=== PATIENT | female | born 1960 | race Caucasian/White ===

== ENCOUNTER 2023-08-12 15:59 | Emergency (ER) | payer BC, OTHER, SELFPAY ==
[2023-08-12 16:06] VITALS: BP 128/74
--- NOTE | 2023-08-12 18:36 | ED.GENMED ---
History of Present Illness
General
Chief Complaint: Musculo-Skeletal Complaint
Source: patient
Exam Limitations: none
Time Seen by Provider: 08/12/23 18:05
Nursing documentation reviewed up to this point in time: agreed with
Travel History
Have you had any contact with someone who has COVID-19?: No
Do you have any symptoms of coronavirus? Fever > 100 degrees, chills, cough, shortness of breath, sore throat, loss of taste or smell, muscle aches, or headache?: No
History of Present Illness
History of Present Illness:
62-year-old female brought to the ER by . reports patient went to sit on the toilet and felt a pop in her right knee unable to bear full weight. Patient is disabled legally blind. Patient does walk around on her own and holds the
cardozo to maneuver in her house. reports he also noticed that her right lower leg is red for the past week. She has not had any fevers.
Past History
Past History
ED Past Medical History: Asthma, CHF (Mild to moderate aortic stenosis, preserved EF.), COPD, GERD, HTN, Hypercholesterolemia, IDDM, Renal failure (Chronic kidney disease stage III), Psychiatric (depression) and Other (PNA, Diverticulitis, Renal
calculus, glaucoma, blind, morbid obesity)
ED Past Surgical History: Orthopedic (Knee surgery, ) and Other (Sinus surgery, left eye surgery)
Social History
Tobacco: Former smoker (30 yrs ago)
Alcohol: None
Drug: None
Personal:
Living: with family
Employment: Employed
Family History
Family History: Hypertension
Review of Systems
Review of Systems
Allergies reviewed?: Yes
All Other Systems: ROS reviewed and negative except as documented in HPI and ROS
Constitutional: Reports no symptoms; Denies fever, fatigue or chills
Musculoskeletal: Reports other (right knee pain/injury /redness to right lower leg x 1 week)
Skin: Reports other (redness to right knee )
Neurological: Reports no symptoms
Hematologic/Lymphatic: Reports no symptoms
Psychiatric: Reports no symptoms
Phy Exam
General Physical Exam
General Presentation: no apparent distress
General age: appears stated age
General Skin: warm and dry
General Habitus: elderly
General Mental: alert
General Hydration: appears well hydrated
Neurological Exam
Neurological Exam: alert and oriented x3
Musculoskeletal Exam
Musculoskeletal Exam: other (Right lower extremity strong pulses patient has minimal swelling to right knee able to flex and extend good range of motion mildly tender to anterior aspect. Patient's right lower leg with minimal swelling which has not
reports has been there for the past week along with redness.)
Skin Exam
Skin Exam: normal color and warm/dry
Psychiatric Exam
Psychiatric Exam: normal mood/affect
Course
Orders/Labs/Results
Orders:
Orders
08/12/23 16:11
Knee, Right 4 or More Views [CR Knee- Right 4 Or More View*] Urgent
Comment: c/o increase pain to right knee
Reason For Exam: heard pop in knee when sitting down on saturday
08/12/23 18:35
Acetaminophen [Tylenol] 650 mg PO NOW STA
Venous Doppler Lwr Ext Rt [US Periph Venous LOWER Ext RT] Urgent
Comment:
Reason For Exam: swelling
08/12/23 18:36
Tramadol HCl [Ultram] 50 mg PO NOW STA
08/12/23 20:17
Doxycycline [Vibramycin] 100 mg PO NOW STA
Vital Signs
Initial and Last Documented VS:
Initial Vital Signs
Temp Pulse Resp BP Pulse Ox
98.2 F 86 16 128/74 98
08/12/23 16:06 08/12/23 16:06 08/12/23 16:06 08/12/23 16:06 08/12/23 16:06
Last Documented Vital Signs
Temp Pulse Resp BP Pulse Ox
98.2 F 86 16 128/74 98
08/12/23 16:06 08/12/23 16:06 08/12/23 16:06 08/12/23 16:06 08/12/23 16:06
Die Cast Patternmaker consulted with Physician
Die Cast Patternmaker consulted with physician?: Yes
Name of Physician Consulted: DR hawkins
MDM/Problems Addressed
MDM/Problems Addressed:
Patient injured her knee while sitting down felt a pop and heard a pop in her right knee. She in addition has right lower extremity redness that has been solved. Patient is legally blind and was not aware. Redness has been there for 1 week.
Patient denies any fever or chills. He reports she is at baseline. Regarding redness and mild swelling to right lower leg will check ultrasound if ultrasound negative will start on antibiotics for mild cellulitis. Patient is afebrile no reports
of fevers at home. Patient is nontoxic. Regarding knee injury there is a small right knee joint effusion on x-ray minimal osteoarthritis. Will place in an immobilizer and DC with Ortho follow-up.
2022: Ultrasound negative for DVT ultrasound report also reads 1.6 fluid collection soft tissue of the right lower leg. Pt nontoxic no fevers afebrile will DC with doxycycline for likely cellulitis however I discussed with patient and that
she will need close outpatient follow-up with ortho and with pcp for re-eval of rle cellulitis. Discussed to return any worsening symptoms
*Radiology
Radiology exam reviewed: radiology read reviewed
*Pulse Oximetry
Patient hypoxic: no
*Critical Care Note
Total Time (30-74mins, 75-104mins- exclusive of procedures): Not Applicable
ED Attending Note
-
Portions of this chart may have been created with voice recognition software.� Occasional wrong word or��sound alike� substitutions may have occurred due to the inherent limitations of voice recognition software.
Discharge Plan
Departure
Patient Disposition: Home (Routine Discharge)
Date of Disposition: 08/12/23
Time of Disposition: 20:28
Patient with high blood pressure during this ER visit?: No
Condition: Fair
Covid-19: Not Applicable
Discharge Problem:
Knee sprain, Cellulitis
Instructions: Knee Immobilizer (DC), Cellulitis (Skin Infection), Adult (DC), Knee Pain (DC)
Prescriptions:
New
doxycycline hyclate 100 mg capsule
100 mg PO BID Qty: 20 0RF
No Action
cetirizine-pseudoephedrine [Zyrtec-D] 5-120 mg Tablet Extended Release 12 Hr
1 tab PO BID
tramadol 50 mg Tablet
50 mg PO HSPRN PRN (Reason: neuropathy)
Patient Comments:
06/10/23 filled on 03/07/23 #15
lorazepam 0.5 mg Tablet
0.5 mg PO BIDPRN PRN (Reason: Anxiety)
Patient Comments:
06/10/23 filled on 05/01/23 #38
divalproex [Depakote] 125 mg Tablet,Delayed Release (Dr/Ec)
125 mg PO BID
omeprazole 20 mg Capsule,Delayed Release(Dr/Ec)
20 mg PO BID
escitalopram oxalate 10 mg Tablet
15 mg PO DAILY
aripiprazole [Abilify] 5 mg Tablet
5 mg PO DAILY
pregabalin [Lyrica] 150 mg Capsule
150 mg PO TID
Patient Comments:
06/10/23 filled on 04/24/23 #60
prescription is written bid but patient takes it tid.
insulin aspart U-100 [Novolog FlexPen U-100 Insulin] 100 unit/mL (3 mL) insulin pen
0 sliding scale dose SC AC
miconazole nitrate [Miconazorb AF] 2 % Powder
1 applic topical BID Qty: 85 0RF
Patient Comments:
06/10/23 patient applies powder to folds and under breasts
atorvastatin 40 mg Tablet
40 mg PO DAILY
furosemide 20 mg Tablet
60 mg PO BID AT 0800,1600 30 Days Qty: 180 0RF
albuterol sulfate 2.5 mg /3 mL (0.083 %) Solution For Nebulization
2.5 mg INHALATION R Q6HPRN PRN (Reason: SOB) 30 Days Qty: 180 0RF
acetaminophen [Tylenol] 325 mg Tablet
650 mg PO TID
ipratropium-albuterol 0.5 mg-3 mg(2.5 mg base)/3 mL Solution For Nebulization
3 ml INHALATION R Q6HPRN PRN (Reason: sob)
candesartan 4 mg Tablet
4 mg PO DAILY
benzonatate 100 mg Capsule
100 mg PO TIDPRN PRN (Reason: cough)
Patient Comments:
06/10/23 there are no pharmacy records or ecw to confirm this medication.
bisacodyl [Dulcolax (bisacodyl)] 5 mg Tablet,Delayed Release (Dr/Ec)
5 mg PO DAILYPRN PRN (Reason: constipation)
ergocalciferol (vitamin D2) [Vitamin D2] 1,250 mcg (50,000 unit) Capsule
1,250 mcg PO MO
Vicks DayQuil Cough 5 mg/5 mL Syrup
10 mg PO BID
Levemir U-100 Insulin 100 unit/mL Solution
45 unit SC BID
melatonin 10 mg Tablet
10 mg PO HS
fluticasone furoate-vilanterol [Breo Ellipta] 200-25 mcg/dose Blister With Device
1 inh INHALATION R BID
albuterol sulfate 90 mcg/actuation Aerosol Powdr Breath Activated
2 inh INHALATION R Q6HPRN PRN (Reason: sob)
amlodipine 10 mg tablet
5 mg PO DAILY
fluticasone propionate [Flonase Allergy Relief] 50 mcg/actuation spray,suspension
1 spray intranasal QPM
guaifenesin 600 mg tablet extended release 12hr
600 mg PO BID
Referrals:
Pako,Perry Matthew, MD [Family Provider] -
Alonso Chamberlain MD [Active] -
Activity Restrictions/Additional Instructions:
As discussed for knee sprain strain injury. You may ice affected area for the first 24 hours 20 minutes at a time several times a day. Keep elevated as much as possible. You may take Tylenol as needed along with your tramadol. Wear immobilizer
for support but remove at night while sleeping. Follow-up with orthopedics in the next several days. call tomorrow to make an appointment.
For cellulitis(skin infection of lower leg): Antibiotic twice a day for the next 10 days. This medication, doxycycline was sent to your pharmacy. Take as directed. You must however follow-up with your family doctor in the next 2 days for
reevaluation of this area. Return if any worsening of symptoms including increasing redness swelling pain red streaking fever chills or any further concerns.
Interventions
Interventions:
*Risk Screen - Suicide Last Done: 08/12/23 17:25
*General Assessment Last Done: 08/12/23 17:25
*Neglect/Abuse Screening Last Done: 08/12/23 18:51
*ED COVID-19 Vaccine History Last Done: 08/12/23 16:06
ED-Musculoskeletal Assessment Last Done: 08/12/23 17:25
[2023-08-12] MEDS: TYLENOL 650 MG PO (18:44)
[2023-08-12] MEDS: ULTRAM 50 MG PO (18:45)
[2023-08-12] MEDS: VIBRAMYCIN 100 MG PO (20:42)
[2023-08-12 20:50] VITALS: BP 140/63
== END 2023-08-12 20:50 | disposition home or self-care (01) ==
LOC: EMR 15:59
PROVIDERS: EMERGENCY PHYSICIAN Student in an Organized Health Care Education/Training Program; FAMILY PHYSICIAN Internal Medicine
DX: S83.91XA Sprain of unspecified site of right knee, initial encounter (principal); X58.XXXA Exposure to other specified factors, initial encounter; Y93.89 Activity, other specified; L03.115 Cellulitis of right lower limb; M17.11 Unilateral primary osteoarthritis, right knee; H54.8 Legal blindness, as defined in USA; I13.0 Hypertensive heart and chronic kidney disease with heart failure and stage 1 through stage 4 chronic kidney disease, or unspecified chronic kidney disease; I50.9 Heart failure, unspecified; E11.22 Type 2 diabetes mellitus with diabetic chronic kidney disease; N18.30 Chronic kidney disease, stage 3 unspecified; E11.40 Type 2 diabetes mellitus with diabetic neuropathy, unspecified; I35.0 Nonrheumatic aortic (valve) stenosis; K21.9 Gastro-esophageal reflux disease without esophagitis; E78.00 Pure hypercholesterolemia, unspecified; F32.A Depression, unspecified; J44.9 Chronic obstructive pulmonary disease, unspecified; E66.01 Morbid (severe) obesity due to excess calories; K57.92 Diverticulitis of intestine, part unspecified, without perforation or abscess without bleeding; M79.7 Fibromyalgia; Z79.4 Long term (current) use of insulin; Z87.891 Personal history of nicotine dependence; Z87.442 Personal history of urinary calculi; Z88.0 Allergy status to penicillin; Z88.8 Allergy status to other drugs, medicaments and biological substances; Z88.1 Allergy status to other antibiotic agents; Z88.3 Allergy status to other anti-infective agents; Z91.040 Latex allergy status
CPT/HCPCS: 99284; 73564; 93971

== ENCOUNTER → 2023-09-21 07:11 | Outpatient (REF) | payer BC, OTHER, SELFPAY | LOC: MRI 07:11 | PROVIDERS: ATTENDING PHYSICIAN Physician Assistant; FAMILY PHYSICIAN Internal Medicine | DX: M23.91 Unspecified internal derangement of right knee (principal) | CPT/HCPCS: 73721 ==

== ENCOUNTER 2023-10-14 19:07 | Inpatient (IN) | payer BC, OTHER, SELFPAY ==
[2023-10-14] VITALS (9 sets, daily range): BP systolic 84–156; BP diastolic 44–90; PULSE 2–89; BMI 44.0
[2023-10-14 16:13] LABS: Glucose - Point of Care 87 mg/dl (70-99)
[2023-10-14 16:13] LABS: % Basophils 0.6 % (0-2); % Eosinophils 2.7 % (0-6); % Immature Granulocytes 0.5 % (0-0.5); % Lymphocytes 10.6 % (20.5-51.1); % Monocytes 8.9 % (1.7-9.3); % Neutrophils 76.7 % (42.2-75.2); Absolute Basophils 0.1 10^3/uL (0-0.2); Absolute Eosinophils 0.4 10^3/uL (0-0.7); Absolute Immature Granulocytes 0.1 10^3/uL (0-0.05); Absolute Lymphocytes 1.6 10^3/uL (1.2-3.4); Absolute Monocytes 1.4 10^3/uL (0.1-0.6); Absolute Neutrophils 11.7 10^3/uL (1.4-6.5); Hematocrit 36.8 % (37.0-47.0); Hemoglobin 11.1 g/dL (12.0-16.0); Mean Corp Hgb Conc. 30.2 g/dL (33.0-37.0); Mean Corpuscular Hgb 24.4 pg (27.0-31.0); Mean Corpuscular Volume 81.1 fL (81.0-99.0); Nucleated Red Blood Cells % 0.2 %; Platelet Count 450 10^3/uL (130-400); Red Blood Cell Count 4.54 10^6/uL (4.20-5.40); White Blood Cell Count 15.2 10^3/uL (4.8-10.8)
[2023-10-14 16:25] LABS: Venous Blood Gas B.E. 3.5 mmol/L (-4 to +4); Venous Blood Gas HCO3 29.5 mmol/L (22-27); Venous Blood Gas O2 Sat % 79.8 %; Venous Blood Gas pCO2 51 mmHg (35-48); Venous Blood Gas pH 7.37 (7.32-7.43); Venous Blood Gas pO2 49 mmHg (30-50)
--- NOTE | 2023-10-14 16:25 | EDRN ---
this RN notified the provider Aman MCNEIL that the pt is currently on 6L NC and the pts Sp02 is 88-90%, this RN will continue to monitor the pt closely
--- NOTE | 2023-10-14 16:34 | EDRN ---
Aman MCNEIL currently at the pts bedside, per provider respiratory is to be notified and provider wants the pt on Bipap, this RN will notify respiratory, the pt is currently still on 6L NC Sp02 88%
--- NOTE | 2023-10-14 16:36 | ED.GENMED ---
History of Present Illness
<Aman Daly PA-C - Last Filed: 10/14/23 17:55>
General
Chief Complaint: Breathing Problem
Source: patient and spouse
Time Seen by Provider: 10/14/23 16:18
Travel History
Have you had any contact with someone who has COVID-19?: No
Do you have any symptoms of coronavirus? Fever > 100 degrees, chills, cough, shortness of breath, sore throat, loss of taste or smell, muscle aches, or headache?: No
History of Present Illness
History of Present Illness:
62-year-old female with past medical history of COPD, hypertension, hyperlipidemia, CAD, diabetes presenting to the emergency department via EMS from home after her had contacted EMS due to progressively worsening shortness of breath over
the last week or so, today significantly worse and unable to improve with inhalers at home accompanied with persisting cough, chills and scant sputum production. patient increased her Lasix from 60 mg twice daily to 80 mg twice daily over the last
week and a half without much relief. She notes previous admissions for COPD exacerbations in the past but has never been on BiPAP nor intubated. EMS reports that on their arrival to patient's house they found her to have a pulse ox of 76% on room
air and was treated with 125 mg of Solu-Medrol. While on the way to the emergency department patient did note some chest discomfort and was treated with an additional 324 mg of aspirin. She is currently denying chest pain presently.
Past History
<Aman Daly PA-C - Last Filed: 10/14/23 17:55>
Past History
ED Past Medical History: Asthma, CHF (Mild to moderate aortic stenosis, preserved EF.), COPD, GERD, HTN, Hypercholesterolemia, IDDM, Renal failure (Chronic kidney disease stage III), Psychiatric (depression) and Other (PNA, Diverticulitis, Renal
calculus, glaucoma, blind, morbid obesity)
ED Past Surgical History: , Orthopedic (Knee surgery, ) and Other (Sinus surgery, left eye surgery)
Social History
Tobacco: Former smoker (30 yrs ago)
Alcohol: None
Drug: None
Personal:
Living: with family
Employment: Employed
Family History
Family History: Hypertension
Review of Systems
<Aman Daly PA-C - Last Filed: 10/14/23 17:55>
Review of Systems
All Other Systems: ROS reviewed and negative except as documented in HPI and ROS
Phy Exam
<Aman Daly PA-C - Last Filed: 10/14/23 17:55>
Physical Exam
Physical Exam:
GENERAL: Alert , Appears very uncomfortable and having a difficult time speaking so patient's was giving most of the history, appeared dyspneic following 1 sentence
EYE: clear conjunctiva b/l
HEAD: NCAT
ENT: o/p clr, mmm.
CARDIAC: Borderline tachycardic rate and rhythm, no murmur
LUNGS: Diffuse wheezing with rhonchorous lung sounds throughout patient, tachypneic, accessory muscle use, difficult time speaking in full sentences short
ABDOMEN: Soft, distended, no r/g, no cvat
NEUROLOGICAL: Alert and oriented
SKIN: Warm and dry, skin intact.
MUSCULOSKELETAL: Trace ankle edema, well perfused.
PSYCH: Normal and appropriate interaction.
Scores
<Aman Daly PA-C - Last Filed: 10/14/23 17:55>
Heart Failure Risk
Heart Failure Risk Score: Yes
History of Stroke or TIA: No
History of intubation for respiratory distress: No
Heart rate on ED arrival >/= 110: No
SaO2 <90% on arrival on room air: Yes
HR >/=110 during 3min walk test (or too ill to perform test): Yes
ECG has acute ischemic changes: No
Urea >/=12mmol/L (BUN 33.6mg/dL): No
Serum CO2>/=35mmol/L: No
Troponin I or T elevated to [place] Level (0.4mg/dL): No
NT-proBNP >/=5,000ng/L (5,000pg/ml): No
HF Risk Score: 3
Admission Status: HIGH RISK 15.9% Consider SNF treatment or admission to hospital
Heart Score for Chest Pain Patients
STEMI patient?: Not applicable
Withdrawal Assessment of Alcohol
Withdrawal Assessment Completed?: Not applicable
<Jameson Ramirez MD - Last Filed: 10/14/23 21:33>
Heart Failure Risk
HF Risk Score: 3
Admission Status: HIGH RISK 15.9% Consider SNF treatment or admission to hospital
Course
<Aman Daly PA-C - Last Filed: 10/14/23 17:55>
Orders/Labs/Results
Orders:
Orders
10/14/23 15:59
Electrocardiogram (*1) Urgent
Reason for Study: Shortness of Breath
EKG- Treatment ONCE
10/14/23 16:01
Complete Blood Count/With Diff Urgent
10/14/23 16:16
Venous Blood Gas Urgent
%Oxygen/Room Air: 88
Comment: on 6L
10/14/23 16:33
Bipap [RESP] Urgent
Patient to use own unit?: No
Inspiratory Pressure (cm H2O): 14
Expiratory Pressure (cm H2O): 6
10/14/23 16:34
Furosemide [Lasix] 40 mg IV NOW STA
Ipratropium/Albuterol Sulfate [Duoneb] 3 ml INH R NOW STA
CR Chest Portable - 1 View Urgent
Comment:
Reason For Exam: SOB, hypoxia
Reason Study Needs to be Portable: Patient Unstable
10/14/23 17:01
Comprehensive Metabolic Panel Urgent
Lactic Acid Q4H
Comment: CANCEL 2nd LACTIC ACID IF 1st LACTIC ACID IS LESS THAN 2
NT-proBNP Urgent
Troponin I Urgent
Blood Culture Q30M
HASEEB Source: Blood/Venous
Specimen Description:
Blood Culture Q30M
HASEEB Source: Blood/Venous
Specimen Description:
10/14/23 17:28
Aztreonam [Azactam] 2,000 mg IV NOW STA
10/14/23 17:43
COVID-19 Antigen Urgent
Source: Nasal Swab
Influenza A+B Rapid Molecular Urgent
HASEEB Source: Nasal Swab
Specimen Description:
10/14/23 17:45
Sterile Water [Sterile Water For Injection] 10 ml .ROUTE .[facility]
10/14/23 17:51
Vancomycin [Vancocin] 2,000 mg 0.9% Sodium Chloride 500 ml [Nss] 500 ml IV NOW
10/14/23 18:15
PULMONARY CONSULT Routine
Consulting Provider: Ned Soria
Was physician already notified: Yes
10/14/23 18:17
Admit/Transfer Patient As Directed
Co-Sign Provider:
Level of Care: Inpatient admission
Assign to:: IMU- Intermediate Care
Physician / Group: laura will
Diagnosis: acute hypoxic respiratory failure
Reason for Hospitalization: accute respiratory failure
Expected length of stay greater than two midnights?: Yes
ELOS- Estimated Length of Stay in days: 3
I certify the patient meets the requirements for IP care: Yes
10/14/23 18:19
Add On- LAB Urgent
Tests Added?: procalcitonin
Code Status As Directed
Resuscitation Status: Full Code
10/14/23 18:[address] [CT Chest With Iv Contrast] Routine
Comment:
Reason For Exam: sob
10/14/23 18:38
UA Reflex to Culture [Urinalysis Reflex To Culture] Urgent
Bladder Scan As Directed
Follow Bladder Retention/Intermittent Cath Algorithm?: Yes
PRN if no void in __ hours: 6
Frequency: Per Retention Algorithm
If Bladder Scan Result >: 400
then:: Straight cath
Straight Cath As Directed
Frequency: Per Retention Algorithm
Additional Instructions: straight cath as needed per acute urinary retention algorithm for 24 hrs
Additional Instructions: for bladder scan greater than 400 mL
10/14/23 21:09
Procalcitonin Urgent
Comment: MUST BE COLLECT - CAN NOT ADD ON
Abnormal Lab Results
10/14/23 10/14/23 10/14/23
16:01 16:16 17:01
WBC 15.2 H 10^3/uL
(4.8-10.8)
Hgb 11.1 L g/dL
(12.0-16.0)
Hct 36.8 L %
(37.0-47.0)
MCH 24.4 L pg
(27.0-31.0)
MCHC 30.2 L g/dL
(33.0-37.0)
RDW 19.0 H %
(11.5-14.5)
Plt Count 450 H 10^3/uL
(130-400)
MPV 11.0 H fL
(7.4-10.4)
Abs Immat Gran (auto) 0.1 H 10^3/uL
(0-0.05)
Absolute Neuts (auto) 11.7 H 10^3/uL
(1.4-6.5)
Absolute Monos (auto) 1.4 H 10^3/uL
(0.1-0.6)
Neutrophils % 76.7 H %
(42.2-75.2)
Lymphocytes % 10.6 L %
(20.5-51.1)
VBG pCO2 51 H mmHg
(35-48)
VBG HCO3 29.5 H mmol/L
(22-27)
BUN 31 H mg/dl
(7-17)
Creatinine 1.6 H mg/dL
(0.6-1.0)
Glucose 125 H mg/dl
(70-99)
10/14/23 16:01
10/14/23 17:01
Vital Signs
Initial and Last Documented VS:
Initial Vital Signs
Temp Pulse Resp BP Pulse Ox
37.0 C 98 22 139/44 91
10/14/23 16:02 10/14/23 16:02 10/14/23 16:02 10/14/23 16:02 10/14/23 16:02
Last Documented Vital Signs
Temp Pulse Resp BP Pulse Ox
36.9 C 77 16 156/66 97
10/14/23 18:37 10/14/23 21:00 10/14/23 21:00 10/14/23 21:00 10/14/23 20:45
Full Stack Php Developer consulted with Physician
Full Stack Php Developer consulted with physician?: Yes
Name of Physician Consulted: Ashley
<Jameson Ramirez MD - Last Filed: 10/14/23 21:33>
Orders/Labs/Results
Orders:
Orders
10/14/23 15:59
Electrocardiogram (*1) Urgent
Reason for Study: Shortness of Breath
EKG- Treatment ONCE
10/14/23 16:01
Complete Blood Count/With Diff Urgent
10/14/23 16:16
Venous Blood Gas Urgent
%Oxygen/Room Air: 88
Comment: on 6L
10/14/23 16:33
Bipap [RESP] Urgent
Patient to use own unit?: No
Inspiratory Pressure (cm H2O): 14
Expiratory Pressure (cm H2O): 6
10/14/23 16:34
Furosemide [Lasix] 40 mg IV NOW STA
Ipratropium/Albuterol Sulfate [Duoneb] 3 ml INH R NOW STA
CR Chest Portable - 1 View Urgent
Comment:
Reason For Exam: SOB, hypoxia
Reason Study Needs to be Portable: Patient Unstable
10/14/23 17:01
Comprehensive Metabolic Panel Urgent
Lactic Acid Q4H
Comment: CANCEL 2nd LACTIC ACID IF 1st LACTIC ACID IS LESS THAN 2
NT-proBNP Urgent
Troponin I Urgent
Blood Culture Q30M
HASEEB Source: Blood/Venous
Specimen Description:
Blood Culture Q30M
HASEEB Source: Blood/Venous
Specimen Description:
10/14/23 17:28
Aztreonam [Azactam] 2,000 mg IV NOW STA
10/14/23 17:43
COVID-19 Antigen Urgent
Source: Nasal Swab
Influenza A+B Rapid Molecular Urgent
HASEEB Source: Nasal Swab
Specimen Description:
10/14/23 17:45
Sterile Water [Sterile Water For Injection] 10 ml .ROUTE .[facility]
10/14/23 17:51
Vancomycin [Vancocin] 2,000 mg 0.9% Sodium Chloride 500 ml [Nss] 500 ml IV NOW
10/14/23 18:15
PULMONARY CONSULT Routine
Consulting Provider: Ned Soria
Was physician already notified: Yes
10/14/23 18:17
Admit/Transfer Patient As Directed
Co-Sign Provider:
Level of Care: Inpatient admission
Assign to:: IMU- Intermediate Care
Physician / Group: laura will
Diagnosis: acute hypoxic respiratory failure
Reason for Hospitalization: accute respiratory failure
Expected length of stay greater than two midnights?: Yes
ELOS- Estimated Length of Stay in days: 3
I certify the patient meets the requirements for IP care: Yes
10/14/23 18:19
Add On- LAB Urgent
Tests Added?: procalcitonin
Code Status As Directed
Resuscitation Status: Full Code
10/14/23 18:[address] [CT Chest With Iv Contrast] Routine
Comment:
Reason For Exam: sob
10/14/23 18:38
UA Reflex to Culture [Urinalysis Reflex To Culture] Urgent
Bladder Scan As Directed
Follow Bladder Retention/Intermittent Cath Algorithm?: Yes
PRN if no void in __ hours: 6
Frequency: Per Retention Algorithm
If Bladder Scan Result >: 400
then:: Straight cath
Straight Cath As Directed
Frequency: Per Retention Algorithm
Additional Instructions: straight cath as needed per acute urinary retention algorithm for 24 hrs
Additional Instructions: for bladder scan greater than 400 mL
10/14/23 21:09
Procalcitonin Urgent
Comment: MUST BE COLLECT - CAN NOT ADD ON
Abnormal Lab Results
10/14/23 10/14/23 10/14/23
16:01 16:16 17:01
WBC 15.2 H 10^3/uL
(4.8-10.8)
Hgb 11.1 L g/dL
(12.0-16.0)
Hct 36.8 L %
(37.0-47.0)
MCH 24.4 L pg
(27.0-31.0)
MCHC 30.2 L g/dL
(33.0-37.0)
RDW 19.0 H %
(11.5-14.5)
Plt Count 450 H 10^3/uL
(130-400)
MPV 11.0 H fL
(7.4-10.4)
Abs Immat Gran (auto) 0.1 H 10^3/uL
(0-0.05)
Absolute Neuts (auto) 11.7 H 10^3/uL
(1.4-6.5)
Absolute Monos (auto) 1.4 H 10^3/uL
(0.1-0.6)
Neutrophils % 76.7 H %
(42.2-75.2)
Lymphocytes % 10.6 L %
(20.5-51.1)
VBG pCO2 51 H mmHg
(35-48)
VBG HCO3 29.5 H mmol/L
(22-27)
BUN 31 H mg/dl
(7-17)
Creatinine 1.6 H mg/dL
(0.6-1.0)
Glucose 125 H mg/dl
(70-99)
10/14/23 16:01
10/14/23 17:01
Vital Signs
Initial and Last Documented VS:
Initial Vital Signs
Temp Pulse Resp BP Pulse Ox
37.0 C 98 22 139/44 91
10/14/23 16:02 10/14/23 16:02 10/14/23 16:02 10/14/23 16:02 10/14/23 16:02
Last Documented Vital Signs
Temp Pulse Resp BP Pulse Ox
36.9 C 77 16 156/66 97
10/14/23 18:37 10/14/23 21:00 10/14/23 21:00 10/14/23 21:00 10/14/23 20:45
<Aman Daly PA-C - Last Filed: 10/14/23 17:55>
MDM/Problems Addressed
Differential Diagnosis Includes:
COPD, CHF, pneumonia, viral syndrome
MDM/Problems Addressed:
62-year-old female presenting emergency department for evaluation of acute shortness of breath that has been gradually worsening over the last couple of days, normally does not require any oxygen but was found to be 76% on room air. Patient maxed
out on nasal cannula here with oxygen saturation still in the mid 80s. Having a difficult time speaking full sentences, tachypneic with significant rhonchorous lung sounds with wheezing. Will place on BiPAP for comfort. Lab work had been
initiated in triage which shows a leukocytosis and leftward shift. Lactic acid and blood cultures were added on. Anticipate admission for respiratory failure.
Chronic conditions affecting care: COPD
Acute Exacerbation and/or Progression of Chronic Illness: COPD
<Aman Daly PA-C - Last Filed: 10/14/23 17:55>
*Radiology
Radiology exam reviewed: preliminary read by ED provider (Patchy pneumonia)
*Pulse Oximetry
Patient hypoxic: yes
*EKG
Interpreted by ED Provider?: Yes
Comparison EKG: changes noted
Heart Rate: 91
Rate: normal
Rhythm: sinus
Ischemia: T-wave inversion (V5-V6)
*Brick Setter Interpretation
Rate: tachycardiac
Rhythm: sinus
*Critical Care Note
Total Time (30-74mins, 75-104mins- exclusive of procedures): 35
comment:
Critical care statement: A total of 35 minutes of critical care time was provided for this patient. This includes management of unstable vital signs, evaluation of the patient at bedside, reviewing the patient's pertinent medical records, discussion
with consultants, review of old EKGs and review of pertinent medical records. This time with separate from time utilized to perform the aforementioned documented procedures
Data Reviewed
Review of Other/Old Records Reveals: Labs and Records
Source: patient, records and spouse
<Aman Daly PA-C - Last Filed: 10/14/23 17:55>
Patient Management
Discussion with other providers: Hospitalist
Escalation/DeEscalation of care consider admission/obs:
Patient's x-ray is consistent with pneumonia. Antibiotics ordered. Patient states she feels much better on BiPAP presently. Her respiratory rate has significantly improved and she is able to speak in full sentences without being extremely just.
Hospitalist team to admit for continued evaluation and treatment of pneumonia, COPD exacerbation and respiratory failure
ED Attending Note
<Aman Daly PA-C - Last Filed: 10/14/23 17:55>
-
Portions of this chart may have been created with voice recognition software.� Occasional wrong word or��sound alike� substitutions may have occurred due to the inherent limitations of voice recognition software.
<Jameson Ramirez MD - Last Filed: 10/14/23 21:33>
ED Attending Note
Patient seen and examined by attending physician: Yes
ED Attending Note:
I have seen and evaluated the patient with a [id number] encounter. I have spoken to the advance practicer provider and involved in the medical history, the physical exam, medical decision making.
Evaluation and management service: agree unless noted differently below.
Results interpretation: agree unless noted differently below.
Focused HPI: 62-year-old female with extensive medical history including COPD, CHF, CAD, obesity, diabetes who presents to the emergency room via EMS in mild respiratory distress. She says she has had increasing shortness of breath over the past
week. Today symptoms much worse. EMS called to bring to the hospital. Apparently was hypoxic for EMS. She did have wheezing was given a DuoNeb and was given IV Solu-Medrol from EMS. He on arrival she continues to pain or shortness of breath.
She says she has had a hacking cough. Subjective chills. She has no increased edema in her legs but feels that she has some abdominal wall edema.
Physical exam: Awake and alert. Tachypneic, hypoxic currently on 6 L nasal cannula at 89%; she is tachycardic; normotensive; afebrile; she has diffuse Rales bilaterally on lung auscultation. No cardiac rubs gallops or murmurs. No notable edema in
the lower extremities questionable trace edema in the abdominal wall.
Medical Decision Makin-year-old female presents in respiratory distress worsening dyspnea over the past week associated with cough. She received DuoNeb and steroid prehospital. Arrives with parents as above. Placed on BiPAP with improvement
in respiratory status. IV placed and labs sent off for CBC shows a leukocytosis to 15.2. CMP shows creatinine of 1.6. Troponin and BNP noted. Viral labs negative. Chest x-ray concerning for significant pneumonia. She was given some Lasix with
concern for potential element of CHF. Covered with antibiotics. Admitted to the hospitalist.
Discharge Plan
Departure
Patient Disposition: Admit
Date of Disposition: 10/14/23
Time of Disposition: 17:32
Presentation/result/management discussed w/ accepting MD/DO: Hospitalist
Discharge Problem:
Pneumonia, Acute exacerbation of chronic obstructive pulmonary disease, Acute exacerbation of CHF (congestive heart failure), Respiratory failure
Interventions
Interventions:
*Risk Screen - Suicide Last Done: 10/14/23 16:02
*General Assessment Last Done: 10/14/23 16:02
*Neglect/Abuse Screening Last Done: 10/14/23 16:02
ED- Fall Risk Assessment Last Done: 10/14/23 16:02
*ED COVID-19 Vaccine History Last Done: 10/14/23 16:02
ED- Cardiac Assessment Last Done: 10/14/23 19:35
ED- Pulmonary Assessment Last Done: 10/14/23 19:35
[2023-10-14] MEDS: LASIX 40 MG IV (17:04)
[2023-10-14] MEDS: DUONEB 3 ML INH (17:04)
--- NOTE | 2023-10-14 17:09 | EDRN ---
labs redrawn from the pt due to lab notifying this RN that the labs were hemolyzed, respiratory currently at the pts bedside and is placing the pt on Bipap
[2023-10-14 17:37] LABS: Lactic Acid 1.4 mmol/L (0.7-2.0)
[2023-10-14 17:40] LABS: ALT (SGPT) 19 U/L (0-35); AST (SGOT) 29 U/L (14-36); Alkaline Phosphatase 123 U/L (38-126); Blood Urea Nitrogen 31 mg/dl (7-17); Calcium 8.6 mg/dl (8.4-10.2); Carbon Dioxide 28 mmol/L (22-30); Chloride 100 mmol/L (98-107); Estimated Creatinine Clearance 45 ml/min; Glucose 125 mg/dl (70-99); Potassium 3.6 mmol/L (3.5-5.1); Sodium 137 mmol/L (135-145); Total Bilirubin 0.7 mg/dl (0.2-1.3); eGFR 36.47
[2023-10-14] MEDS: AZACTAM 2000 MG IV (17:45)
--- NOTE | 2023-10-14 17:48 | HPS.HSE ---
Addendum entered and electronically signed by Danie Townsend MD 10/14/23 18:39:
I saw and examined the patient.
The [employer] OPERATOR or PA's note was reviewed and I agree with the note.
Comment: 62-year female with history of COPD, CAD, hypertension, hyperlipidemia came to the hospital with worsening shortness of breath for about 1 week. Per at bedside patient also has been gaining some weight. Does had chills along with
cough. Denies any fever. Patient also had a fall about a month ago and had sustained a nondisplaced fracture of the fibular head, meniscus tear and rupture of the ACL. Patient was seen by [facility] Dr. Leach and was recommended to
follow-up with them in 1 month. Patient was hypoxic and was given IV steroids. Patient was also placed on BiPAP and also had nebulizer treatment. When I evaluate the patient she was feeling better. Patient also required IV Lasix in the ED.
Consult pulmonary, cardiology. Check CT chest. Check procalcitonin. Start antibiotics. Blood culture. COVID, flu negative. Check urine Legionella, strep. Admit to IMU. Monitor renal function
General:�Well Developed, Well Nourished and No Apparent Distress
HEENT:�NormoCephalic, Moist mucous membranes and Atraumatic
Respiratory:�Rhonchi
Cardiac:�S1/S2 and Regular Rhythm; No Murmur or Rub
GI:�Soft, Non Tender, Non Distended and Normal Bowel Sounds; No Organomegaly
Rectal:�Deferred by Provider
Musculoskeletal:�No Clubbing, No Cyanosis and Other (Bilateral lower extremities edema)
Skin:�No Rash
Neuro:�AO x 3 and Nonfocal/grossly intact
Psych:�Calm
I spent a total of 78 minutes with the patient or on the floor. More than 50% of this time involved counseling and coordination of care.
Original Note:
Family Physician
-
Family Physician: Perry Min
Chief Complaint
-
sob
cough
History of Present Illness
62-year-old female with past medical history of COPD, hypertension, hyperlipidemia, CAD, diabetes presented to us with worsening sob for more than a week. stated cough with green sputum. sob worse with activity. stated orthopnea. not sure
about the weight gain. as per , no swelling in B/L LE but noticed abdominal swelling. denied STEEN, dizzy or syncopal episode. stated chest pain with cough. denied abdominal pain, n, v, d. denied dysuria or hematuria. patient increased her Lasix
from 60 mg twice daily to 80 mg twice daily over the last week and a half without much relief.�
a month ago she had a fall and sustained nondisplaced fracture of the fibular head, meniscus tear, rupture of the ACL. Patient is following up with [facility] orthopedics
On arrival patient was hypoxic 75 on room air. Patient placed on BiPAP. Received nebulizer treatment and steroids in ER. Admitting for further management
Medical History
Past Medical History
Past Medical History: Reports Other
Additional Past Medical History:
Lung nodule
Chronic tachycardia
Essential hypertension
COPD
Type 2 diabetes
Chronic bronchitis
Hyperlipidemia
Congestive heart failure
Anxiety
Bipolar
Neuropathy
Depression
Bilateral blindness
Past Surgical History: Reports Other
Additional Past Surgical History:
Sinus surgery
Bleeding left flank
To
Social History
Tobacco: Former Smoker
Alcohol: None
Drug: None
Personal:
Living: With Family
Family History
Family History: Not pertinent
Allergies / Home Medications
Allergies reflects when Allergies were last updated in [facility].
Home Medications with original date entered in [facility]
Allergy/Medication List:
Allergies
Allergy/AdvReac Type Severity Reaction Status Date / Time
cefaclor Allergy Unknown Verified 08/12/23 16:08
Cephalosporins Allergy Unknown Verified 08/12/23 16:08
ipecac Allergy Unknown Verified 08/12/23 16:08
latex Allergy Rash Verified 08/12/23 16:08
Penicillins Allergy Unknown Verified 08/12/23 16:08
prochlorperazine Allergy Tongue Verified 08/12/23 16:08
Swelling
Home Medications
cetirizine 5 mg-pseudoephedrine ER 120 mg tablet,extended release,12hr (Zyrtec-D) 1 tab PO BID Allergies 10/30/22
escitalopram oxalate 10 mg tablet 15 mg PO DAILY Depression 10/30/22
insulin aspart U-100 100 unit/mL (3 mL) subcutaneous pen (Novolog FlexPen U-100 Insulin aspart) 0 sliding scale dose SC AC Diabetes 10/30/22
lorazepam 0.5 mg tablet 0.5 mg PO BIDPRN PRN Anxiety 10/30/22
omeprazole 20 mg capsule,delayed release 20 mg PO BID Gastrointestinal issue 10/30/22
pregabalin 150 mg capsule (Lyrica) 150 mg PO TID Neurological Condition 10/30/22
tramadol 50 mg tablet 50 mg PO Q4H PRN moderate pain 10/30/22
atorvastatin 40 mg tablet 40 mg PO DAILY High Cholesterol 02/18/23
furosemide 20 mg tablet 60 mg PO BID AT 0800,1600 30 days #180 tabs 02/27/23
albuterol sulfate 90 mcg/actuation breath activated powder inhaler 2 inh inhalation R Q6HPRN PRN sob 06/10/23
amlodipine 10 mg tablet 10 mg PO DAILY 06/10/23
fluticasone furoate 200 mcg-vilanterol 25 mcg/dose inhalation powder (Breo Ellipta) 1 inh inhalation R BID 06/10/23
ipratropium 0.5 mg-albuterol 3 mg (2.5 mg base)/3 mL nebulization soln 3 ml inhalation R Q6HPRN PRN sob 06/10/23
aspirin 81 mg tablet,delayed release 81 mg PO DAILY 10/14/23
diclofenac sodium 75 mg tablet,delayed release 75 mg PO BID PRN moderate pain 10/14/23
insulin glargine 100 unit/mL subcutaneous solution (Lantus U-100 Insulin) 45 unit SC BID 10/14/23
Review of Systems
-
Constitutional: Reports No Symptoms
Respiratory: Reports Cough and Trouble Breathing
Cardiac: Reports No Symptoms
Abdomen/GI: Reports No Symptoms
: Reports No Symptoms
Musculoskeletal: Reports No Symptoms
Skin: Reports No Symptoms
Neurological: Reports No Symptoms
Endocrine: Reports No Symptoms
Hematologic/Lymphatic: Reports No Symptoms
Psych: Reports No Symptoms
Physical Exam
Vital Signs
Vital Signs
Temp Pulse Resp BP Pulse Ox
98.6 F 90 31 139/44 94
10/14/23 16:02 10/14/23 17:15 10/14/23 17:15 10/14/23 17:04 10/14/23 17:15
Physical Exam
General: Well Developed, Well Nourished and No Apparent Distress
HEENT: NormoCephalic, Moist mucous membranes and Atraumatic
Respiratory: Rhonchi
Cardiac: S1/S2 and Regular Rhythm; No Murmur or Rub
GI: Soft, Non Tender, Non Distended and Normal Bowel Sounds; No Organomegaly
Rectal: Deferred by Provider
Musculoskeletal: No Clubbing, No Cyanosis and Other (Bilateral lower extremities edema)
Skin: No Rash
Neuro: AO x 3 and Nonfocal/grossly intact
Psych: Calm
Laboratory Results
-
10/14/23 16:01
10/14/23 17:01
Laboratory Results
Lactic Acid Cancelled 10/14/23 20:45
Total Bilirubin 0.7 mg/dl (0.2-1.3) 10/14/23 17:01
AST 29 U/L (14-36) 10/14/23 17:01
ALT 19 U/L (0-35) 10/14/23 17:01
Alkaline Phosphatase 123 U/L (38-126) 10/14/23 17:01
Troponin I Cancelled 10/14/23 16:01
Data Reviewed
-
Diagnostic Radiology: Report Reviewed by me
Lab Data: Labs Reviewed by me
Impression/Plan
-
# Acute hypoxic respiratory failure multifactorial
-On arrival patient was 75 percentage on room air
-At present patient requiring BiPAP
-Nebs as needed for short of breath and wheezing
-Continue supplemental oxygen to keep sat greater than 92
-Wean as tolerated
-COVID and flu negative
-Will obtain CT of chest
-Obtain strep pneumonia sputum culture urine Legionella
# COPD exacerbation
-Decadron 4 Mg IV every 6 hours
-Nebs
-Continue to monitor
-Breo continued
# Pneumonia
-WBC 15.2
-Chest x-ray with impression of There is new moderately extensive patchy nodular alveolar airspace disease throughout both lungs most consistent with pneumonia. Neoplasm/metastasis is less likely given the interval development of these findings
since the 06/10/2023 examination.
-Tylenol as needed for fever
-IV IV Vanco and aztreonam continued
-Monitor WBCs
-Blood culture sent from ER
# Acute on chronic CHF exacerbation
-IV Lasix 40 twice a day
-Strict CONCEPCION
-Daily weight
-Cardiology consulted
# Anemia of chronic disease
-Hemoglobin 11.1
-No active bleeding
-Continue to trend
# Chronic kidney disease stage IIIa
-Creatinine 1.6
-Trend creatinine
#Essential tremors
#Benign Hypertension
�- Stable
-Norvasc continued
#Diabetes Mellitus, Type II
�-Sliding scale
�- Continue Lantus 45 twice a day
�- Monitor sugars and continue coverage insulin
#Bipolar/Anxiety/Depression
�-Celexa, lorazepam continued
#Morbid Obesity due to excess calories
�- Affects all aspects of care
# Hyperlipidemia
-Statin continued
# Chronic neuropathy pain/fibromyalgia
-Diclofenac, tramadol, Lyrica continued
# Acute/subacute nondisplaced fracture of fibular head/complete tear of medial meniscus/rupture of ACL
-Lower extremity MRI with the impression of Acute or subacute nondisplaced fracture of the fibular head.
2. Small osseous contusions at the posterior aspects of the medial tibial plateau and lateral tibial plateau.
3. Complex tear of the posterior horn of the medial meniscus.
4. Rupture of the ACL.
5. Large knee joint effusion.
6. Small Patton's cyst.
-Partial weightbearing to right lower extremities
-Patient to follow-up with orthopedics patient
# Legally blindness
DVT Prophylaxis: Heparin subcu
Code Status: Full Code
[2023-10-14 17:49] LABS: NT-proBNP 622 pg/ml; Troponin I < 0.012 ng/ml
[2023-10-14 18:02] LABS: COVID-19 Antigen Negative (Negative)
[2023-10-14] MEDS: VANCOCIN 540 MG IV (18:02)
--- NOTE | 2023-10-14 18:21 | EDRN ---
the pt is resting in stretcher in the lowest position, side rails up x2, call estrada within reach, HOB elevated, the pt is currently NSR in the 90's, last BP 130/70 (86), the pt is tolerating Bipap with Sp02 at 97%, RR 16, no c/o chest pain, no c/o
SOB currently, awaiting admission orders, will continue to monitor the pt closely
[2023-10-14 21:53] LABS: Procalcitonin 0.06 ng/ml (0.0-0.25)
[2023-10-15] VITALS (17 sets, daily range): BP systolic 128–162; BP diastolic 42–77; PULSE 2–101; O2SAT 88; BMI 44.6
--- NOTE | 2023-10-15 00:43 | PTCARENOTE ---
Pt arrived to floor via stretcher from the ED. Pt legally blind. Pt AAOx3. HR in the 80's in NSR on the monitor. POX 92% on Bipap 15/6 with 10 LO2. Lung course t/o dec @ bases. + bowel, round obese abd. Pt verbalized having to use bathroom, pt
assisted to BSCx1. Pt able to feel around and stable on feet. Pt unable to void at this time. Pt assisted back to bed. Palpable peripheral pulses present. +1 B/L LE edema noted. Right knee immobizer in place. Pt reports RLE pain 8/10 at this time.
Pale skin. Pt positioned per comfort. Will monitor.
--- NOTE | 2023-10-15 01:12 | W.PN.UPDATE ---
Update Note
Progress Note Update
lyrica dosing 150mg tid changed to 150mg bid based on crcl 45 (max 300mg per day per pharmacy)
[2023-10-15] MEDS: ULTRAM 50 MG PO ×3 (01:29→20:09)
[2023-10-15] MEDS: LYRICA 150 MG PO ×4 (01:29→21:52)
[2023-10-15] MEDS: MUCINEX 600 MG PO ×3 (01:29→20:08)
[2023-10-15] MEDS: AZACTAM 1000 MG IV ×3 (01:40→17:15)
[2023-10-15] MEDS: HEPARIN 5000 UNITS SC ×3 (01:40→20:08)
[2023-10-15] MEDS: STERILE WATER FOR INJECTION 10 ML IV ×3 (01:40→17:15)
[2023-10-15] MEDS: DUONEB INH (02:00)
--- NOTE | 2023-10-15 02:30 | PTCARENOTE ---
Pt bladder scanned for 725ml. Pt assisted to BSC. Pt able to void 500ml yellow urine. pt assisted back to bed. POX 87-88% with activity. POX 96% once settled at rest. No other changes in assessment noted at this time. Will continue to monitor.
[2023-10-15 04:59] LABS: Hemoglobin 8.2 g/dL (12.0-16.0); Mean Corp Hgb Conc. 31.5 g/dL (33.0-37.0); Mean Corpuscular Hgb 24.2 pg (27.0-31.0); Mean Corpuscular Volume 76.7 fL (81.0-99.0); Mean Platelet Volume 10.9 fL (7.4-10.4); Platelet Count 360 10^3/uL (130-400); Red Blood Cell Count 3.39 10^6/uL (4.20-5.40); Red Cell Dist. Width 18.4 % (11.5-14.5); White Blood Cell Count 12.3 10^3/uL (4.8-10.8)
[2023-10-15 05:20] LABS: Troponin I < 0.012 ng/ml
[2023-10-15 06:35] LABS: Blood Urea Nitrogen 33 mg/dl (7-17); Calcium 8.6 mg/dl (8.4-10.2); Carbon Dioxide 26 mmol/L (22-30); Chloride 103 mmol/L (98-107); Estimated Creatinine Clearance 49 ml/min; Glucose 205 mg/dl (70-99); Potassium 3.8 mmol/L (3.5-5.1); Sodium 137 mmol/L (135-145)
[2023-10-15] MEDS: SYMBICORT 160/4.5 MCG INHALER 2 PUFF INH (07:43)
[2023-10-15] MEDS: DUONEB 3 ML INH ×4 (07:44→19:33)
--- NOTE | 2023-10-15 07:58 | CON.CAR ---
Consultation
Consultation Request
Date/Time Consultation Requested: October 15 2023
Date/Time Consultation Performed: October 15 2023
Requesting Provider: Dr Townsend
Performing Provider: Dr Angel
Reason for Consultation: HF
Medical History
-
Chief Complaint: shortness of breath.
History of Present Illness:
.
Heather is a 62-year-old female with past medical history of acute on chronic heart failure, mild to moderate aortic stenosis, COPD, hypertension, hyperlipidemia, diabetes with diabetic retinopathy and blindness, morbid obesity, bipolar anxiety
depression who presented with progressive shortness of breath. She did note some weight gain and abdominal fullness. Chest pain with coughing. Her Lasix was increased over the last week without much improvement. She also recently had a fall a
month ago and sustained a nondisplaced fracture of the fibular head, meniscus tear and rupture of ACL and is being followed by [facility] orthopedics.
In the emergency room she was found to be hypoxic on room air placed on BiPAP received IV Lasix, nebulizer and steroids. She was flu and COVID-negative. She was admitted to IMU. Cardiology was consulted for further evaluation and treatment.
She was last seen in the hospital in February 2023 with multifactorial dyspnea. She last saw Dr. Frias April 2023 in the office and appeared euvolemic at that time.
Past Medical History:
Chronic HFpEF
Chronic tachycardia
Aortic stenosis
COPD/asthmatic bronchitis
Hyponatremia/hyperkalemia
Type 2 diabetes
Hypertension
CKD
Hypercholesterolemia
Diabetic retinopathy with bilateral blindness.
GERD
Morbid obesity
Bipolar/anxiety depression
Fibromyalgia
Tonsillectomy
Social History
Tobacco: Former Smoker
Alcohol: Occasional
Drug: None
Personal:
Living: With Family
Employment: Disabled
Family History
Family History: Diabetes
Allergies / Home Medications
Allergy/AdvReac Type Severity Reaction Status Date / Time
cefaclor Allergy Unknown Verified 10/14/23 20:52
Cephalosporins Allergy Unknown Verified 10/14/23 20:52
ipecac Allergy Unknown Verified 10/14/23 20:52
latex Allergy Rash Verified 10/14/23 20:52
Penicillins Allergy Unknown Verified 10/14/23 20:52
prochlorperazine Allergy Tongue Verified 10/14/23 20:52
Swelling
Medication Instructions Recorded Confirmed Type
cetirizine 5 mg-pseudoephedrine ER 1 tab PO BID Allergies 10/30/22 10/14/23 History
120 mg tablet,extended
release,12hr (Zyrtec-D)
escitalopram oxalate 10 mg tablet 15 mg PO DAILY Depression 10/30/22 10/14/23 History
insulin aspart U-100 100 unit/mL 0 sliding scale dose SC AC Diabetes 10/30/22 10/14/23 History
(3 mL) subcutaneous pen (Novolog
FlexPen U-100 Insulin aspart)
lorazepam 0.5 mg tablet 0.5 mg PO BIDPRN PRN Anxiety 10/30/22 10/14/23 History
omeprazole 20 mg capsule,delayed 20 mg PO BID Gastrointestinal issue 10/30/22 10/14/23 History
release
pregabalin 150 mg capsule (Lyrica) 150 mg PO TID Neurological 10/30/22 10/14/23 History
Condition
tramadol 50 mg tablet 50 mg PO Q4H PRN moderate pain 10/30/22 10/14/23 History
atorvastatin 40 mg tablet 40 mg PO DAILY High Cholesterol 02/18/23 10/14/23 History
furosemide 20 mg tablet 60 mg PO BID AT 0800,1600 30 days 02/27/23 10/14/23 Rx
#180 tabs
albuterol sulfate 90 mcg/actuation 2 inh inhalation R Q6HPRN PRN sob 06/10/23 10/14/23 History
breath activated powder inhaler
amlodipine 10 mg tablet 10 mg PO DAILY 06/10/23 10/14/23 History
fluticasone furoate 200 1 inh inhalation R BID 06/10/23 10/14/23 History
mcg-vilanterol 25 mcg/dose
inhalation powder (Breo Ellipta)
ipratropium 0.5 mg-albuterol 3 mg 3 ml inhalation R Q6HPRN PRN sob 06/10/23 10/14/23 History
(2.5 mg base)/3 mL nebulization
soln
aspirin 81 mg tablet,delayed 81 mg PO DAILY 10/14/23 10/14/23 History
release
diclofenac sodium 75 mg 75 mg PO BID PRN moderate pain 10/14/23 10/14/23 History
tablet,delayed release
insulin glargine 100 unit/mL 45 unit SC BID 10/14/23 10/14/23 History
subcutaneous solution (Lantus
U-100 Insulin)
Review of Systems
-
History Source: Patient
All other systems: Negative unless noted
Respiratory: Trouble Breathing
Musculoskeletal: Other (Chest pain with coughing)
Physical Exam
Vital Signs
Temp Pulse Resp BP Pulse Ox
97.7 F 89 17 135/52 92
10/14/23 23:55 10/15/23 07:54 10/15/23 07:54 10/15/23 06:00 10/15/23 07:54
General: No acute distress, AAOX3
Neck: Negative JVD
Heart: Regular, Negative S3 positive S1/S2, Negative S4, No murmur
Lungs: Rhonchi throughout. No wheezing/rales
Abd: Morbid obesity. Positive BS, NT/ND, neg rebound/rigidity/guarding
Ext: Negative cyanosis/clubbing/edema
Neuro: nonfocal
Lab Results
10/15/23 04:04
10/15/23 04:04
Troponin I < 0.012 ng/ml 10/15/23 04:04
Xfi-W-Ivkeevprfws Pept 622 pg/ml 10/14/23 17:01
Impression / Plan
-
.
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 Frias
Impression:
Multifactorial dyspnea
Acute on chronic HFpEF
COPD/asthmatic bronchitis
Mild to moderate aortic stenosis
Recent nondisplaced fracture fibular head, complete tear medial meniscus/rupture ACL
Type 2 diabetes
Hypertension
CKD
Anemia of chronic disease
Hypercholesterolemia
Diabetic retinopathy with bilateral blindness.
GERD
Morbid obesity
Bipolar/anxiety depression
Fibromyalgia
Plan:
Multifactorial dyspnea. Agree with pulmonary toilet and broad-spectrum antibiotics.
Her O2 requirements are increased. Wean as able.
IV steroids as per primary service
Continue IV diuresis with Lasix 40 mg IV twice daily
Check echocardiogram to reevaluate left ventricular systolic function in the setting of multifactorial dyspnea. She has a history of mild to moderate aortic stenosis
Troponin has been negative. EKG is without acute changes
She is 10 pounds up from her last hospitalization.
Her creatinine has improved with diuresis and her weight is down over the last 24 hours.
Continue to monitor I's and O's and daily weights.
Cont tx of hyperlipidemia with Lipitor.
Discussed with nursing.
Data Reviewed
-
EKG: Tracing Personally Visualized and interpreted
Radiology: Image Personally Visualized and interpreted and Report Reviewed by me
CT Scan: Report Reviewed by me
Labs: Labs Reviewed by me
Old Records: Reviewed
[2023-10-15 08:09] LABS: Glucose - Point of Care 211 mg/dl (70-99)
[2023-10-15 08:43] LABS: Glycohemoglobin (HgbA1c) 6.5 % (4.0-5.6)
[2023-10-15] MEDS: LANTUS 0.450000000000000011 UNITS SC ×2 (08:54→21:53)
[2023-10-15] MEDS: DECADRON 4 MG IV ×3 (08:55→20:09)
[2023-10-15] MEDS: LASIX 40 MG IV ×2 (08:56→17:15)
[2023-10-15] MEDS: PROTONIX 40 MG PO ×2 (08:58→20:08)
[2023-10-15] MEDS: NORVASC 10 MG PO (08:58)
[2023-10-15] MEDS: LIPITOR 40 MG PO (08:58)
[2023-10-15] MEDS: ASPIR LOW (ENTERIC COATED) 81 MG PO (09:00)
[2023-10-15] MEDS: LEXAPRO 15 MG PO (09:00)
--- NOTE | 2023-10-15 09:09 | CON.PUL ---
Consultation
Consultation Request
Date/Time Consultation Requested: 10/14/23
Date/Time Consultation Performed: 10/15/23
Performing Provider: Moshe
Reason for Consultation: SOB, PNA
Medical History
-
History of Present Illness:
Patient is a 62-year-old female with past medical history of COPD, hypertension, hyperlipidemia, CAD, diabetes presented to ER with worsening SOB x 1 week associated with cough with green sputum. She does have history of COPD in past, former
smoker 2 PPD for 20 years, quit in her 30s. No prior PFTs for review.
On arrival patient was hypoxic 75 on room air.� Patient placed on BiPAP.� Received nebulizer treatment and steroids in ER. CXR and CT showing multifocal PNA, she is started on IV abx.� Admitting for further management.
Past Medical History
Past Medical History: Other (see list below)
Social History
Tobacco: Former Smoker
Alcohol: None
Drug: None
Family History
Family History: Reviewed & Not Pertinent
Allergies / Home Medications
Allergies
Allergy/AdvReac Type Severity Reaction Status Date / Time
cefaclor Allergy Unknown Verified 10/14/23 20:52
Cephalosporins Allergy Unknown Verified 10/14/23 20:52
ipecac Allergy Unknown Verified 10/14/23 20:52
latex Allergy Rash Verified 10/14/23 20:52
Penicillins Allergy Unknown Verified 10/14/23 20:52
prochlorperazine Allergy Tongue Verified 10/14/23 20:52
Swelling
Home Medications
Medication Instructions Recorded Confirmed Last Taken Type
cetirizine 5 mg-pseudoephedrine ER 1 tab PO BID Allergies 10/30/22 10/14/23 10/14/23 History
120 mg tablet,extended
release,12hr (Zyrtec-D)
escitalopram oxalate 10 mg tablet 15 mg PO DAILY Depression 10/30/22 10/14/23 10/14/23 History
insulin aspart U-100 100 unit/mL 0 sliding scale dose SC AC Diabetes 10/30/22 10/14/23 Unknown History
(3 mL) subcutaneous pen (Novolog
FlexPen U-100 Insulin aspart)
lorazepam 0.5 mg tablet 0.5 mg PO BIDPRN PRN Anxiety 10/30/22 10/14/23 Unknown History
omeprazole 20 mg capsule,delayed 20 mg PO BID Gastrointestinal issue 10/30/22 10/14/23 10/14/23 History
release
pregabalin 150 mg capsule (Lyrica) 150 mg PO TID Neurological 10/30/22 10/14/23 10/14/23 History
Condition
tramadol 50 mg tablet 50 mg PO Q4H PRN moderate pain 10/30/22 10/14/23 Unknown History
atorvastatin 40 mg tablet 40 mg PO DAILY High Cholesterol 02/18/23 10/14/23 10/14/23 History
furosemide 20 mg tablet 60 mg PO BID AT 0800,1600 30 days 02/27/23 10/14/23 10/14/23 Rx
#180 tabs
albuterol sulfate 90 mcg/actuation 2 inh inhalation R Q6HPRN PRN sob 06/10/23 10/14/23 Unknown History
breath activated powder inhaler
amlodipine 10 mg tablet 10 mg PO DAILY Blood Pressure 06/10/23 10/14/23 10/14/23 History
fluticasone furoate 200 1 inh inhalation R BID 06/10/23 10/14/23 10/14/23 History
mcg-vilanterol 25 mcg/dose Lung/Breathing Issues
inhalation powder (Breo Ellipta)
ipratropium 0.5 mg-albuterol 3 mg 3 ml inhalation R Q6HPRN PRN sob 06/10/23 10/14/23 Unknown History
(2.5 mg base)/3 mL nebulization
soln
aspirin 81 mg tablet,delayed 81 mg PO DAILY Blood Clot 10/14/23 10/14/23 Unknown History
release Prevention/Tx
diclofenac sodium 75 mg 75 mg PO BID PRN moderate pain 10/14/23 10/14/23 Unknown History
tablet,delayed release
insulin glargine 100 unit/mL 45 unit SC BID Diabetes 10/14/23 10/14/23 Unknown History
subcutaneous solution (Lantus
U-100 Insulin)
Review of Systems
-
History Source: Patient
All other systems: Negative unless noted
Vitals / Labs / Diagnostic Testing
Vital Signs
Temp Pulse Resp BP Pulse Ox
98.9 F 89 17 153/70 92
10/15/23 07:55 10/15/23 08:58 10/15/23 07:54 10/15/23 08:58 10/15/23 07:54
Lab Data
10/15/23 04:04
10/15/23 04:04
Microbiology
10/15/23 04:00 Urine Legionella Urinary Antigen - Final
Negative for Legionella pneumophila Serogroup 1 antigen.
A negative result does not rule out the possiblity of
Legionella infection due to other serogroups or species of
Legionella. Clinical correlation is recommended.
10/15/23 04:00 Urine Streptococcus pneumoniae Antigen (M - Final
Negative for Streptococcus pneumoniae antigen.
A negative result does not exclude infection with
Streptococcus pneumoniae. Clinical correlation is
recommended.
10/14/23 17:43 Nasal Swab Influenza Types A & B (LISA) - Final
Negative for Influenza A & B, NAAT
Negative results must be combined with clinical observations
and patient history.
Nucleic Acid Amplification test (NAAT)performed on the
[employer] platform.
Diagnostic Testing:
Physical Exam
-
HEENT: Normocephalic, Anicteric and Moist Mucous Membranes
Cardiovascular: S1/S2 and Regular Rhythm
Respiratory: Rales and Non-Labored Respirations
GI: Soft, Non Distended and Non Tender
Neurology: Awake, Alert, Oriented, AO x 3 and No Motor Deficits
Skin: Warm, Dry and Good Color
General: Comfortable and Other (NAD)
Assessment
-
Patient is a 62-year-old female with past medical history of COPD, hypertension, hyperlipidemia, CAD, diabetes presented to ER with worsening SOB x 1 week associated with cough with green sputum. On arrival patient was hypoxic 75% on room air.�
CXR and CT showing multifocal PNA, she is started on IV abx.� We are consulted for eval.
Acute hypoxic respiratory failure, 75% on RA
Multifocal PNA
AECOPD
Mild leukocytosis
Chronic hypercarbia noted, ABG 7.37/51 (compensated)
Suspect JEEVAN/OHS
CKD
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
Chronic HFpEF
Diabetes type 2 with neuropathy� �
HTN
HLD
Asthma/COPD �
Former smoker
Chronic bronchitis�
Chronic sinusitis-sinus surgery� �
Diverticulosis with hemorrhage-Hospitalization� �
Headache, migraine� �
History of fractured fibula-plate and screws� �
Seasonal allergies� �
Legally blind in both eye� �
Arthroscopy knee(2006)� �
Bilateral carpel Tunnel(1979)� �
Caesarean Section x2 �
Tonsillectomy(1978)� �
Left eye drain- placed 2021� �
Depression/Bipolar affective disorder
Morbid Obesity BMI 44.6
Lung nodule
Plan
Hypoxemia noted on arrival, O2 uday 75%
She is placed on supplemental o2, BIPAP PRN
Prior history of lung disease is noted including COPD
She does have history of COPD in past, former smoker 2 PPD for 20 years, quit in her 30s.
No prior PFTs for review, on Breo at home.
CXR obtained indicating multifocal PNA, CT confirmed
Other imaging reviewed--mild cardiomegaly but normal lung berry
Started on IV abx
Obtain sputum culture if possible
Airway clearance, patient has request chest PT
ECHO results pending, repeat testing
Prior study reviewed--normal function
Lasix as OP for chronic HFpEF
Follow daily weights/proBNP not significantly elevated
Will need outpatient pulmonary evaluation in our office for PFTs and 6MWT
Reviewed with patient
Risk factors assessed for underlying sleep disordered breathing also noted, recommend outpatient PSG/sleep evaluation
Suspect JEEVAN/OHS
Compensated hypercarbia noted
Smoking history noted--20 pack year use, quit >20 years ago
There was history of lung nodule in past, she would not qualify for yearly screening
Would need FU CT as OP
Weight loss measures recommended
Obesity contributing to respiratory symptoms
We will follow
Diagnostic Data
Chest X-Ray: 10/14/23- There is new moderately extensive patchy nodular alveolar airspace disease throughout both lungs most consistent with pneumonia. Neoplasm/metastasis is less likely given the interval development of these findings since the
06/10/2023 examination.
06/10/23- 1. Clear lungs.
2. Mild cardiomegaly, unchanged. No evidence of decompensated congestive heart failure.
CT Scan: CHEST 10/15/23- Marked widespread bilateral interstitial and groundglass opacities, numerous scattered prominent mediastinal lymph nodes and tiny bilateral pleural effusions.
Echo: 02/06/23- Normal left ventricular size, wall thickness and systolic function. No regional�wall motion abnormalities are seen. LV ejection fraction is 65% by Howell's�method of discs. Normal diastolic function.�Normal right ventricular size and
function.�Mild mitral stenosis. Mitral annular calcification. Mild mitral regurgitation.�Thickened, trileaflet aortic valve with mildly restricted leaflet motion. Mild-�moderate aortic stenosis. Peak/mean gradients across the aortic valve are
23/14�mmHg. Using an LVOT diameter of 1.8 cm the aortic valve by the Continuity�equation is calculated at 1.3 cm2.�No prior study available for comparison.
�
PFT's:
Reports and relevant images were personally reviewed.
[2023-10-15] MEDS: NOVOLOG FLEXPEN-LOW RESISTANCE 2 UNITS SC (09:23)
--- NOTE | 2023-10-15 10:17 | PHA.VAN.IN ---
Assessment
- Assessment
Renal Function: Appears similar to baseline
Concomitant Antimicrobials: aztreonam
Plan
- Plan
Initial / Loading Dose: 2000mg - 10/13 18:02
Maintenance Regimen: dosing by level - give 1000mg and follow trend
Monitoring: random 10/15 0600
Will follow level trend and consider scheduling dosing in next few days
Pharmacokinetics Vancomycin I
- -
Patient Age: 62
Patient Sex: Female
Vancomycin Day #: 1
Indication: Pulmonary/Respiratory
Requesting Provider: Virgen Mercado
Pertinent Antimicrobial Allergies:
cefaclor - rash
penicillins - rash
Height / Weight:
Height 5 ft 2 in
Actual Weight 110.5 kg
Pertinent Past Medical History: BMI ~45, DM2, CKD (SCR 1.6)
- Vital Signs / Lab Results
Temp Pulse Resp BP Pulse Ox
98.9 F 89 17 153/70 91
10/15/23 07:55 10/15/23 08:58 10/15/23 07:54 10/15/23 08:58 10/15/23 09:13
Lab Results - Hematology
10/14/23 10/15/23
16:01 04:04
WBC 15.2 H 12.3 H
Lab Results - Chemistry
10/14/23 10/14/23 10/15/23
16:01 17:01 04:04
BUN Cancelled 31 H 33 H
Creatinine Cancelled 1.6 H 1.4 H
Estimated Creat Clear Cancelled 45 49
Albumin Cancelled 4.0
10/14/23 10/14/23
17:01 20:45
Lactic Acid 1.4 Cancelled
Microbiology Results
10/15/23 04:00 Legionella Urinary Antigen - Final
Urine Negative for Legionella pneumophila Serogroup 1 antigen.
A negative result does not rule out the possiblity of
Legionella infection due to other serogroups or species of
Legionella. Clinical correlation is recommended.
10/15/23 04:00 Streptococcus pneumoniae Antigen (M - Final
Urine Negative for Streptococcus pneumoniae antigen.
A negative result does not exclude infection with
Streptococcus pneumoniae. Clinical correlation is
recommended.
10/14/23 17:43 Influenza Types A & B (LISA) - Final
Nasal Swab Negative for Influenza A & B, NAAT
Negative results must be combined with clinical observations
and patient history.
Nucleic Acid Amplification test (NAAT)performed on the
[employer] platform.
--- NOTE | 2023-10-15 12:34 | W.PN.HOSP.TC ---
Today's Communication/Plan
-
Monitor vital signs and see plan
Wean oxygen as tolerated
BiPAP as needed
Continue with antibiotics for now
Continue steroids
Continue with IV Lasix
Echo
PT/OT
Assessment / Plan
Assessment / Plan
General:�Well Developed, Well Nourished and No Apparent Distress
HEENT:�NormoCephalic, Moist mucous membranes and Atraumatic
Respiratory:�Rhonchi
Cardiac:�S1/S2 and Regular Rhythm; No Murmur or Rub
GI:�Soft, Non Tender, Non Distended and Normal Bowel Sounds; No Organomegaly
Rectal:�Deferred by Provider
Musculoskeletal:�No Clubbing, No Cyanosis and Other (Bilateral lower extremities edema)
Skin:�No Rash
Neuro:�AO x 3 and Nonfocal/grossly intact
Psych:�Calm
Acute hypoxic hypercarbic respiratory failure multifactorial suspect multifactorial from pneumonia and possible CHF exacerbation
- currently on 4 L, wean oxygen as tolerated
Required BiPAP overnight
Now on BiPAP as needed
-Nebs as needed for short of breath and wheezing
-Continue supplemental oxygen to keep sat greater than 92
-COVID and flu negative
-Will obtain CT of chest without PE, shows marked widespread bilateral interstitial and groundglass opacities
-Strep and Legionella negative
cw abx
# COPD exacerbation
-cw decadron
-Nebs
-Continue to monitor
-Breo continued
Pulmonary following
# Acute on chronic CHF exacerbation
-IV Lasix 40 twice a day
-Strict CONCEPCION
-Daily weight
-Cardiology following
Echo
Does have history of aortic stenosis
# Anemia of chronic disease
-Hemoglobin 11.1
-No active bleeding
-Continue to trend
# Chronic kidney disease stage IIIa
-Monitor creatinine
#Essential tremors
#Benign Hypertension
�- Stable
-Norvasc continued
#Diabetes Mellitus, Type II
�-Sliding scale
�- Continue Lantus 45 twice a day
�- Monitor sugars and continue coverage insulin
A1c 6.5
#Bipolar/Anxiety/Depression
�-Celexa, lorazepam continued
#Morbid Obesity due to excess calories
�- Affects all aspects of care
# Hyperlipidemia
-Statin continued
# Chronic neuropathy pain/fibromyalgia
-Diclofenac, tramadol, Lyrica continued
# Acute/subacute nondisplaced fracture of fibular head/complete tear of medial meniscus/rupture of ACL
-Lower extremity MRI with the impression of Acute or subacute nondisplaced fracture of the fibular head.
2. Small osseous contusions at the posterior aspects of the medial tibial plateau and lateral tibial plateau.
3. Complex tear of the posterior horn of the medial meniscus.
4. Rupture of the ACL.
5. Large knee joint effusion.
6. Small Patton's cyst.
-Partial weightbearing to right lower extremities per patient and family
Instructed to follow-up with [facility] orthopedics outpatient.
# Legally blindness
DVT Prophylaxis: Heparin subcu
Code Status: Full Code
I spent a total of 54 minutes with the patient or on the floor. More than 50% of this time involved counseling and coordination of care.
Anticipated Discharge: > 48 hours
Subjective/Interval History
-
Date of Service: October 15, 2023
denies chest pain
Objective Data
-
Labs:
Laboratory Results
10/15/23
04:04
WBC 12.3 H
Hgb 8.2 L D
Hct 26.0 L
Plt Count 360
Sodium 137
Potassium 3.8
Chloride 103
Carbon Dioxide 26
BUN 33 H
Creatinine 1.4 H
Glucose 205 H
Calcium 8.6
Vital Signs:
Vital Signs
Temp Pulse Resp BP Pulse Ox
98.9 F 89 20 153/70 90
10/15/23 07:55 10/15/23 11:45 10/15/23 11:45 10/15/23 08:58 10/15/23 11:45
I&O
10/14/23 10/15/23 10/16/23
06:59 06:59 06:59
Intake Total 480 / 480
Output Total 500 / 500
Balance -500 / -500 480 / 480
[2023-10-15] MEDS: TYLENOL 650 MG PO (13:00)
[2023-10-15] MEDS: VANCOCIN 200 IV (13:03)
[2023-10-15] MEDS: IMITREX 50 MG PO (13:03)
[2023-10-15 13:30] LABS: Glucose - Point of Care 259 mg/dl (70-99)
[2023-10-15] MEDS: NOVOLOG FLEXPEN-LOW RESISTANCE 3 UNITS SC (14:02)
--- NOTE | 2023-10-15 15:21 | CM ---
Patient who is legally blind with Dx Acute hypoxic hypercarbic respiratory failure, suspect pneumonia, CHF, COPD exacerbation, Acute/subacute nondisplaced fracture of fibular head/complete tear of medial meniscus/rupture of ACL. O2 12 L midflow,
BiPAP HS.
Met with patient who resides with her carlton in a one story mobile home with no CHELSIE.
The patient is assisted with ADLs such as showering by her , and lawn chair is used as a shower chair.
The patient is ambulatory using her RW.
DME - RW, SPC, old nebulizer which is broken
VN - prior [facility]
No prior SNF.
PCP - Perry Min
Pharmacy - [facility] Shane Agarwal, Javier
Patient would like to go home with VN and chooses [facility] - referral to [facility] Lia[facility].
Patient is requesting a new nebulizer- message to Dr Townsend who agrees.
Spoke with Urvashi Mejía; she can order the nebulizer for the patient.
Patient is requesting a raised toilet seat.
Spoke with patient's Samm; he agrees to purchase the raised toilet seat from a local store, and understands that this is not covered under insurance.
Plan watch for home O2 and BiPAP need.
Plan home with [facility], with nebulizer.
--- NOTE | 2023-10-15 16:11 | PTCARENOTE ---
Pt presents as assessed. Aox3, legally blind. NSR on tele monitor. Sating 90-91 on 12L MFNC. OOB to chair with PT. Desatting to low to mid 80's on exertion, O2 increased to 15L and sats recovered to low 90s. Voiding on BSC. Able to make needs
known, call estrada within reach.
[2023-10-15 16:45] LABS: Glucose - Point of Care 324 mg/dl (70-99)
[2023-10-15] MEDS: NOVOLOG FLEXPEN 5 UNITS SC (17:18)
[2023-10-15] MEDS: NOVOLOG FLEXPEN-LOW RESISTANCE 4 UNITS SC (17:18)
--- NOTE | 2023-10-15 20:00 | PTCARENOTE ---
Resumed care of pt sitting in chair AAOx3. Pt legally blind. HR in the 90's in NSR on the monitor. POX 92-95% on 15LO2 Mid Flow NC. Bipap HS. Lungs course with scattered rhonchi. Desaturates to mid 80's with activity. SINGLETON, tachypneic. Occ moist
cough. + bowel, round obese abd, no BM today, denies constipation. Pt urinating in BSC when needed. Right knee immobilzer in place. Palpable peripheral pulses present. +1 B/L LE edema noted. Pt reports right knee/leg pain 02/28 see SEP. Right AC int
capped. Left hand int capped. Pt remains sitting in chair. Will continue to monitor.
[2023-10-15 21:16] LABS: Glucose - Point of Care 413 mg/dl (70-99)
[2023-10-15 21:34] LABS: Glucose 374 mg/dl (70-99)
[2023-10-15] MEDS: NOVOLOG FLEXPEN 6 UNITS SC (21:53)
[2023-10-16] VITALS (30 sets, daily range): BP systolic 111–151; BP diastolic 45–105; PULSE 2–98; BMI 44.8
[2023-10-16 00:17] LABS: Glucose - Point of Care 583 mg/dl (70-99)
[2023-10-16 00:34] LABS: Glucose 360 mg/dl (70-99)
[2023-10-16] MEDS: STERILE WATER FOR INJECTION 10 ML IV ×3 (00:45→21:30)
[2023-10-16] MEDS: AZACTAM 1000 MG IV ×2 (00:45→09:31)
[2023-10-16] MEDS: NOVOLOG FLEXPEN 10 UNITS SC (00:45)
[2023-10-16] MEDS: DECADRON 4 MG IV ×4 (00:45→19:24)
--- NOTE | 2023-10-16 03:39 | DOWNTIME ---
There was a [employer] Engine Technician Downtime on 10/16/2023 from 0100 to 10/16/2023 at 0322. Downtime documentation of patient's care, including medication administrations, has been reconciled in the electronic record per guidelines. Refer to the
patient's paper chart under the miscellaneous tab to see printed paper medication records and downtime forms.
[2023-10-16 03:46] LABS: Glucose - Point of Care 292 mg/dl (70-99)
[2023-10-16] MEDS: ULTRAM 50 MG PO (05:00)
[2023-10-16 05:01] LABS: O2 Saturation % 88.8 % (94-98); PCO2 38 mmHg (32-35); pH 7.46 (7.35-7.45)
[2023-10-16 05:01] LABS: Hematocrit 25.1 % (37.0-47.0); Mean Corp Hgb Conc. 31.9 g/dL (33.0-37.0); Mean Corpuscular Hgb 24.2 pg (27.0-31.0); Mean Corpuscular Volume 75.8 fL (81.0-99.0); Mean Platelet Volume 9.7 fL (7.4-10.4); Platelet Count 433 10^3/uL (130-400); Red Blood Cell Count 3.31 10^6/uL (4.20-5.40); Red Cell Dist. Width 18.3 % (11.5-14.5); White Blood Cell Count 17.1 10^3/uL (4.8-10.8)
[2023-10-16 05:02] LABS: O2 Therapy bipap; PO2 54 mmHg (83-108)
[2023-10-16 05:19] LABS: Blood Urea Nitrogen 60 mg/dl (7-17); Calcium 8.8 mg/dl (8.4-10.2); Carbon Dioxide 26 mmol/L (22-30); Chloride 99 mmol/L (98-107); Estimated Creatinine Clearance 29 ml/min; Glucose 235 mg/dl (70-99); Potassium 4.1 mmol/L (3.5-5.1); Sodium 135 mmol/L (135-145); eGFR 22.42
--- NOTE | 2023-10-16 05:20 | W.PN.UPDATE ---
Update Note
Progress Note Update
notified by RN that pt o2 sats dropping overnight and taking longer to recover. currently 85% on bipap14/6 w/ 15 L
abg checked 7.48/38/ po2 54
Resp therapy changed bipap 16/10 pulse ox now 92-94%
pt still mentating well
[2023-10-16 05:29] LABS: Vancomycin Random 23.7 ug/ml
--- NOTE | 2023-10-16 05:36 | PTCARENOTE ---
Pt with elevated blood sugars overnight, See MAR. Sugars improved this am. Pt with worsening oxygenation overnight, POX dropping to 78% while getting to BSC, POX low 80's when BIPAP removed for brief sip of water. Bipap overnight was at 14/6 with 15
LO2. POX sustaining 85% this am at rest on Bipap. ABG obtained this am, BIPAP settings adjusted to 16/10 with 15 LO2. POX now improved and sustaining 92%. Pt onlly voided 200ml urine overnight. Bladder scanned this am for only 37ml. AM labs
reviewed with Isa JENNINGS. Will repeat ABG. Will continue to monitor.
[2023-10-16 07:20] LABS: B.E. 3.3 mmol/L; HCO3 27.8 mmol/L (21-28); O2 Saturation % 93.3 % (94-98); PCO2 41 mmHg (32-35); pH 7.44 (7.35-7.45)
[2023-10-16 07:27] LABS: PO2 59 mmHg (83-108)
[2023-10-16] MEDS: DUONEB 3 ML INH ×4 (07:37→20:07)
--- NOTE | 2023-10-16 08:03 | PTCARENOTE ---
RT at bedside with pt. Unable to tolerate coming off bipap to HFNC with sats in the 60's; bipap placed back on pt and sats maintaining at only 85%. RR in the upper 20's. Critical ABG result received, Dr. Townsend notified TT. Awaiting further orders.
[2023-10-16 08:23] LABS: Glucose - Point of Care 226 mg/dl (70-99)
--- NOTE | 2023-10-16 08:32 | W.PN.UPDATE ---
Update Note
Progress Note Update
Patient is currently hypoxic and is currently on bipap. High flow was tried however she didnt tolerate. I discussed code status with patient and currently she is mentating well and wants intubation if required. Spoke with pulmonary and would
transfer patient to icu. Tried contacting spouse (Cant leave voicemail since its full). Called both daughters and left voicemail.
--- NOTE | 2023-10-16 08:49 | PTCARENOTE ---
Pt for transfer to ICU. Transferred via bed on bipap with RT. Bedside report given to NURSING HOME ADMISSIONS DIRECTOR. Belongings transferred to room.
[2023-10-16] MEDS: ZITHROMAX INFUSION 250 IV (08:53)
--- NOTE | 2023-10-16 08:57 | CON.INTV ---
Consultation
Consultation Request
Date/Time Consultation Requested: 10/16/2023842
Date/Time Consultation Performed: 10/16/2023854
Requesting Provider: Dr. Townsend
Performing Provider: Dr. Soria
Reason for Consultation: Worsening Hypoxia
Medical History
-
Chief Complaint: Shortness of breath
History of Present Illness:
62-year female former tobacco smoker with a past medical history of COPD, hypertension and chronic HFpEF who initially presented with shortness of breath on 10/14/2023. SOB occurred over 1 week with cough and green phlegm. She was admitted to the
hospitalist service and was being treated with antibiotics for multifocal pneumonia and pulmonary was following. She was also being diuresed with Lasix 40 mg BID on 10/15/2023. Due to history of COPD she was started on Decadron and DuoNebs QID.
When she initially was hospitalized she required BiPAP but this was weaned down to mid flow at 12 L/min. Her requirements increased to 15 L/min on the evening of 10/14, and on the morning of 10/15 she required continuous BiPAP and had worsening
hypoxia with saturations in the mid 80s. She is now being transferred to the ICU for further care and nutritional health coach services consulted for further management/recommendations.
When I saw the patient she was in the ICU on BiPAP on 20 over 8 cm of water. Her eyes were closed but she was awake, answering questions appropriately and following commands. SpO2 currently 91% on BiPAP at 15L/min. She is in no acute distress
although she does have mild accessory muscle use. CXR confirms presence of worsening bilateral airspace opacities.
PMHx: Hypertension, morbid obesity, history of COPD, DM type II, chronic bronchitis, HFpEF, anxiety, bipolar disorder, depression, bilateral blindness, history of lung nodule, former tobacco use disorder
PSHx: History of sinus surgery, section
Past Medical History
Past Medical History: Other (Above as per HPI)
Past Surgical History: Other (Above as per HPI)
Social History
Tobacco: Former Smoker
Alcohol: None
Drug: None
Family History
Family History: Reviewed & Not Pertinent
Allergies / Home Medications
Allergies
Allergy/AdvReac Type Severity Reaction Status Date / Time
cefaclor Allergy rash prior Verified 10/15/23 10:27
to 2007
ipecac Allergy Unknown Verified 10/14/23 20:52
latex Allergy Rash Verified 10/14/23 20:52
Penicillins Allergy rash prior Verified 10/15/23 10:27
to 2007
prochlorperazine Allergy Tongue Verified 10/14/23 20:52
Swelling
Home Medications
�Medication �Instructions �Recorded �Confirmed �Last Taken �Type
cetirizine 5 mg-pseudoephedrine ER 1 tab PO BID Allergies 10/30/22 10/14/23 10/14/23 History
120 mg tablet,extended
release,12hr (Zyrtec-D)
escitalopram oxalate 10 mg tablet 15 mg PO DAILY Depression 10/30/22 10/14/23 10/14/23 History
insulin aspart U-100 100 unit/mL 0 sliding scale dose SC AC Diabetes 10/30/22 10/14/23 Unknown History
(3 mL) subcutaneous pen (Novolog
FlexPen U-100 Insulin aspart)
lorazepam 0.5 mg tablet 0.5 mg PO BIDPRN PRN Anxiety 10/30/22 10/14/23 Unknown History
omeprazole 20 mg capsule,delayed 20 mg PO BID Gastrointestinal issue 10/30/22 10/14/23 10/14/23 History
release
pregabalin 150 mg capsule (Lyrica) 150 mg PO TID Neurological 10/30/22 10/14/23 10/14/23 History
Condition
tramadol 50 mg tablet 50 mg PO Q4H PRN moderate pain 10/30/22 10/14/23 Unknown History
atorvastatin 40 mg tablet 40 mg PO DAILY High Cholesterol 02/18/23 10/14/23 10/14/23 History
furosemide 20 mg tablet 60 mg (3 x 20 mg) PO BID AT 0810/14/23 10/14/23 Rx
0800,1600 30 days #180 tabs
albuterol sulfate 90 mcg/actuation 2 inh inhalation R Q6HPRN PRN sob 06/10/23 10/14/23 Unknown History
breath activated powder inhaler
amlodipine 10 mg tablet 10 mg PO DAILY Blood Pressure 06/10/23 10/14/23 10/14/23 History
fluticasone furoate 200 1 inh inhalation R BID 06/10/23 10/14/23 10/14/23 History
mcg-vilanterol 25 mcg/dose Lung/Breathing Issues
inhalation powder (Breo Ellipta)
ipratropium 0.5 mg-albuterol 3 mg 3 ml inhalation R Q6HPRN PRN sob 06/10/23 10/14/23 Unknown History
(2.5 mg base)/3 mL nebulization
soln
aspirin 81 mg tablet,delayed 81 mg PO DAILY Blood Clot 10/14/23 10/14/23 Unknown History
release Prevention/Tx
diclofenac sodium 75 mg 75 mg PO BID PRN moderate pain 10/14/23 10/14/23 Unknown History
tablet,delayed release
insulin glargine 100 unit/mL 45 unit SC BID Diabetes 10/14/23 10/14/23 Unknown History
subcutaneous solution (Lantus
U-100 Insulin)
Review of Systems
-
Unable to Obtain full review of systems at this time due to: Acuity
Vitals / Labs / Diagnostic Testing
Vital Signs
Temp Pulse Resp BP Pulse Ox
100.2 F 98 23 140/51 89
10/16/23 08:50 10/16/23 08:45 10/16/23 08:45 10/16/23 08:45 10/16/23 08:45
Lab Data
10/16/23 09:11
Laboratory Results
10/16/23 10/16/23
04:42 07:08
pH 7.46 H 7.44
pCO2 38 H 41 H
pO2 54 L* 59 L*
HCO3 27.0 27.8
O2 Delivery Level bipap Unknown
Microbiology
10/15/23 04:04 Nose MRSA Screen - Final
No Methicillin Resistant Staphylococcus aureus isolated.
10/15/23 17:13 Sputum Gram Stain - Preliminary
10/14/23 17:01 Blood/Venous Blood Culture - Preliminary
No Growth in 24 hours- Final report to follow
10/14/23 17:01 Blood/Venous Blood Culture - Preliminary
No Growth in 24 hours- Final report to follow
10/15/23 04:00 Urine Legionella Urinary Antigen - Final
Negative for Legionella pneumophila Serogroup 1 antigen.
A negative result does not rule out the possiblity of
Legionella infection due to other serogroups or species of
Legionella. Clinical correlation is recommended.
10/15/23 04:00 Urine Streptococcus pneumoniae Antigen (M - Final
Negative for Streptococcus pneumoniae antigen.
A negative result does not exclude infection with
Streptococcus pneumoniae. Clinical correlation is
recommended.
10/14/23 17:43 Nasal Swab Influenza Types A & B (LISA) - Final
Negative for Influenza A & B, NAAT
Negative results must be combined with clinical observations
and patient history.
Nucleic Acid Amplification test (NAAT)performed on the
[employer] platform.
Diagnostic Testing:
Physical Exam
-
HEENT: Normocephalic and Anicteric
Cardiovascular: S1/S2 and Peripheral Edema (negative)
Respiratory: Wheeze (negative), Rales (bilaterally), Rhonchi (bilaterally) and Accessory Resp Muscle Use (mild while on BiPAP)
GI: Soft, Non Tender, Normal Bowel Sounds and Other (abdominal obesity)
Neurology: Awake and Tremors (negative)
Skin: Warm and Dry
General: Chills (negative) and Sweats (negative)
Assessment
-
Assessment: 62-year female former tobacco smoker with a past medical history of COPD, hypertension and chronic HFpEF who initially presented with shortness of breath on 10/14/2023. SOB occurred over 1 week with cough and green phlegm. She was
admitted to the hospitalist service and was being treated with antibiotics for multifocal pneumonia and pulmonary was following. She was also being diuresed with Lasix 40 mg BID on 10/15/2023. Due to history of COPD she was started on Decadron and
DuoNebs QID. When she initially was hospitalized she required BiPAP but this was weaned down to mid flow at 12 L/min. Her requirements increased to 15 L/min on the evening of 10/14, and on the morning of 10/15 she required continuous BiPAP and had
worsening hypoxia with saturations in the mid 80s. She is now being transferred to the ICU for further care and nutritional health coach services consulted for further management/recommendations.
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
Impression:
#Acute respiratory failure with hypoxemia
#Severe community-acquired pneumonia
#Sepsis without shock due to above
#Acute kidney injury superimosed on CKD (baeline Cr approx 1.3-1.5)
#Hyperglycemia
#Leukocytosis
#Small bilateral pleural effusions (seen on CT chest from 10/14/2023)
#Acute on chronic anemia (baseline Hb approx 11-12.5)
#Mild�moderate aortic stenosis
#Morbid obesity
#Reported Hx of COPD/chronic bronchitis
#Former tobacco use disorder (2PPD x 20 years, quit ~25 years ago)
Plan:
- Continuous BiPAP with low threshold to intubate
- Strict NPO
- Need to attain better access - PICC team consulted for midline and another IV; may need PICC
- Serial blood gases with continuous pulse oximetry
- DuoNebs QID with prn doses in between
- Continue systemic steroids and may need to raise to solumedrol if hypoxia worsens
- Maintain SpO2 >90-94%
- Continue with broad-spectrum antibiotics (currently on Aztreonam and Azithro - aztreonam started 10/13, zithromax started today); she is s/p 2 doses of IV vanco on 10/13 + 10/14 then DC'd due to neg. MRSA swab
- Follow up infectious workup with blood & sputum Cx
- Maintain MAP>65
- Strict I/O and trend UOP
- Goal BG 140-180mg/dL with basal-bolus insulin
- Replete electrolytes with K>4, Mg>2
- Maintain SpO2 >90-94% with supplemental O2 if needed
- stress ulcer ppx: n/a
- DVT ppx: start HSQ
If she improves and is downgraded from ICU and eventually discharged, she will ultimately need follow-up with us in the office. She ultimately will need repeat CT chest in 6-8 weeks, with outpatient PFTs and discussion of the weight loss/workup for
sleep disordered breathing. For now considering she is critically ill, will defer outpatient management/discussion until she improves.
I personally reviewed the patient's vitals, imaging, micro, current/former documentation and took this into account while formulating plan above.
Critical care statement: A total of 40 minutes of critical care time was provided for this patient today. This includes management of unstable vital signs, evaluation of the patient at bedside, reviewing the patient's pertinent medical records
including radiographs, microbiology, laboratory evaluations, and discussion with primary team, consultants, pharmacy, nutrition, physical therapy, case management, charge nurse, critical care nursing, and respiratory therapy.
Data:
CXR 10-16-2023:
Extensive bilateral airspace opacities with air bronchograms, increasing since most recent radiograph of October 14, 2023.
CT Chest with IV contrast 10-14-2023:
Marked widespread bilateral interstitial and groundglass opacities, numerous scattered prominent mediastinal lymph nodes and tiny bilateral pleural effusions. Findings could be on the basis of pneumonia/pneumonitis with viral pneumonitis one of
several differential diagnostic possibilities.
TTE 10-15-2023:
Normal left ventricular size and systolic function.
No regional wall motion abnormalities are seen.
LV ejection fraction is 60-65% by visual assessment.
Mild concentric left ventricular hypertrophy.
Normal right ventricular systolic function.
Trace mitral regurgitation.
Mild to moderate aortic stenosis.
Peak/mean gradients are 33/20mmHg.
The valve area by continuity equation is 1.1cm sq, using a LVOT of 1.8cm.
Trace tricuspid regurgitation.
Estimated pulmonary artery pressure of 40-45 mmHg.
The IVC is of normal size but does not demonstrate normal respiratory
variation.
EF% remains normal compared to 2022 echo and aortic valve gradients remain
relatively stable with mild to moderate .
--- NOTE | 2023-10-16 09:01 | W.PN.CARDCBS ---
Today's Communication / Plan
-
Multifactorial dyspnea. Pt transferred to ICU last 24 hrs with increased O2 requirements and hypoxia.
Currently on BiPAP. O2 management
Cont with pulmonary toilet and broad-spectrum antibiotics.
IV steroids as per primary service
With acute on chronic RF and worsening cr to 2.4 and 2.6 October 15; continue to hold Lasix for now. Continue to monitor daily weights, I's and O's.
Echo reviewed and EF is preserved and valvular heart disease is stable including aortic stenosis, which remains mild to moderate.
Troponins have been negative.
Monitor telemetry and EKG
Impression / Plan
-
.
Primary student teacher Dr. Frias
Impression:
Multifactorial dyspnea, respiratory failure
COPD/asthmatic bronchitis
Acute on chronic HFpEF
Acute on chronic renal failure
Mild to moderate aortic stenosis
Recent nondisplaced fracture fibular head, complete tear medial meniscus/rupture ACL
Type 2 diabetes
Hypertension
Anemia of chronic disease
Hypercholesterolemia
Diabetic retinopathy with bilateral blindness.
GERD
Morbid obesity
Bipolar/anxiety depression
Fibromyalgia
Echo October 15 2023: EF 60 to 65% with mild LVH, mild to moderate , peak/mean gradients 33/20 mmHg, aortic valve area 1.1 cm sq, PASP 40 to 45 mmHg
Plan:
Multifactorial dyspnea. Pt transferred to ICU last 24 hrs with increased O2 requirements and hypoxia.
Currently on BiPAP. O2 management
Cont with pulmonary toilet and broad-spectrum antibiotics.
IV steroids as per primary service
With acute on chronic RF and worsening cr to 2.4 and 2.6 October 15; continue to hold Lasix for now. Continue to monitor daily weights, I's and O's.
Echo reviewed and EF is preserved and valvular heart disease is stable including aortic stenosis, which remains mild to moderate.
Troponins have been negative.
Monitor telemetry and EKG
Cont tx of hyperlipidemia with Lipitor, once taking p.o.
Discussed with nursing.
Progress Note - Retail Representative
Subjective
Date of Service: October 16, 2023
Objective
Labs:
Labs
Hgb 8.0 g/dL (12.0-16.0) L 10/16/23 04:51
Hct 25.1 % (37.0-47.0) L 10/16/23 04:51
Plt Count 433 10^3/uL (130-400) H D 10/16/23 04:51
Sodium 135 mmol/L (135-145) 10/16/23 04:51
Potassium 4.1 mmol/L (3.5-5.1) 10/16/23 04:51
BUN 60 mg/dl (7-17) H 10/16/23 04:51
Creatinine 2.4 mg/dL (0.6-1.0) H 10/16/23 04:51
Glucose 235 mg/dl (70-99) H 10/16/23 04:51
Troponins
10/14/23 10/14/23 10/14/23
16:01 17:01 23:46
Troponin I Cancelled < 0.012 Cancelled
10/15/23
04:04
Troponin I < 0.012
Vital Signs and I&O:
Vital Signs
Temp Pulse Resp BP Pulse Ox
100.2 F 98 23 140/51 89
10/16/23 08:50 10/16/23 08:45 10/16/23 08:45 10/16/23 08:45 10/16/23 08:45
Vital Signs
Temp Pulse Resp BP Pulse Ox
100.2 F 98 23 140/51 89
10/16/23 08:50 10/16/23 08:45 10/16/23 08:45 10/16/23 08:45 10/16/23 08:45
Intake & Output
03/2510/15/23 10/16/23 10/17/23
06:59 06:59 06:59 06:59
Intake Total 980 / 980
Output Total 500 / 500 1100 / 1100
Balance -500 / -500 -120 / -120
Physical Exam
Physical Exam
General: Eyes closed and legally blind
Neck: Negative JVD
Heart: Regular, Negative S3 positive S1/S2, Negative S4, No murmur
Lungs: CTA b/l, negative wheezes/rales/rhonchi
Abd: Morbid obesity. Positive BS, NT/ND, neg rebound/rigidity/guarding
Ext: Negative cyanosis/clubbing/edema
Neuro: nonfocal
--- NOTE | 2023-10-16 09:10 | PTCARENOTE ---
Assumed care of pt at 0840 upon transfer to [id number] from IMU. Pt awake and appropriately responsive at time of arrival. POx 87-90% on BiPap. Resp Therapy present and report Bipap 20/8 w/15L/min O2. Mild dyspnea noted and pt reports 'a little' SOB
when questioned. Dr Townsend in room and orders received for labs and to hold PO meds at this time. Insulin orders adjusted by Dr Townsend as pt NPO at present. Pt oriented to room/surroundings/plan of care. Emotional support provided. Physical assessment
as documented. Pure wick placed at pt request as pt on bedrest at present. Call sean w/in pt reach and safe environment maintained.
[2023-10-16 09:22] LABS: % Basophils 0.1 % (0-2); % Immature Granulocytes 0.9 % (0-0.5); % Lymphocytes 2.8 % (20.5-51.1); % Monocytes 7.9 % (1.7-9.3); % Neutrophils 88.3 % (42.2-75.2); Absolute Immature Granulocytes 0.2 10^3/uL (0-0.05); Absolute Lymphocytes 0.5 10^3/uL (1.2-3.4); Absolute Monocytes 1.4 10^3/uL (0.1-0.6); Absolute Neutrophils 15.6 10^3/uL (1.4-6.5); Hematocrit 25.5 % (37.0-47.0); Hemoglobin 8.1 g/dL (12.0-16.0); Mean Corp Hgb Conc. 31.8 g/dL (33.0-37.0); Mean Corpuscular Hgb 24.5 pg (27.0-31.0); Mean Corpuscular Volume 77.3 fL (81.0-99.0); Mean Platelet Volume 9.8 fL (7.4-10.4); Nucleated Red Blood Cells % 0.2 %; Platelet Count 425 10^3/uL (130-400); Red Cell Dist. Width 18.6 % (11.5-14.5); White Blood Cell Count 17.6 10^3/uL (4.8-10.8)
[2023-10-16] MEDS: HEPARIN SC (09:22)
[2023-10-16] MEDS: ASPIR LOW (ENTERIC COATED) PO (09:22)
[2023-10-16] MEDS: LEXAPRO PO (09:23)
[2023-10-16] MEDS: LYRICA PO (09:23)
[2023-10-16] MEDS: NORVASC PO (09:23)
[2023-10-16] MEDS: LIPITOR PO (09:23)
[2023-10-16] MEDS: MUCINEX PO (09:23)
[2023-10-16] MEDS: NSS (PRESERVATIVE FREE) 10 ML IV ×2 (09:31→19:24)
[2023-10-16] MEDS: PROTONIX IV 40 MG IV ×2 (09:31→19:24)
[2023-10-16] MEDS: NOVOLOG FLEXPEN-LOW RESISTANCE 2 UNITS SC (09:32)
[2023-10-16] MEDS: NOVOLOG FLEXPEN SC ×2 (09:32→13:47)
[2023-10-16 09:36] LABS: Blood Urea Nitrogen 60 mg/dl (7-17); Calcium 8.5 mg/dl (8.4-10.2); Carbon Dioxide 27 mmol/L (22-30); Chloride 98 mmol/L (98-107); Estimated Creatinine Clearance 27 ml/min; Glucose 194 mg/dl (70-99); Sodium 135 mmol/L (135-145); eGFR 20.36
[2023-10-16 09:41] LABS: B.E. 2.9 mmol/L; HCO3 27.1 mmol/L (21-28); O2 Saturation % 92.8 % (94-98); PCO2 39 mmHg (32-35); pH 7.45 (7.35-7.45)
[2023-10-16 09:49] LABS: Potassium 3.8 mmol/L (3.5-5.1)
[2023-10-16 09:50] LABS: PO2 59 mmHg (83-108)
--- NOTE | 2023-10-16 09:55 | PTCARENOTE ---
ABG results reported to Dr Taylor- no change in present plan of care. Pt remains on BiPap 20/8, 15L/min O2 w/ POx 91%. Pt remains alert and responsive to all questions. Reports breathing feels 'a little better'. IV team RN notified of need for
Midline IV placement.
--- NOTE | 2023-10-16 10:30 | PHA.VAN.FU ---
Vancomycin Assessment / Plan
- Assessment
Renal Function: SCR Increasing
WBC's are: Stable
In the past 24 hrs, patient has been: Afebrile
Concomitant Antimicrobials: aztreonam, azithromycin
- Assessment - Therapeutic Drug Monitoring
Random Level: 23.7 - drawn ~16H after previous dose of 1000mg
- Dosing Plan
Dosing by Level: Hold off on dosing today
- Monitoring Plan
Random Level: 10/16 06
- Follow Up
Pharmacy will continue to follow.
Vancomycin Follow UP
- -
Patient Age: 62
Patient Sex: Female
Vancomycin Day #: 2
Indication: Pulmonary/Respiratory
Requesting Provider: Virgen Mercado
Pertinent Antimicrobial Allergies:
cefaclor - rash
penicillins - rash
Height / Weight:
Height 5 ft 2 in
Actual Weight 111.1 kg
Pertinent Past Medical History: BMI ~45, DM2, CKD (SCR 1.6)
- Vital Signs / Lab Results
Temp Pulse Resp BP Pulse Ox
100.2 F 98 23 140/51 89
10/16/23 08:50 10/16/23 08:45 10/16/23 08:45 10/16/23 08:45 10/16/23 08:45
Lab Results - Hematology
10/14/23 10/15/23 10/16/23
16:01 04:04 04:51
WBC 15.2 H 12.3 H 17.1 H
10/16/23
09:11
WBC 17.6 H
Lab Results - Chemistry
10/14/23 10/14/23 10/15/23
16:01 17:01 04:04
BUN Cancelled 31 H 33 H
Creatinine Cancelled 1.6 H 1.4 H
Estimated Creat Clear Cancelled 45 49
Albumin Cancelled 4.0
10/16/23 10/16/23
04:51 09:11
BUN 60 H 60 H
Creatinine 2.4 H 2.6 H
Estimated Creat Clear 29 27
Albumin
10/14/23 10/14/23
17:01 20:45
Lactic Acid 1.4 Cancelled
Microbiology Results
10/15/23 04:04 MRSA Screen - Final
Nose No Methicillin Resistant Staphylococcus aureus isolated.
10/15/23 17:13 Gram Stain - Preliminary
Sputum
10/14/23 17:01 Blood Culture - Preliminary
Blood/Venous No Growth in 24 hours- Final report to follow
10/14/23 17:01 Blood Culture - Preliminary
Blood/Venous No Growth in 24 hours- Final report to follow
10/15/23 04:00 Legionella Urinary Antigen - Final
Urine Negative for Legionella pneumophila Serogroup 1 antigen.
A negative result does not rule out the possiblity of
Legionella infection due to other serogroups or species of
Legionella. Clinical correlation is recommended.
10/15/23 04:00 Streptococcus pneumoniae Antigen (M - Final
Urine Negative for Streptococcus pneumoniae antigen.
A negative result does not exclude infection with
Streptococcus pneumoniae. Clinical correlation is
recommended.
10/14/23 17:43 Influenza Types A & B (LISA) - Final
Nasal Swab Negative for Influenza A & B, NAAT
Negative results must be combined with clinical observations
and patient history.
Nucleic Acid Amplification test (NAAT)performed on the
[employer] platform.
Therapeutic Drug Monitoring
Random Vancomycin 23.7 ug/ml 10/16/23 04:51
[2023-10-16] MEDS: PROTONIX PO (10:51)
[2023-10-16] MEDS: LANTUS SC (10:51)
--- NOTE | 2023-10-16 11:25 | PTCARENOTE ---
Pt's Pox 78-79%. Pt reports feels 'a little SOB' although no change in mentation and minimal distress noted. RR upper 20's. Dr Hayward notified and pt placed on NIV by Resp Therapy w/ Pox improved to 90-91%. Phone call from pt's received-
updated on current plan of care and questions answered. reports he will be in to see pt 'early tomorrow' and pt's two daughters to come to see pt this afternoon. When informed that pt has been asking why he isn't here currently,
stated 'it's because of work and money. we are almost broke'. Pt's answer relayed to pt and emotional support provided to pt.
[2023-10-16 11:50] LABS: Glucose - Point of Care 203 mg/dl (70-99)
--- NOTE | 2023-10-16 11:51 | PN.DE.MGMTRT ---
Insulin Management
- -
10/16/2023 Diabetes Management Consult
Patient admitted 10/13 with breathing problem admitting DX acute respiratory failure with hypoxia, severe community acquired pneumonia, septic shock, hyperkalemia, pleural effusions. PMH COPD, HTN, HLD, CAD, type 2 diabetes, asthma, chf, GERD,
depression.
Patient currently resting, not disturbed, she is currently on bipap.
Prior to admission patient was taking lantus 45 units BID with novolog SS. A1C is 6.5%, cr 2.6, eGFR 20.36.
Patient is currently NPO, will change corrective insulin to Q 6 hours, moderate scale. Stop 5 units AC novolog. Give lantus 25 units now then start 35 units BID first dose @ hs. Will follow for further needed adjustments.
Diabetes History
- -
Type of Diabetes: 2 requiring insulin
Pre-Admission Diabetes Regimen
10/16/23 10/16/23
04:51 09:11
Creatinine 2.4 H 2.6 H
Lab Results
Hemoglobin A1c 6.5 % (4.0-5.6) H 10/15/23 04:04
Insulin Pump Settings
IP Diabetes Regimen
10/15/23 10/15/23 10/15/23
13:20 16:33 21:05
Glucose
POC Glucose 259 H 324 H 413 H
10/15/23 10/16/23 10/16/23
21:11 00:06 00:15
Glucose 374 H 360 H
POC Glucose 583 H*
10/16/23 10/16/23 10/16/23
03:33 04:51 08:11
Glucose 235 H
POC Glucose 292 H 226 H
10/16/23 10/16/23
09:11 11:39
Glucose 194 H
POC Glucose 203 H
Meal type: Breakfast
Meal type: Lunch
Meal type: Breakfast
Amount consumed: 50%
Amount consumed: 50%
Patient Education
--- NOTE | 2023-10-16 12:20 | W.PN.HOSP.TC ---
Today's Communication/Plan
-
Monitor vitals
See plan
Maxed on BiPAP, low threshold for intubation
CODE STATUS was discussed by me, patient wants to remain full code. Spouse aware
Continue with Decadron, nebs
Hold Lasix
Monitor urine output
N.p.o.
Monitor hemoglobin
Continue antibiotics, consider ID consult if continues to get worse
Assessment / Plan
Assessment / Plan
General:�Well Developed, Well Nourished and in respiratory distress
HEENT:�NormoCephalic, Moist mucous membranes and Atraumatic
Respiratory:�Rhonchi
Cardiac:�S1/S2 and Regular Rhythm; No Murmur or Rub
GI:�Soft, Non Tender, Non Distended and Normal Bowel Sounds
Rectal:�Deferred by Provider
Musculoskeletal:�No Clubbing, No Cyanosis and Other (Bilateral lower extremities edema)
Skin:�No Rash
Neuro:�AO x 3 and Nonfocal/grossly intact
Psych:�Calm
Acute hypoxic hypercarbic respiratory failure multifactorial suspect multifactorial from pneumonia and possible CHF exacerbation
- 10/15 with worsening hypoxia;currently maxed on BIPAP, wean oxygen as tolerated. High flow was tried however patient did not tolerate. Low threshold for intubation. Surprisingly mental status intact
Discussed with patient regarding code status; wants to remain full code; finally spoke with spouse who agrees
-cw duonebs
-Continue supplemental oxygen to keep sat greater than 92
-COVID and flu negative
- CT of chest without PE, shows marked widespread bilateral interstitial and groundglass opacities
repeat xray 10/15 with extensive bilateral airspace opacity with air bronchograms
-Strep and Legionella negative
cw abx; consider ID eval if dont imporve
NPO
PPI IV
ABG 10/15 with persistent hypoxia
# COPD exacerbation
-cw decadron
-Nebs
-Continue to monitor
-Breo continued
Pulmonary following
# Acute on chronic CHF exacerbation
-lasix now on hold 2/2 JOHN
-Strict CONCEPCION
-Daily weight
-Cardiology following
Echo with mild to mod ; preserved EF
Does have history of aortic stenosis
# Anemia of chronic disease
could be mildly from hemotysis,mild. quantify hemoptysis
monitor hgb
-No active bleeding
-Continue to trend
# JOHN on Chronic kidney disease stage IIIa
-Monitor creatinine
hold lasix
Hold nephrotoxic agents
#Essential tremors
#Benign Hypertension
�- Stable
- on Norvasc
#Diabetes Mellitus, Type II
�-Sliding scale
�- Continue Lantus
�- Monitor sugars and continue coverage insulin
A1c 6.5
#Bipolar/Anxiety/Depression
�-Celexa, lorazepam continued
#Morbid Obesity due to excess calories
�- Affects all aspects of care
# Hyperlipidemia
-Statin continued
# Chronic neuropathy pain/fibromyalgia
- HOLD Diclofenac, tramadol, Lyrica
# Acute/subacute nondisplaced fracture of fibular head/complete tear of medial meniscus/rupture of ACL
-Lower extremity MRI with the impression of Acute or subacute nondisplaced fracture of the fibular head.
2. Small osseous contusions at the posterior aspects of the medial tibial plateau and lateral tibial plateau.
3. Complex tear of the posterior horn of the medial meniscus.
4. Rupture of the ACL.
5. Large knee joint effusion.
6. Small Patton's cyst.
-Partial weightbearing to right lower extremities per patient and family
Instructed to follow-up with [facility] orthopedics outpatient.
# Legally blindness
DVT Prophylaxis: Heparin subcu
Code Status: Full Code
Total Critical Care Time__54___ minutes. I was immediately available to the patient and staff. I personally examined, reviewed labs, diagnostic images/reports, interpretations, treatment plans, discussed patient care with other providers and
family or caregivers (if patient is unable to make decisions), entered orders as appropriate and documented the medical record.
Anticipated Discharge: > 48 hours
Subjective/Interval History
-
Date of Service: October 16, 2023
hypoxic this morning
Objective Data
-
Labs:
Laboratory Results
10/16/23 10/16/23 10/16/23
00:15 04:42 04:51
WBC 17.1 H
Hgb 8.0 L
Hct 25.1 L
Plt Count 433 H D
HCO3 27.0
Sodium 135
Potassium 4.1
Chloride 99
Carbon Dioxide 26
BUN 60 H
Creatinine 2.4 H
Glucose 360 H 235 H
Calcium 8.8
10/16/23 10/16/23 10/16/23
07:08 09:11 09:32
WBC 17.6 H
Hgb 8.1 L
Hct 25.5 L
Plt Count 425 H
HCO3 27.8 27.1
Sodium 135
Potassium 3.8
Chloride 98
Carbon Dioxide 27
BUN 60 H
Creatinine 2.6 H
Glucose 194 H
Calcium 8.5
10/16/23
15:00
WBC
Hgb
Hct
Plt Count
HCO3 Pending
Sodium
Potassium
Chloride
Carbon Dioxide
BUN
Creatinine
Glucose
Calcium
Vital Signs:
Vital Signs
Temp Pulse Resp BP Pulse Ox
99 F 95 23 111/91 91
10/16/23 11:04 10/16/23 11:30 10/16/23 11:30 10/16/23 11:30 10/16/23 11:39
I&O
10/15/23 10/16/23 10/17/23
06:59 06:59 06:59
Intake Total 980 / 980
Output Total 500 / 500 1100 / 1100
Balance -500 / -500 -120 / -120
[2023-10-16] MEDS: LANTUS 0.25 UNITS SC (13:42)
[2023-10-16] MEDS: NOVOLOG FLEXPEN-MODERATE RESISTANCE 3 UNITS SC (13:42)
[2023-10-16] MEDS: NOVOLOG FLEXPEN-LOW RESISTANCE SC (13:47)
--- NOTE | 2023-10-16 15:42 | PTCARENOTE ---
Pt's daughters here to visit. Updated on pt's present condition and plan of care. Questions answered and emotional support provided. Pt continues to rest quietly- Pox down to 70-80's when HOB decreased to straight cath pt for ordered urine tests.
Recovered to 88-89% w/in 5 minutes when returned to [employer] position. Urine strong smelling and soo colored. No additional changes from previous assessment findings.
[2023-10-16 15:53] LABS: Urine Albumin 2+ (Neg - Trace); Urine Bilirubin Negative (Negative); Urine Character Clear (Clear); Urine Color Yellow; Urine Glucose 1+ (Negative); Urine Ketone Negative (Negative); Urine Leukocyte Negative (Negative); Urine Nitrite Negative (Negative); Urine Occult Blood Negative (Negative); Urine Urobilinogen Negative (Neg - 1+)
[2023-10-16 15:54] LABS: B.E. 1.6 mmol/L; HCO3 26.6 mmol/L (21-28); O2 Saturation % 92.9 % (94-98); PCO2 43 mmHg (32-35); PO2 61 mmHg (83-108)
[2023-10-16 16:01] LABS: Osmolality Urine 362 mOsm/kg (300-900)
[2023-10-16 16:07] LABS: Urine Bacteria Many (Negative); Urine Red Blood Cell 0-2 /HPF (0-2); Urine Squamous Cell 0-2 /LPF (Few); Urine White Cell 0-2 /HPF (0-5)
--- NOTE | 2023-10-16 16:19 | VNURNOTE ---
Chart reviewed, [facility] referral in saved mode and will be sent closer to discharge.
[2023-10-16 16:22] LABS: Urine Sodium 5 mmol/L (30-90)
[2023-10-16] MEDS: HEPARIN 5000 UNITS SC (17:01)
--- NOTE | 2023-10-16 17:30 | PTCARENOTE ---
Pt's daughters gone home for evening. Pt resting quietly, no new complaints or changes from previous assessment findings.
[2023-10-16 17:53] LABS: Glucose - Point of Care 187 mg/dl (70-99)
[2023-10-16] MEDS: NOVOLOG FLEXPEN-MODERATE RESISTANCE 1 UNITS SC (17:53)
--- NOTE | 2023-10-16 20:00 | PTCARENOTE ---
rec`d pt at 1900, laying in bed. drowsy but alert to verbal stimuli. Pt is legally blind. afebrile. SR on monitor. HR 80s. bilateral lower leg edema +1. + pulses. left W, Rt upper arm midline and RT AC 20, flushed and patent. PT on NIV. satting
between 89-92%. loud coarse rhonchi throughout. No BM. purwick in place. Rt leg brace in place, present with admission. pillow under rt leg for comfort as requested by the pt. call estrada in reach, safe environment maintained.
[2023-10-16] MEDS: LANTUS 0.349999999999999978 UNITS SC (21:29)
[2023-10-16] MEDS: MAXIPIME 1000 MG IV (21:30)
[2023-10-16 21:34] LABS: Glucose - Point of Care 183 mg/dl (70-99)
[2023-10-16] MEDS: OFIRMEV 100 IV (22:00)
[2023-10-16] MEDS: NOVOLOG FLEXPEN-MODERATE RESISTANCE SC (23:27)
[2023-10-16 23:38] LABS: Glucose - Point of Care 70 mg/dl (70-99)
[2023-10-17] VITALS (23 sets, daily range): BP systolic 99–166; BP diastolic 42–85; BMI 44.8
--- NOTE | 2023-10-17 | PTCARENOTE ---
pt reassessed. no changes in pt assessment. call estrada in reach.
[2023-10-17] MEDS: HEPARIN 5000 UNITS SC ×3 (00:50→15:56)
[2023-10-17] MEDS: DECADRON 4 MG IV ×2 (00:50→08:04)
[2023-10-17 03:40] LABS: Hematocrit 25.3 % (37.0-47.0); Hemoglobin 8.1 g/dL (12.0-16.0); Mean Corpuscular Hgb 24.8 pg (27.0-31.0); Mean Corpuscular Volume 77.4 fL (81.0-99.0); Mean Platelet Volume 10.1 fL (7.4-10.4); Platelet Count 393 10^3/uL (130-400); Red Blood Cell Count 3.27 10^6/uL (4.20-5.40); Red Cell Dist. Width 18.7 % (11.5-14.5); White Blood Cell Count 17.1 10^3/uL (4.8-10.8)
[2023-10-17] MEDS: OFIRMEV 100 IV ×3 (04:00→17:51)
--- NOTE | 2023-10-17 04:00 | PTCARENOTE ---
pt reassessed. no changes in pt assessment. pain in right leg covered with PRN afirmiv. call estrada in reach.
[2023-10-17 04:03] LABS: Blood Urea Nitrogen 74 mg/dl (7-17); Calcium 8.7 mg/dl (8.4-10.2); Carbon Dioxide 23 mmol/L (22-30); Chloride 105 mmol/L (98-107); Estimated Creatinine Clearance 26 ml/min; Glucose 88 mg/dl (70-99); Magnesium 2.9 mg/dl (1.6-2.3); Phosphorus 6.7 mg/dl (2.5-4.5); Potassium 3.8 mmol/L (3.5-5.1); Sodium 138 mmol/L (135-145); eGFR 19.46
[2023-10-17 04:06] LABS: Vancomycin Random 16.8 ug/ml
[2023-10-17 04:11] LABS: NT-proBNP 1950 pg/ml
[2023-10-17 04:13] LABS: Procalcitonin 0.15 ng/ml (0.0-0.25)
[2023-10-17 05:16] LABS: B.E. 0.9 mmol/L; O2 Saturation % 97.3 % (94-98); PCO2 43 mmHg (32-35); PO2 74 mmHg (83-108); pH 7.39 (7.35-7.45)
[2023-10-17] MEDS: NOVOLOG FLEXPEN-MODERATE RESISTANCE SC ×2 (05:56→12:20)
[2023-10-17 06:07] LABS: Glucose - Point of Care 126 mg/dl (70-99)
[2023-10-17] MEDS: DUONEB 3 ML INH ×4 (07:16→20:13)
[2023-10-17] MEDS: PROTONIX IV 40 MG IV ×2 (08:04→20:19)
[2023-10-17] MEDS: NSS (PRESERVATIVE FREE) 10 ML IV ×2 (08:04→20:19)
[2023-10-17] MEDS: FLUSH (NSS) 2 FLUSH IV (08:05)
[2023-10-17] MEDS: ZITHROMAX INFUSION 250 IV (08:05)
--- NOTE | 2023-10-17 08:31 | W.PN.INTV ---
Today's Communication / Plan
Recommendations
Continue NIV
Low threshold to intubate
NPO
MAP >65
If hypoxia fails to improve then we will need to start to diurese - hold off for now given worsening JOHN
Replete K >4, Mg >2
Aspiration precaution
Raise steroids to Solu-Medrol 40 mg IV q6hr
Continue DuoNebs & ABx
Switch to sport bed
If worsening hypoxia then last effort before intubating would be to prone
If not off BiPAP by this weekend then will electively intubate
Assessment
-
Assessment: 62-year female former tobacco smoker with a past medical history of COPD, hypertension and chronic HFpEF who initially presented with shortness of breath on 10/14/2023. SOB occurred over 1 week with cough and green phlegm. She was
admitted to the hospitalist service and was being treated with antibiotics for multifocal pneumonia and pulmonary was following. She was also being diuresed with Lasix 40 mg BID on 10/15/2023. Due to history of COPD she was started on Decadron and
DuoNebs QID. When she initially was hospitalized she required BiPAP but this was weaned down to mid flow at 12 L/min. Her requirements increased to 15 L/min on the evening of 10/14, and on the morning of 10/15 she required continuous BiPAP and had
worsening hypoxia with saturations in the mid 80s. She is now being transferred to the ICU for further care and sanitation lead services consulted for further management/recommendations.
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
Impression:
#Acute respiratory failure with hypoxemia
#Severe community-acquired pneumonia
#Sepsis without shock due to above
#Acute kidney injury superimposed on CKD (baseline Cr approx 1.3-1.5)
#Hyperglycemia - improved
#Leukocytosis
#Small bilateral pleural effusions (seen on CT chest from 10/14/2023)
#Acute on chronic anemia (baseline Hb approx 11-12.5)
#Mild�moderate aortic stenosis
#Morbid obesity
#Reported Hx of COPD/chronic bronchitis
#Former tobacco use disorder (2PPD x 20 years, quit ~25 years ago)
Plan:
- Continuous BiPAP with low threshold to intubate
- Strict NPO
- Serial blood gases with continuous pulse oximetry
- DuoNebs QID with prn doses in between
- Continue systemic steroids --> raise to solumedrol 40mg IV q6hr and I will wean as she clinically improves
- Maintain SpO2 >90-94%
- Continue with broad-spectrum antibiotics (currently on Cefepime and Azithro - cefepime started 10/15 + zithromax started 10/15; she is s/p aztreonam 10/13 - 10/15, and s/p 2 doses of IV vanco on 10/13 + 10/14 (DC'd due to neg. MRSA swab)
- Follow up infectious workup with blood & sputum Cx
- Maintain MAP>65
- Strict I/O and trend UOP
- Goal BG 140-180mg/dL with basal-bolus insulin
- Replete electrolytes with K>4, Mg>2
- Maintain SpO2 >90-94% with supplemental O2 if needed
- stress ulcer ppx: n/a
- DVT ppx: HSQ
Plan above was reviewed in detail in layman's terms with the patient's 2 daughters to their satisfaction. Patient remains full code with full medical treatment.
Continue ICU level care with hourly vital signs & continuous pulse oximetry for this patient with high likelihood for further clinical deterioration and low threshold for intubation.
If the patient improves and is downgraded from ICU and eventually discharged, she will ultimately need follow-up with us in the office. She ultimately will need repeat CT chest in 6-8 weeks, with outpatient PFTs and discussion of the weight
loss/workup for sleep disordered breathing. For now considering she is critically ill, will defer outpatient management/discussion until she improves.
Critical care statement: A total of 44 minutes of critical care time was provided for this patient today. This includes management of unstable vital signs, evaluation of the patient at bedside, reviewing the patient's pertinent medical records
including radiographs, microbiology, laboratory evaluations, and discussion with primary team, consultants, pharmacy, nutrition, physical therapy, case management, charge nurse, critical care nursing, and respiratory therapy.
Data:
CXR 10-16-2023: Extensive bilateral airspace opacities with air bronchograms, increasing since most recent radiograph of October 14, 2023.
CXR 10-17-2023: Extensive bilateral airspace opacities with air bronchograms likely minimally improved.
CT Chest with IV contrast 10-14-2023:
Marked widespread bilateral interstitial and groundglass opacities, numerous scattered prominent mediastinal lymph nodes and tiny bilateral pleural effusions. Findings could be on the basis of pneumonia/pneumonitis with viral pneumonitis one of
several differential diagnostic possibilities.
TTE 10-15-2023:
Normal left ventricular size and systolic function.
No regional wall motion abnormalities are seen.
LV ejection fraction is 60-65% by visual assessment.
Mild concentric left ventricular hypertrophy.
Normal right ventricular systolic function.
Trace mitral regurgitation.
Mild to moderate aortic stenosis.
Peak/mean gradients are 33/20mmHg.
The valve area by continuity equation is 1.1cm sq, using a LVOT of 1.8cm.
Trace tricuspid regurgitation.
Estimated pulmonary artery pressure of 40-45 mmHg.
The IVC is of normal size but does not demonstrate normal respiratory
variation.
EF% remains normal compared to 2022 echo and aortic valve gradients remain
relatively stable with mild to moderate .
Subjective Dataa
Subjective Data
Date of Service:
Date of Service: October 17, 2023
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
Subjective:
Pt seen and evaluated this AM. No acute events reported from overnight. She remains on BiPAP on at 100% FiO2. She is following commands and is awake. She denies chest pain, headache, worsening shortness of breath, abdominal pain, back
pain, nausea, fevers or chills. SpO2 96%. BP 135/51, HR 98. Daughters asked to came to bedside and I discussed the clinical status of their mom with them and answered all the questions.
Review of Systems
General: Other (Negative unless mentioned above)
Objective Data
Data Reviewed
Vital Signs / I&O / Oxygen:
Vital Signs
Temp Pulse Resp BP Pulse Ox
97.6 F 85 24 136/59 95
10/17/23 07:50 10/17/23 07:16 10/17/23 07:16 10/17/23 04:29 10/17/23 07:16
Intake and Output
10/16/23 10/17/23 10/18/23
06:59 06:59 06:59
Intake Total 980 / 980
Output Total 1100 / 1100 400 / 400
Balance -120 / -120 -400 / -400
SaO2 95
Nasal Cannula flow liters per 12
minute
Physical Exam
General: Respiratory Distress (negative) and Comfortable
HEENT: Normocephalic, Anicteric and Other (NIV full facemask applied)
Cardiovascular: S1-S2 and Peripheral Edema (negative)
Respiratory: Wheeze (negative), Crackles (bibasilar), Rhonchi (bilaterally) and Accessory Resp Muscle Use (occassionally)
GI: Soft, Non Tender, Normal Bowel Sounds and Other (abdominal obesity)
Neurology: AO x 3
Skin: Warm and Dry
Labs/Micro/Reports
Lab Data
10/17/23 03:33
10/17/23 03:33
Laboratory Results
10/16/23 10/16/23 10/17/23
09:32 15:44 05:06
pH 7.45 7.40 7.39
pCO2 39 H 43 H 43 H
pO2 59 L* 61 L 74 L
HCO3 27.1 26.6 26.0
O2 Delivery Level
Microbiology
10/14/23 17:01 Blood/Venous Blood Culture - Preliminary
No Growth in 48 hours- Final report to follow
10/14/23 17:01 Blood/Venous Blood Culture - Preliminary
No Growth in 48 hours- Final report to follow
10/15/23 17:13 Sputum Respiratory Culture - Preliminary
Usual Respiratory Aura
10/15/23 17:13 Sputum Gram Stain - Preliminary
10/15/23 04:04 Nose MRSA Screen - Final
No Methicillin Resistant Staphylococcus aureus isolated.
10/15/23 04:00 Urine Legionella Urinary Antigen - Final
Negative for Legionella pneumophila Serogroup 1 antigen.
A negative result does not rule out the possiblity of
Legionella infection due to other serogroups or species of
Legionella. Clinical correlation is recommended.
10/15/23 04:00 Urine Streptococcus pneumoniae Antigen (M - Final
Negative for Streptococcus pneumoniae antigen.
A negative result does not exclude infection with
Streptococcus pneumoniae. Clinical correlation is
recommended.
10/14/23 17:43 Nasal Swab Influenza Types A & B (LISA) - Final
Negative for Influenza A & B, NAAT
Negative results must be combined with clinical observations
and patient history.
Nucleic Acid Amplification test (NAAT)performed on the
Reppler platform.
[2023-10-17 08:34] LABS: Glucose - Point of Care 138 mg/dl (70-99)
[2023-10-17] MEDS: LANTUS SC (09:00)
--- NOTE | 2023-10-17 09:00 | PTCARENOTE ---
Rec'd pt at 0800 awake alert and oriented resting in bed visiting with . Denies pain currently. Speech is clear although difficult to hear under mask. Pt is legally blind - admits she cannot see. Pt does have intermittent tremors of arms and
per pt restless leg. Skin is pale wm and dry. R leg brace is intact-site wnl. Good CMS check to distal extremity. Respirs- Rec'd pt on NIV 100% , Rate 15, 20/15. Pt own RR 24 with TV 820. PP 21. BS are very coarse rhonchi throughout- R > L. Sats are
90-92% at rest but with taking off the mask briefly to do oral care sats dipped to 84%. Does get SINGLETON. Monitor SR with 1st'avb ID .22 VS as documented. + pulses. No edema. Denies chest pain. Abd is round/obese with + BS. NPO currently. Denies need to
void but purwick placed.. Capped midline intact R upper arm, R AC and L wrist. Turned and repositioned. Mouth and Andie care given. Plan of care reviewed with pt. Call estrada in reach.
--- NOTE | 2023-10-17 09:23 | W.PN.CARDCBS ---
Today's Communication / Plan
-
Continue antibiotics.
Remains in sinus rhythm. Would hold Lasix for another 24 hours.
Likely resume Lasix in a.m. as long as creatinine stabilizes. Creatinine at 2.7.
proBNP is rising slightly.
Continue broad-spectrum antibiotics
Impression / Plan
-
.
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
Impression:
Multifactorial dyspnea, respiratory failure
COPD/asthmatic bronchitis
Acute on chronic HFpEF
Acute on chronic renal failure
Mild to moderate aortic stenosis
Recent nondisplaced fracture fibular head, complete tear medial meniscus/rupture ACL
Type 2 diabetes
Hypertension
Anemia of chronic disease
Hypercholesterolemia
Diabetic retinopathy with bilateral blindness.
GERD
Morbid obesity
Bipolar/anxiety depression
Fibromyalgia
Echo October 15 2023: EF 60 to 65% with mild LVH, mild to moderate , peak/mean gradients 33/20 mmHg, aortic valve area 1.1 cm sq, PASP 40 to 45 mmHg
Plan:
Multifactorial dyspnea.
Currently on BiPAP. O2 management
Cont with pulmonary toilet and broad-spectrum antibiotics.
IV steroids as per primary service
Creatinine up to 2.7. Would hold IV Lasix for another 24 hours but likely will need to restart as proBNP is rising. Hopefully over the next 24 hours resume Lasix.
Echo reviewed and EF is preserved and valvular heart disease is stable including aortic stenosis, which remains mild to moderate.
Troponins are negative.
Monitor telemetry and EKG
Cont tx of hyperlipidemia with Lipitor, once taking p.o.
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
Subjective
Date of Service: October 17, 2023
Remains on BiPAP. Breathing is slowly improving.
Objective
Labs:
10/17/23 03:33
10/17/23 03:33
Labs
Hgb 8.1 g/dL (12.0-16.0) L 10/17/23 03:33
Hct 25.3 % (37.0-47.0) L 10/17/23 03:33
Plt Count 393 10^3/uL (130-400) 10/17/23 03:33
Sodium 138 mmol/L (135-145) 10/17/23 03:33
Potassium 3.8 mmol/L (3.5-5.1) 10/17/23 03:33
BUN 74 mg/dl (7-17) H 10/17/23 03:33
Creatinine 2.7 mg/dL (0.6-1.0) H 10/17/23 03:33
Glucose 88 mg/dl (70-99) 10/17/23 03:33
Troponins
10/14/23 10/14/23 10/14/23
16:01 17:01 23:46
Troponin I Cancelled < 0.012 Cancelled
10/15/23
04:04
Troponin I < 0.012
Vital Signs and I&O:
Vital Signs
Temp Pulse Resp BP Pulse Ox
97.6 F 92 20 146/59 91
10/17/23 07:50 10/17/23 08:30 10/17/23 08:30 10/17/23 08:00 10/17/23 08:30
Vital Signs
Temp Pulse Resp BP Pulse Ox
97.6 F 92 20 146/59 91
10/17/23 07:50 10/17/23 08:30 10/17/23 08:30 10/17/23 08:00 10/17/23 08:30
Intake & Output
10/15/23 10/16/23 10/17/23 10/18/23
06:59 06:59 06:59 06:59
Intake Total 980 / 980
Output Total 500 / 500 1100 / 1100 400 / 400
Balance -500 / -500 -120 / -120 -400 / -400
Physical Exam
Physical Exam
GEN: No distress, awake, Ox3
HEENT: supple, anicteric, mmm, bipap
LUNGS: bilat rhonchi
CV: Reg, S1/S2, 1/6 syst LSB, no gallop
ABD: soft, BS+, NT/ND
EXT: No edema
NEURO: Gross non-focal
SKIN: No rash
[2023-10-17] MEDS: LANTUS 0.299999999999999989 UNITS SC ×2 (09:27→20:19)
--- NOTE | 2023-10-17 10:23 | PN.DE.MGMTRT ---
Insulin Management
- -
10/17/2023 Diabetes Management Follow up
Patient admitted 10/13 with breathing problem admitting DX acute respiratory failure with hypoxia, severe community acquired pneumonia, septic shock, hyperkalemia, pleural effusions. PMH COPD, HTN, HLD, CAD, type 2 diabetes, asthma, chf, GERD,
depression.
Patient currently resting, not disturbed, she is currently on bipap.
Prior to admission patient was taking lantus 45 units BID with novolog SS. A1C is 6.5%, cr 2.6, eGFR 20.36.
Patient is currently NPO, will continue corrective insulin Q 6 hours, moderate scale. Patient home dose of lantus 45 BId, reduced dose yesterday to 35 BID. Glucose 23:26 70. Will reduce BID lantus to 30 units. Will follow for further needed
adjustments.
Diabetes History
- -
Type of Diabetes: 2 requiring insulin
Pre-Admission Diabetes Regimen
10/17/23
03:33
Creatinine 2.7 H
Lab Results
Hemoglobin A1c 6.5 % (4.0-5.6) H 10/15/23 04:04
Insulin Pump Settings
IP Diabetes Regimen
10/16/23 10/16/23 10/16/23
11:39 17:42 21:22
Glucose
POC Glucose 203 H 187 H 183 H
10/16/23 10/17/23 10/17/23
23:26 03:33 05:55
Glucose 88
POC Glucose 70 126 H
10/17/23
08:23
Glucose
POC Glucose 138 H
Meal type: Breakfast
Meal type: Dinner
Patient Education
[2023-10-17] MEDS: MAXIPIME 1000 MG IV ×2 (11:07→21:25)
[2023-10-17] MEDS: FLUSH (NSS) 1 FLUSH IV ×4 (11:08→17:52)
[2023-10-17] MEDS: STERILE WATER FOR INJECTION 10 ML IV ×2 (11:08→21:25)
--- NOTE | 2023-10-17 11:20 | PTCARENOTE ---
Pt resting all morning. If left alone sats are 92% but if mask pulled back even just to swab mouth or lie pt with her head down to turn or change linen sats dip 86 then 81%. Back up to 91% when head back up. Pt has not been able to void. Bladder
scanned at 1100 for 663 mls- this is the 2nd time she need straight cath for retention. #16 Thermistor razo placed for return of 660 mls of yellow urine. Repositioned on R side and sats up to 95%. Ofermiv 1000 mg IV given for generalized body
aches. Call estrada in reach- will continue to monitor.
--- NOTE | 2023-10-17 11:55 | W.PN.HOSP.TC ---
Today's Communication/Plan
-
Monitor vital signs and see plan
On noninvasive ventilator
Monitor respiratory status, low threshold for intubation if get worse
Continue with antibiotics
Monitor leukocytosis
Continue with steroids
Monitor hemoglobin
Monitor renal function
Assessment / Plan
Assessment / Plan
General:�Well Developed, Well Nourished and in respiratory distress
HEENT:�NormoCephalic, Moist mucous membranes and Atraumatic
Respiratory:�Rhonchi
Cardiac:�S1/S2 and Regular Rhythm; No Murmur or Rub
GI:�Soft, Non Tender, Non Distended and Normal Bowel Sounds
Rectal:�Deferred by Provider
Musculoskeletal:�No Clubbing, Other (Bilateral lower extremities edema)
Skin:�No Rash
Neuro:�AO x 3 and Nonfocal/grossly intact
Psych:�Calm
Acute hypoxic hypercarbic respiratory failure multifactorial suspect multifactorial from pneumonia and possible CHF exacerbation
- 10/15 with worsening hypoxia;currently maxed on BIPAP, wean oxygen as tolerated. High flow was tried however patient did not tolerate. Low threshold for intubation. Surprisingly mental status intact. now on noninvasive ventilator
Discussed with patient regarding code status; wants to remain full code; finally spoke with spouse who agrees
-cw duonebs
-Continue supplemental oxygen to keep sat greater than 92
-COVID and flu negative
- CT of chest without PE, shows marked widespread bilateral interstitial and groundglass opacities
repeat xray 10/15 with extensive bilateral airspace opacity with air bronchograms
-Strep and Legionella negative
cw abx; consider ID eval if dont imporve
NPO
PPI IV
ABG 10/15 with persistent hypoxia, now slowly improving
# COPD exacerbation
-cw decadron
-Nebs
-Continue to monitor
-Breo continued
Pulmonary following
# Acute on chronic CHF exacerbation
-lasix now on hold 2/ JOHN, hopeful initiation of Lasix soon
-Strict CONCEPCION
-Daily weight
-Cardiology following
Echo with mild to mod ; preserved EF
Does have history of aortic stenosis
# Anemia of chronic disease
could be mildly from hemotysis,mild 10/15. quantify hemoptysis. No more episode
monitor hgb
-No active bleeding
-Continue to trend
# JOHN on Chronic kidney disease stage IIIa
-Monitor creatinine
hold lasix
Hold nephrotoxic agents
#Essential tremors
#Benign Hypertension
�- Stable
- on Norvasc
#Diabetes Mellitus, Type II
�-Sliding scale
�- Continue Lantus
�- Monitor sugars and continue coverage insulin
A1c 6.5
#Bipolar/Anxiety/Depression
�-Celexa, lorazepam continued
#Morbid Obesity due to excess calories
�- Affects all aspects of care
# Hyperlipidemia
-Statin continued
# Chronic neuropathy pain/fibromyalgia
- HOLD Diclofenac, tramadol, Lyrica
# Acute/subacute nondisplaced fracture of fibular head/complete tear of medial meniscus/rupture of ACL
-Lower extremity MRI with the impression of Acute or subacute nondisplaced fracture of the fibular head.
2. Small osseous contusions at the posterior aspects of the medial tibial plateau and lateral tibial plateau.
3. Complex tear of the posterior horn of the medial meniscus.
4. Rupture of the ACL.
5. Large knee joint effusion.
6. Small Patton's cyst.
-Partial weightbearing to right lower extremities per patient and family
Instructed to follow-up with [facility] orthopedics outpatient.
# Legally blindness
DVT Prophylaxis: Heparin subcu
Code Status: Full Code
I spent a total of 52 minutes with the patient or on the floor. More than 50% of this time involved counseling and coordination of care.
Anticipated Discharge: > 48 hours
Subjective/Interval History
-
Date of Service: October 17, 2023
on noninvasive vent; denies chest pain
Objective Data
-
Labs:
Laboratory Results
10/17/23 10/17/23
03:33 05:06
WBC 17.1 H
Hgb 8.1 L
Hct 25.3 L
Plt Count 393
HCO3 26.0
Sodium 138
Potassium 3.8
Chloride 105
Carbon Dioxide 23
BUN 74 H
Creatinine 2.7 H
Glucose 88
Calcium 8.7
Vital Signs:
Vital Signs
Temp Pulse Resp BP Pulse Ox
97.6 F 92 30 155/63 91
10/17/23 07:50 10/17/23 10:30 10/17/23 10:30 10/17/23 10:00 10/17/23 10:30
I&O
10/16/23 10/17/23 10/18/23
06:59 06:59 06:59
Intake Total 980 / 980 250 / 250
Output Total 1100 / 1100 400 / 400
Balance -120 / -120 -400 / -400 250 / 250
[2023-10-17 12:09] LABS: Glucose - Point of Care 140 mg/dl (70-99)
[2023-10-17] MEDS: SOLU-MEDROL PF 40 MG IV ×2 (12:49→17:52)
--- NOTE | 2023-10-17 13:00 | PTCARENOTE ---
Pt placed on Lateral rotation mattress. Percussion done through bed. Will start rotation as documented. Remains resting otherwise. No changes
--- NOTE | 2023-10-17 15:30 | CM ---
CM following re: discharge planning.
Discussed in rounds, reviewed pt's chart,. per Rounds meeting, pt is AAOx3, remains NPO, on noninvasive ventilator, does not tolerate HFNC, continue supportive care.
Pt lives with in a one story mobile home with no CHELSIE. Pt ambulates with a walker and assisted with ADLs such as showering by her .
Per CM note, nebulizer machine has been ordered with [facility].
PT and OT will re-evaluate the pt when clinically appropriate to determine a level of care at discharge.
D/C plan: original plan was home with [facility] and family support. Pt might need Bi-pap and home oxygen.
CM will follow with discharge plan updates as hospitalization progresses.
[2023-10-17] MEDS: NSS (PRESERVATIVE FREE) 0.125 ML IV (15:58)
[2023-10-17] MEDS: ATIVAN 0.25 MG IV (15:58)
--- NOTE | 2023-10-17 16:15 | PTCARENOTE ---
Assessment overall is unchanged. Pts daughters in to visit and updated by Dr. Soria. Remains on NIV with the same settings. Still 100% Fio2. Sats at complete rest are 90-93% but again will desat to 81% with minimal activity on the mask off
momentarily to do oral care. Pt did admit to feeling achy all over and anxious. Will give Ofermiv when able but medicated at 1600 with Ativan 0.25 mg IV. VS as documented. Huizar draining yellow urine.Turned and repositioned. Call estrada in reach.
[2023-10-17 17:41] LABS: Glucose - Point of Care 162 mg/dl (70-99)
[2023-10-17] MEDS: NOVOLOG FLEXPEN-MODERATE RESISTANCE 1 UNITS SC (18:05)
--- NOTE | 2023-10-17 18:12 | PTCARENOTE ---
Repositioned. Medicated with Ofermiv 1000 mg IV for c/o whole bodyaches. Sats 87-90%.
--- NOTE | 2023-10-17 20:00 | PTCARENOTE ---
rec`d pt at 1900, laying in bed, very pleasant. Pt is legally blind. afebrile. SR to ST on monitor. HR 80 to 100s. bilateral lower leg edema +1. + pulses. left W, Rt upper arm midline and RT AC 20, flushed, patent and capped. PT on NIV. settings:
15/ IPAP 20/ 100%/ 15 EXPAP/ PEEP. satting at 95%. loud coarse rhonchi throughout. No BM. therm razo draining yellow urine. Rt leg brace in place, present with admission. pillow under rt leg for comfort as requested by the pt. call estrada in reach,
safe environment maintained.
[2023-10-17 20:17] LABS: Glucose - Point of Care 150 mg/dl (70-99)
[2023-10-17] MEDS: DILAUDID 0.25 MG IV (21:25)
[2023-10-17 23:35] LABS: Glucose - Point of Care 167 mg/dl (70-99)
[2023-10-18] VITALS (42 sets, daily range): BP systolic 63–159; BP diastolic 33–80; BMI 44.7
--- NOTE | 2023-10-18 | PTCARENOTE ---
pt reassessed, no changes in pt assessment. pt continuously turned for better oxygenation. call estrada in reach.
[2023-10-18] MEDS: NOVOLOG FLEXPEN-MODERATE RESISTANCE 1 UNITS SC ×2 (01:00→12:24)
[2023-10-18] MEDS: SOLU-MEDROL PF 40 MG IV ×5 (01:08→23:27)
[2023-10-18] MEDS: HEPARIN 5000 UNITS SC ×4 (01:09→23:27)
[2023-10-18 04:54] LABS: B.E. 0.9 mmol/L; HCO3 26.6 mmol/L (21-28); O2 Saturation % 85.4 % (94-98); PCO2 47 mmHg (32-35); pH 7.36 (7.35-7.45)
[2023-10-18 04:56] LABS: O2 Therapy 100%; PO2 54 mmHg (83-108)
[2023-10-18 05:17] LABS: Hematocrit 25.7 % (37.0-47.0); Hemoglobin 8.2 g/dL (12.0-16.0); Mean Corp Hgb Conc. 31.9 g/dL (33.0-37.0); Mean Corpuscular Volume 75.4 fL (81.0-99.0); Mean Platelet Volume 9.7 fL (7.4-10.4); Platelet Count 472 10^3/uL (130-400); Red Blood Cell Count 3.41 10^6/uL (4.20-5.40); Red Cell Dist. Width 18.8 % (11.5-14.5); White Blood Cell Count 19.5 10^3/uL (4.8-10.8)
[2023-10-18] MEDS: NOVOLOG FLEXPEN-MODERATE RESISTANCE SC (05:24)
[2023-10-18 05:34] LABS: Glucose - Point of Care 145 mg/dl (70-99)
[2023-10-18 05:39] LABS: ALT (SGPT) 18 U/L (0-35); AST (SGOT) 48 U/L (14-36); Albumin 3.9 g/dl (3.5-5.0); Alkaline Phosphatase 142 U/L (38-126); Blood Urea Nitrogen 87 mg/dl (7-17); Calcium 8.8 mg/dl (8.4-10.2); Carbon Dioxide 26 mmol/L (22-30); Chloride 105 mmol/L (98-107); Direct Bilirubin 0.2 mg/dl (0.0-0.4); Estimated Creatinine Clearance 29 ml/min; Glucose 139 mg/dl (70-99); Magnesium 3.3 mg/dl (1.6-2.3); Potassium 3.8 mmol/L (3.5-5.1); Sodium 144 mmol/L (135-145); Total Bilirubin 0.7 mg/dl (0.2-1.3); eGFR 22.42
[2023-10-18 05:42] LABS: NT-proBNP 3020 pg/ml
[2023-10-18] MEDS: ATIVAN 0.25 MG IV (05:48)
[2023-10-18] MEDS: NSS (PRESERVATIVE FREE) 0.125 ML IV (05:50)
--- NOTE | 2023-10-18 06:05 | PTCARENOTE ---
pt repeatedly desats anywhere in the 80s. RT and RESOLUTION ANALYST aware. Ativan given for anxiety.
--- NOTE | 2023-10-18 07:08 | W.PN.UPDATE ---
Update Note
Progress Note Update
Patient maintaining O2 sat in the mid the 80s and breathing 20 to 30 RR/min on NIV. Discussed with patient and her the need to intubate with her low oxygen state. Both were agreeable to intubation. Case discussed with DR. Soria and
agreed with decision.
[2023-10-18] MEDS: DUONEB 3 ML INH ×4 (07:37→19:25)
[2023-10-18] MEDS: SUBLIMAZE 50 MCG IV ×5 (07:38→22:49)
[2023-10-18] MEDS: DIPRIVAN 100 IV ×4 (07:39→22:05)
--- NOTE | 2023-10-18 07:45 | W.PN.ANESINT ---
Anesthesia Intubation Note
- Intubation Note
Intubation Note:
Diagnosis: Respiratory Distress
Blade: Glidescope
Tube Size: 8.0ETT
Depth: 23 @ lip
Side Taped: Right
Drugs Used: Propofol 180mg, Succs 100mg
Grade View: I
EtCO2 Present: +
Atraumatic: yes
Attempts: 2
Insertion Start and Stop Time:
SaO2 Pre: 78%
SaO2 Post: 70%
Glidescope Used: +
Other Airway Adjustments:
Pre-Oxygenated: +
Portable Chest X-Ray: +
RSI: -
Suctioned: +
Bilateral Breath Sounds Confirmed: +
Vent Settings: Per RT
Settings per ___Attending Physician
SpO2 slowly improving, BP 119/79, HR 90s, care resumed by ICU RNs and RT.
[2023-10-18] MEDS: SUBLIMAZE 100 IV ×2 (07:51→17:47)
--- NOTE | 2023-10-18 07:53 | PN.DE.MGMTRT ---
Insulin Management
- -
10/18/2023 Diabetes Management Follow up
Patient admitted 10/13 with breathing problem admitting DX acute respiratory failure with hypoxia, severe community acquired pneumonia, septic shock, hyperkalemia, pleural effusions. PMH COPD, HTN, HLD, CAD, type 2 diabetes, asthma, chf, GERD,
depression.
Patient was on Bipap but continued to have O1 sats in 80's. Patient required intubation, O2 sats are improved. She does awaken but due to ET tube unable to communicate.
Prior to admission patient was taking lantus 45 units BID with novolog SS. A1C is 6.5%, cr 2.6, eGFR 20.36.
Patient is currently NPO, will continue corrective insulin Q 6 hours, moderate scale. Patient home dose of lantus 45 BId, reduced dose yesterday to 30 BID. Glucose range yesterday 126 to 162, fasting this AM 139. Will make no change to current
regimen.
Diabetes History
- -
Type of Diabetes: 2 requiring insulin
Pre-Admission Diabetes Regimen
10/18/23
05:05
Creatinine 2.4 H
Lab Results
Hemoglobin A1c 6.5 % (4.0-5.6) H 10/15/23 04:04
Insulin Pump Settings
IP Diabetes Regimen
10/17/23 10/17/23 10/17/23
08:23 11:54 17:29
Glucose
POC Glucose 138 H 140 H 162 H
10/17/23 10/17/23 10/18/23
20:05 23:24 05:05
Glucose 139 H
POC Glucose 150 H 167 H
10/18/23
05:22
Glucose
POC Glucose 145 H
Meal type: Dinner
Meal type: Lunch
Meal type: Breakfast
Patient Education
[2023-10-18] MEDS: NIMBEX 15 MG IV ×3 (07:59→19:21)
[2023-10-18] MEDS: ZITHROMAX INFUSION 250 IV (08:21)
[2023-10-18] MEDS: PROTONIX IV 40 MG IV ×2 (08:24→20:24)
[2023-10-18] MEDS: NSS (PRESERVATIVE FREE) 10 ML IV ×2 (08:24→20:24)
[2023-10-18] MEDS: FLUSH (NSS) 2 FLUSH IV (08:28)
--- NOTE | 2023-10-18 08:30 | PTCARENOTE ---
Additional assessment- of note pts pupils R pupil is about 4 mm , non reactive and looks as if it has surgical intervention. L pupil is also non-reactive and irregualr in shape. Pt is legally blind by history.
--- NOTE | 2023-10-18 08:30 | PTCARENOTE ---
Rec'd pt at 0700 along with shift mgr RN resting in but very dyspnic. Sats 78-80% on the NIV ventilation on 100%. Pt is awake and alert- admitting she cannot breath and stating 'can I have something to drink' and ' just put the breathing tube in'.
Asking for her and even stated 'tell my daughters I said I was sorry'. Support given. Repositioned pt to try to help sats but just increased the hypoxia. Edmund CORNEJONP here and spoke with . Decision made to intubate pt.
Anesthesia here at 0720 and pt intubated with #8 Ett at the 23 cm reed on the R. BS are decreased and coarse. Sats down in the 40-50's with intubation and currently coming back up into the 84% range on 100% FIo2, AC 24, tv 500 , peep 8. PP 41.
Propophol started at 20 mcg at 0730 and increased to 30 mcg at 0740 for coughing and vent dyschrony. Fentanyl gtt also started at 50 mcg at 0750 for comfort and vent synchrony. Prior to intubation pt did admit to whole body aching. Along with Prop
and Fentanyl pt also medicated with Nimbex 15 mg to help with vent synchrony and desatturation. TOF done prior and pt with 4/4 twitches on Level 4 on L facial nerve. Post 0/4 twitches. Chest and abd xray done post intubation. Monitor SR with 1st'avb
AK. 22-.23. VS as documented. + pulses. PT and DP pulses very weakly palp but easily audible with the doppler. No edema. Abd is obese with hypoactive BS. Small bore feeding tube placed via R nare at the 65 cm reed. Placement auscultated and xray
taken. Thermistor razo in place for yellow urine. Fent and Propophol infusing via R arm Midline. IV team to frame changer to a PICC. Capped ints intact RAC and L wrist. Pts skin is pale wm and dry. Foam dressing intact on sacrum. Brace intact on R
lower leg. Good CMS checks. Skin under brace wnl. Bilat soft wrist restraints placed on pt as she did try to reach up at ETT post intubation. Will monitor closely.
[2023-10-18] MEDS: LANTUS 0.299999999999999989 UNITS SC ×2 (08:31→20:24)
--- NOTE | 2023-10-18 08:37 | W.PN.INTV ---
Today's Communication / Plan
Recommendations
Continue mechanical ventilation and optimize driving pressure and keep plataeu pressure <30 with permissive hypercapnea/hypoxemia
Insert small bore tube for TF
Insert A line
MAP >65
Diurese - 80mg IV x1 given this AM
Replete K >4, Mg >2
Aspiration precaution
Solu-Medrol 40 mg IV q6hr
Continue DuoNebs & ABx
Sport bed
Flolan --> if no improvement of P/F by 15-20% then stop
If hypoxia worsens despite vent optimization, then will need to paralyze with nimbex gtt and prone
Guarded prognosis
Assessment
-
Assessment: 62-year female former tobacco smoker with a past medical history of COPD, hypertension and chronic HFpEF who initially presented with shortness of breath on 10/14/2023. SOB occurred over 1 week with cough and green phlegm. She was
admitted to the hospitalist service and was being treated with antibiotics for multifocal pneumonia and pulmonary was following. She was also being diuresed with Lasix 40 mg BID on 10/15/2023. Due to history of COPD she was started on Decadron and
DuoNebs QID. When she initially was hospitalized she required BiPAP but this was weaned down to mid flow at 12 L/min. Her requirements increased to 15 L/min on the evening of 10/14, and on the morning of 10/15 she required continuous BiPAP and had
worsening hypoxia with saturations in the mid 80s. She is now being transferred to the ICU for further care and education specialist services consulted for further management/recommendations.
Chronic medical conditions DIRECTOR LEARNING: Hypertension, morbid obesity, history of COPD, DM type II, chronic bronchitis, HFpEF, anxiety, bipolar disorder, depression, bilateral blindness, history of lung nodule, former tobacco use disorder
Impression:
#Acute respiratory failure with hypoxemia and hypercapnia now on mechanical ventilation
#ARDS due to severe CAP
#Severe community-acquired pneumonia - suspect viral etiology given negative procal x2
#Sepsis without shock due to above
#Acute kidney injury superimposed on CKD (baseline Cr approx 1.3-1.5)
#Hyperglycemia - improved
#Leukocytosis
#Small bilateral pleural effusions (seen on CT chest from 10/14/2023)
#Acute on chronic anemia (baseline Hb approx 11-12.5)
#Mild�moderate aortic stenosis
#Morbid obesity
#Reported Hx of COPD/chronic bronchitis
#Former tobacco use disorder (2PPD x 20 years, quit ~25 years ago)
Plan:
- Patient is critically ill with severe hypoxemia with ARDS
- Optimize oxygenation via ARDSnet protocol and start Flolan and paralyzed with goal [id number] of 2 out of 4
- Permissive hypercapnea and permissive hypoxemia; goal pH 7.3 - 7.45, goal PaO2: 55-80
- Once SpO2 persistently >88% then we can paralyze prn with nimbex given she has an JOHN
- A line to be inserted
- Strict NPO; insert small bore NGT for PO access and start tube feeds
- Serial blood gases with continuous pulse oximetry
- DuoNebs QID with prn doses in between
- Continue systemic steroids --> raised to solumedrol 40mg IV q6hr on 10/16 and I will wean as she clinically improves
- Maintain SpO2 >90-94%
- Continue with broad-spectrum antibiotics (currently on Cefepime and Azithro - cefepime started 10/15 + zithromax started 10/15; she is s/p aztreonam 10/13 - 10/15, and s/p 2 doses of IV vanco on 10/13 + 10/14 (DC'd due to neg. MRSA swab)
- Follow up infectious workup with blood & sputum Cx
- Maintain MAP>65
- Strict I/O and trend UOP
- Goal BG 140-180mg/dL with basal-bolus insulin
- Replete electrolytes with K>4, Mg>2
- Maintain SpO2 >88% with supplemental O2 if needed
- stress ulcer ppx: PPI
- DVT ppx: HSQ
Plan above was reviewed in detail in layman's terms with the patient's and daughter to their satisfaction. Patient remains full code with full medical treatment.
If the patient improves and is downgraded from ICU and eventually discharged, she will ultimately need follow-up with us in the office. She ultimately will need repeat CT chest in 6-8 weeks, with outpatient PFTs and discussion of the weight
loss/workup for sleep disordered breathing. For now considering she is critically ill, will defer outpatient management/discussion until she improves.
Critical care statement: A total of 41 minutes of critical care time was provided for this patient today. This includes management of unstable vital signs, evaluation of the patient at bedside, reviewing the patient's pertinent medical records
including radiographs, microbiology, laboratory evaluations, and discussion with primary team, consultants, pharmacy, nutrition, physical therapy, case management, charge nurse, critical care nursing, and respiratory therapy.
Data:
CXR 10-16-2023: Extensive bilateral airspace opacities with air bronchograms, increasing since most recent radiograph of October 14, 2023.
CXR 10-17-2023: Extensive bilateral airspace opacities with air bronchograms likely minimally improved.
CXR 10-18-2023:
1. Endotracheal and endogastric tubes are in satisfactory position, as detailed above.
2. Severe confluent interstitial and alveolar opacities bilaterally, significantly worse compared to prior chest x-ray. Findings are likely related to severe interstitial and alveolar pulmonary edema, differential diagnosis includes ARDS and severe
bilateral pneumonia.
CT Chest with IV contrast 10-14-2023:
Marked widespread bilateral interstitial and groundglass opacities, numerous scattered prominent mediastinal lymph nodes and tiny bilateral pleural effusions. Findings could be on the basis of pneumonia/pneumonitis with viral pneumonitis one of
several differential diagnostic possibilities.
TTE 10-15-2023:
Normal left ventricular size and systolic function.
No regional wall motion abnormalities are seen.
LV ejection fraction is 60-65% by visual assessment.
Mild concentric left ventricular hypertrophy.
Normal right ventricular systolic function.
Trace mitral regurgitation.
Mild to moderate aortic stenosis.
Peak/mean gradients are 33/20mmHg.
The valve area by continuity equation is 1.1cm sq, using a LVOT of 1.8cm.
Trace tricuspid regurgitation.
Estimated pulmonary artery pressure of 40-45 mmHg.
The IVC is of normal size but does not demonstrate normal respiratory
variation.
EF% remains normal compared to 2022 echo and aortic valve gradients remain
relatively stable with mild to moderate .
Subjective Dataa
Subjective Data
Date of Service:
Date of Service: October 18, 2023
Chief Complaint: Wax Specialist Follow Up
Subjective:
Patient had worsening hypoxia overnight, also more symptomatic and was intubated by anesthesia. This morning she was remaining hypoxic on 100% FiO2, PEEP of 8 and decision made to paralyze and start Flolan. Family numbers at bedside including
daughter and � all questions were answered and emotional support was provided.
Review of Systems
General: Unobtainable - Sedation
Objective Data
Data Reviewed
Vital Signs / I&O / Oxygen:
Vital Signs
Temp Pulse Resp BP Pulse Ox
98.1 F 83 23 113/46 95
10/18/23 15:32 10/18/23 14:56 10/18/23 14:56 10/18/23 13:00 10/18/23 15:08
Intake and Output
10/17/23 10/18/23 10/19/23
06:59 06:59 06:59
Intake Total 350 / 350 441.4 / 441.4
Output Total 400 / 400 960 / 960 675 / 675
Balance -400 / -400 -610 / -610 -233.6 / -233.6
SaO2 [A/C] 90
SaO2 [NIV (Non Invasive 85
Ventilation)]
SaO2 95
Nasal Cannula flow liters per 12
minute
Physical Exam
General: Respiratory Distress (positive)
HEENT: Normocephalic, Anicteric, Other (ETT in place) and Other (thick neck)
Cardiovascular: S1-S2 and Peripheral Edema (negative)
Respiratory: Wheeze (negative), Crackles (bibasilar), Rhonchi (bilaterally) and Accessory Resp Muscle Use (positive)
GI: Soft, Non Distended, Non Tender, Normal Bowel Sounds and Other (abdominal obesity)
Neurology: Other (Sedated)
Skin: Warm and Dry
Labs/Micro/Reports
Lab Data
10/18/23 05:05
10/18/23 05:05
Laboratory Results
10/18/23 10/18/23 10/18/23
04:45 09:03 11:47
PT
INR
APTT
pH 7.36 7.31 L 7.34 L
pCO2 47 H 52 H 48 H
pO2 54 L* 60 L 61 L
HCO3 26.6 26.2 25.9
O2 Delivery Level 100%
10/18/23
15:59
PT Cancelled
INR Cancelled
APTT Cancelled
pH
pCO2
pO2
HCO3
O2 Delivery Level
Microbiology
10/14/23 17:01 Blood/Venous Blood Culture - Preliminary
No Growth in 72 hours- Final report to follow
10/14/23 17:01 Blood/Venous Blood Culture - Preliminary
No Growth in 72 hours- Final report to follow
10/16/23 15:23 Urine Urine Culture - Final
NO GROWTH
10/15/23 17:13 Sputum Respiratory Culture - Final
Usual Respiratory Aura
10/15/23 17:13 Sputum Gram Stain - Final
10/15/23 04:04 Nose MRSA Screen - Final
No Methicillin Resistant Staphylococcus aureus isolated.
--- NOTE | 2023-10-18 08:40 | W.SUR.POST ---
Surgical Immediate Post Op
Note
Bedside Arterial Catheter Insertion Procedure
Pre Op Diagnosis: On mechanical ventilation; Acute hypoxic respiratory failure
Post Op Diagnosis: Same as above
Indication: Need for frequent blood gases; On mechanical ventilation
Procedure Performed: Arterial catheterization insertion
Primary Surgeon/Proceduralist: Dr. Soria
Secondary Surgeons: N/A
Anesthesia: N/A
Estimated Blood Loss: <5cc
Fluids: N/A
Drains/Shunts: N/A
Specimens/Cultures: N/A
Doppler/Duplex/Angio (Y/N): n/a
Complications: No immediate complications.
Operative Findings: Verbal consent was obtained from the patient's due to the emergent nature of this procedure. After patient's right arm was positioned appropriately, radial artery was identified using ultrasound. Of note, patient has a
positive Wes test. Arrow integrated arterial catheter was used. Radial artery site was cleaned with ChloraPrep and sterile gloves, gown, and handwashing were used. Needle was inserted into radial artery and flow was seen coming into catheter.
Spring wire was advanced to the hub and the arterial catheter was advanced over the wire. The remainder of the spring wire and its container was removed. Pulsatile blow flow was seen from catheter, and it was attached to arterial catheter
equipment via a Leur lock. Appropriate waveform was seen. Arterial catheter was anchored into place using tape and sutures. Arterial catheter was covered with Biopatch and then that was covered with Tegaderm. There were no immediate
complications.
[2023-10-18 08:42] LABS: Glucose - Point of Care 169 mg/dl (70-99)
--- NOTE | 2023-10-18 09:00 | PTCARENOTE ---
Sats still 84-85%- Dr. Soria at bedside and PEEP increased to 10. Family at the bedside and updated. Plan of care reviewed and support given.
[2023-10-18 09:12] LABS: B.E. -0.3 mmol/L; HCO3 26.2 mmol/L (21-28); O2 Saturation % 90.1 % (94-98); PCO2 52 mmHg (32-35); PO2 60 mmHg (83-108); pH 7.31 (7.35-7.45)
[2023-10-18] MEDS: STERILE WATER FOR INJECTION 10 ML IV ×3 (09:15→21:36)
[2023-10-18] MEDS: NORCURON 10 MG IV (09:16)
[2023-10-18] MEDS: LASIX 80 MG IV (09:20)
[2023-10-18] MEDS: FLUSH (NSS) 1 FLUSH IV ×4 (09:21→17:25)
--- NOTE | 2023-10-18 09:30 | PTCARENOTE ---
Pt has started to cough again and gag on ETT and with any activity such as coughing will desat down to 70%. Per MD order Norcuron 10 mg IV given at 0915. TOF checked prior 4/4 twitches. Lasix 20 mg IV given at 0920 per md order. IV team at the
bedside replacing R midline for a PICC. Pt sedate and not coughing post Norcuron- currently 0/4 twitches
[2023-10-18] MEDS: VELETRI 50 ML INH (10:10)
[2023-10-18] MEDS: VELETRI 50 MCG INH (10:10)
--- NOTE | 2023-10-18 10:10 | PTCARENOTE ---
R radial A line placed by Dr. Soria-ezra as documented. A line about 30 mm/hg higher than cuff BP. Good CMS checks to distal extrem. L radial site with small hematoma from prior a line attempt. Pressure dressing over site. Resp therapy in
and per MD order Veletri (Epoprostenol) inhalation started via vent. Sats currently 92%.
--- NOTE | 2023-10-18 10:30 | PTCARENOTE ---
CXRAY taken for PICC placement
[2023-10-18] MEDS: REFRESH CELLUVISC GEL 1 DROPS OPHTH ×2 (10:33→20:24)
[2023-10-18] MEDS: MAXIPIME 1000 MG IV ×2 (10:34→21:35)
--- NOTE | 2023-10-18 10:59 | W.PN.CARDCBS ---
Today's Communication / Plan
-
Now intubated. Agree with diuresis.
Creatinine down to 2.4. Will resume Lasix 40 mg IV twice daily starting 10/09/2023, she received 80 mg IV today
Remains in sinus
cont vent care
Impression / Plan
-
.
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 Frias
Impression:
Multifactorial dyspnea, vent dependent respiratory failure
COPD/asthmatic bronchitis
Acute on chronic HFpEF
Acute on chronic renal failure
Mild to moderate aortic stenosis
Recent nondisplaced fracture fibular head, complete tear medial meniscus/rupture ACL
Type 2 diabetes
Hypertension
Anemia of chronic disease
Hypercholesterolemia
Diabetic retinopathy with bilateral blindness.
GERD
Morbid obesity
Bipolar/anxiety depression
Fibromyalgia
Echo October 15 2023: EF 60 to 65% with mild LVH, mild to moderate , peak/mean gradients 33/20 mmHg, aortic valve area 1.1 cm sq, PASP 40 to 45 mmHg
Plan:
Multifactorial dyspnea.
Now intubated and sedated
Cont with pulmonary toilet and broad-spectrum antibiotics.
IV steroids as per primary service
Creatinine is improved to 2.4. Agree with Lasix 80 mg IV now. Will restart Lasix 40 mg IV twice daily in AM. Continue to follow kidney function. proBNP was elevated at 3000.
Echo reviewed and EF is preserved and valvular heart disease is stable including aortic stenosis, which remains mild to moderate.
Troponins are negative.
Monitor telemetry and EKG
Cont tx of hyperlipidemia with Lipitor, transaminases were mildly elevated
Progress Note - Recordings Librarian
Subjective
Date of Service: October 18, 2023
Respiratory status declined this morning and ultimately she was intubated. Now sedated
Objective
Labs:
10/18/23 05:05
10/18/23 05:05
Labs
Hgb 8.2 g/dL (12.0-16.0) L 10/18/23 05:05
Hct 25.7 % (37.0-47.0) L 10/18/23 05:05
Plt Count 472 10^3/uL (130-400) H D 10/18/23 05:05
Sodium 144 mmol/L (135-145) 10/18/23 05:05
Potassium 3.8 mmol/L (3.5-5.1) 10/18/23 05:05
BUN 87 mg/dl (7-17) H 10/18/23 05:05
Creatinine 2.4 mg/dL (0.6-1.0) H 10/18/23 05:05
Glucose 139 mg/dl (70-99) H 10/18/23 05:05
Vital Signs and I&O:
Vital Signs
Temp Pulse Resp BP Pulse Ox
98.2 F 84 24 144/58 93
10/18/23 07:59 10/18/23 09:40 10/18/23 09:40 10/18/23 09:30 10/18/23 10:21
Vital Signs
Temp Pulse Resp BP Pulse Ox
98.2 F 84 24 144/58 93
10/18/23 07:59 10/18/23 09:40 10/18/23 09:40 10/18/23 09:30 10/18/23 10:21
Intake & Output
10/16/23 10/17/23 10/18/23 10/19/23
06:59 06:59 06:59 06:59
Intake Total 980 / 980 350 / 350
Output Total 1100 / 1100 400 / 400 960 / 960
Balance -120 / -120 -400 / -400 -610 / -610
Physical Exam
Physical Exam
GEN: No distress, intubated
HEENT: supple, anicteric, mmm,ET tube
LUNGS: scatt rhonchi
CV: Reg, S1/S2, 1/6 syst LSB, no murmur
ABD: soft, BS+, NT/ND
EXT: +1 edema
NEURO: Gross non-focal
SKIN: No rash
[2023-10-18 11:43] LABS: Glucose - Point of Care 161 mg/dl (70-99)
--- NOTE | 2023-10-18 11:50 | PTCARENOTE ---
Repeat chest XRAY taken to assess PICC placement around 1100. Veletri (Epoprostenol) continues to infuse. Currently ABG sent. Remains sedate. RASS -5. Sats 92%.
[2023-10-18 12:01] LABS: B.E. 0 mmol/L; HCO3 25.9 mmol/L (21-28); O2 Saturation % 91.7 % (94-98); PCO2 48 mmHg (32-35); PO2 61 mmHg (83-108); pH 7.34 (7.35-7.45)
--- NOTE | 2023-10-18 12:10 | PTCARENOTE ---
Dr. Soria updated on ABG results and currently Epoprostenol stopped via vent. Sats 90-91%. Pt currently with 4/4 twitches via TOF.
--- NOTE | 2023-10-18 12:30 | PTCARENOTE ---
RASS is a -5 -Propophol decreased to 20 mcg. VS as documented.
--- NOTE | 2023-10-18 12:42 | W.PN.HOSP.TC ---
Today's Communication/Plan
-
Monitor vital signs and see plan
Now intubated, paralyzed
IV Lasix
Monitor urine output
Continue with steroids
Prognosis appears guarded
on abx
Assessment / Plan
Assessment / Plan
General:�Well Developed, Well Nourished
HEENT:�NormoCephalic, Moist mucous membranes and Atraumatic
Respiratory:�Ventilated breath sounds
Cardiac:�S1/S2 and Regular Rhythm
GI:�Soft, Non Tender, Non Distended
Musculoskeletal:� Other (Bilateral lower extremities edema)
Neuro:�Sedated
Psych:�Calm
Acute hypoxic hypercarbic respiratory failure multifactorial suspect multifactorial from pneumonia and possible CHF exacerbation
Suspect ARDS likely secondary to viral etiology
- 10/15 with worsening hypoxia;currently maxed on BIPAP, wean oxygen as tolerated. High flow was tried however patient did not tolerate. Low threshold for intubation. Surprisingly mental status intact. now on noninvasive ventilator
Discussed with patient regarding code status; wants to remain full code; finally spoke with spouse who agrees
10/17 patient continues to be hypoxic, decision made to intubate. Intubated 10/17
Now paralyzed, might need to prone
-cw duonebs
-COVID and flu negative
- CT of chest without PE, shows marked widespread bilateral interstitial and groundglass opacities
repeat xray 10/15 with extensive bilateral airspace opacity with air bronchograms
-Strep and Legionella negative
cw abx; consider ID eval if dont imporve
NPO
PPI IV
# COPD exacerbation
-cw IV steroids
-Nebs
-Continue to monitor
-Breo continued
Pulmonary following
# Acute on chronic CHF exacerbation
-IV lasix today
-Cardiology following
Echo with mild to mod ; preserved EF
Does have history of aortic stenosis
# Anemia of chronic disease
could be mildly from hemotysis,mild 10/15. quantify hemoptysis. No more episode
monitor hgb
-No active bleeding
-Continue to trend
# JOHN on Chronic kidney disease stage IIIa
-Monitor creatinine
Hold nephrotoxic agents
#Essential tremors
#Benign Hypertension
�- Stable
- on Norvasc
#Diabetes Mellitus, Type II
�-Sliding scale
�- Continue Lantus
�- Monitor sugars and continue coverage insulin
A1c 6.5
#Bipolar/Anxiety/Depression
�-Celexa, lorazepam continued
#Morbid Obesity due to excess calories
�- Affects all aspects of care
# Hyperlipidemia
-Statin continued
# Chronic neuropathy pain/fibromyalgia
- HOLD Diclofenac, tramadol, Lyrica
# Acute/subacute nondisplaced fracture of fibular head/complete tear of medial meniscus/rupture of ACL
-Lower extremity MRI with the impression of Acute or subacute nondisplaced fracture of the fibular head.
2. Small osseous contusions at the posterior aspects of the medial tibial plateau and lateral tibial plateau.
3. Complex tear of the posterior horn of the medial meniscus.
4. Rupture of the ACL.
5. Large knee joint effusion.
6. Small Patton's cyst.
-Partial weightbearing to right lower extremities per patient and family
Instructed to follow-up with [facility] orthopedics outpatient.
# Legally blindness
DVT Prophylaxis: Heparin subcu
Code Status: Full Code
I spent a total of 53 minutes with the patient or on the floor. More than 50% of this time involved counseling and coordination of care.
Anticipated Discharge: > 48 hours
Subjective/Interval History
-
Date of Service: October 18, 2023
Now intubated
Objective Data
-
Labs:
Laboratory Results
10/18/23 10/18/23 10/18/23
04:45 05:05 09:03
WBC 19.5 H
Hgb 8.2 L
Hct 25.7 L
Plt Count 472 H D
HCO3 26.6 26.2
Sodium 144
Potassium 3.8
Chloride 105
Carbon Dioxide 26
BUN 87 H
Creatinine 2.4 H
Glucose 139 H
Calcium 8.8
Total Bilirubin 0.7
AST 48 H
ALT 18
Alkaline Phosphatase 142 H
10/18/23
11:47
WBC
Hgb
Hct
Plt Count
HCO3 25.9
Sodium
Potassium
Chloride
Carbon Dioxide
BUN
Creatinine
Glucose
Calcium
Total Bilirubin
AST
ALT
Alkaline Phosphatase
Vital Signs:
Vital Signs
Temp Pulse Resp BP Pulse Ox
97.6 F 77 33 124/51 92
10/18/23 11:17 10/18/23 11:07 10/18/23 11:07 10/18/23 11:00 10/18/23 11:23
I&O
10/17/23 10/18/23 10/19/23
06:59 06:59 06:59
Intake Total 350 / 350 325 / 325
Output Total 400 / 400 960 / 960 325 / 325
Balance -400 / -400 -610 / -610 0 / 0
--- NOTE | 2023-10-18 12:50 | PTCARENOTE ---
Turned and repositioned. Sats with turning down to 68% currently recovering back to 90%. Medicated prior to turning with Fentany 50 mcg and gtt increased to 75 mcg. Sl opened eyes then closed them again. Currently syncronous with the vent. Scant
bloody secretions from ETT. Pt does not tolerate any activity without desatturating. Lateral rotation currently rotating at 40' if tolerates will increase. Tolerated percussion
--- NOTE | 2023-10-18 13:27 | CM ---
CM following re: discharge planning.
Discussed in rounds, reviewed pt's chart. Per Rounds meeting, pt intubated this morning, paralyzed, continue with steroids and antibiotics, Prognosis appears guarded
Pt lives with in a one story mobile home with no CHELSIE. Pt ambulates with a walker and assisted with ADLs such as showering by her .
D/C plan: uncertain at this time and will depend on pt's progress
CM will follow with discharge plan updates as hospitalization progresses.
--- NOTE | 2023-10-18 14:22 | PTCARENOTE ---
Tube feeds started via R nare feeding tube. Jevity 1.5 at 10 ml/hr with 25 ml/hr flush. Placement ausculated. Sats currently 95%
--- NOTE | 2023-10-18 14:24 | PN.CDI ---
CDI
- -
CDI:
Physician Documentation Request
Admit Date: 10/14/23 19:07
Dear Doctor Kristian,
Patient admitted with pneumonia, COPD exacerbation and possibly acute heart failure.
10/16 Hospitalist PN: 'Acute hypoxic hypercarbic respiratory failure multifactorial...Monitor respiratory status, low threshold for intubation if get worse, Continue with antibiotics, Monitor leukocytosis...JOHN on Chronic kidney disease stage IIIa'
Laboratory Tests
10/17/23
03:33
WBC 17.1 H
10/17/23
15:45 10/17/23
16:15 10/17/23
21:00
Pulse 101 99 106
10/17/23
11:30 10/17/23
15:15 10/17/23
16:15
Resp Rate 35 32 36
Please clarify which of the following most accurately describes the status of the patient's infection:
Sepsis
- Systemic manifestations of infection, with 2 or more SIRS criteria which include:
- Fever >100.4 degrees F or hypothermia < 96.8 degrees F
- Leukocytosis - WBC > 12,000 or leukopenia - WBC < 4,000 or > 10% bands
- Tachycardia > 90 beats per minute
- Tachypnea - RR > 20 breaths per minute or PaCO2 , 32mmHg
Source: Merck Manual 2013
Severe Sepsis
- Sepsis with associated acute organ dysfunction, such as renal or respiratory failure
- Documentation should indicate the association between the sepsis and the organ dysfunction
Localized Infection Only, Without Systemic Illness
- indicate the site/source, such as pneumonia etc.
Other
Use of terms such as suspected, likely, concern for, or probable (associated with a specific diagnosis that is being evaluated, monitored, or treated as if it exists) are acceptable and can be coded in the inpatient setting, when documented at the
time of discharge.
Thank you,
Urszula Mcintosh RN, BSN
CDI Specialist
Available via [place] text
Please use your independent medical judgment in providing your response.
--- NOTE | 2023-10-18 16:30 | PTCARENOTE ---
Overall assessment is unchanged. RASS is about a -3. Pt sl lifted her eyebrow when her name was called and if she is stimulated too much with tremor for about a minute then stop. VS as documented. Overall sats have been in the mid 90's and pt has
been syncronous with the vent. Tolerating tube feeds. Diuresed earlier from Tamie this am. ETT repositioned toward the L side. Will continue to monitor
[2023-10-18 17:02] LABS: INR 1.49; PT 17.8 Sec (11.4-14.6)
[2023-10-18 17:03] LABS: APTT 30.8 Sec (23.4-35.0)
[2023-10-18] MEDS: NOVOLOG FLEXPEN-MODERATE RESISTANCE 3 UNITS SC (17:27)
[2023-10-18 17:32] LABS: Glucose - Point of Care 201 mg/dl (70-99)
--- NOTE | 2023-10-18 17:45 | PTCARENOTE ---
Dr. Soria in ventilator changes made around 1720 Fio2 to 80% as sats have been 95-97%. and TV decreased to 350 and Peep increased to 14. Post changes however pt started to overbreathe the vent with RR 26-30. Fentanyl 50 mcg given and pt also
given Nimbex 15mg IV at 1740 to help prevent pt from overbreathing the vent. TOF 4/4 twitches on Level 4 prior and 0/4 post paralytic. Will continue to monitor. Pt has been on lateral rotation most of the afternoon and has tolerated it with turning
up to 50%. With manual turning pt readily desats. No other changes
[2023-10-18 17:51] LABS: 24 Hour Urine Total Volume Random mL; Chloride, Urine <20 mmol/L; Creatinine, Urine per Volume 103 mg/dL; Urine Collection Length Random hr
--- NOTE | 2023-10-18 18:15 | PTCARENOTE ---
Pt more relaxed since earlier Nimbex- currently on 80% Fio2 with sats of 96% and RR of 24. ABG's sent per MD order. No other changes
[2023-10-18 18:26] LABS: B.E. 0 mmol/L; HCO3 27.1 mmol/L (21-28); O2 Saturation % 98.4 % (94-98); PCO2 59 mmHg (32-35); PO2 100 mmHg (83-108); pH 7.27 (7.35-7.45)
--- NOTE | 2023-10-18 19:30 | PTCARENOTE ---
Pt had been tolerating the vent settings since Nimbex given at 1740 however over past 10-15 minutes sats have gone from 95% to 87%. Pt currently overbreathing the vent with agonal 'guppy' type breaths under the ventilator breaths. BS are coarse.
Currently on 80% Fio2. Tried to percuss pt with bed as it had helped sats earlier which brought sats up to about 89%.. Fentanyl 50 mcg bolus given at 191 and Gtt increased to 125 mcg. Propophol increased to 30 mcg and because of overbreathing the
vent Nimbex 15 mg IV given at 1920. Pt with 4/4 twitches prior and 0/4 post paralytic. Pt also placed briefly up to 100% fio2. Currently back to 80%. Currently sats improved to 93%. Dr. Soria in and updated on ABGS - AC rate on vent increased to
26. Resp therapy in with pt.
--- NOTE | 2023-10-18 20:00 | PTCARENOTE ---
Received pt. at 1900. Pt. intubated and sedated on ventilator. Pt. desatting into mid 80s, overbreathing ventilator. PRN dose of nimbex given, fentanyl bolus given, e learning designer and respiratory therapist called to bedside. After meds given, pt. 02
saturation and respiratory rate improved. Pt. not showing any signs of pain or discomfort. Afebrile. Heart rhythm sinus. BP normotensive. Ventilator settings verified. Lungs sound coarse and diminished. Scant secretions. Tube feeds running via
dobhoff. Huizar catheter in place, draining without issue. Skin as documented. Vital signs stable at this time.
[2023-10-18 20:33] LABS: Glucose - Point of Care 223 mg/dl (70-99)
[2023-10-18] MEDS: COLACE LIQUID 100 MG TUBE (21:35)
[2023-10-18] MEDS: LANTUS 0.100000000000000006 UNITS SC (21:35)
[2023-10-18] MEDS: NOVOLOG FLEXPEN-HIGH RESISTANCE 4 UNITS SC (23:27)
[2023-10-18 23:30] LABS: Glucose - Point of Care 238 mg/dl (70-99)
[2023-10-19] VITALS (27 sets, daily range): BP systolic 103–146; BP diastolic 45–58; BMI 44.2
--- NOTE | 2023-10-19 00:05 | PTCARENOTE ---
Pt. assessment unchanged. No issues with respiratory rate or 02 saturation since beginning of shift. IV Fentanyl boluses given as needed, see MAR. Vital signs stable at this time.
[2023-10-19] MEDS: SUBLIMAZE 100 IV ×4 (00:57→20:52)
[2023-10-19] MEDS: SUBLIMAZE 50 MCG IV ×2 (01:52→03:46)
[2023-10-19] MEDS: DIPRIVAN 100 IV ×7 (01:57→22:40)
[2023-10-19 03:24] LABS: HCO3 27.9 mmol/L (21-28); O2 Saturation % 99.3 % (94-98); PCO2 58 mmHg (32-35); PO2 145 mmHg (83-108); pH 7.29 (7.35-7.45)
[2023-10-19 03:25] LABS: O2 Therapy 80%
[2023-10-19 03:29] LABS: Hematocrit 22.1 % (37.0-47.0); Mean Corp Hgb Conc. 30.8 g/dL (33.0-37.0); Mean Corpuscular Hgb 23.9 pg (27.0-31.0); Mean Corpuscular Volume 77.5 fL (81.0-99.0); Mean Platelet Volume 10.2 fL (7.4-10.4); Platelet Count 368 10^3/uL (130-400); Red Blood Cell Count 2.85 10^6/uL (4.20-5.40); Red Cell Dist. Width 19.1 % (11.5-14.5); White Blood Cell Count 10.6 10^3/uL (4.8-10.8)
[2023-10-19 03:52] LABS: ALT (SGPT) 16 U/L (0-35); AST (SGOT) 28 U/L (14-36); Albumin 3.2 g/dl (3.5-5.0); Alkaline Phosphatase 123 U/L (38-126); Blood Urea Nitrogen 93 mg/dl (7-17); Calcium 8.2 mg/dl (8.4-10.2); Carbon Dioxide 29 mmol/L (22-30); Chloride 107 mmol/L (98-107); Estimated Creatinine Clearance 28 ml/min; Glucose 201 mg/dl (70-99); Magnesium 3.7 mg/dl (1.6-2.3); Phosphorus 7.6 mg/dl (2.5-4.5); Sodium 144 mmol/L (135-145); Total Bilirubin 0.3 mg/dl (0.2-1.3); Total Protein 6.1 g/dl (6.3-8.2); eGFR 21.34
[2023-10-19 03:59] LABS: NT-proBNP 3150 pg/ml
--- NOTE | 2023-10-19 04:00 | PTCARENOTE ---
Pt. assessment unchanged. AM labs drawn. Vital signs stable at this time.
[2023-10-19 04:04] LABS: Direct Bilirubin 0.4 mg/dl (0.0-0.4)
[2023-10-19 04:05] LABS: Hemoglobin 6.8 g/dL (12.0-16.0)
[2023-10-19 04:59] LABS: Hematocrit 23.1 % (37.0-47.0)
[2023-10-19] MEDS: NOVOLOG FLEXPEN-HIGH RESISTANCE 4 UNITS SC (05:08)
[2023-10-19] MEDS: SOLU-MEDROL PF 40 MG IV ×3 (05:08→17:15)
[2023-10-19] MEDS: DUONEB 3 ML INH ×4 (07:16→20:01)
--- NOTE | 2023-10-19 08:00 | PTCARENOTE ---
PT received intubated and sedated, RASS -3, PT becomes restless with care, NSR, pulses +Doppler, trace edema, #8 ETT @ 23 center, oral care provided, excessive oral secretions, B/L BS diminished T/O, 24///14, Right Naris Dobbhoff, Jevity 1.5 @
30 ml/hr, 25 ml H20, placement verified, no residual noted, +BS, Indwelling Huizar, Pericare preformed as per protocol, right leg brace in place, Right Dual PICC, both ports patent, +blood return, right radial Beckie zeroed and flushed, left FA #20
INT, B/L restraints, see documentation
[2023-10-19] MEDS: LEXAPRO 15 MG PO (08:04)
[2023-10-19] MEDS: LOW STRENGTH ASPIRIN 81 MG TUBE (08:04)
[2023-10-19] MEDS: HEPARIN 5000 UNITS SC ×2 (08:04→17:14)
[2023-10-19] MEDS: COLACE LIQUID 100 MG TUBE (08:05)
[2023-10-19] MEDS: REFRESH CELLUVISC GEL 1 DROPS OPHTH ×2 (08:05→19:49)
[2023-10-19] MEDS: NSS (PRESERVATIVE FREE) 10 ML IV ×2 (08:06→19:48)
[2023-10-19] MEDS: PROTONIX IV 40 MG IV ×2 (08:06→19:48)
[2023-10-19] MEDS: MIRALAX 17 GRAMS TUBE (08:06)
[2023-10-19] MEDS: LANTUS 0.400000000000000022 UNITS SC (08:12)
[2023-10-19] MEDS: ZITHROMAX INFUSION 250 IV (08:14)
[2023-10-19 08:24] LABS: Glucose - Point of Care 287 mg/dl (70-99)
--- NOTE | 2023-10-19 08:49 | W.PN.CARDCBS ---
Today's Communication / Plan
-
Lasix 60 mg IV now.
Likely needs packed red blood cells and would give another 40 mg of Lasix if transfused.
No clear evidence of bleeding
Continue ventilatory support care
Continue steroids and antibiotics
Impression / Plan
-
.
Primary rn document improvement specialist Dr. Frias
Impression:
Multifactorial dyspnea, vent dependent respiratory failure
COPD/asthmatic bronchitis
Acute on chronic HFpEF
Acute on chronic renal failure
Mild to moderate aortic stenosis
Recent nondisplaced fracture fibular head, complete tear medial meniscus/rupture ACL
Type 2 diabetes
Hypertension
Anemia of chronic disease
Hypercholesterolemia
Diabetic retinopathy with bilateral blindness.
GERD
Morbid obesity
Bipolar/anxiety depression
Fibromyalgia
Echo October 15 2023: EF 60 to 65% with mild LVH, mild to moderate , peak/mean gradients 33/20 mmHg, aortic valve area 1.1 cm sq, PASP 40 to 45 mmHg
Plan:
Remains intubated and sedated on a 90% oxygen on the ventilator
Cont with pulmonary toilet and broad-spectrum antibiotics.
IV steroids as per primary service
Will give Lasix 60 mg IV now again to try to diurese as much as possible. Creatinine at 2.5. Will need to follow.
Hemoglobin has dropped to 6.8-7.0. Will likely need a transfusion. If he sees packed blood cells would give an extra 40 mg of IV Lasix.
Echo reviewed and EF is preserved and valvular heart disease is stable including aortic stenosis, which remains mild to moderate.
Troponins are negative.
Remains in sinus rhythm.
Cont tx of hyperlipidemia with Lipitor, transaminases were mildly elevated, but have now resolved
Progress Note - Machine Steak Tenderizer
Subjective
Date of Service: October 19, 2023
Remains intubated and sedated. No clear evidence of bleeding although hemoglobin down to 7.0
Objective
Labs:
10/19/23 04:49
10/19/23 03:01
Labs
Hgb 7.0 g/dL (12.0-16.0) L 10/19/23 04:49
Hct 23.1 % (37.0-47.0) L 10/19/23 04:49
Plt Count 368 10^3/uL (130-400) D 10/19/23 03:01
PT 17.8 Sec (11.4-14.6) H 10/18/23 16:42
INR 1.49 10/18/23 16:42
APTT 30.8 Sec (23.4-35.0) 10/18/23 16:42
Sodium 144 mmol/L (135-145) 10/19/23 03:01
Potassium 4.0 mmol/L (3.5-5.1) 10/19/23 03:01
BUN 93 mg/dl (7-17) H 10/19/23 03:01
Creatinine 2.5 mg/dL (0.6-1.0) H 10/19/23 03:01
Glucose 201 mg/dl (70-99) H 10/19/23 03:01
Vital Signs and I&O:
Vital Signs
Temp Pulse Resp BP Pulse Ox
98.3 F 79 26 118/53 98
10/19/23 04:00 10/19/23 06:30 10/19/23 06:30 10/19/23 06:00 10/19/23 06:30
Vital Signs
Temp Pulse Resp BP Pulse Ox
98.3 F 79 26 118/53 98
10/19/23 04:00 10/19/23 06:30 10/19/23 06:30 10/19/23 06:00 10/19/23 06:30
Intake & Output
10/17/23 10/18/23 10/19/23 10/20/23
06:59 06:59 06:59 06:59
Intake Total 350 / 350 1587.6 / 1587.6
Output Total 400 / 400 960 / 960 1515 / 1515
Balance -400 / -400 -610 / -610 72.6 / 72.6
Physical Exam
Physical Exam
GEN: No distress, intubated, sedated
HEENT: supple, anicteric, mmm, ET tube
LUNGS: CTA, no wheezes/rales
CV: Reg, S1/S2, 1/6 syst LSB, no gallop
ABD: soft, BS+, NT/ND
EXT: No edema
NEURO: Gross non-focal
SKIN: No rash
--- NOTE | 2023-10-19 08:56 | W.PN.INTV ---
Today's Communication / Plan
Recommendations
Continue mechanical ventilation and optimize driving pressure and keep plataeu pressure <30 with permissive hypercapnea/hypoxemia
Tube feeds
Insert A line
MAP >65
Diurese prn
Replete K >4, Mg >2
Aspiration precaution
Solu-Medrol 40 mg IV q6hr
Continue DuoNebs & ABx
Sport bed
Raise lantus and raise ISS to high dose
If hypoxia worsens despite vent optimization, then will need to paralyze with nimbex gtt and prone
Guarded prognosis
Assessment
-
Assessment: 62-year female former tobacco smoker with a past medical history of COPD, hypertension and chronic HFpEF who initially presented with shortness of breath on 10/14/2023. SOB occurred over 1 week with cough and green phlegm. She was
admitted to the hospitalist service and was being treated with antibiotics for multifocal pneumonia and pulmonary was following. She was also being diuresed with Lasix 40 mg BID on 10/15/2023. Due to history of COPD she was started on Decadron and
DuoNebs QID. When she initially was hospitalized she required BiPAP but this was weaned down to mid flow at 12 L/min. Her requirements increased to 15 L/min on the evening of 10/14, and on the morning of 10/15 she required continuous BiPAP and had
worsening hypoxia with saturations in the mid 80s. She is now being transferred to the ICU for further care and green chain marker services consulted for further management/recommendations.
Chronic medical conditions PATIENT CARE ASSOCIATE: Hypertension, morbid obesity, history of COPD, DM type II, chronic bronchitis, HFpEF, anxiety, bipolar disorder, depression, bilateral blindness, history of lung nodule, former tobacco use disorder
Impression:
#Acute respiratory failure with hypoxemia and hypercapnia now on mechanical ventilation
#ARDS due to severe CAP
#Severe community-acquired pneumonia - suspect viral etiology given negative procal x2
#Sepsis without shock due to above
#Acute kidney injury superimposed on CKD (baseline Cr approx 1.3-1.5)
#Hyperglycemia - worsening
#Leukocytosis - improved
#Small bilateral pleural effusions (seen on CT chest from 10/14/2023)
#Acute on chronic anemia (baseline Hb approx 11-12.5) - likely due to bone marrow suppression in setting of critical illness
#Mild�moderate aortic stenosis
#Morbid obesity
#Reported Hx of COPD/chronic bronchitis
#Former tobacco use disorder (2PPD x 20 years, quit ~25 years ago)
Plan:
- Patient is critically ill with severe hypoxemia with ARDS now on mechanical ventilation and requiring intermittent paralysis
- Optimize oxygenation via ARDSnet protocol --> flolan trialed on 10/17 but with no improvement in P/F, hence it was stopped
- Permissive hypercapnea and permissive hypoxemia; goal pH 7.3 - 7.45, goal PaO2: 55-80
- Paralyze prn with nimbex for vent asynchrony or hypoxia
- Strict NPO; use small bore NGT for PO access and continue tube feeds
- Serial blood gases with continuous pulse oximetry
- DuoNebs QID with prn doses in between
- Continue systemic steroids --> raised to solumedrol 40mg IV q6hr on 10/16 and I will wean as she clinically improves
- Maintain SpO2 >90-94%
- Continue with broad-spectrum antibiotics (currently on Cefepime and Azithro - cefepime started 10/15 + zithromax started 10/15; she is s/p aztreonam 10/13 - 10/15, and s/p 2 doses of IV vanco on 10/13 + 10/14 (DC'd due to neg. MRSA swab)
- Follow up infectious workup with blood & sputum Cx; urine antigens for Legionella and streptococcal pneumonia are negative
- Maintain MAP>65
- Strict I/O and trend UOP
- Goal BG 140-180mg/dL with basal-bolus insulin --> was on 25 --> 30 --> 35 units BID but now raised to 40 units BID due to hyperglycemia; ISS high scale q6hr
- Replete electrolytes with K>4, Mg>2
- Maintain SpO2 >88% with supplemental O2 if needed
- stress ulcer ppx: PPI
- DVT ppx: HSQ
Plan above was reviewed in detail in layman's terms with the patient's daughters X2 to their satisfaction. Patient remains full code with full medical treatment.
If the patient improves and is downgraded from ICU and eventually discharged, she will ultimately need follow-up with us in the office. She ultimately will need repeat CT chest in 6-8 weeks, with outpatient PFTs and discussion of the weight
loss/workup for sleep disordered breathing. For now considering she is critically ill, will defer outpatient management/discussion until she improves.
Critical care statement: A total of 44 minutes of critical care time was provided for this patient today. This includes management of unstable vital signs, evaluation of the patient at bedside, reviewing the patient's pertinent medical records
including radiographs, microbiology, laboratory evaluations, and discussion with primary team, consultants, pharmacy, nutrition, physical therapy, case management, charge nurse, critical care nursing, and respiratory therapy.
Data:
CXR 10-16-2023: Extensive bilateral airspace opacities with air bronchograms, increasing since most recent radiograph of October 14, 2023.
CXR 10-17-2023: Extensive bilateral airspace opacities with air bronchograms likely minimally improved.
CXR 10-18-2023:
1. Endotracheal and endogastric tubes are in satisfactory position, as detailed above.
2. Severe confluent interstitial and alveolar opacities bilaterally, significantly worse compared to prior chest x-ray. Findings are likely related to severe interstitial and alveolar pulmonary edema, differential diagnosis includes ARDS and severe
bilateral pneumonia.
CT Chest with IV contrast 10-14-2023:
Marked widespread bilateral interstitial and groundglass opacities, numerous scattered prominent mediastinal lymph nodes and tiny bilateral pleural effusions. Findings could be on the basis of pneumonia/pneumonitis with viral pneumonitis one of
several differential diagnostic possibilities.
TTE 3-26-2024:
Normal left ventricular size and systolic function.
No regional wall motion abnormalities are seen.
LV ejection fraction is 60-65% by visual assessment.
Mild concentric left ventricular hypertrophy.
Normal right ventricular systolic function.
Trace mitral regurgitation.
Mild to moderate aortic stenosis.
Peak/mean gradients are 33/20mmHg.
The valve area by continuity equation is 1.1cm sq, using a LVOT of 1.8cm.
Trace tricuspid regurgitation.
Estimated pulmonary artery pressure of 40-45 mmHg.
The IVC is of normal size but does not demonstrate normal respiratory
variation.
EF% remains normal compared to 2022 echo and aortic valve gradients remain
relatively stable with mild to moderate .
Subjective Dataa
Subjective Data
Date of Service:
Date of Service: October 19, 2023
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
Subjective:
Patient was seen and evaluated today. PF ratio today is improved and is now 181 (from 54 yesterday) on PEEP of 14 and FiO2 80%. Daughters x 2 at bedside and I answered all her questions. Current BP 133/55, heart rate 73. Patient sedated on
propofol at 40mcg/kg/min and fentanyl at 150mcg/hr. right radial A-line in place with good waveform. She is intubated on 26/350/70%/PEEP 14. PIP 36 with plateau pressure 31. Driving pressure 16�17. End-tidal CO2 42. SpO2 90% and respiratory
rate 26.
Review of Systems
General: Unobtainable - Pat Unresp
Objective Data
Data Reviewed
Vital Signs / I&O / Oxygen:
Vital Signs
Temp Pulse Resp BP Pulse Ox
98.3 F 74 26 127/51 99
10/19/23 11:00 10/19/23 11:17 10/19/23 11:17 10/19/23 10:33 10/19/23 12:00
Intake and Output
03/29/24 03/30/24 03/31/24
06:59 06:59 06:59
Intake Total 350 / 350 1587.6 / 1629.2 249.6 / 249.6
Output Total 960 / 960 1515 / 1555 155 / 155
Balance -610 / -610 72.6 / 74.2 94.6 / 94.6
SaO2 [A/C] 99
SaO2 [NIV (Non Invasive 85
Ventilation)]
SaO2 97
Nasal Cannula flow liters per 12
minute
Physical Exam
General: Respiratory Distress (negative) and Other (Intubated/Sedated)
HEENT: Normocephalic, Anicteric, Other (ETT in place) and Other (thick neck)
Cardiovascular: S1-S2 and Peripheral Edema (negative)
Respiratory: Wheeze (negative), Crackles (bibasilar), Rhonchi (bilaterally) and Accessory Resp Muscle Use (negative)
GI: Soft, Non Distended, Non Tender, Normal Bowel Sounds and Other (abdominal obesity)
Neurology: Other (Sedated)
Skin: Warm and Dry
Labs/Micro/Reports
Lab Data
10/19/23 15:00
10/19/23 03:01
Laboratory Results
10/18/23 10/18/23 10/18/23
15:59 16:42 18:17
PT Cancelled 17.8 H
INR Cancelled 1.49
APTT Cancelled 30.8
pH 7.27 L
pCO2 59 H
pO2 100
HCO3 27.1
O2 Delivery Level
10/19/23
03:01
PT
INR
APTT
pH 7.29 L
pCO2 58 H
pO2 145 H
HCO3 27.9
O2 Delivery Level 80%
Microbiology
10/14/23 17:01 Blood/Venous Blood Culture - Preliminary
No Growth in 4 days- Final report to follow
10/14/23 17:01 Blood/Venous Blood Culture - Preliminary
No Growth in 4 days- Final report to follow
10/16/23 15:23 Urine Urine Culture - Final
NO GROWTH
10/15/23 17:13 Sputum Respiratory Culture - Final
Usual Respiratory Aura
10/15/23 17:13 Sputum Gram Stain - Final
[2023-10-19] MEDS: LASIX 60 MG IV (10:33)
[2023-10-19] MEDS: MAXIPIME 1000 MG IV ×2 (10:33→21:10)
[2023-10-19] MEDS: STERILE WATER FOR INJECTION 10 ML IV ×2 (10:34→21:10)
[2023-10-19] MEDS: NOVOLOG FLEXPEN-HIGH RESISTANCE 12 UNITS SC ×2 (11:27→17:35)
[2023-10-19 11:38] LABS: Glucose - Point of Care 368 mg/dl (70-99)
--- NOTE | 2023-10-19 12:51 | W.PN.HOSP.TC ---
Today's Communication/Plan
-
Monitor vital signs see plan
Repeat H&H
Continue with antibiotics
Wean vent as tolerated
Continue with steroids
Increase insulin
called ;left voicemail
Assessment / Plan
Assessment / Plan
General:�Well Developed, Well Nourished
HEENT:�NormoCephalic, Moist mucous membranes and Atraumatic
Respiratory:�Ventilated breath sounds
Cardiac:�S1/S2 and Regular Rhythm
GI:�Soft, Non Tender, Non Distended
Musculoskeletal:� Other (Bilateral lower extremities edema)
Neuro:�Sedated
Psych:�Calm
Acute hypoxic hypercarbic respiratory failure multifactorial suspect multifactorial from pneumonia and possible CHF exacerbation
Sepsis likely 2/2 pneumonia
Suspect ARDS likely secondary to viral etiology
- 10/15 with worsening hypoxia;currently maxed on BIPAP, wean oxygen as tolerated. High flow was tried however patient did not tolerate. Low threshold for intubation. Surprisingly mental status intact. now on noninvasive ventilator
Discussed with patient regarding code status; wants to remain full code; finally spoke with spouse who agrees
10/17 patient continues to be hypoxic, decision made to intubate. Intubated 10/17
Now paralyzed, might need to prone if continues to get worse
received flolan
-cw duonebs
-COVID and flu negative
- CT of chest without PE, shows marked widespread bilateral interstitial and groundglass opacities
repeat xray 10/15 with extensive bilateral airspace opacity with air bronchograms
-Strep and Legionella negative
cw abx; consider ID eval if dont imporve
NPO, on tube feeds
PPI IV
# COPD exacerbation
-cw IV steroids
-Nebs
-Continue to monitor
-on breo at home
Pulmonary following
# Acute on chronic CHF exacerbation
-IV lasix today
-Cardiology following
Echo with mild to mod ; preserved EF
Does have history of aortic stenosis
# Anemia of chronic disease
could be mildly from hemotysis,mild 10/15. quantify hemoptysis. No more episode
monitor hgb
hgb 7; check repeat; called spouse for consent,left voicemail.horticultural nursery assistant and floor manager believe also tried
-Continue to trend
# JOHN on Chronic kidney disease stage IIIa
-Monitor creatinine
Hold nephrotoxic agents
#Essential tremors
#Benign Hypertension
�- Stable
- on Norvasc
#Diabetes Mellitus, Type II
�-Sliding scale
�- Continue Lantus
�- Monitor sugars and continue coverage insulin
A1c 6.5
#Bipolar/Anxiety/Depression
�-Celexa, lorazepam continued
#Morbid Obesity due to excess calories
�- Affects all aspects of care
# Hyperlipidemia
-Statin continued
# Chronic neuropathy pain/fibromyalgia
- HOLD Diclofenac, tramadol, Lyrica
# Acute/subacute nondisplaced fracture of fibular head/complete tear of medial meniscus/rupture of ACL
-Lower extremity MRI with the impression of Acute or subacute nondisplaced fracture of the fibular head.
2. Small osseous contusions at the posterior aspects of the medial tibial plateau and lateral tibial plateau.
3. Complex tear of the posterior horn of the medial meniscus.
4. Rupture of the ACL.
5. Large knee joint effusion.
6. Small Patton's cyst.
-Partial weightbearing to right lower extremities per patient and family
Instructed to follow-up with [facility] orthopedics outpatient.
# Legally blindness
DVT Prophylaxis: Heparin subcu
Code Status: Full Code
I spent a total of 53 minutes with the patient or on the floor. More than 50% of this time involved counseling and coordination of care.
Anticipated Discharge: > 48 hours
Subjective/Interval History
-
Date of Service: October 19, 2023
Continues to be intubated
Objective Data
-
Labs:
Laboratory Results
10/19/23 10/19/23
03:01 04:49
WBC 10.6
Hgb 6.8 L* 7.0 L
Hct 22.1 L 23.1 L
Plt Count 368 D
HCO3 27.9
Sodium 144
Potassium 4.0
Chloride 107
Carbon Dioxide 29
BUN 93 H
Creatinine 2.5 H
Glucose 201 H
Calcium 8.2 L
Total Bilirubin 0.3
AST 28
ALT 16
Alkaline Phosphatase 123
Vital Signs:
Vital Signs
Temp Pulse Resp BP Pulse Ox
98.3 F 74 26 127/51 99
10/19/23 11:00 10/19/23 11:17 10/19/23 11:17 10/19/23 10:33 10/19/23 12:00
I&O
10/18/23 10/19/23 10/20/23
06:59 06:59 06:59
Intake Total 350 / 350 1587.6 / 1629.2 249.6 / 249.6
Output Total 960 / 960 1515 / 1555 155 / 155
Balance -610 / -610 72.6 / 74.2 94.6 / 94.6
--- NOTE | 2023-10-19 13:55 | PTCARENOTE ---
Assessment remains unchanged, FiO2 dropped to 70%, PT tolerating, updated
[2023-10-19 15:53] LABS: Reticulocyte Count 1.9 % (0.4-2.8)
[2023-10-19 17:18] LABS: Glucose - Point of Care 417 mg/dl (70-99)
[2023-10-19 17:34] LABS: Glucose 356 mg/dl (70-99)
--- NOTE | 2023-10-19 18:47 | PTCARENOTE ---
Assessment remains unchanged, TF remain at 40 ml/hr, H2O flush 25 ml/hr, Prop @ 40 mcg/hr, Fentanyl @ 150 mcg/hr no new orders
[2023-10-19] MEDS: SENNA SYRUP 8.80000000000000071 MG PO (19:48)
[2023-10-19 19:54] LABS: Glucose - Point of Care 448 mg/dl (70-99)
[2023-10-19 20:10] LABS: Hematocrit 22.6 % (37.0-47.0)
[2023-10-19 20:13] LABS: Hemoglobin 6.7 g/dL (12.0-16.0)
[2023-10-19 20:24] LABS: Glucose 395 mg/dl (70-99)
[2023-10-19] MEDS: NOVOLIN R INSULIN INFUSION 100 IV (21:05)
[2023-10-19] MEDS: NOVOLIN R 8 UNITS IV (21:08)
--- NOTE | 2023-10-19 21:30 | PTCARENOTE ---
Received pt. at 1900. Pt. intubated and sedated on ventilator. No signs of pain or discomfort. Afebrile. Heart rhythm sinus. Blood pressure normotensive. Ventilator settings verified. Lungs sound coarse. Tube feeds running via dobhoff tube. No
residuals. Huizar catheter in place, draining without issue. Skin as documented. Pt. blood glucose checked before 8pm meds. Glucose too high for glucometer to read. STAT glucose sent. Pt. glucose 395. Glycemic protocol ordered, insulin gtt started.
Pt. repeat H+H shows hemoglobin of 6.7. 1u PRBC ordered. Currently transfusing. Vital signs stable at this time.
[2023-10-19] MEDS: LANTUS SC (21:38)
[2023-10-19 22:08] LABS: Glucose - Point of Care 425 mg/dl (70-99)
[2023-10-19 23:12] LABS: Glucose - Point of Care 400 mg/dl (70-99)
[2023-10-20] VITALS (24 sets, daily range): BP systolic 111–128; BP diastolic 43–56; BMI 44.1
[2023-10-20 00:12] LABS: Glucose - Point of Care 385 mg/dl (70-99)
--- NOTE | 2023-10-20 00:13 | PTCARENOTE ---
Pt. assessment unchanged. 1u PRBC transfused without issue. Will recheck hemoglobin with AM labs. Insulin gtt infusing per glycemic protocol. Vital signs stable at this time.
[2023-10-20] MEDS: HEPARIN 5000 UNITS SC ×3 (00:30→16:51)
[2023-10-20] MEDS: SOLU-MEDROL PF 40 MG IV ×4 (00:30→16:51)
[2023-10-20 01:13] LABS: Glucose - Point of Care 344 mg/dl (70-99)
[2023-10-20] MEDS: DIPRIVAN 100 IV ×6 (01:57→22:14)
[2023-10-20 02:11] LABS: Glucose - Point of Care 319 mg/dl (70-99)
[2023-10-20] MEDS: NOVOLIN R INSULIN INFUSION 100 IV ×3 (02:55→21:41)
[2023-10-20 03:10] LABS: Glucose - Point of Care 257 mg/dl (70-99)
[2023-10-20 03:11] LABS: B.E. 1.8 mmol/L; HCO3 28.3 mmol/L (21-28); O2 Saturation % 97.3 % (94-98); PCO2 55 mmHg (32-35); PO2 165 mmHg (83-108); pH 7.32 (7.35-7.45)
[2023-10-20] MEDS: SUBLIMAZE 100 IV ×4 (03:16→23:46)
[2023-10-20 03:27] LABS: Hematocrit 24.8 % (37.0-47.0); Mean Corp Hgb Conc. 31.9 g/dL (33.0-37.0); Mean Corpuscular Hgb 24.8 pg (27.0-31.0); Mean Platelet Volume 10.5 fL (7.4-10.4); Nucleated Red Blood Cells % 1.4 %; Platelet Count 384 10^3/uL (130-400); Red Blood Cell Count 3.18 10^6/uL (4.20-5.40); Red Cell Dist. Width 18.6 % (11.5-14.5); White Blood Cell Count 11.1 10^3/uL (4.8-10.8)
[2023-10-20 03:32] LABS: Hemoglobin 7.9 g/dL (12.0-16.0)
[2023-10-20 03:48] LABS: ALT (SGPT) 17 U/L (0-35); AST (SGOT) 25 U/L (14-36); Albumin 3.3 g/dl (3.5-5.0); Alkaline Phosphatase 139 U/L (38-126); Blood Urea Nitrogen 110 mg/dl (7-17); Calcium 7.9 mg/dl (8.4-10.2); Carbon Dioxide 24 mmol/L (22-30); Chloride 111 mmol/L (98-107); Estimated Creatinine Clearance 27 ml/min; Glucose 231 mg/dl (70-99); Magnesium 3.7 mg/dl (1.6-2.3); Phosphorus 6.5 mg/dl (2.5-4.5); Potassium 3.8 mmol/L (3.5-5.1); Sodium 143 mmol/L (135-145); Total Bilirubin 0.5 mg/dl (0.2-1.3); Total Protein 6.2 g/dl (6.3-8.2); eGFR 20.36
[2023-10-20 03:50] LABS: NT-proBNP 3050 pg/ml
--- NOTE | 2023-10-20 04:00 | PTCARENOTE ---
Pt. assessment remains unchanged. AM labs drawn. Vital signs stable at this time.
[2023-10-20 04:08] LABS: Glucose - Point of Care 184 mg/dl (70-99)
[2023-10-20 04:17] LABS: Absolute Neutrophils -Man Diff 9.7 10^3/uL (1.4-6.5); Anisocytosis 1+; Band Neutrophils 9 % (0-3); Hypochromasia 1+; Lymphocytes 4 % (20-51); Macrocytosis 1+; Metamyelocytes 1 % (-); Monocytes 6 % (2-9); Myelocytes 1 % (-); Normal RBC Morphology No; Platelets Checked Yes; Segmented Neutrophils 79 % (42-75); Total Cells Counted 100
[2023-10-20 05:07] LABS: Glucose - Point of Care 131 mg/dl (70-99)
[2023-10-20 06:11] LABS: Glucose - Point of Care 111 mg/dl (70-99)
[2023-10-20 07:12] LABS: Glucose - Point of Care 110 mg/dl (70-99)
[2023-10-20] MEDS: DUONEB 3 ML INH ×4 (07:16→19:39)
--- NOTE | 2023-10-20 08:00 | PTCARENOTE ---
PT received intubated and sedated, RASS -3, PT becomes restless with care, NSR, pulses +Doppler, trace edema, #8 ETT @ 23 left, oral care provided, excessive oral secretions, B/L BS diminished T/O, 26/350/90/14, Right Naris Dobbhoff, Jevity 1.5 @50
ml/hr, 25 ml H20, placement verified, residual 150 ml's noted,and replaced +BS, Indwelling Huizar, Pericare preformed as per protocol, right leg brace in place, Right Dual PICC, both ports patent, +blood return, right radial Beckie zeroed and
flushed, left FA #20 INT, B/L restraints, see documentation family updated at bedside, questions answered and emotional support given, see work list for Fentanyl, Propofol and Insulin titrations
[2023-10-20 08:13] LABS: Glucose - Point of Care 121 mg/dl (70-99)
[2023-10-20] MEDS: ZITHROMAX INFUSION 250 IV (08:37)
[2023-10-20] MEDS: REFRESH CELLUVISC GEL 1 DROPS OPHTH ×2 (08:42→20:04)
[2023-10-20] MEDS: LOW STRENGTH ASPIRIN 81 MG TUBE (08:42)
[2023-10-20] MEDS: SENNA SYRUP 8.80000000000000071 MG PO ×2 (08:42→20:04)
[2023-10-20] MEDS: LEXAPRO 15 MG PO (08:42)
[2023-10-20] MEDS: PROTONIX IV 40 MG IV ×2 (08:43→20:04)
[2023-10-20] MEDS: NSS (PRESERVATIVE FREE) 10 ML IV ×2 (08:43→20:04)
[2023-10-20] MEDS: MIRALAX 17 GRAMS TUBE (08:44)
[2023-10-20] MEDS: LIPITOR 40 MG PO (08:45)
[2023-10-20] MEDS: MUCINEX PO (08:46)
--- NOTE | 2023-10-20 09:02 | W.PN.INTV ---
Today's Communication / Plan
Recommendations
Continue mechanical ventilation and optimize driving pressure and keep plataeu pressure <30 with permissive hypercapnea/hypoxemia as per ARDSnet protocol
Goal will be to drop FiO2 to 0.5 today, and PEEP to 10
Tube feeds
MAP >65
Diurese prn
Replete K >4, Mg >2
Aspiration precautions
Solu-Medrol 40 mg IV q6hr --> would try to wean this tomorrow (10/20)
Continue DuoNebs & ABx
Sport bed
Continue insulin gtt
If hypoxia worsens despite vent optimization, then will need to paralyze with nimbex gtt and prone
Guarded prognosis
Assessment
-
Assessment: 62-year female former tobacco smoker with a past medical history of COPD, hypertension and chronic HFpEF who initially presented with shortness of breath on 10/14/2023. SOB occurred over 1 week with cough and green phlegm. She was
admitted to the hospitalist service and was being treated with antibiotics for multifocal pneumonia and pulmonary was following. She was also being diuresed with Lasix 40 mg BID on 10/15/2023. Due to history of COPD she was started on Decadron and
DuoNebs QID. When she initially was hospitalized she required BiPAP but this was weaned down to mid flow at 12 L/min. Her requirements increased to 15 L/min on the evening of 10/14, and on the morning of 10/15 she required continuous BiPAP and had
worsening hypoxia with saturations in the mid 80s. She is now being transferred to the ICU for further care and vice president risk management services consulted for further management/recommendations.
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
Impression:
#Acute respiratory failure with hypoxemia and hypercapnia now on mechanical ventilation
#ARDS due to severe CAP
#Severe community-acquired pneumonia - suspect viral etiology given negative procal x2
#Sepsis without shock due to above
#Acute kidney injury superimposed on CKD (baseline Cr approx 1.3-1.5)
#Hyperglycemia - worsening, now on insulin gtt
#Leukocytosis
#Small bilateral pleural effusions (seen on CT chest from 10/14/2023)
#Acute on chronic anemia (baseline Hb approx 11-12.5) - due to bone marrow suppression in setting of critical illness (retic index: 0.55 on 10/19/2023)
#Mild�moderate aortic stenosis
#Morbid obesity
#Reported Hx of COPD/chronic bronchitis
#Former tobacco use disorder (2PPD x 20 years, quit ~25 years ago)
Plan:
- Patient is critically ill with severe hypoxemia with ARDS now on mechanical ventilation and requiring intermittent paralysis, albeit her P/F ratio is now >150 hence she is in moderate ARDS and no longer severe
- Optimize oxygenation via ARDSnet protocol --> flolan trialed on 10/17 but with no improvement in P/F, hence it was stopped
- Permissive hypercapnea and permissive hypoxemia; goal pH 7.3 - 7.45, goal PaO2: 55-80
- Paralyze prn with nimbex for vent asynchrony or hypoxia
- Strict NPO; use small bore NGT for PO access and continue tube feeds
- Serial blood gases with continuous pulse oximetry
- Vent adjusted today based on blood gas, and goal today will be to wean down PEEP to 10 and wean down FiO2 to 50%
- DuoNebs QID with prn doses in between
- Continue systemic steroids --> raised to solumedrol 40mg IV q6hr on 10/16 and I will wean as she clinically improves
- Maintain SpO2 >90-94%
- Continue with broad-spectrum antibiotics (currently on Cefepime and Azithro - cefepime started 10/15 + zithromax started 10/15; she is s/p aztreonam 10/13 - 10/15, and s/p 2 doses of IV vanco on 10/13 + 10/14 (DC'd due to neg. MRSA swab)
- Follow up infectious workup with blood & sputum Cx; urine antigens for Legionella and streptococcal pneumonia are negative
- Maintain MAP>65
- Strict I/O and trend UOP
- Goal BG 140-180mg/dL now on insulin gtt after failing to be controlled with basal-bolus insulin; I will DC ISS while pt is on insulin gtt
- Replete electrolytes with K>4, Mg>2
- Maintain SpO2 >88% with supplemental O2 if needed
- stress ulcer ppx: PPI
- DVT ppx: HSQ
Plan above was reviewed in detail in layman's terms with the patient's to his satisfaction. Patient remains full code with full medical treatment.
If the patient improves and is downgraded from ICU and eventually discharged, she will ultimately need follow-up with us in the office. She ultimately will need repeat CT chest in 6-8 weeks, with outpatient PFTs and discussion of the weight
loss/workup for sleep disordered breathing. For now considering she is critically ill, will defer outpatient management/discussion until she improves.
Critical care statement: A total of 42 minutes of critical care time was provided for this patient today. This includes management of unstable vital signs, evaluation of the patient at bedside, reviewing the patient's pertinent medical records
including radiographs, microbiology, laboratory evaluations, and discussion with primary team, consultants, pharmacy, nutrition, physical therapy, case management, charge nurse, critical care nursing, and respiratory therapy.
Data:
CXR 10-16-2023: Extensive bilateral airspace opacities with air bronchograms, increasing since most recent radiograph of October 14, 2023.
CXR 10-17-2023: Extensive bilateral airspace opacities with air bronchograms likely minimally improved.
CXR 10-18-2023:
1. Endotracheal and endogastric tubes are in satisfactory position, as detailed above.
2. Severe confluent interstitial and alveolar opacities bilaterally, significantly worse compared to prior chest x-ray. Findings are likely related to severe interstitial and alveolar pulmonary edema, differential diagnosis includes ARDS and severe
bilateral pneumonia.
CXR 10-20-2023: Lines and tubes remain in place. Parenchymal disease process, as described, though appearing slightly improved.
CT Chest with IV contrast 10-14-2023:
Marked widespread bilateral interstitial and groundglass opacities, numerous scattered prominent mediastinal lymph nodes and tiny bilateral pleural effusions. Findings could be on the basis of pneumonia/pneumonitis with viral pneumonitis one of
several differential diagnostic possibilities.
TTE 10-15-2023:
Normal left ventricular size and systolic function.
No regional wall motion abnormalities are seen.
LV ejection fraction is 60-65% by visual assessment.
Mild concentric left ventricular hypertrophy.
Normal right ventricular systolic function.
Trace mitral regurgitation.
Mild to moderate aortic stenosis.
Peak/mean gradients are 33/20mmHg.
The valve area by continuity equation is 1.1cm sq, using a LVOT of 1.8cm.
Trace tricuspid regurgitation.
Estimated pulmonary artery pressure of 40-45 mmHg.
The IVC is of normal size but does not demonstrate normal respiratory
variation.
EF% remains normal compared to 2022 echo and aortic valve gradients remain
relatively stable with mild to moderate .
Subjective Dataa
Subjective Data
Date of Service:
Date of Service: October 20, 2023
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
Subjective:
Patient seen this morning and she was intubated by control at 26/350/60%/14. PIP 34 and plateau pressure 30. Driving pressure 16. Saturating 96% with BP via right radial A-line 132/85. Blood sugars increased to the 340s overnight and insulin
drip was started. She is sedated on fentanyl at 150mcg/hr + propofol at 40mcg/kg/min. She was transfused 1 unit PRBC last night with hemoglobin rising from 6.7 to 7.9 this morning. No active bleeding is seen and no bruising seen on her abdomen or
her left or right flanks. Insulin currently infusing at 10 units/h. P/F ratio 183 this morning. at bedside and I answered all of his questions.
Review of Systems
General: Unobtainable - Pat Unresp
Objective Data
Data Reviewed
Vital Signs / I&O / Oxygen:
Vital Signs
Temp Pulse Resp BP Pulse Ox
98.9 F 71 26 119/49 98
10/20/23 07:44 10/20/23 07:28 10/20/23 07:28 10/20/23 06:00 10/20/23 07:28
Intake and Output
10/19/23 10/20/23 10/21/23
06:59 06:59 06:59
Intake Total 1587.6 / 1684.2 2977.4 / 2977.4
Output Total 1515 / 1555 675 / 675
Balance 72.6 / 129.2 2302.4 / 2302.4
SaO2 [A/C] 97
SaO2 [NIV (Non Invasive 85
Ventilation)]
SaO2 98
Nasal Cannula flow liters per 12
minute
Physical Exam
General: Respiratory Distress (negative) and Other (Intubated/Sedated)
HEENT: Normocephalic, Anicteric, Other (ETT in place) and Other (thick neck)
Cardiovascular: S1-S2 and Peripheral Edema (negative)
Respiratory: Wheeze (negative), Crackles (bibasilar), Rhonchi (bilaterally) and Accessory Resp Muscle Use (negative)
GI: Soft, Non Distended, Non Tender, Normal Bowel Sounds and Other (abdominal obesity)
Neurology: Other (Sedated; positive corneal reflex bilaterally, positive gag/cough; sluggish pupillary reflexes bilaterally (R >L))
Skin: Warm and Dry
Labs/Micro/Reports
Lab Data
10/20/23 03:04
10/20/23 03:05
Laboratory Results
10/20/23
03:04
pH 7.32 L
pCO2 55 H
pO2 165 H
HCO3 28.3 H
O2 Delivery Level
Microbiology
10/14/23 17:01 Blood/Venous Blood Culture - Final
No Growth - Final Report
10/14/23 17:01 Blood/Venous Blood Culture - Final
No Growth - Final Report
10/16/23 15:23 Urine Urine Culture - Final
NO GROWTH
10/15/23 17:13 Sputum Respiratory Culture - Final
Usual Respiratory Aura
10/15/23 17:13 Sputum Gram Stain - Final
--- NOTE | 2023-10-20 09:18 | W.PN.CARDCBS ---
Today's Communication / Plan
-
Continue antibiotics and ventilatory care. FiO2 requirement down to 60%
Creatinine up to 2.6 and BUN over 100. Would hold diuresis for today
Follow Creat
Hemoglobin improved to 7.9. With elevated BUN, is she bleeding?
If requires packed red blood cells would give Lasix
Remains in sinus rhythm
Impression / Plan
-
.
Primary physician assistant Dr. Frias
Impression:
Multifactorial dyspnea, vent dependent respiratory failure
COPD/asthmatic bronchitis
Acute on chronic HFpEF
Acute on chronic renal failure
Mild to moderate aortic stenosis
Recent nondisplaced fracture fibular head, complete tear medial meniscus/rupture ACL
Type 2 diabetes
Hypertension
Anemia of chronic disease
Hypercholesterolemia
Diabetic retinopathy with bilateral blindness.
GERD
Morbid obesity
Bipolar/anxiety depression
Fibromyalgia
Echo October 15 2023: EF 60 to 65% with mild LVH, mild to moderate , peak/mean gradients 33/20 mmHg, aortic valve area 1.1 cm sq, PASP 40 to 45 mmHg
Plan:
Remains intubated and sedated on 60% oxygen on the ventilator
Cont with pulmonary toilet and broad-spectrum antibiotics.
IV steroids as per primary service
Her weight is overall down some with diuresis from yesterday. However her BUN is over 100 and creatinine up to 2.6. Will hold Lasix today and reassess in AM. If she gets more packed red blood cells would give a dose of Lasix. Unclear why she is
anemic.
Chest x-ray with possible vascular congestion versus ARDS?
Hemoglobin improved to 7.9 s/p PRBCs
Echo reviewed and EF is preserved and valvular heart disease is stable including aortic stenosis, which remains mild to moderate.
Troponins are negative.
Remains in sinus rhythm.
Discussed with family
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
Subjective
Date of Service: October 20, 2023
Remains intubated and sedated. She is on 50% FiO2. No clear bleeding.
Objective
Labs:
10/20/23 03:04
10/20/23 03:05
Labs
Hgb 7.9 g/dL (12.0-16.0) L 10/20/23 03:04
Hct 24.8 % (37.0-47.0) L 10/20/23 03:04
Plt Count 384 10^3/uL (130-400) 10/20/23 03:04
PT 17.8 Sec (11.4-14.6) H 10/18/23 16:42
INR 1.49 10/18/23 16:42
APTT 30.8 Sec (23.4-35.0) 10/18/23 16:42
Sodium 143 mmol/L (135-145) 10/20/23 03:05
Potassium 3.8 mmol/L (3.5-5.1) 10/20/23 03:05
BUN 110 mg/dl (7-17) H* 10/20/23 03:05
Creatinine 2.6 mg/dL (0.6-1.0) H 10/20/23 03:05
Glucose 231 mg/dl (70-99) H 10/20/23 03:05
Vital Signs and I&O:
Vital Signs
Temp Pulse Resp BP Pulse Ox
98.9 F 71 26 119/49 98
10/20/23 07:44 10/20/23 07:28 10/20/23 07:28 10/20/23 06:00 10/20/23 07:28
Vital Signs
Temp Pulse Resp BP Pulse Ox
98.9 F 71 26 119/49 98
10/20/23 07:44 10/20/23 07:28 10/20/23 07:28 10/20/23 06:00 10/20/23 07:28
Intake & Output
10/18/23 10/19/23 10/20/2324
06:59 06:59 06:59 06:59
Intake Total 350 / 350 1587.6 / 1684.2 2977.4 / 2977.4
Output Total 960 / 960 1515 / 1555 675 / 675
Balance -610 / -610 72.6 / 129.2 2302.4 / 2302.4
Physical Exam
Physical Exam
GEN: No distress, intubated/sedated
HEENT: supple, anicteric, mmm
LUNGS: bilat rhonchi
CV: Reg, S1/S2, 1/6 syst LSB, no gallop
ABD: soft, BS+, NT/ND
EXT: No edema
NEURO: Gross non-focal
SKIN: No rash
[2023-10-20 10:09] LABS: Glucose - Point of Care 124 mg/dl (70-99)
[2023-10-20] MEDS: MAXIPIME 1000 MG IV ×2 (10:48→21:41)
[2023-10-20] MEDS: STERILE WATER FOR INJECTION 10 ML IV ×2 (10:48→21:41)
--- NOTE | 2023-10-20 12:00 | PTCARENOTE ---
Assessment remains unchanged, and daughter at bedside updates given, PT continues on glycemic protocol, see work list, Peep dropped to 12, PT tolerating, no issues noted at this time
--- NOTE | 2023-10-20 12:00 | CHAP ---
Ms. Spencer was sleeping deeply, with her of 42 years at her side. Emotional and spiritual support provided.
[2023-10-20 12:07] LABS: Glucose - Point of Care 79 mg/dl (70-99)
--- NOTE | 2023-10-20 12:49 | W.PN.HOSP.TC ---
Today's Communication/Plan
-
Monitor vital signs
see plan
Wean vent as tolerated
Monitor hemoglobin
insulin gtt
Monitor renal function, does not improve then will get nephrology evaluation
Discussed with at bedside
Assessment / Plan
Assessment / Plan
General:�Well Developed, Well Nourished
HEENT:�NormoCephalic, Moist mucous membranes and Atraumatic
Respiratory:�Ventilated breath sounds
Cardiac:�S1/S2 and Regular Rhythm
GI:�Soft, Non Tender, Non Distended
Musculoskeletal:� Other (Bilateral lower extremities edema)
: + razo
Neuro:�Sedated
Psych:�Calm
Acute hypoxic hypercarbic respiratory failure multifactorial suspect multifactorial from pneumonia and possible CHF exacerbation
Sepsis likely 2/2 pneumonia
Suspect ARDS likely secondary to viral etiology
- 10/15 with worsening hypoxia;currently maxed on BIPAP, wean oxygen as tolerated. High flow was tried however patient did not tolerate. Low threshold for intubation. Surprisingly mental status intact. now on noninvasive ventilator
Discussed with patient regarding code status; wants to remain full code; finally spoke with spouse who agrees
10/17 patient continues to be hypoxic, decision made to intubate. Intubated 10/17
Now paralyzed, might need to prone if continues to get worse
received flolan however not much improvement so was DC
-cw duonebs
-COVID and flu negative
- CT of chest without PE, shows marked widespread bilateral interstitial and groundglass opacities
repeat xray 10/15 with extensive bilateral airspace opacity with air bronchograms
-Strep and Legionella negative
cw abx; consider ID eval if dont imporve
NPO, on tube feeds
PPI IV
Currently on propofol, fentanyl
# COPD exacerbation
-cw IV steroids
-Nebs
-Continue to monitor
-on breo at home
Pulmonary following
# Acute on chronic CHF exacerbation
holding lasix today
-Cardiology following
Echo with mild to mod ; preserved EF
Does have history of aortic stenosis
#Diabetes Mellitus, Type II
�-Sliding scale
Sugars uncontrolled so started on insulin drip
�- Monitor sugars and continue coverage insulin
A1c 6.5
diabetes STEEL GRINDER following
# Anemia of chronic disease
could be mildly from hemoptysis,mild 10/15. quantify hemoptysis. No more episode
monitor hgb, 6.7 overnight. Received 1 unit PRBC. Hemoglobin now 7.9
-Continue to trend
per RN no bleeding noted
# JOHN on Chronic kidney disease stage IIIa
-Monitor creatinine
Hold nephrotoxic agents
If BUN/creatinine continue to get worse then nephrology valuation
razo with good urine output
#Essential tremors
#Benign Hypertension
�- Stable
- on Norvasc
#Bipolar/Anxiety/Depression
�-Celexa, lorazepam continued
#Morbid Obesity due to excess calories
�- Affects all aspects of care
# Hyperlipidemia
-Statin continued
# Chronic neuropathy pain/fibromyalgia
- HOLD Diclofenac, tramadol, Lyrica
# Acute/subacute nondisplaced fracture of fibular head/complete tear of medial meniscus/rupture of ACL
-Lower extremity MRI with the impression of Acute or subacute nondisplaced fracture of the fibular head.
2. Small osseous contusions at the posterior aspects of the medial tibial plateau and lateral tibial plateau.
3. Complex tear of the posterior horn of the medial meniscus.
4. Rupture of the ACL.
5. Large knee joint effusion.
6. Small Patton's cyst.
-Partial weightbearing to right lower extremities per patient and family
Instructed to follow-up with Psychiatric orthopedics outpatient.
# Legally blindness
DVT Prophylaxis: Heparin subcu
Code Status: Full Code
I spent a total of 52 minutes with the patient or on the floor. More than 50% of this time involved counseling and coordination of care.
Anticipated Discharge: > 48 hours
Subjective/Interval History
-
Date of Service: October 20, 2023
Continues to be intubated
Objective Data
-
Labs:
Laboratory Results
10/20/23 10/20/23 10/20/23
03:04 03:05 12:00
WBC 11.1 H
Hgb 7.9 L
Hct 24.8 L
Plt Count 384
HCO3 28.3 H Pending
Sodium 143
Potassium 3.8
Chloride 111 H
Carbon Dioxide 24
BUN 110 H*
Creatinine 2.6 H
Glucose 231 H
Calcium 7.9 L
Total Bilirubin 0.5
AST 25
ALT 17
Alkaline Phosphatase 139 H
Vital Signs:
Vital Signs
Temp Pulse Resp BP Pulse Ox
98.9 F 75 26 115/45 99
10/20/23 11:26 10/20/23 12:15 10/20/23 12:15 10/20/23 12:00 10/20/23 12:15
I&O
10/19/23 10/20/23 10/21/23
06:59 06:59 06:59
Intake Total 1587.6 / 1684.2 2977.4 / 3104.0 674.8 / 674.8
Output Total 1515 / 1555 675 / 775 500 / 500
Balance 72.6 / 129.2 2302.4 / 2329.0 174.8 / 174.8
[2023-10-20 13:07] LABS: Glucose - Point of Care 104 mg/dl (70-99)
[2023-10-20 13:44] LABS: B.E. 2.8 mmol/L; HCO3 29.1 mmol/L (21-28); O2 Saturation % 98.7 % (94-98); PCO2 54 mmHg (32-35); PO2 169 mmHg (83-108); pH 7.34 (7.35-7.45)
[2023-10-20 14:16] LABS: Glucose - Point of Care 134 mg/dl (70-99)
[2023-10-20 15:13] LABS: Glucose - Point of Care 95 mg/dl (70-99)
--- NOTE | 2023-10-20 15:28 | PTCARENOTE ---
PT repositioned for skin protection, no changes to assessment , see work list for insulin titrations, Peep decreased to 10
[2023-10-20 16:10] LABS: Glucose - Point of Care 124 mg/dl (70-99)
[2023-10-20 18:12] LABS: Glucose - Point of Care 170 mg/dl (70-99)
--- NOTE | 2023-10-20 20:00 | PTCARENOTE ---
Patient received in bed intubated and sedated on Propofol and Fentanyl gtts. Bilateral wrist restraints maintained. Pupils 2mm and sluggish. NSR on monitor,afebrile, blood pressure as documented. Weak but palpable pulses throughout, +1 edema to
upper extremities noted. #8 ETT at 23 cm at the right lip, tolerating A/C 26 TV 350 FIO2 60% Peep 10, lungs diminished and coarse bilaterally, pulse ox 97%. DHT in rght nare with Jevity 1.5 infusing at 60ml/hr with 25 ml/hr water flush. Abdomen
obese with hypoactive bowel sounds. Temp sensing razo draining yellow urine. RDL PICC with Propofol, fentanyl and insulin gtts infusing as documented. Right radial Upson transduced and zeroed. Turned and repositioned
[2023-10-20] MEDS: MUCINEX 600 MG PO (20:03)
[2023-10-20 20:34] LABS: Glucose - Point of Care 185 mg/dl (70-99)
--- NOTE | 2023-10-20 21:00 | PTCARENOTE ---
Propofol increased for RASS
[2023-10-20 21:38] LABS: Glucose - Point of Care 202 mg/dl (70-99)
[2023-10-20 22:41] LABS: Glucose - Point of Care 155 mg/dl (70-99)
[2023-10-21] VITALS (22 sets, daily range): BP systolic 114–131; BP diastolic 45–53; BMI 44.6
--- NOTE | 2023-10-21 | PTCARENOTE ---
Patient reassessed, no changes in assessment.
[2023-10-21] MEDS: SUBLIMAZE 50 MCG IV ×2 (00:23→11:08)
[2023-10-21] MEDS: SOLU-MEDROL PF 40 MG IV ×3 (00:23→19:31)
[2023-10-21] MEDS: HEPARIN 5000 UNITS SC ×3 (00:24→17:36)
[2023-10-21 00:45] LABS: Glucose - Point of Care 110 mg/dl (70-99)
[2023-10-21] MEDS: DIPRIVAN 100 IV ×6 (01:05→19:51)
[2023-10-21 02:19] LABS: Glucose - Point of Care 99 mg/dl (70-99)
[2023-10-21 03:12] LABS: Glucose - Point of Care 106 mg/dl (70-99)
[2023-10-21 04:14] LABS: Glucose - Point of Care 115 mg/dl (70-99)
[2023-10-21 05:11] LABS: % Basophils 0.1 % (0-2); % Eosinophils 0.1 % (0-6); % Immature Granulocytes 5.3 % (0-0.5); % Lymphocytes 3.2 % (20.5-51.1); % Monocytes 6.9 % (1.7-9.3); % Neutrophils 84.4 % (42.2-75.2); Absolute Immature Granulocytes 0.8 10^3/uL (0-0.05); Absolute Lymphocytes 0.5 10^3/uL (1.2-3.4); Absolute Neutrophils 12.4 10^3/uL (1.4-6.5); Hematocrit 25.3 % (37.0-47.0); Hemoglobin 7.7 g/dL (12.0-16.0); Mean Corp Hgb Conc. 30.4 g/dL (33.0-37.0); Mean Corpuscular Hgb 24.5 pg (27.0-31.0); Mean Corpuscular Volume 80.6 fL (81.0-99.0); Nucleated Red Blood Cells % 0.7 %; Platelet Count 378 10^3/uL (130-400); Red Blood Cell Count 3.14 10^6/uL (4.20-5.40); Red Cell Dist. Width 19.2 % (11.5-14.5); White Blood Cell Count 14.7 10^3/uL (4.8-10.8)
[2023-10-21 05:13] LABS: B.E. 0.4 mmol/L; HCO3 26.8 mmol/L (21-28); O2 Saturation % 98.6 % (94-98); PCO2 52 mmHg (32-35); PO2 95 mmHg (83-108); pH 7.32 (7.35-7.45)
--- NOTE | 2023-10-21 05:15 | PTCARENOTE ---
CHG bath given, ETT repositioned, labs drawn, mo other changes in assessment
[2023-10-21 05:19] LABS: Glucose - Point of Care 122 mg/dl (70-99)
[2023-10-21 05:41] LABS: ALT (SGPT) 16 U/L (0-35); AST (SGOT) 28 U/L (14-36); Albumin 3.1 g/dl (3.5-5.0); Alkaline Phosphatase 113 U/L (38-126); Blood Urea Nitrogen 117 mg/dl (7-17); Calcium 7.8 mg/dl (8.4-10.2); Carbon Dioxide 27 mmol/L (22-30); Chloride 112 mmol/L (98-107); Estimated Creatinine Clearance 36 ml/min; Glucose 95 mg/dl (70-99); Magnesium 3.9 mg/dl (1.6-2.3); Potassium 4.7 mmol/L (3.5-5.1); Sodium 142 mmol/L (135-145); Total Bilirubin 0.4 mg/dl (0.2-1.3); Total Protein 5.9 g/dl (6.3-8.2); Triglycerides 167 mg/dl (10-149); eGFR 29.67
[2023-10-21 05:48] LABS: NT-proBNP 2430 pg/ml
[2023-10-21] MEDS: SUBLIMAZE 100 IV ×2 (06:14→19:26)
[2023-10-21 07:11] LABS: Glucose - Point of Care 135 mg/dl (70-99)
[2023-10-21] MEDS: DUONEB 3 ML INH ×4 (07:14→19:38)
--- NOTE | 2023-10-21 07:19 | W.PN.INTV ---
Today's Communication / Plan
Recommendations
Trial vent settings back to standard of care/ARDS likely resolved at this point
Repeat ABG
Culture neg, stop abx
Resume diuresis per team, renal consult obtained to assist in setting of JOHN
Wean sedation as tolerated
GOC discussions with family today, see note
Assessment
-
62-year female former tobacco smoker with a past medical history of COPD, hypertension and chronic HFpEF who initially presented with shortness of breath on 10/14/2023. SOB occurred over 1 week with cough and green phlegm. She was admitted to the
hospitalist service and was being treated with antibiotics for multifocal pneumonia and pulmonary was following. She was also being diuresed with Lasix 40 mg BID on 10/15/2023. Due to history of COPD she was started on Decadron and DuoNebs QID.
When she initially was hospitalized she required BiPAP but this was weaned down to mid flow at 12 L/min. Her requirements increased to 15 L/min on the evening of 10/14, and on the morning of 10/15 she required continuous BiPAP and had worsening
hypoxia with saturations in the mid 80s. She is now being transferred to the ICU for further care and operations and maintenance manager services consulted for further management/recommendations.
Impression:
#Acute respiratory failure with hypoxemia and hypercapnia now on mechanical ventilation, intubated 10/18/23
#ARDS due to severe CAP
#Severe community-acquired pneumonia - suspect viral etiology given negative procal x2
#Sepsis without shock due to above
#Acute kidney injury superimposed on CKD (baseline Cr approx 1.3-1.5)
#Hyperglycemia - worsening, now on insulin gtt
#Leukocytosis
#Small bilateral pleural effusions (seen on CT chest from 10/14/2023)
#Acute on chronic anemia (baseline Hb approx 11-12.5) - due to bone marrow suppression in setting of critical illness (retic index: 0.55 on 10/19/2023)
#Mild�moderate aortic stenosis
#Morbid obesity
#Reported Hx of COPD/chronic bronchitis
#Former tobacco use disorder (2PPD x 20 years, quit ~25 years ago)
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
Hypertension
morbid obesity
history of COPD
DM type II
chronic bronchitis
HFpEF
anxiety/depression
bipolar disorder
bilateral blindness
history of lung nodule
former tobacco use disorder
Plan:
Has not been able to wean sedation well, high anxiety per daughter
She is legally blind
Will try to wean sedation as able
Patient is critically ill with severe hypoxemia with ARDS on mechanical ventilation and requiring intermittent paralysis
Her P/F ratio is now >150 hence she is in moderate ARDS and no longer severe
This is improving, vent settings adjusted to liberate her low TVs as she has started breath stacking and autopeeping
Repeat ABG improved on 450/18/50/8, plat pressure 24
Did not tolerate other vent modes: PC/PRVC
Continue systemic steroids --> solumedrol 40mg IV q6hr on 10/16 --wean to q12 today
Strict NPO; use small bore NGT for PO access and continue tube feeds
Aspiration precautions
Still remains significantly volume overloaded in my opinion
Diuresis held due to JOHN
Renal consult obtained
Continue with broad-spectrum antibiotics
Currently on Cefepime and Azithro - cefepime started 10/15 + zithromax started 10/15; she is s/p aztreonam 10/13 - 10/15, and s/p 2 doses of IV vanco on 10/13 + 10/14
Vanc due to neg. MRSA swab
Follow up infectious workup with blood & sputum Cx; urine antigens for Legionella and streptococcal pneumonia are negative
Not on pressors
Maintain MAP>65
Prior ECHO reviewed with adequate EF/normal
Strict I/O and trend UOP
Daily weights
ProBNP 3050 now 2430
Goal BG 140-180mg/dL now on insulin gtt after failing to be controlled with basal-bolus insulin
Transition as tolerated
DM WHITE SIDEWALL TIRE BUFFER following
Replete electrolytes with K>4, Mg>2
Stress ulcer ppx: PPI
DVT ppx: HSQ
Family Discussions
Moshe 10/21/23: Spoke to patient's daughter and updated her on prognosis. I do think if she does not make significant progress weaning off the ventilator, she would need to be evaluated for tracheostomy by the end of the week. She has been intubated
for 3 days and has not made significant progress. I do think she is also volume overloaded. Her daughter feels like she has been suffering for a long time prior to her admission. She feels she is at odds with her father and her sister who do not
see the poor quality of life that she would have if she were to have a tracheostomy completed. Her father believes that the patient can be bedbound for up to 4 weeks intubated. I encouraged them to discuss with each other her ultimate GOC.
Soria - Plan above was reviewed in detail in layman's terms with the patient's to his satisfaction. Patient remains full code with full medical treatment.
Diagnostic Data
CXR 10-16-2023: Extensive bilateral airspace opacities with air bronchograms, increasing since most recent radiograph of October 14, 2023.
CXR 10-17-2023: Extensive bilateral airspace opacities with air bronchograms likely minimally improved.
CXR 10-18-2023:
1. Endotracheal and endogastric tubes are in satisfactory position, as detailed above.
2. Severe confluent interstitial and alveolar opacities bilaterally, significantly worse compared to prior chest x-ray. Findings are likely related to severe interstitial and alveolar pulmonary edema, differential diagnosis includes ARDS and severe
bilateral pneumonia.
CXR 10-20-2023: Lines and tubes remain in place. Parenchymal disease process, as described, though appearing slightly improved.
CT Chest with IV contrast 10-14-2023: Marked widespread bilateral interstitial and groundglass opacities, numerous scattered prominent mediastinal lymph nodes and tiny bilateral pleural effusions. Findings could be on the basis of
pneumonia/pneumonitis with viral pneumonitis one of several differential diagnostic possibilities.
TTE 10-15-2023: Normal left ventricular size and systolic function. No regional wall motion abnormalities are seen. LV ejection fraction is 60-65% by visual assessment. Mild concentric left ventricular hypertrophy. Normal right ventricular systolic
function. Trace mitral regurgitation. Mild to moderate aortic stenosis. Peak/mean gradients are 33/20mmHg. The valve area by continuity equation is 1.1cm sq, using a LVOT of 1.8cm. Trace tricuspid regurgitation. Estimated pulmonary artery pressure
of 40-45 mmHg. The IVC is of normal size but does not demonstrate normal respiratory variation.
EF% remains normal compared to 2022 echo and aortic valve gradients remain relatively stable with mild to moderate .
-----
Critical Care time 50 mins -- The patient is admitted for acute critical illness for the treatment of vital organ failure and/or prevention of further life-threatening conditions. Total care includes time spent in review of history, physical exam,
medications, hemodynamic/ventilator parameters, laboratory data, imaging and discussion with house staff, pharmacy, respiratory therapy, resource development manager, and nursing.
Subjective Dataa
Subjective Data
Date of Service:
Date of Service: October 21, 2023
Chief Complaint: Retail Administrative Assistant Follow Up
Subjective:
patient seen and examined, remains critically ill
intubated, hypoxemia ongoing
not tolerating current vent settings
Objective Data
Data Reviewed
Vital Signs / I&O / Oxygen:
Vital Signs
Temp Pulse Resp BP Pulse Ox
99.6 F 69 26 123/51 91
10/21/23 03:20 10/21/23 07:16 10/21/23 07:16 10/21/23 05:00 10/21/23 07:16
Intake and Output
10/20/23 10/21/23 10/22/23
06:59 06:59 06:59
Intake Total 2977.4 / 3104.0 3002.1 / 3002.1
Output Total 675 / 775 1695 / 1695
Balance 2302.4 / 2329.0 1307.1 / 1307.1
SaO2 [A/C] 94
SaO2 [NIV (Non Invasive 85
Ventilation)]
SaO2 91
Nasal Cannula flow liters per 12
minute
Physical Exam
General: Respiratory Distress (negative) and Other (Intubated/Sedated)
HEENT: Normocephalic, Anicteric, Other (ETT in place) and Other (thick neck, legally blind)
Cardiovascular: S1-S2, Irregular Rhythm and Peripheral Edema (negative)
Respiratory: Wheeze (negative), Crackles (bibasilar), Rhonchi (bilaterally), Accessory Resp Muscle Use (negative) and ET Tube
GI: Soft, Non Distended, Non Tender, Normal Bowel Sounds and Other (abdominal obesity)
Neurology: Other (Sedated; positive corneal reflex bilaterally, positive gag/cough; sluggish pupillary reflexes bilaterally (R >L))
Skin: Warm and Dry
Labs/Micro/Reports
Lab Data
10/21/23 04:42
10/21/23 04:42
Laboratory Results
10/20/23 10/21/23
13:15 05:07
pH 7.34 L 7.32 L
pCO2 54 H 52 H
pO2 169 H 95
HCO3 29.1 H 26.8
O2 Delivery Level
Microbiology
10/14/23 17:01 Blood/Venous Blood Culture - Final
No Growth - Final Report
10/14/23 17:01 Blood/Venous Blood Culture - Final
No Growth - Final Report
--- NOTE | 2023-10-21 07:52 | PTCARENOTE ---
0700 pt in bed , intubated and sedated.
Propofol 50mcg/33.3 ml; Fentanyl 150/5ml via DL RT PICC purple lumen; Insulin 12/hr via White lumen PICC line. Restraints/soft to b/l UE ; SR 73; A/line proper position Zero per protocol; BP via A/line 153/53 MAP 82 Via left upper arm 121/48 MAP 70;
; Vent : ETT #8/23 left lip; AC 26/350/+10/60% Peak 31/VT 333/RR 26; POX 96% . Huizar draining soo light urine. HOB elevated .
[2023-10-21] MEDS: ZITHROMAX INFUSION 250 IV (08:04)
[2023-10-21] MEDS: NSS (PRESERVATIVE FREE) 10 ML IV ×2 (08:15→19:32)
[2023-10-21] MEDS: PROTONIX IV 40 MG IV ×2 (08:16→19:32)
[2023-10-21] MEDS: LIPITOR 40 MG PO (08:16)
[2023-10-21] MEDS: MUCINEX 600 MG PO (08:16)
[2023-10-21] MEDS: LOW STRENGTH ASPIRIN 81 MG TUBE (08:16)
[2023-10-21] MEDS: REFRESH CELLUVISC GEL 1 DROPS OPHTH ×2 (08:16→19:32)
[2023-10-21] MEDS: SENNA SYRUP 8.80000000000000071 MG PO ×2 (08:17→19:31)
[2023-10-21] MEDS: LEXAPRO 15 MG PO (08:17)
[2023-10-21] MEDS: MIRALAX 17 GRAMS TUBE (08:17)
[2023-10-21] MEDS: NOVOLIN R INSULIN INFUSION 100 IV ×2 (08:27→16:48)
[2023-10-21 09:28] LABS: Glucose - Point of Care 191 mg/dl (70-99)
[2023-10-21 10:12] LABS: Glucose - Point of Care 179 mg/dl (70-99)
[2023-10-21] MEDS: MAXIPIME 1000 MG IV (10:27)
[2023-10-21] MEDS: STERILE WATER FOR INJECTION 10 ML IV (10:27)
--- NOTE | 2023-10-21 10:30 | W.PN.CARDCBS ---
Today's Communication / Plan
-
Continue to hold furosemide
Resume diuretics as renal function allows
Multifactorial dyspnea, do not feel that heart failure is the major contributor at this time
Because of infiltrates unclear
Stop aspirin
Impression / Plan
-
.
Primary hot frame tender Dr. Frias
Impression:
Multifactorial dyspnea, vent dependent respiratory failure
COPD/asthmatic bronchitis
Acute on chronic HFpEF
Acute on chronic renal failure
Mild to moderate aortic stenosis
Recent nondisplaced fracture fibular head, complete tear medial meniscus/rupture ACL
Type 2 diabetes
Hypertension
Anemia of chronic disease
Hypercholesterolemia
Diabetic retinopathy with bilateral blindness.
GERD
Morbid obesity
Bipolar/anxiety depression
Fibromyalgia
Echo October 15 2023: EF 60 to 65% with mild LVH, mild to moderate , peak/mean gradients 33/20 mmHg, aortic valve area 1.1 cm sq, PASP 40 to 45 mmHg
Plan:
She remains on the ventilator, is sedated
Multifactorial dyspnea, chest x-ray could be consistent with ARDS, pneumonia, heart failure, given echo, BUN and creatinine do not think that heart failure is the operative issue at this time. Furosemide is on hold with BUN of 119 and creatinine of
1.9
Patient on antibiotics and steroids.
She remains anemic, hemoglobin relatively stable at 7.7. No clear-cut indication for aspirin. Will discontinue.
EF is preserved, aortic stenosis is only mild to moderate, troponin is negative, she is in sinus rhythm without significant ectopy.
Progress Note - Core Analysis Operator
Subjective
Date of Service: October 21, 2023: Allergies: Cefaclor, ipecac, penicillin, Compazine
Outpatient meds: Albuterol, amlodipine, aspirin, atorvastatin, Zyrtec-D, Voltaren, Lexapro, Breo Ellipta, furosemide 60 mg twice daily, insulin, Lantus, Atrovent, lorazepam, Lyrica, omeprazole, Ativan, tramadol
Inpatient medications: Insulin infusion, fentanyl, propofol, atorvastatin, Lexapro, Lyrica on hold, Mucinex, furosemide 40 IV twice daily hold, DuoNebs, Zithromax, Protonix IV, subcu heparin, cefepime, Solu-Medrol 40 every 6, aspirin 81 mg a day,
PMH/PSH/SH/FH: Reviewed
ROS: Not obtainable
White count 14.7, hemoglobin 7.7, was as low as 6.7
7.32, 52, 95, 27
BUN/creatinine 17 and 1.9, potassium 4.7, proBNP 2430, troponin was negative
Chest x-ray diffuse bilateral interstitial changes
ECG sinus rhythm, nonspecific ST and T changes, low volts
Objective
Labs:
10/21/23 04:42
10/21/23 04:42
Labs
Hgb 7.7 g/dL (12.0-16.0) L 10/21/23 04:42
Hct 25.3 % (37.0-47.0) L 10/21/23 04:42
Plt Count 378 10^3/uL (130-400) 10/21/23 04:42
PT 17.8 Sec (11.4-14.6) H 10/18/23 16:42
INR 1.49 10/18/23 16:42
APTT 30.8 Sec (23.4-35.0) 10/18/23 16:42
Sodium 142 mmol/L (135-145) 10/21/23 04:42
Potassium 4.7 mmol/L (3.5-5.1) 10/21/23 04:42
BUN 117 mg/dl (7-17) H* 10/21/23 04:42
Creatinine 1.9 mg/dL (0.6-1.0) H 10/21/23 04:42
Glucose 95 mg/dl (70-99) 10/21/23 04:42
Vital Signs and I&O:
Vital Signs
Temp Pulse Resp BP Pulse Ox
36.9 C 75 26 121/48 95
10/21/23 07:50 10/21/23 07:45 10/21/23 07:45 10/21/23 07:38 10/21/23 07:46
Vital Signs
Temp Pulse Resp BP Pulse Ox
36.9 C 75 26 121/48 95
10/21/23 07:50 10/21/23 07:45 10/21/23 07:45 10/21/23 07:38 10/21/23 07:46
Intake & Output
10/19/23 10/20/23 10/21/23 10/22/23
07:59 07:59 07:59 07:59
Intake Total 1684.2 / 1780.8 3007.4 / 3134.0 3020.8 / 3201.1 333.6 / 333.6
Output Total 1555 / 1590 735 / 835 1745 / 1795 70 / 70
Balance 129.2 / 190.8 2272.4 / 2299.0 1275.8 / 1406.1 263.6 / 263.6
Physical Exam
Physical Exam
121/48, pulse 75, respiratory 26, afebrile, sats 95%, weight 110.5 kg, intake and output +1.4 L
Sedated, intubated, unresponsive, appears much older than stated age
Head neck exam unremarkable
Lungs with wheezes
Cardiac regular rate and rhythm no obvious murmurs
Abdomen obese
Extremities 1+ edema
Neuro could not test related to sedation
--- NOTE | 2023-10-21 11:26 | CM ---
Patient seen at bedside in ICU, patient continues to be intubated at this time. CM will continue to follow for discharge planning needs.
Plan; TBD; pending patient progress.
[2023-10-21 11:33] LABS: Glucose - Point of Care 145 mg/dl (70-99)
--- NOTE | 2023-10-21 11:44 | PN.DE.MGMTRT ---
Insulin Management
- -
10/21/2023 Diabetes Management Follow up
Patient admitted 10/13 with breathing problem admitting DX acute respiratory failure with hypoxia, severe community acquired pneumonia, septic shock, hyperkalemia, pleural effusions. PMH COPD, HTN, HLD, CAD, type 2 diabetes, asthma, chf, GERD,
depression.
Patient was on Bipap but continued to have O1 sats in 's. Patient required intubation, O2 sats are improved but she overbreathing ventilator today. She is sedated.
Prior to admission patient was taking lantus 45 units BID with novolog SS. A1C is 6.5%, cr 2.6, eGFR 20.36.
Patient is remains NPO, glycemic protocol was started 10/18 for glucose > 400. Glucose range yesterday 79 to 202. Patient has required up to 20 units insulin per hour at times. She is currently receiving methylprednisolone 40 Q6 hour. Will
continue glycemic protocol.
I spoke with patients nurse regarding glucose control.
Diabetes History
- -
Type of Diabetes: 2 requiring insulin
Pre-Admission Diabetes Regimen
10/21/23
04:42
Creatinine 1.9 H
Lab Results
Hemoglobin A1c 6.5 % (4.0-5.6) H 10/15/23 04:04
Insulin Pump Settings
IP Diabetes Regimen
10/20/23 10/20/23 10/20/23
11:57 12:56 14:05
Glucose
POC Glucose 79 104 H 134 H
10/20/23 10/20/23 10/20/23
15:02 15:59 18:01
Glucose
POC Glucose 95 124 H 170 H
10/20/23 10/20/23 10/20/23
20:22 21:27 22:29
Glucose
POC Glucose 185 H 202 H 155 H
10/21/23 10/21/23 10/21/23
00:33 02:07 03:01
Glucose
POC Glucose 110 H 99 106 H
10/21/23 10/21/23 10/21/23
04:01 04:42 05:07
Glucose 95
POC Glucose 115 H 122 H
10/21/23 10/21/23 10/21/23
07:00 09:03 09:59
Glucose
POC Glucose 135 H 191 H 179 H
10/21/23
11:12
Glucose
POC Glucose 145 H
Patient Education
--- NOTE | 2023-10-21 11:56 | PTCARENOTE ---
RR 30's Vent settings changed to (S)CMV: 18/500/+8/55% Peack 34 VT 501; RR 19; POX 96% chest precaution in progress. Propofol titrated from 50 to 45 mcg
[2023-10-21 12:11] LABS: Glucose - Point of Care 125 mg/dl (70-99)
--- NOTE | 2023-10-21 12:11 | PTCARENOTE ---
12:00 vent setting changed to APVcmV: 18/500/+8/55% peak 31; VT 471; RR 18; POX 94% ABG will be collected from A/line at 1300
--- NOTE | 2023-10-21 13:40 | W.CON.NEPH ---
Consultation
-
Date/Time Consultation Requested: 10/21/23 1154
Date/Time Consultation Performed: 10/21/23 1400
Requesting Provider: Marivel Steward
Performing Provider: Germania Fish
Reason for Consultation: JOHN, Azotemia
Medical History
-
Chief Complaint: SOB, PNA
History of Present Illness:
62-year-old female with past medical history of COPD on inhalers, IDDM retinopathy, blind, CKD 3a baseline cr 1.2-1.5, hypertension on Amlodipine,hyperlipidemia, CAD, fibromyalgia on lexapro, lyrica, DCHF on lasix, recent h/o left fibular fracture
presented to ER on 10/13 with worsening SOB x 1,On arrival patient was hypoxic 75 on room air failed BiPAP and required to be intubated on 10/17. CT chest showed no PE but multifocal PNA, ARDS, abx initiated. She started on steroids for COPD
exacerbation as well. He cr on admit was at 1.4 and peak at 2.7 now improving to 1.9 however BUN increasing to 117.. Lasix held since 10/18.
Past Medical History
Chronic HFpEF
Chronic tachycardia
Aortic stenosis
COPD/asthmatic bronchitis
Hyponatremia/hyperkalemia
Type 2 diabetes
Hypertension
CKD3a
Hypercholesterolemia
Diabetic retinopathy with bilateral blindness.
GERD
Morbid obesity
Bipolar/anxiety depression
Fibromyalgia
Tonsillectomy
Social History
Tobacco: Former Smoker
Alcohol: Occasional
Drug: None
Personal:
Living: With Family
Employment: Disabled
Family History
unknown, pt sedated and intuabted
Family History: Unable to Obtain
Allergies / Home Medications
Allergy/AdvReac Type Severity Reaction Status Date / Time
cefaclor Allergy rash prior Verified 10/15/23 10:27
to 2007
ipecac Allergy Unknown Verified 10/14/23 20:52
latex Allergy Rash Verified 10/14/23 20:52
Penicillins Allergy rash prior Verified 10/15/23 10:27
to 2007
prochlorperazine Allergy Tongue Verified 10/14/23 20:52
Swelling
�Medication �Instructions �Recorded �Confirmed �Type
cetirizine 5 mg-pseudoephedrine ER 1 tab PO BID Allergies 10/30/22 10/14/23 History
120 mg tablet,extended
release,12hr (Zyrtec-D)
escitalopram oxalate 10 mg tablet 15 mg PO DAILY Depression 10/30/22 10/14/23 History
insulin aspart U-100 100 unit/mL 0 sliding scale dose SC AC Diabetes 10/30/22 10/14/23 History
(3 mL) subcutaneous pen (Novolog
FlexPen U-100 Insulin aspart)
lorazepam 0.5 mg tablet 0.5 mg PO BIDPRN PRN Anxiety 10/30/22 10/14/23 History
omeprazole 20 mg capsule,delayed 20 mg PO BID Gastrointestinal issue 10/30/22 10/14/23 History
release
pregabalin 150 mg capsule (Lyrica) 150 mg PO TID Neurological 10/30/22 10/14/23 History
Condition
tramadol 50 mg tablet 50 mg PO Q4H PRN moderate pain 10/30/22 10/14/23 History
atorvastatin 40 mg tablet 40 mg PO DAILY High Cholesterol 02/18/23 10/14/23 History
furosemide 20 mg tablet 60 mg (3 x 20 mg) PO BID AT 02/27/23 10/14/23 Rx
0800,1600 30 days #180 tabs
albuterol sulfate 90 mcg/actuation 2 inh inhalation R Q6HPRN PRN sob 06/10/23 10/14/23 History
breath activated powder inhaler
amlodipine 10 mg tablet 10 mg PO DAILY Blood Pressure 06/10/23 10/14/23 History
fluticasone furoate 200 1 inh inhalation R BID 06/10/23 10/14/23 History
mcg-vilanterol 25 mcg/dose Lung/Breathing Issues
inhalation powder (Breo Ellipta)
ipratropium 0.5 mg-albuterol 3 mg 3 ml inhalation R Q6HPRN PRN sob 06/10/23 10/14/23 History
(2.5 mg base)/3 mL nebulization
soln
aspirin 81 mg tablet,delayed 81 mg PO DAILY Blood Clot 10/14/23 10/14/23 History
release Prevention/Tx
diclofenac sodium 75 mg 75 mg PO BID PRN moderate pain 10/14/23 10/14/23 History
tablet,delayed release
insulin glargine 100 unit/mL 45 unit SC BID Diabetes 10/14/23 10/14/23 History
subcutaneous solution (Lantus
U-100 Insulin)
Review of Systems
-
unable to obtain
Unable to obtain full review of systems at this time due to: Patient Intubation
Physical Exam
Vital Signs
Vital Signs
Temp Pulse Resp BP Pulse Ox
98.5 F 75 26 121/48 93
10/21/23 07:50 10/21/23 07:45 10/21/23 07:45 10/21/23 07:38 10/21/23 13:40
Lab Results
WBC 14.7 10^3/uL (4.8-10.8) H 10/21/23 04:42
RBC 3.14 10^6/uL (4.20-5.40) L 10/21/23 04:42
Hgb 7.7 g/dL (12.0-16.0) L 10/21/23 04:42
Hct 25.3 % (37.0-47.0) L 10/21/23 04:42
Plt Count 378 10^3/uL (130-400) 10/21/23 04:42
Sodium 142 mmol/L (135-145) 04/01/24 04:42
Potassium 4.7 mmol/L (3.5-5.1) 10/21/23 04:42
Chloride 112 mmol/L (98-107) H 10/21/23 04:42
Carbon Dioxide 27 mmol/L (22-30) 10/21/23 04:42
BUN 117 mg/dl (7-17) H* 10/21/23 04:42
Creatinine 1.9 mg/dL (0.6-1.0) H 10/21/23 04:42
eGFR 29.67 10/21/23 04:42
Glucose 95 mg/dl (70-99) 10/21/23 04:42
Calcium 7.8 mg/dl (8.4-10.2) L 10/21/23 04:42
Phosphorus 6.0 mg/dl (2.5-4.5) H 10/21/23 04:42
Nix-E-Uuombrzmmov Pept 2430 pg/ml 10/21/23 04:42
Albumin 3.1 g/dl (3.5-5.0) L 10/21/23 04:42
10/14
CONCLUSIONS
Normal left ventricular size and systolic function.
No regional wall motion abnormalities are seen.
LV ejection fraction is 60-65% by visual assessment.
Mild concentric left ventricular hypertrophy.
Normal right ventricular systolic function.
Trace mitral regurgitation.
Mild to moderate aortic stenosis.
Peak/mean gradients are 33/20mmHg.
The valve area by continuity equation is 1.1cm sq, using a LVOT of 1.8cm.
Trace tricuspid regurgitation.
Estimated pulmonary artery pressure of 40-45 mmHg.
The IVC is of normal size but does not demonstrate normal respiratory
variation.
EF% remains normal compared to 2022 echo and aortic valve gradients remain
relatively stable with mild to moderate .
PROCEDURE: CR Chest Portable - 1 View
CLINICAL INDICATION: ARDS; Pneumonia; intubated
TECHNIQUE: Portable frontal semi-erect view of the chest.
COMPARISON: October 20, 2023
FINDINGS:
Lines and tubes: Endotracheal tube with tip in the trachea above the orion, nasogastric tube with tip in the stomach and right PICC line with tip in SVC.
Lungs: Widespread bilateral opacification possibly minimally progressed. No pleural effusion or pneumothorax.
Heart: Cardiac and mediastinal contours are significantly obscured by the bilateral parenchymal opacification.
Osseous structures: Visualized osseous structures are within normal limits.
IMPRESSION:
Widespread predominantly interstitial with some additional alveolar opacification, perhaps slightly progressed, differential diagnostic possibilities unchanged
Physical Exam
General: Other (sedated and intuabted)
Respiratory: Crackels
Cardiac: Regular Rate/Rhythm
Abdomen: Soft and Nontender
Musculoskeletal: No Cyanosis and Edema (3+)
Skin: No Rash
Neuro: Other (unable to assess due to sedation )
Hematologic/Lymphatic: Other
Psych: Other (unable to assess due to sedation )
Assessment/Plan
-
IMP:
Acute hypoxic hypercarbic respiratory failure multifactorial suspect multifactorial from pneumonia and possible CHF exacerbation
Sepsis likely 2/2 pneumonia
Suspect ARDS likely secondary to viral etiology-Intubated 10/17
COPD exacerbation
Acute on chronic CHF exacerbation
mild to mod
Diabetes Mellitus, Type II
Acute on chr Anemia of chronic disease
JOHN on Chronic kidney disease stage IIIa-cr baseline 1.2-1.5
Essential tremors
Benign Hypertension
Bipolar/Anxiety/Depression
Morbid Obesity due to excess calories
Hyperlipidemia
Chronic neuropathy pain/fibromyalgia
Acute/subacute nondisplaced fracture of fibular head/complete tear of medial meniscus/rupture of ACL
Diabetic retinopathy with bilateral blindness. Legally blindness
Echo October 15 2023: EF 60 to 65% with mild LVH, mild to moderate , peak/mean gradients 33/20 mmHg, aortic valve area 1.1 cm sq, PASP 40 to 45 mmHg
Plan:
A/w hypoxic resp failure now VDRF-found CHF, COPD -ARDS
JOHN-cr peak at 2.7 post contrast, cr improving to 1.9 and non oliguric
UA is bland and low U na suggest prerenal/cardiorenal
check renal US for baseline, avoid nephrotoxins
last lasix dose on 10/18
Azotemia worsening likely from steroids, also on TF, monitor for GIB with anemia
grossly vol overload but wt seem relatively stable
BNP is decreasing, d/c [facility]
minimize fluids, lasix to be resumed soon
resp acidosis -vent adjustment per pICU
poor prognosis
d/w daughter at bedside
d/w ICU and nursing
CC time spent 35min
--- NOTE | 2023-10-21 13:41 | W.PN.HOSP.TC ---
Today's Communication/Plan
-
Monitor vital signs see plan
Wean vent as tolerated
Currently on propofol, fentanyl
Continue with Solu-Medrol, weaned down to 40 Q12
lasix per cardiology
Monitor hemoglobin
Monitor renal function
Assessment / Plan
Assessment / Plan
General:�Well Developed, Well Nourished
HEENT:�NormoCephalic, Moist mucous membranes and Atraumatic
Respiratory:�Ventilated breath sounds
Cardiac:�S1/S2 and Regular Rhythm
GI:�Soft, Non Tender, Non Distended
Musculoskeletal:� Other (Bilateral lower extremities edema)
: + razo
Neuro:�Sedated
Psych:�Calm
Acute hypoxic hypercarbic respiratory failure multifactorial suspect multifactorial from pneumonia and possible CHF exacerbation
Sepsis likely 2/2 pneumonia
Suspect ARDS likely secondary to viral etiology
- 10/15 with worsening hypoxia;currently maxed on BIPAP, wean oxygen as tolerated. High flow was tried however patient did not tolerate. Low threshold for intubation. Surprisingly mental status intact. now on noninvasive ventilator
Discussed with patient regarding code status; wants to remain full code; finally spoke with spouse who agrees
10/17 patient continues to be hypoxic, decision made to intubate. Intubated 10/17
Now paralyzed, might need to prone if continues to get worse
received flolan however not much improvement so was DC
-cw duonebs
-COVID and flu negative
- CT of chest without PE, shows marked widespread bilateral interstitial and groundglass opacities
repeat xray 10/15 with extensive bilateral airspace opacity with air bronchograms
-Strep and Legionella negative
cw abx; consider ID eval if dont imporve
NPO, on tube feeds
PPI IV
Currently on propofol, fentanyl for sedation
# COPD exacerbation
-cw IV steroids
-Nebs
-Continue to monitor
-on breo at home
Pulmonary following
# Acute on chronic CHF exacerbation
holding lasix per cardiology
-Cardiology following
Echo with mild to mod ; preserved EF
Does have history of aortic stenosis
#Diabetes Mellitus, Type II
�-Sliding scale
Sugars uncontrolled so started on insulin drip
�- Monitor sugars and continue coverage insulin
A1c 6.5
diabetes MOD[employer] LANGUAGES PROFESSOR following
# Anemia of chronic disease
could be mildly from hemoptysis,mild 10/15. quantify hemoptysis. No more episode
monitor hgb, 6.7 10/18. Received 1 unit PRBC 10/19. Hemoglobin now 7.7
-Continue to trend
per RN no bleeding noted
# JOHN on Chronic kidney disease stage IIIa
-Monitor creatinine
Hold nephrotoxic agents
If BUN/creatinine continue to get worse then nephrology valuation
razo with good urine output
#Essential tremors
#Benign Hypertension
�- Stable
- on Norvasc
#Bipolar/Anxiety/Depression
�-Celexa, lorazepam continued
#Morbid Obesity due to excess calories
�- Affects all aspects of care
# Hyperlipidemia
-Statin continued
# Chronic neuropathy pain/fibromyalgia
- HOLD Diclofenac, tramadol, Lyrica
# Acute/subacute nondisplaced fracture of fibular head/complete tear of medial meniscus/rupture of ACL
-Lower extremity MRI with the impression of Acute or subacute nondisplaced fracture of the fibular head.
2. Small osseous contusions at the posterior aspects of the medial tibial plateau and lateral tibial plateau.
3. Complex tear of the posterior horn of the medial meniscus.
4. Rupture of the ACL.
5. Large knee joint effusion.
6. Small Patton's cyst.
-Partial weightbearing to right lower extremities per patient and family
Instructed to follow-up with [facility] orthopedics outpatient.
# Legally blindness
DVT Prophylaxis: Heparin subcu
Code Status: Full Code
I spent a total of 53 minutes with the patient or on the floor. More than 50% of this time involved counseling and coordination of care.
Anticipated Discharge: > 48 hours
Subjective/Interval History
-
Date of Service: October 21, 2023
Continues to be intubated and sedated
Objective Data
-
Labs:
Laboratory Results
10/21/23 10/21/23 10/21/23
04:42 05:07 13:30
WBC 14.7 H
Hgb 7.7 L
Hct 25.3 L
Plt Count 378
HCO3 26.8 Pending
Sodium 142
Potassium 4.7
Chloride 112 H
Carbon Dioxide 27
BUN 117 H*
Creatinine 1.9 H
Glucose 95
Calcium 7.8 L
Total Bilirubin 0.4
AST 28
ALT 16
Alkaline Phosphatase 113
Vital Signs:
Vital Signs
Temp Pulse Resp BP Pulse Ox
98.5 F 75 26 121/48 93
10/21/23 07:50 10/21/23 07:45 10/21/23 07:45 10/21/23 07:38 10/21/23 13:40
I&O
10/20/23 10/21/23 10/22/23
06:59 06:59 06:59
Intake Total 2977.4 / 3104.0 3002.1 / 3147.4 1046.8 / 1046.8
Output Total 675 / 775 1695 / 1845 420 / 420
Balance 2302.4 / 2329.0 1307.1 / 1302.4 626.8 / 626.8
[2023-10-21 14:00] LABS: B.E. 2.9 mmol/L; HCO3 28.8 mmol/L (21-28); O2 Saturation % 98.1 % (94-98); PCO2 51 mmHg (32-35); PO2 83 mmHg (83-108); pH 7.36 (7.35-7.45)
[2023-10-21 14:29] LABS: Glucose - Point of Care 120 mg/dl (70-99)
[2023-10-21 16:12] LABS: Glucose - Point of Care 108 mg/dl (70-99)
--- NOTE | 2023-10-21 18:38 | SUR.OPER ---
intubated and sedated . Vent APV/CMv 18/500/+8/45% Peak 31' VT 517; RR 18 POX 91% . SR 72 RT A/line BP 138/655 MAP 89; CO2 38. RT PICC line: Propofol at 40mcg+Fentanyl at 150/15ml. Blood sugar 76 Insulin adjusted per protocol at 0.2/unit .
Suctioned for oral secretion moderate amount white thin; ETT secretion small bloody . pt open eyes during repositioning. chest pt done. bed on turning mode. HOB elevated . Dop haff TV Javity 1.2 at 30/hr per current order with no water flush
[2023-10-21 18:55] LABS: Glucose - Point of Care 76 mg/dl (70-99)
[2023-10-21 19:41] LABS: Glucose - Point of Care 113 mg/dl (70-99)
[2023-10-21] MEDS: STERILE WATER FOR INJECTION IV (19:41)
[2023-10-21 20:32] LABS: Glucose - Point of Care 137 mg/dl (70-99)
[2023-10-21 21:48] LABS: Glucose - Point of Care 115 mg/dl (70-99)
--- NOTE | 2023-10-21 22:00 | PTCARENOTE ---
Rec'd care of patient at 1900. Patient intubated and sedated on Fentanyl/Propofol gtts. #8 ett @ 22 cm. Repositioned to the right. APV 18/500/8/45%. POX 90-91%. RT notified and FiO2 increased to 55%. Lung sounds coarse with scattered rhonchi. Thick,
phillips secretions suctioned from ett. VSS. NSR on tele monitor. Rate in the 70's. +2 edema in b/l hand and trace in b/l LE. +Doppler dp and pt pulses. +BS. TFs infusing @ 30 cc's an hour through DHT. No flush. No BM. Huizar maintained. Glycemic protocol
maintained. Full assessment and care as charted on worklist.
[2023-10-21 22:41] LABS: Glucose - Point of Care 100 mg/dl (70-99)
[2023-10-21 23:42] LABS: Glucose - Point of Care 127 mg/dl (70-99)
[2023-10-22] VITALS (17 sets, daily range): BP systolic 105–160; BP diastolic 34–63; BMI 43.8
--- NOTE | 2023-10-22 | PTCARENOTE ---
Systems reviewed. No changes. VSS.
[2023-10-22] MEDS: HEPARIN 5000 UNITS SC ×3 (00:19→15:58)
[2023-10-22] MEDS: DIPRIVAN 100 IV ×4 (00:28→16:14)
[2023-10-22 00:42] LABS: Glucose - Point of Care 122 mg/dl (70-99)
[2023-10-22] MEDS: SUBLIMAZE 100 IV ×3 (02:07→20:02)
[2023-10-22 02:44] LABS: Glucose - Point of Care 98 mg/dl (70-99)
[2023-10-22 03:48] LABS: B.E. 5.2 mmol/L; O2 Saturation % 98.5 % (94-98); PCO2 38 mmHg (32-35); PO2 113 mmHg (83-108); pH 7.49 (7.35-7.45)
[2023-10-22 03:50] LABS: % Basophils 0.1 % (0-2); % Eosinophils 0.4 % (0-6); % Immature Granulocytes 6.2 % (0-0.5); % Lymphocytes 4.6 % (20.5-51.1); % Monocytes 7.5 % (1.7-9.3); % Neutrophils 81.2 % (42.2-75.2); Absolute Eosinophils 0.1 10^3/uL (0-0.7); Absolute Immature Granulocytes 0.9 10^3/uL (0-0.05); Absolute Lymphocytes 0.7 10^3/uL (1.2-3.4); Absolute Monocytes 1.1 10^3/uL (0.1-0.6); Absolute Neutrophils 11.6 10^3/uL (1.4-6.5); Hematocrit 23.5 % (37.0-47.0); Hemoglobin 7.6 g/dL (12.0-16.0); Mean Corp Hgb Conc. 32.3 g/dL (33.0-37.0); Mean Corpuscular Hgb 25.1 pg (27.0-31.0); Mean Corpuscular Volume 77.6 fL (81.0-99.0); Nucleated Red Blood Cells % 0.7 %; Platelet Count 340 10^3/uL (130-400); Red Blood Cell Count 3.03 10^6/uL (4.20-5.40); Red Cell Dist. Width 19.5 % (11.5-14.5); White Blood Cell Count 14.2 10^3/uL (4.8-10.8)
[2023-10-22 03:59] LABS: O2 Therapy 60%
[2023-10-22] MEDS: SUBLIMAZE 50 MCG IV ×3 (04:10→12:40)
[2023-10-22 04:35] LABS: ALT (SGPT) 17 U/L (0-35); AST (SGOT) 33 U/L (14-36); Albumin 3.1 g/dl (3.5-5.0); Alkaline Phosphatase 114 U/L (38-126); Blood Urea Nitrogen 103 mg/dl (7-17); Calcium 7.7 mg/dl (8.4-10.2); Carbon Dioxide 29 mmol/L (22-30); Chloride 117 mmol/L (98-107); Estimated Creatinine Clearance 41 ml/min; Glucose 121 mg/dl (70-99); Potassium 4.9 mmol/L (3.5-5.1); Sodium 147 mmol/L (135-145); Total Bilirubin 0.6 mg/dl (0.2-1.3); Total Protein 5.7 g/dl (6.3-8.2); eGFR 33.91
--- NOTE | 2023-10-22 04:43 | PTCARENOTE ---
During bed bath, patient agitated and restless. Fentanyl bolus administered with some improvement. Bite block placed. ETT observed to be at 20 cm (previously 23 cm). RT notified and tube repositioned. PROFESSOR OF PSYCHOLOGY notified. CXR ordered. VSS. POX 98%.
[2023-10-22 04:45] LABS: Glucose - Point of Care 159 mg/dl (70-99)
[2023-10-22 06:38] LABS: Glucose - Point of Care 109 mg/dl (70-99)
[2023-10-22] MEDS: DUONEB 3 ML INH ×4 (07:36→19:35)
[2023-10-22] MEDS: SENNA SYRUP 8.80000000000000071 MG PO (08:26)
[2023-10-22] MEDS: MIRALAX 17 GRAMS TUBE (08:27)
[2023-10-22] MEDS: PROTONIX IV 40 MG IV ×2 (08:27→19:49)
[2023-10-22] MEDS: LEXAPRO 15 MG PO (08:27)
[2023-10-22] MEDS: SOLU-MEDROL PF 40 MG IV ×2 (08:27→19:49)
[2023-10-22] MEDS: LIPITOR 40 MG PO (08:27)
[2023-10-22] MEDS: NSS (PRESERVATIVE FREE) 10 ML IV ×2 (08:27→19:49)
[2023-10-22] MEDS: REFRESH CELLUVISC GEL 1 DROPS OPHTH ×2 (08:28→19:49)
[2023-10-22] MEDS: STERILE WATER FOR INJECTION IV (08:28)
--- NOTE | 2023-10-22 08:34 | W.PN.CARDCBS ---
Today's Communication / Plan
-
Continue supportive care with antibiotics, steroid and vent management
Continue to hold Lasix with BUN over 100. Creatinine stable at 1.7
proBNP slowly improved
Long-term prognosis appears to be poor
Impression / Plan
-
.
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
Impression:
Multifactorial dyspnea, vent dependent respiratory failure
COPD/asthmatic bronchitis
Acute on chronic HFpEF
Acute on chronic renal failure
Mild to moderate aortic stenosis
Recent nondisplaced fracture fibular head, complete tear medial meniscus/rupture ACL
Type 2 diabetes
Hypertension
Anemia of chronic disease
Hypercholesterolemia
Diabetic retinopathy with bilateral blindness.
GERD
Morbid obesity
Bipolar/anxiety depression
Fibromyalgia
Echo October 15 2023: EF 60 to 65% with mild LVH, mild to moderate , peak/mean gradients 33/20 mmHg, aortic valve area 1.1 cm sq, PASP 40 to 45 mmHg
Plan:
She remains on the ventilator, is sedated with respiratory failure. Her respiratory failure is likely multifactorial with pneumonia, ARDS and mild heart failure with preserved ejection fraction. Will continue to hold Lasix for now with BUN over
100. Creatinine is slightly improved down to 1.7. proBNP has been trending down to 2400
Patient on antibiotics and steroids. Continue ventilatory care.
She remains anemic, hemoglobin relatively stable at 7.6. OFF ASA. No clear signs of bleeding.
EF is preserved, aortic stenosis is only mild to moderate, troponin is negative, she is in sinus rhythm without significant ectopy.
Spoke with family. They do not seem interested in tracheostomy, however this is going to be a realistic possibility for her.
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
Subjective
Date of Service: October 22, 2023
Remains intubated on 50% FiO2.
Objective
Labs:
10/22/23 03:35
10/22/23 03:35
Labs
Hgb 7.6 g/dL (12.0-16.0) L 10/22/23 03:35
Hct 23.5 % (37.0-47.0) L 10/22/23 03:35
Plt Count 340 10^3/uL (130-400) 10/22/23 03:35
PT 17.8 Sec (11.4-14.6) H 10/18/23 16:42
INR 1.49 10/18/23 16:42
APTT 30.8 Sec (23.4-35.0) 10/18/23 16:42
Sodium 147 mmol/L (135-145) H 10/22/23 03:35
Potassium 4.9 mmol/L (3.5-5.1) 10/22/23 03:35
BUN 103 mg/dl (7-17) H* 10/22/23 03:35
Creatinine 1.7 mg/dL (0.6-1.0) H 10/22/23 03:35
Glucose 121 mg/dl (70-99) H 10/22/23 03:35
Vital Signs and I&O:
Vital Signs
Temp Pulse Resp BP Pulse Ox
98.8 F 57 19 131/45 98
10/22/23 07:30 10/22/23 07:38 10/22/23 07:38 10/22/23 05:00 10/22/23 07:38
Vital Signs
Temp Pulse Resp BP Pulse Ox
98.8 F 57 19 131/45 98
10/22/23 07:30 10/22/23 07:38 10/22/23 07:38 10/22/23 05:00 10/22/23 07:38
Intake & Output
10/20/23 10/21/23 10/22/23 10/23/23
06:59 06:59 06:59 06:59
Intake Total 2977.4 / 3104.0 3002.1 / 3147.4 2386.4 / 2458.7 114.6 / 114.6
Output Total 675 / 775 1695 / 1845 2275 / 2275 225 / 225
Balance 2302.4 / 2329.0 1307.1 / 1302.4 111.4 / 183.7 -110.4 / -110.4
Physical Exam
Physical Exam
GEN: No distress, opens eyes on ventilator
HEENT: supple, anicteric, mmm, ET tube
LUNGS: scatt rhonchi
CV: Reg, S1/S2, 1/6 syst LSB, no gallop
ABD: soft, BS+, NT/ND
EXT: No edema
NEURO: Gross non-focal
SKIN: No rash
[2023-10-22 08:54] LABS: Glucose - Point of Care 119 mg/dl (70-99)
[2023-10-22] MEDS: ATIVAN 0.25 MG IV (09:11)
[2023-10-22] MEDS: NSS (PRESERVATIVE FREE) 0.125 ML IV (09:12)
[2023-10-22 10:26] LABS: Glucose - Point of Care 80 mg/dl (70-99)
--- NOTE | 2023-10-22 10:32 | PTCARENOTE ---
Propofol gtt turned off and Fentanyl gtt dose cut in half for sedation vacation/vent weaning. Pt became very agitated, restless, and kicking in bed with increased respiratory rate and SpO2 drop to 85%. PRN Ativan given with little effect.
Fentanyl bolus given and drip titrated up. FiO2 titrated up.
--- NOTE | 2023-10-22 11:08 | W.PN.HOSP.TC ---
Today's Communication/Plan
-
monitor vitals
see plan
wean vent as tolerated
wean sedation if able
monitor urine output
Discussed with at bedside
monitor renal function
Assessment / Plan
Assessment / Plan
General:�Well Developed, Well Nourished
HEENT:�NormoCephalic, Moist mucous membranes and Atraumatic
Respiratory:�Ventilated breath sounds
Cardiac:�S1/S2 and Regular Rhythm
GI:�Soft, Non Tender, Non Distended
Musculoskeletal:� Other (Bilateral lower extremities edema)
: + razo
Neuro:�Sedated
Psych:�Calm
Acute hypoxic hypercarbic respiratory failure multifactorial suspect multifactorial from pneumonia and possible CHF exacerbation
Sepsis likely 2/2 pneumonia
Suspect ARDS likely secondary to viral etiology
- 10/15 with worsening hypoxia;currently maxed on BIPAP, wean oxygen as tolerated. High flow was tried however patient did not tolerate. Low threshold for intubation. Surprisingly mental status intact. now on noninvasive ventilator
Family is aware of patient clinical status. If does not significantly improve then will likely need tracheostomy. Per my conversation with today, does not appear that family would not want tracheostomy.
10/17 patient continues to be hypoxic, decision made to intubate. Intubated 10/17
Now paralyzed, might need to prone if continues to get worse
received flolan however not much improvement so was DC
-cw duonebs
-COVID and flu negative
- CT of chest without PE, shows marked widespread bilateral interstitial and groundglass opacities
repeat xray 10/15 with extensive bilateral airspace opacity with air bronchograms
-Strep and Legionella negative
cw abx; consider ID eval if dont imporve
NPO, on tube feeds
PPI IV
Currently on propofol, fentanyl for sedation
# COPD exacerbation
-cw IV steroids
-Nebs
-Continue to monitor
-on breo at home
Pulmonary following
# Acute on chronic CHF exacerbation
holding lasix per cardiology
-Cardiology following
Echo with mild to mod ; preserved EF
Does have history of aortic stenosis
mild hypernatremia
monitor
#Diabetes Mellitus, Type II
�-Sliding scale
Sugars uncontrolled so started on insulin drip
�- Monitor sugars and continue coverage insulin
A1c 6.5
diabetes TUBE ROOM CASHIER following
# Anemia of chronic disease
could be mildly from hemoptysis,mild 10/15. quantify hemoptysis. No more episode
monitor hgb, 6.7 10/18. Received 1 unit PRBC 10/19. Hemoglobin now 7.6
-Continue to trend
per RN no bleeding noted
# JOHN on Chronic kidney disease stage IIIa
-Monitor creatinine
Hold nephrotoxic agents
nephrology following
razo with good urine output
#Essential tremors
#Benign Hypertension
�- Stable
- on Norvasc
#Bipolar/Anxiety/Depression
�-Celexa, lorazepam continued
#Morbid Obesity due to excess calories
�- Affects all aspects of care
# Hyperlipidemia
-Statin continued
# Chronic neuropathy pain/fibromyalgia
- HOLD Diclofenac, tramadol, Lyrica
# Acute/subacute nondisplaced fracture of fibular head/complete tear of medial meniscus/rupture of ACL
-Lower extremity MRI with the impression of Acute or subacute nondisplaced fracture of the fibular head.
2. Small osseous contusions at the posterior aspects of the medial tibial plateau and lateral tibial plateau.
3. Complex tear of the posterior horn of the medial meniscus.
4. Rupture of the ACL.
5. Large knee joint effusion.
6. Small Patton's cyst.
-Partial weightbearing to right lower extremities per patient and family
Instructed to follow-up with [facility] orthopedics outpatient.
# Legally blindness
DVT Prophylaxis: Heparin subcu
Code Status: Full Code
Discussed in great detail with at bedside 10/22/2023. If patient does not improve then likely will need tracheostomy. Per my discussion with spouse, does not appear that family would want tracheostomy.
I spent a total of 53 minutes with the patient or on the floor. More than 50% of this time involved counseling and coordination of care.
Anticipated Discharge: > 48 hours
Subjective/Interval History
-
Date of Service: October 22, 2023
continues to be intubated
Objective Data
-
Labs:
Laboratory Results
10/22/23
03:35
WBC 14.2 H
Hgb 7.6 L
Hct 23.5 L
Plt Count 340
HCO3 29.0 H
Sodium 147 H
Potassium 4.9
Chloride 117 H
Carbon Dioxide 29
BUN 103 H*
Creatinine 1.7 H
Glucose 121 H
Calcium 7.7 L
Total Bilirubin 0.6
AST 33
ALT 17
Alkaline Phosphatase 114
Vital Signs:
Vital Signs
Temp Pulse Resp BP Pulse Ox
98.8 F 100 15 128/43 88
10/22/23 07:30 10/22/23 10:30 10/22/23 10:30 10/22/23 08:00 10/22/23 10:30
I&O
10/21/23 10/22/23 10/23/23
06:59 06:59 06:59
Intake Total 3002.1 / 3147.4 2386.4 / 2458.7 255.1 / 255.1
Output Total 1695 / 1845 2275 / 2275 355 / 355
Balance 1307.1 / 1302.4 111.4 / 183.7 -99.9 / -99.9
--- NOTE | 2023-10-22 11:09 | W.PN.NEPH.PH ---
Today's Communication / Plan
-
prn lasix
add back FWF
Assessment/Plan
-
IMP:
Acute hypoxic hypercarbic respiratory failure multifactorial suspect multifactorial from pneumonia and possible CHF exacerbation
Sepsis likely 2/2 pneumonia
Suspect ARDS likely secondary to viral etiology-Intubated 10/17
COPD exacerbation
Acute on chronic CHF exacerbation
mild to mod
Diabetes Mellitus, Type II
Acute on chr Anemia of chronic disease
JOHN on Chronic kidney disease stage IIIa-cr baseline 1.2-1.5
Essential tremors
Benign Hypertension
Bipolar/Anxiety/Depression
Morbid Obesity due to excess calories
Hyperlipidemia
Chronic neuropathy pain/fibromyalgia
Acute/subacute nondisplaced fracture of fibular head/complete tear of medial meniscus/rupture of ACL
Diabetic retinopathy with bilateral blindness. Legally blindness
Echo October 15 2023: EF 60 to 65% with mild LVH, mild to moderate , peak/mean gradients 33/20 mmHg, aortic valve area 1.1 cm sq, PASP 40 to 45 mmHg
Plan:
A/w hypoxic resp failure now VDRF-found CHF, COPD -ARDS
JOHN-cr peak at 2.7 post contrast, cr improving to 1.7 and non oliguric
UA is bland and low U na suggest prerenal/cardiorenal
no hydro on renal US, avoid nephrotoxins
last lasix dose on 10/18
Azotemia improving- likely from steroids, also on TF, monitor for h/h
grossly vol overload but wt decreasing
evolving hypernatremia-add back FWF
minimize fluids, lasix prn
poor prognosis
d/w daughter, family at bedside
d/w ICU and nursing
CC time spent 31min
-
-
Date of Service: October 22, 2023
CC / HPI / ROS
-
Chief Complaint:
JOHN, azotemia
History of Present Illness:
cr better at 17, non oliguric with foely
wt decreasing, BUN better at 107
hb stable 7.6
remains intubated, agitated with less sedation
BP stable with out pressors
Review of Systems:
agitated on vent, Fio2 605, PEEP 8
sedated, family at bedside
Labs
-
Labs:
WBC 14.2 10^3/uL (4.8-10.8) H 10/22/23 03:35
RBC 3.03 10^6/uL (4.20-5.40) L 10/22/23 03:35
Hgb 7.6 g/dL (12.0-16.0) L 10/22/23 03:35
Hct 23.5 % (37.0-47.0) L 10/22/23 03:35
Plt Count 340 10^3/uL (130-400) 10/22/23 03:35
Sodium 147 mmol/L (135-145) H 10/22/23 03:35
Potassium 4.9 mmol/L (3.5-5.1) 10/22/23 03:35
Chloride 117 mmol/L (98-107) H 10/22/23 03:35
Carbon Dioxide 29 mmol/L (22-30) 10/22/23 03:35
BUN 103 mg/dl (7-17) H* 10/22/23 03:35
Creatinine 1.7 mg/dL (0.6-1.0) H 10/22/23 03:35
eGFR 33.91 10/22/23 03:35
Glucose 121 mg/dl (70-99) H 10/22/23 03:35
Calcium 7.7 mg/dl (8.4-10.2) L 10/22/23 03:35
Phosphorus 6.0 mg/dl (2.5-4.5) H 10/21/23 04:42
Jxv-A-Qxgatyclvyn Pept 2430 pg/ml 10/21/23 04:42
Albumin 3.1 g/dl (3.5-5.0) L 10/22/23 03:35
Physical Exam
-
Vital Signs:
Vital Signs
Temp Pulse Resp BP Pulse Ox
98.8 F 100 15 128/43 88
10/22/23 07:30 10/22/23 10:30 10/22/23 10:30 10/22/23 08:00 10/22/23 10:30
Cardiovascular:: Regular rate and rhythm
Respiratory:: Bilateral: Coarse and Bilateral: Rhonchi
Lung Excursion:: Abnormal
Abdomen:: Nontender and Soft
Huizar Catheter: Yes
Other Findings::
UE 2+, thigh edema -mostly dependant
[2023-10-22] MEDS: PRECEDEX 100 IV ×2 (12:11→17:48)
[2023-10-22] MEDS: DULCOLAX 10 MG RECTAL (12:11)
--- NOTE | 2023-10-22 12:37 | PN.DE.MGMTRT ---
Insulin Management
- -
10/22/2023 Diabetes Management Follow up
Patient admitted 10/13 with breathing problem admitting DX acute respiratory failure with hypoxia, severe community acquired pneumonia, septic shock, hyperkalemia, pleural effusions. PMH COPD, HTN, HLD, CAD, type 2 diabetes, asthma, chf, GERD,
depression.
Patient was on Bipap but continued to have O1 sats in 80's. Patient required intubation, O2 sats are improved. She is sedated. Family at bedside
Prior to admission patient was taking lantus 45 units BID with novolog SS. A1C is 6.5%, cr 2.6, eGFR 20.36.
Patient remains NPO, tube feeds have been started and are at 30 per hour. Glucose range yesterday 79 to 202. Patient has required up to 20 units insulin per hour at times. She is currently receiving methylprednisolone 40 Q6 hour. Will continue
glycemic protocol, glucose this am 76 to 121, insulin drip at .3 to 5 units per hour.
I spoke with patients nurse regarding glucose control.
Diabetes History
- -
Type of Diabetes: 2 requiring insulin
Pre-Admission Diabetes Regimen
10/22/23
03:35
Creatinine 1.7 H
Lab Results
Hemoglobin A1c 6.5 % (4.0-5.6) H 10/15/23 04:04
Insulin Pump Settings
IP Diabetes Regimen
10/21/23 10/21/23 10/21/23
14:07 16:01 18:34
Glucose
POC Glucose 120 H 108 H 76
10/21/23 10/21/23 10/21/23
19:28 20:20 21:35
Glucose
POC Glucose 113 H 137 H 115 H
10/21/23 10/21/23 10/22/23
22:29 23:30 00:30
Glucose
POC Glucose 100 H 127 H 122 H
10/22/23 10/22/23 10/22/23
02:32 03:35 04:32
Glucose 121 H
POC Glucose 98 159 H
10/22/23 10/22/23 10/22/23
06:26 08:42 10:15
Glucose
POC Glucose 109 H 119 H 80
Patient Education
[2023-10-22 12:50] LABS: Glucose - Point of Care 184 mg/dl (70-99)
--- NOTE | 2023-10-22 13:41 | PTCARENOTE ---
After turn/reposition, pt became very agitated. SpO2 dropped to 78%. FiO2 increased to 100%. Suctioned for large amount of blood tinged secretions. Pt thrashing in bed and labored, diaphragmatic breathing. PRN Fentanyl IVP given with no effect.
Precedex gtt increased per protocol with no effect. Respiratory called to room. notified. Propofol gtt restarted. Peep increased to 10. Now appears calm. SpO2 92% on 80% FiO2
Lost arterial access while thrashing in bed.
Ducolax Supp given for constipation. Added 25ml/hr water flush to tube feeds per order.
Good urine output. See I&Os
All other assessments unchanged.
[2023-10-22 13:48] LABS: Glucose - Point of Care 213 mg/dl (70-99)
[2023-10-22 14:34] LABS: Glucose - Point of Care 215 mg/dl (70-99)
[2023-10-22] MEDS: NOVOLIN R INSULIN INFUSION 100 IV (14:34)
--- NOTE | 2023-10-22 14:36 | W.PN.INTV ---
Today's Communication / Plan
Recommendations
Mechanical ventilation adjusted
Back on sedation Fentanyl/propofol-did not tolerate sedation breaks
Continue to monitor off antibiotics
Continue IV corticosteroids for now
Hold diuretics as BUN and creatinine are elevated.
Restart water flushes
Restart some of her outpatient medication to hopefully improve with anxiety.
Will try also Precedex in the morning if she is appropriate.
Assessment
-
62-year female former tobacco smoker with a past medical history of COPD, hypertension and chronic HFpEF who initially presented with shortness of breath on 10/14/2023. SOB occurred over 1 week with cough and green phlegm. She was admitted to the
hospitalist service and was being treated with antibiotics for multifocal pneumonia and pulmonary was following. She was also being diuresed with Lasix 40 mg BID on 10/15/2023. Due to history of COPD she was started on Decadron and DuoNebs QID.
When she initially was hospitalized she required BiPAP but this was weaned down to mid flow at 12 L/min. Her requirements increased to 15 L/min on the evening of 10/14, and on the morning of 10/15 she required continuous BiPAP and had worsening
hypoxia with saturations in the mid 80s. She is now being transferred to the ICU for further care and industrial robotics mechanic services consulted for further management/recommendations.
Impression:
#Acute respiratory failure with hypoxemia and hypercapnia now on mechanical ventilation, intubated 10/18/23
#ARDS due to severe CAP
#Severe community-acquired pneumonia - suspect viral etiology given negative procal x2
#Sepsis without shock due to above
#Acute kidney injury superimposed on CKD (baseline Cr approx 1.3-1.5)
#Hyperglycemia - worsening, now on insulin gtt
#Leukocytosis
#Small bilateral pleural effusions (seen on CT chest from 10/14/2023)
#Acute on chronic anemia (baseline Hb approx 11-12.5) - due to bone marrow suppression in setting of critical illness (retic index: 0.55 on 10/19/2023)
#Mild�moderate aortic stenosis
#Morbid obesity
#Reported Hx of COPD/chronic bronchitis
#Former tobacco use disorder (2PPD x 20 years, quit ~25 years ago)
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
Hypertension
morbid obesity
history of COPD
DM type II
chronic bronchitis
HFpEF
anxiety/depression
bipolar disorder
bilateral blindness
history of lung nodule
former tobacco use disorder
Plan:
Remains critically ill.
Has not been able to wean off from sedation during increased work of breathing.
-
Patient is critically ill with severe hypoxemia with ARDS on mechanical ventilation and requiring intermittent paralysis
Her P/F ratio is now >150 hence she is in moderate ARDS and no longer severe
Oxygen saturation with sedation breaks due to increased work of breathing, agitation.
-
Not ready for spontaneous breathing trial
Thank no longer on ARDS.
Chest x-ray 10/22/2023: Reviewed, showed stable bilateral infiltrates.
Will transition to assist-control mechanical ventilation. More comfortable on higher volumes. Despite higher tidal volumes and PEEP's peak pressure is only 28.
Repeat ABG.
-
Did not tolerate sedation break well.
Will adjust sedation: Back on propofol/fentanyl.
Will restart some of her outpatient medications including pregabalin.
Hopefully can transition to Precedex at some point to try spontaneous breathing trial if patient is cooperative.
Discussed with , patient would not want feeding tube or tracheotomy.
-
Continue systemic steroids --> solumedrol 40mg IV q6hr on 10/16 --w currently on q12 , will continue with a slow taper.
-
continue tube feeds
Aspiration precautions.
-
ProBNP 3050 now 2430
Not on pressors
Maintain MAP>65
Prior ECHO reviewed with adequate EF/normal
Strict I/O and trend UOP
Daily weights
Status post diuresis.
BUN increased
Sodium increased
Holding further diuresis for now.
Restart water flushes.
Nephrology/Cardiology following the patient as well.
-
Completed course of ABX.
All clx negative.
Will cont. to monitor.
-
Goal BG 140-180mg/dL now on insulin gtt after failing to be controlled with basal-bolus insulin
Transition as tolerated
DM ORIENTAL RUG REPAIRER following
-
Replete electrolytes with K>4, Mg>2
-
Stress ulcer ppx: PPI
DVT ppx: HSQ

Family Discussions
Moshe 10/21/23: Spoke to patient's daughter and updated her on prognosis. I do think if she does not make significant progress weaning off the ventilator, she would need to be evaluated for tracheostomy by the end of the week. She has been intubated
for 3 days and has not made significant progress. I do think she is also volume overloaded. Her daughter feels like she has been suffering for a long time prior to her admission. She feels she is at odds with her father and her sister who do not
see the poor quality of life that she would have if she were to have a tracheostomy completed. Her father believes that the patient can be bedbound for up to 4 weeks intubated. I encouraged them to discuss with each other her ultimate GOC.
Soria - Plan above was reviewed in detail in layman's terms with the patient's to his satisfaction. Patient remains full code with full medical treatment.
Diagnostic Data
CXR 10-16-2023: Extensive bilateral airspace opacities with air bronchograms, increasing since most recent radiograph of October 14, 2023.
CXR 10-17-2023: Extensive bilateral airspace opacities with air bronchograms likely minimally improved.
CXR 10-18-2023:
1. Endotracheal and endogastric tubes are in satisfactory position, as detailed above.
2. Severe confluent interstitial and alveolar opacities bilaterally, significantly worse compared to prior chest x-ray. Findings are likely related to severe interstitial and alveolar pulmonary edema, differential diagnosis includes ARDS and severe
bilateral pneumonia.
CXR 10-20-2023: Lines and tubes remain in place. Parenchymal disease process, as described, though appearing slightly improved.
CT Chest with IV contrast 10-14-2023: Marked widespread bilateral interstitial and groundglass opacities, numerous scattered prominent mediastinal lymph nodes and tiny bilateral pleural effusions. Findings could be on the basis of
pneumonia/pneumonitis with viral pneumonitis one of several differential diagnostic possibilities.
TTE 10-15-2023: Normal left ventricular size and systolic function. No regional wall motion abnormalities are seen. LV ejection fraction is 60-65% by visual assessment. Mild concentric left ventricular hypertrophy. Normal right ventricular systolic
function. Trace mitral regurgitation. Mild to moderate aortic stenosis. Peak/mean gradients are 33/20mmHg. The valve area by continuity equation is 1.1cm sq, using a LVOT of 1.8cm. Trace tricuspid regurgitation. Estimated pulmonary artery pressure
of 40-45 mmHg. The IVC is of normal size but does not demonstrate normal respiratory variation.
EF% remains normal compared to 2022 echo and aortic valve gradients remain relatively stable with mild to moderate .
-----
Critical Care time 35 mins -- The patient is admitted for acute critical illness for the treatment of vital organ failure and/or prevention of further life-threatening conditions. Total care includes time spent in review of history, physical exam,
medications, hemodynamic/ventilator parameters, laboratory data, imaging and discussion with house staff, pharmacy, respiratory therapy, finance controller, and nursing.
Subjective Dataa
Subjective Data
Date of Service:
Date of Service: October 22, 2023
Chief Complaint: Well Control Instructor Follow Up
Subjective:
Unfortunately, remains critically ill. On mechanical ventilation.
Did not tolerate sedation breaks, increased work of breathing, agitated. Desaturating.
Review of Systems
General: Unobtainable - Sedation
Objective Data
Data Reviewed
Vital Signs / I&O / Oxygen:
Vital Signs
Temp Pulse Resp BP Pulse Ox
99.0 F 119 20 160/63 95
10/22/23 11:00 10/22/23 12:30 10/22/23 12:30 10/22/23 12:00 10/22/23 13:26
Intake and Output
10/21/23 10/22/23 10/23/23
06:59 06:59 06:59
Intake Total 3002.1 / 3147.4 2386.4 / 2458.7 552.2 / 552.2
Output Total 1695 / 1845 2275 / 2275 1285 / 1285
Balance 1307.1 / 1302.4 111.4 / 183.7 -732.8 / -732.8
SaO2 [APV] 99
SaO2 [A/C] 95
SaO2 [NIV (Non Invasive 85
Ventilation)]
SaO2 95
Nasal Cannula flow liters per 12
minute
Physical Exam
General: Respiratory Distress (negative) and Other (Intubated/Sedated)
HEENT: Normocephalic, Anicteric, Other (ETT in place) and Other (thick neck, legally blind)
Cardiovascular: S1-S2, Irregular Rhythm and Peripheral Edema (negative)
Respiratory: Wheeze (negative), Crackles (bibasilar), Rhonchi (bilaterally), Accessory Resp Muscle Use (negative) and ET Tube
GI: Soft, Non Distended, Non Tender, Normal Bowel Sounds and Other (abdominal obesity)
Neurology: Other (Sedated; positive corneal reflex bilaterally, positive gag/cough; sluggish pupillary reflexes bilaterally (R >L))
Skin: Warm and Dry
Labs/Micro/Reports
Lab Data
10/22/23 03:35
10/22/23 03:35
Laboratory Results
10/22/23
03:35
pH 7.49 H
pCO2 38 H
pO2 113 H
HCO3 29.0 H
O2 Delivery Level 60%
Microbiology
10/14/23 17:01 Blood/Venous Blood Culture - Final
No Growth - Final Report
10/14/23 17:01 Blood/Venous Blood Culture - Final
No Growth - Final Report
--- NOTE | 2023-10-22 15:20 | CM ---
CM following re: discharge planning.
Discussed in rounds, reviewed pt's chart, met with pt. Pt's Samm, daughter Susie and daughter Julia at bedside. Pt's stated that he and his daughters are aware of pt's poor prognosis and pt's stated that pt will not need
to have prolonged life treatment, will not need trach, peg tube and they will lean towards comfort care and hospice care. Per , he spoke to MD and not ready to withdraw treatment now, maybe in a few days.
D/C plan: uncertain at this time, family is leaning towards comfort care.
CM will follow with discharge plan updates as hospitalization progresses.
[2023-10-22 15:42] LABS: B.E. 4.2 mmol/L; HCO3 30.2 mmol/L (21-28); O2 Saturation % 99.8 % (94-98); PCO2 51 mmHg (32-35); PO2 133 mmHg (83-108); pH 7.38 (7.35-7.45)
[2023-10-22] MEDS: NEURONTIN 300 MG TUBE ×2 (15:58→22:31)
[2023-10-22 16:01] LABS: Glucose - Point of Care 137 mg/dl (70-99)
[2023-10-22 17:36] LABS: Glucose - Point of Care 112 mg/dl (70-99)
--- NOTE | 2023-10-22 17:39 | PTCARENOTE ---
Pt appears more comfortable on vent. Weaning Fentanyl and propofol as able. Remains on Precedex gtt and insulin gtt.
Tolerating tube feeds. Small brown stool.
Urine output >100ml/hr.
All other assessments unchanged.
[2023-10-22] MEDS: SENOKOT-S 2 TABLET TUBE (19:49)
[2023-10-22 20:00] LABS: Glucose - Point of Care 99 mg/dl (70-99)
--- NOTE | 2023-10-22 21:00 | PTCARENOTE ---
Rec'd care of patient at 1900. Patient intubated and sedated. Fentanyl/Propofol/Precedex/Insulin gtts infusing. VSS. NSR on tele monitor. Vent settings APV 600/18/8/80%. RR 18. POX 98-99%. Moderate amount of blood tinged secretions suctioned orally.
Lung sounds coarse throughout. Patient agitated and biting on ett during care. Bite block placed back in. TFs infusing at goal. Voiding via razo catheter. No BM. Full assessment and care as charted on worklist.
[2023-10-22 21:45] LABS: Glucose - Point of Care 171 mg/dl (70-99)
[2023-10-22] MEDS: DESENEX/MITRAZOL/ZEASORB 1 APPLIC TOPICAL (22:31)
[2023-10-22] MEDS: ROBITUSSIN 200 MG TUBE (22:31)
[2023-10-23] VITALS (25 sets, daily range): BP systolic 104–184; BP diastolic 32–65; BMI 43.5
[2023-10-23] MEDS: PRECEDEX 100 IV ×6 (00:05→22:30)
[2023-10-23] MEDS: HEPARIN 5000 UNITS SC ×3 (00:06→16:14)
[2023-10-23 00:12] LABS: Glucose - Point of Care 135 mg/dl (70-99)
--- NOTE | 2023-10-23 01:00 | PTCARENOTE ---
Systems reviewed. Minor changes. Patient incontinent of brown liquid stool. Full bed bath performed. Rectal trumpet placed. VSS. FiO2 weaned to 75%.
[2023-10-23 02:11] LABS: Glucose - Point of Care 116 mg/dl (70-99)
[2023-10-23 04:06] LABS: % Basophils 0.1 % (0-2); % Eosinophils 0.2 % (0-6); % Immature Granulocytes 3.8 % (0-0.5); % Lymphocytes 3.2 % (20.5-51.1); % Monocytes 6.5 % (1.7-9.3); % Neutrophils 86.2 % (42.2-75.2); Absolute Immature Granulocytes 0.7 10^3/uL (0-0.05); Absolute Lymphocytes 0.5 10^3/uL (1.2-3.4); Absolute Monocytes 1.1 10^3/uL (0.1-0.6); Absolute Neutrophils 14.7 10^3/uL (1.4-6.5); Hematocrit 23.6 % (37.0-47.0); Hemoglobin 7.5 g/dL (12.0-16.0); Mean Corp Hgb Conc. 31.8 g/dL (33.0-37.0); Mean Corpuscular Hgb 25.3 pg (27.0-31.0); Mean Corpuscular Volume 79.7 fL (81.0-99.0); Mean Platelet Volume 10.5 fL (7.4-10.4); Nucleated Red Blood Cells % 0.3 %; Platelet Count 308 10^3/uL (130-400); Red Blood Cell Count 2.96 10^6/uL (4.20-5.40); Red Cell Dist. Width 20.3 % (11.5-14.5)
[2023-10-23 04:17] LABS: Glucose - Point of Care 121 mg/dl (70-99)
--- NOTE | 2023-10-23 04:36 | PTCARENOTE ---
Weaning sedation as tolerated. Propofol gtt turned off at 0430. Patient restless with stimulation/care. Resting calmly otherwise. Continues to not follow commands. Precedex and Fentanyl gtts remain on. VSS. FiO2 down to 70%.
[2023-10-23 04:37] LABS: ALT (SGPT) 19 U/L (0-35); AST (SGOT) 50 U/L (14-36); Albumin 2.8 g/dl (3.5-5.0); Alkaline Phosphatase 157 U/L (38-126); Blood Urea Nitrogen 86 mg/dl (7-17); Calcium 7.9 mg/dl (8.4-10.2); Carbon Dioxide 31 mmol/L (22-30); Chloride 119 mmol/L (98-107); Estimated Creatinine Clearance 49 ml/min; Glucose 95 mg/dl (70-99); Potassium 4.6 mmol/L (3.5-5.1); Sodium 152 mmol/L (135-145); Total Bilirubin 0.5 mg/dl (0.2-1.3); Total Protein 5.3 g/dl (6.3-8.2); Triglycerides 142 mg/dl (10-149)
[2023-10-23] MEDS: TYLENOL ORAL SOLUTION 650 MG TUBE ×3 (05:00→21:30)
--- NOTE | 2023-10-23 05:00 | PTCARENOTE ---
Core temp 101- Tylenol administered.
[2023-10-23] MEDS: SUBLIMAZE 50 MCG IV ×3 (05:19→10:04)
[2023-10-23 05:54] LABS: B.E. 7.8 mmol/L; HCO3 32.7 mmol/L (21-28); O2 Saturation % 93.5 % (94-98); PCO2 47 mmHg (32-35); PO2 63 mmHg (83-108); pH 7.45 (7.35-7.45)
[2023-10-23] MEDS: NOVOLIN R INSULIN INFUSION 100 IV (05:58)
[2023-10-23 06:01] LABS: O2 Therapy 60%
[2023-10-23 06:18] LABS: Glucose - Point of Care 93 mg/dl (70-99)
[2023-10-23] MEDS: DUONEB 3 ML INH ×4 (07:04→19:54)
[2023-10-23] MEDS: PROTONIX IV 40 MG IV ×2 (07:37→19:27)
[2023-10-23] MEDS: ROBITUSSIN 200 MG TUBE ×4 (07:37→21:30)
[2023-10-23] MEDS: REFRESH CELLUVISC GEL 1 DROPS OPHTH ×2 (07:37→19:28)
[2023-10-23] MEDS: LEXAPRO 15 MG TUBE (07:37)
[2023-10-23] MEDS: LIPITOR 40 MG TUBE (07:37)
[2023-10-23] MEDS: NSS (PRESERVATIVE FREE) 10 ML IV ×2 (07:38→19:27)
[2023-10-23] MEDS: NEURONTIN 300 MG TUBE ×3 (07:38→21:29)
[2023-10-23] MEDS: MIRALAX TUBE (07:38)
[2023-10-23] MEDS: DESENEX/MITRAZOL/ZEASORB 1 APPLIC TOPICAL ×2 (07:43→19:27)
[2023-10-23] MEDS: SENOKOT-S TUBE (07:44)
[2023-10-23] MEDS: SOLU-MEDROL PF 40 MG IV (07:44)
[2023-10-23 08:07] LABS: Glucose - Point of Care 140 mg/dl (70-99)
--- NOTE | 2023-10-23 08:59 | W.PN.NEPH.PH ---
Today's Communication / Plan
-
Increase free water flush to 50 cc/h
Holding Lasix in setting of worsening hypernatremia
Assessment/Plan
-
IMP:
Acute hypoxic hypercarbic respiratory failure multifactorial suspect multifactorial from pneumonia and possible CHF exacerbation
Sepsis likely 2/2 pneumonia
Suspect ARDS likely secondary to viral etiology-Intubated 10/17
COPD exacerbation
Acute on chronic CHF exacerbation
mild to mod
Diabetes Mellitus, Type II
Acute on chr Anemia of chronic disease
JOHN on Chronic kidney disease stage IIIa-cr baseline 1.2-1.5
Essential tremors
Benign Hypertension
Bipolar/Anxiety/Depression
Morbid Obesity due to excess calories
Hyperlipidemia
Chronic neuropathy pain/fibromyalgia
Acute/subacute nondisplaced fracture of fibular head/complete tear of medial meniscus/rupture of ACL
Diabetic retinopathy with bilateral blindness. Legally blindness
Echo October 15 2023: EF 60 to 65% with mild LVH, mild to moderate , peak/mean gradients 33/20 mmHg, aortic valve area 1.1 cm sq, PASP 40 to 45 mmHg
Plan:
A/w hypoxic resp failure now VDRF-found CHF, COPD -ARDS
JOHN-cr peak at 2.7 post contrast, cr improving to 1.7 and non oliguric
Fevers continue
Remains hypernatremic with serum sodium of 152, increasing free water deficit, will continue to hold Lasix, escalate water flushes to 50cc/hr
Creatinine down to baseline 1.4 and remains grossly nonoliguric in excess of 3 L
UA is bland and low U na suggest prerenal/cardiorenal
no hydro on renal US, avoid nephrotoxins
last lasix dose on 10/18 , noted azotemia persists
Azotemia improving- likely from steroids, also on TF, monitor for h/h
grossly volume overload but wt decreasing
poor prognosis, remains critically ill with VDRF and high Fio2 requirement
d/w at baseline
d/w ICU and nursing
CC time spent 31min
-
-
Date of Service: October 23, 2023
CC / HPI / ROS
-
Chief Complaint:
JOHN, azotemia
History of Present Illness:
cr better at 1.4 non oliguric with foely
wt decreasing, BUN better at 86
hb stable 7.5
remains intubated, agitated with less sedation
BP stable with out pressors
Review of Systems:
agitated on vent, Fio2 605, PEEP 8
sedated, family at bedside
Nonoliguric via Huizar
Labs
-
Labs:
WBC 17.0 10^3/uL (4.8-10.8) H 10/23/23 03:46
RBC 2.96 10^6/uL (4.20-5.40) L 10/23/23 03:46
Hgb 7.5 g/dL (12.0-16.0) L 10/23/23 03:46
Hct 23.6 % (37.0-47.0) L 10/23/23 03:46
Plt Count 308 10^3/uL (130-400) 10/23/23 03:46
Sodium 152 mmol/L (135-145) H 10/23/23 03:46
Potassium 4.6 mmol/L (3.5-5.1) 10/23/23 03:46
Chloride 119 mmol/L (98-107) H 10/23/23 03:46
Carbon Dioxide 31 mmol/L (22-30) H 10/23/23 03:46
BUN 86 mg/dl (7-17) H 10/23/23 03:46
Creatinine 1.4 mg/dL (0.6-1.0) H 10/23/23 03:46
eGFR 42.80 10/23/23 03:46
Glucose 95 mg/dl (70-99) 10/23/23 03:46
Calcium 7.9 mg/dl (8.4-10.2) L 10/23/23 03:46
Phosphorus 6.0 mg/dl (2.5-4.5) H 10/21/23 04:42
Xjm-N-Azlcshjkfwi Pept 2430 pg/ml 10/21/23 04:42
Albumin 2.8 g/dl (3.5-5.0) L 10/23/23 03:46
Physical Exam
-
Vital Signs:
Vital Signs
Temp Pulse Resp BP Pulse Ox
100.9 F H 65 19 128/46 90
10/23/23 07:40 10/23/23 07:08 10/23/23 07:08 10/23/23 07:00 10/23/23 07:08
Cardiovascular:: Regular rate and rhythm
Respiratory:: Bilateral: Coarse
Lung Excursion:: Normal
Abdomen:: Nontender and Soft
Bowel Sounds:: Decreased
Extremity Edema:: None: Bilateral:
Huizar Catheter: Yes
Other Findings::
General: Intubated and sedated
[2023-10-23] MEDS: ATIVAN 0.25 MG IV (10:05)
[2023-10-23 10:11] LABS: Glucose - Point of Care 128 mg/dl (70-99)
--- NOTE | 2023-10-23 10:24 | W.PN.CARDCBS ---
Today's Communication / Plan
-
Remains on ventilator on 100% FiO2.
Hold Lasix with hypernatremia and elevated Creat/BUN
Hemoglobin stable at 7.5.
Continue steroids and antibiotics
Will consider restarting Lasix over next 24 to 48 hours if kidney function settles.
Respiratory failure is likely multifactorial
Impression / Plan
-
.
Primary pharmacy innovation assistant Dr. Frias
Impression:
Multifactorial dyspnea, vent dependent respiratory failure
COPD/asthmatic bronchitis
Acute on chronic HFpEF
Acute on chronic renal failure
Mild to moderate aortic stenosis
Recent nondisplaced fracture fibular head, complete tear medial meniscus/rupture ACL
Type 2 diabetes
Hypertension
Anemia of chronic disease
Hypercholesterolemia
Diabetic retinopathy with bilateral blindness.
GERD
Morbid obesity
Bipolar/anxiety depression
Fibromyalgia
Echo October 15 2023: EF 60 to 65% with mild LVH, mild to moderate , peak/mean gradients 33/20 mmHg, aortic valve area 1.1 cm sq, PASP 40 to 45 mmHg
Plan:
She remains on the ventilator, is sedated with respiratory failure. Her respiratory failure is likely multifactorial with pneumonia, ARDS and mild heart failure with preserved ejection fraction. Continue to hold Lasix. She is now hypernatremic.
Agree with free water flushes. Sodium up to 152. proBNP has been trending down to 2400
Patient on antibiotics and steroids. Continue ventilatory care for ARDS. Pt on 100% oxygen.
She remains anemic, hemoglobin relatively stable at 7.5 OFF ASA. No clear signs of bleeding.
EF is preserved, aortic stenosis is only mild to moderate, troponin is negative, she is in sinus rhythm without significant ectopy.
Family do not seem interested in tracheostomy, however this is going to be a realistic possibility for her.
CC time 33 min
Progress Note - Echometer Engineer
Subjective
Date of Service: October 23, 2023
remains intubated on 100% FIo2.
Objective
Labs:
10/23/23 03:46
10/23/23 03:46
Labs
Hgb 7.5 g/dL (12.0-16.0) L 10/23/23 03:46
Hct 23.6 % (37.0-47.0) L 10/23/23 03:46
Plt Count 308 10^3/uL (130-400) 10/23/23 03:46
PT 17.8 Sec (11.4-14.6) H 10/18/23 16:42
INR 1.49 10/18/23 16:42
APTT 30.8 Sec (23.4-35.0) 10/18/23 16:42
Sodium 152 mmol/L (135-145) H 10/23/23 03:46
Potassium 4.6 mmol/L (3.5-5.1) 10/23/23 03:46
BUN 86 mg/dl (7-17) H 10/23/23 03:46
Creatinine 1.4 mg/dL (0.6-1.0) H 10/23/23 03:46
Glucose 95 mg/dl (70-99) 10/23/23 03:46
Vital Signs and I&O:
Vital Signs
Temp Pulse Resp BP Pulse Ox
100.9 F H 65 19 128/46 93
10/23/23 07:40 10/23/23 07:08 10/23/23 07:08 10/23/23 07:00 10/23/23 09:36
Vital Signs
Temp Pulse Resp BP Pulse Ox
100.9 F H 65 19 128/46 93
10/23/23 07:40 10/23/23 07:08 10/23/23 07:08 10/23/23 07:00 10/23/23 09:36
Intake & Output
10/21/23 10/22/23 10/23/23 10/24/23
06:59 06:59 06:59 06:59
Intake Total 3002.1 / 3147.4 2386.4 / 2458.7 2246.2 / 2330.4 449.0 / 449.0
Output Total 1695 / 1845 2275 / 2275 3220 / 3220 555 / 555
Balance 1307.1 / 1302.4 111.4 / 183.7 -973.8 / -889.6 -106.0 / -106.0
Physical Exam
Physical Exam
GEN: No distress, awake, Ox3
HEENT: supple, anicteric, mmm
LUNGS: scatt rhonchi
CV: Reg, S1/S2, 1/6 syst LSB, no gallop
ABD: soft, BS+, NT/ND
EXT: No edema
NEURO: Gross non-focal
SKIN: No rash
--- NOTE | 2023-10-23 11:02 | W.PN.HOSP.TC ---
Today's Communication/Plan
-
Holding diuresis
Increase FWF
infectious work up
ICU recs
trend bmp
Assessment / Plan
Assessment / Plan
General:�Well Developed, Well Nourished
HEENT:�NormoCephalic, Moist mucous membranes and Atraumatic
Respiratory:�Ventilated breath sounds
Cardiac:�S1/S2 and Regular Rhythm
GI:�Soft, Non Tender, Non Distended
Musculoskeletal:� Other (Bilateral lower extremities edema and B/L mild UE edema )
: + razo
Neuro:�Sedated
Psych:�Calm
Acute hypoxic hypercarbic respiratory failure multifactorial suspect multifactorial from pneumonia and possible CHF exacerbation
Sepsis likely 2/2 pneumonia
Suspect ARDS likely secondary to viral etiology
- 10/15 with worsening hypoxia;currently maxed on BIPAP, wean oxygen as tolerated. High flow was tried however patient did not tolerate. Low threshold for intubation. Surprisingly mental status intact. now on noninvasive ventilator
Family is aware of patient clinical status. If does not significantly improve then will likely need tracheostomy.
10/17 patient continues to be hypoxic, decision made to intubate. Intubated 10/17
Now paralyzed, might need to prone if continues to get worse
received flolan however not much improvement so was DC
-cw duonebs
-COVID and flu negative
-CT of chest without PE, shows marked widespread bilateral interstitial and groundglass opacities
repeat xray 10/15 with extensive bilateral airspace opacity with air bronchograms
-Strep and Legionella negative
-Spikes fever-agree with infectious work up UA, CXR and blood culture and repeat CXR. If continues to spike fever start broad spectrum abx and will need ID input
NPO, on tube feeds
PPI IV
Currently on propofol, fentanyl and precedex added
# COPD exacerbation
-cw IV steroids
-Nebs
-Continue to monitor
-on breo at home
#Leukocytosis 2/2 steroids
# Acute on chronic CHF exacerbation
holding lasix per cardiology
-Cardiology following
Echo with mild to mod ; preserved EF
Does have history of aortic stenosis
mild hypernatremia
monitor and diuretics held
Increase FWF.
#Diabetes Mellitus, Type II
Sugars uncontrolled so started on insulin drip
A1c 6.5
diabetes BAND MASTER following
# Anemia of chronic disease
could be mildly from hemoptysis,mild 10/15. quantify hemoptysis. No more episode
monitor hgb, 6.7 10/18. Received 1 unit PRBC 10/19. Hemoglobin now 7.5
-Continue to trend
per RN no bleeding noted
# JOHN on Chronic kidney disease stage IIIa
-Monitor creatinine
Hold nephrotoxic agents
nephrology following
diuresis held
Cr downtrending
US renal neg for hydro
razo with good urine output
#Essential tremors
#Benign Hypertension
�- Stable
- on Norvasc
#Bipolar/Anxiety/Depression
�-Celexa, lorazepam continued
#Morbid Obesity due to excess calories
�- Affects all aspects of care
# Hyperlipidemia
-Statin continued
# Chronic neuropathy pain/fibromyalgia
- HOLD Diclofenac, tramadol, Lyrica
# Acute/subacute nondisplaced fracture of fibular head/complete tear of medial meniscus/rupture of ACL
-Lower extremity MRI with the impression of Acute or subacute nondisplaced fracture of the fibular head.
2. Small osseous contusions at the posterior aspects of the medial tibial plateau and lateral tibial plateau.
3. Complex tear of the posterior horn of the medial meniscus.
4. Rupture of the ACL.
5. Large knee joint effusion.
6. Small Patton's cyst.
-Partial weightbearing to right lower extremities per patient and family
Instructed to follow-up with [facility] orthopedics outpatient.
# Legally blindness
DVT Prophylaxis: Heparin subcu
Code Status: Full Code
Anticipated Discharge: > 48 hours
Subjective/Interval History
-
Date of Service: October 23, 2023
Remains intubated
Spiked fever overnight into this morning
Objective Data
-
Labs:
Laboratory Results
10/23/23 10/23/23
03:46 05:48
WBC 17.0 H
Hgb 7.5 L
Hct 23.6 L
Plt Count 308
HCO3 32.7 H
Sodium 152 H
Potassium 4.6
Chloride 119 H
Carbon Dioxide 31 H
BUN 86 H
Creatinine 1.4 H
Glucose 95
Calcium 7.9 L
Total Bilirubin 0.5
AST 50 H
ALT 19
Alkaline Phosphatase 157 H
Vital Signs:
Vital Signs
Temp Pulse Resp BP Pulse Ox
100.9 F H 65 19 128/46 93
10/23/23 07:40 10/23/23 07:08 10/23/23 07:08 10/23/23 07:00 10/23/23 09:36
I&O
10/22/23 10/23/23 10/24/23
06:59 06:59 06:59
Intake Total 2386.4 / 2458.7 2246.2 / 2330.4 449.0 / 449.0
Output Total 2275 / 2275 3220 / 3220 555 / 555
Balance 111.4 / 183.7 -973.8 / -889.6 -106.0 / -106.0
--- NOTE | 2023-10-23 11:38 | PN.DE.MGMTRT ---
Insulin Management
- -
10/23/2023 Diabetes Management Follow up
Patient admitted 10/13 with breathing problem admitting DX acute respiratory failure with hypoxia, severe community acquired pneumonia, septic shock, hyperkalemia, pleural effusions. PMH COPD, HTN, HLD, CAD, type 2 diabetes, asthma, chf, GERD,
depression.
Patient was on Bipap but continued to have O2 sats in 80's. Patient required intubation, O2 sats are improved. She is sedated.
Prior to admission patient was taking lantus 45 units BID with novolog SS. A1C is 6.5%, cr 1.4, eGFR 42.80.
Patient remains NPO, tube feeds remain at 30 per hour. Glucose range yesterday 93 to 213. Patient has required .3 to 12 units insulin per hour at times. She is currently receiving methylprednisolone 40 Q12 hour. Will continue glycemic
protocol, glucose this am 93 to 140, insulin drip at .8 to 6 units per hour.
I spoke with patients nurse regarding glucose control.
Diabetes History
- -
Type of Diabetes: 2 requiring insulin
Pre-Admission Diabetes Regimen
10/23/23
03:46
Creatinine 1.4 H
Lab Results
Hemoglobin A1c 6.5 % (4.0-5.6) H 10/15/23 04:04
Insulin Pump Settings
IP Diabetes Regimen
10/22/23 10/22/23 10/22/23
12:39 13:37 14:23
Glucose
POC Glucose 184 H 213 H 215 H
10/22/23 10/22/23 10/22/23
15:49 17:25 19:47
Glucose
POC Glucose 137 H 112 H 99
10/22/23 10/23/23 10/23/23
21:33 00:01 01:59
Glucose
POC Glucose 171 H 135 H 116 H
10/23/23 10/23/23 10/23/23
03:46 04:05 06:06
Glucose 95
POC Glucose 121 H 93
10/23/23 10/23/23
07:56 09:58
Glucose
POC Glucose 140 H 128 H
Patient Education
--- NOTE | 2023-10-23 12:00 | PTCARENOTE ---
SpO2 decreased to 80s after turning/repositioning and became very agitated. Pt had been premedicated with Fentanyl IVP and FiO2 increased to 100% prior to lying flat. ATG JAVA DEVELOPER called to room. Peep increased to 10. SpO2 increased to 93%.
Unable to SBT today d/t high FiO2 and PEEP.
Sinus rhythm on telemetry.
Tube feeds via DHT. Liquid brown stool via FMS.
Clear yellow urine via razo.
All other assessments unchanged.
[2023-10-23 12:12] LABS: Glucose - Point of Care 107 mg/dl (70-99)
[2023-10-23] MEDS: SUBLIMAZE 100 IV (12:43)
--- NOTE | 2023-10-23 14:25 | W.PN.INTV ---
Today's Communication / Plan
Recommendations
Obtain cultures
Hold antibiotics for now, low threshold to restart broad-spectrum if persistently febrile or hemodynamic instability.
Wean down fentanyl as able
Continue Precedex
Holding diuretics
Water flushes increased
Prognosis is guarded
Assessment
-
62-year female former tobacco smoker with a past medical history of COPD, hypertension and chronic HFpEF who initially presented with shortness of breath on 10/14/2023. SOB occurred over 1 week with cough and green phlegm. She was admitted to the
hospitalist service and was being treated with antibiotics for multifocal pneumonia and pulmonary was following. She was also being diuresed with Lasix 40 mg BID on 10/15/2023. Due to history of COPD she was started on Decadron and DuoNebs QID.
When she initially was hospitalized she required BiPAP but this was weaned down to mid flow at 12 L/min. Her requirements increased to 15 L/min on the evening of 10/14, and on the morning of 10/15 she required continuous BiPAP and had worsening
hypoxia with saturations in the mid 80s. She is now being transferred to the ICU for further care and hydrological technical officer services consulted for further management/recommendations.
Impression:
#Acute respiratory failure with hypoxemia and hypercapnia now on mechanical ventilation, intubated 10/18/23
#ARDS due to severe CAP
#Severe community-acquired pneumonia - suspect viral etiology given negative procal x2
#Sepsis without shock due to above
#Acute kidney injury superimposed on CKD (baseline Cr approx 1.3-1.5)
#Hyperglycemia - worsening, now on insulin gtt
#Leukocytosis
#Small bilateral pleural effusions (seen on CT chest from 10/14/2023)
#Acute on chronic anemia (baseline Hb approx 11-12.5) - due to bone marrow suppression in setting of critical illness (retic index: 0.55 on 10/19/2023)
#Mild�moderate aortic stenosis
#Morbid obesity
#Reported Hx of COPD/chronic bronchitis
#Former tobacco use disorder (2PPD x 20 years, quit ~25 years ago)
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
Hypertension
morbid obesity
history of COPD
DM type II
chronic bronchitis
HFpEF
anxiety/depression
bipolar disorder
bilateral blindness
history of lung nodule
former tobacco use disorder
Plan:
Remains critically ill.
Has not been able to wean off from sedation during increased work of breathing.
-
Patient is critically ill with severe hypoxemia with ARDS on mechanical ventilation.
ABG4/09/2023: 7.45/47/63.
Oxygen saturation with sedation breaks due to increased work of breathing, agitation.
Not ready for spontaneous breathing trial
Chest x-ray 10/22/2023: Reviewed, showed stable bilateral infiltrates.
Mechanical ventilation settings reviewed: Continue without change for now.
Peak pressure 32. Appropriate for patient's body habitus.
Assist-control/600/18/80%/+10
Oxygen requirement slightly increased from overnight.
Repeat chest x-ray now.
Slow recovery on bilateral infiltrates.
Pulmonary mechanics also impaired by morbid obesity.
-
Did not tolerate sedation break well.
Back on propofol/fentanyl.
Restarted some of her outpatient medications including pregabalin.
Hopefully can transition to Precedex at some point to try spontaneous breathing trial if patient is cooperative.
Discussed with , patient would not want feeding tube or tracheotomy.
-
Continue IV corticosteroids. Will decrease to 20 mg IV every 12 of Solu-Medrol.
Continue DuoNebs [id number].
-
Patient now febrile with increased leukocytosis from overnight. 10/22/2023
As previously mentioned it was thought that the patient had a viral pneumonia.
She did complete a course of antibiotic
All cultures negative throughout the course of the hospital stay.
Will repeat all cultures
Obtain urinalysis
Chest x-ray will be repeated
Fecal management system in place, now patient with liquid stools. Possibly due to bowel regimen. Doubt C. difficile but will check.
If fever persist may need to restart empirical broad-spectrum antibiotics until cultures result.
-
Continue sedation, wean down fentanyl per
Continue Precedex
-
continue tube feeds
Aspiration precautions.
-
ProBNP 3050 now 2430
Not on pressors
Maintain MAP>65
Prior ECHO reviewed with adequate EF/normal
Status post diuresis.
BUN increased
Sodium increased
Continue to hold diuresis per renal function improvement. Sodium remains elevated
Increase water flushes.
Nephrology/Cardiology following the patient as well.
-
Goal BG 140-180mg/dL now on insulin gtt after failing to be controlled with basal-bolus insulin
Transition as tolerated
DM AWAKE OVERNIGHT MONITOR following
-
Replete electrolytes with K>4, Mg>2
-
Stress ulcer ppx: PPI
DVT ppx: HSQ
Guarded prognosis.

Family Discussions
Moshe 10/21/23: Spoke to patient's daughter and updated her on prognosis. I do think if she does not make significant progress weaning off the ventilator, she would need to be evaluated for tracheostomy by the end of the week. She has been intubated
for 3 days and has not made significant progress. I do think she is also volume overloaded. Her daughter feels like she has been suffering for a long time prior to her admission. She feels she is at odds with her father and her sister who do not
see the poor quality of life that she would have if she were to have a tracheostomy completed. Her father believes that the patient can be bedbound for up to 4 weeks intubated. I encouraged them to discuss with each other her ultimate GOC.
Soria - Plan above was reviewed in detail in layman's terms with the patient's to his satisfaction. Patient remains full code with full medical treatment.
Diagnostic Data
CXR 10-16-2023: Extensive bilateral airspace opacities with air bronchograms, increasing since most recent radiograph of October 14, 2023.
CXR 10-17-2023: Extensive bilateral airspace opacities with air bronchograms likely minimally improved.
CXR 10-18-2023:
1. Endotracheal and endogastric tubes are in satisfactory position, as detailed above.
2. Severe confluent interstitial and alveolar opacities bilaterally, significantly worse compared to prior chest x-ray. Findings are likely related to severe interstitial and alveolar pulmonary edema, differential diagnosis includes ARDS and severe
bilateral pneumonia.
CXR 10-20-2023: Lines and tubes remain in place. Parenchymal disease process, as described, though appearing slightly improved.
CT Chest with IV contrast 10-14-2023: Marked widespread bilateral interstitial and groundglass opacities, numerous scattered prominent mediastinal lymph nodes and tiny bilateral pleural effusions. Findings could be on the basis of
pneumonia/pneumonitis with viral pneumonitis one of several differential diagnostic possibilities.
TTE 10-15-2023: Normal left ventricular size and systolic function. No regional wall motion abnormalities are seen. LV ejection fraction is 60-65% by visual assessment. Mild concentric left ventricular hypertrophy. Normal right ventricular systolic
function. Trace mitral regurgitation. Mild to moderate aortic stenosis. Peak/mean gradients are 33/20mmHg. The valve area by continuity equation is 1.1cm sq, using a LVOT of 1.8cm. Trace tricuspid regurgitation. Estimated pulmonary artery pressure
of 40-45 mmHg. The IVC is of normal size but does not demonstrate normal respiratory variation.
EF% remains normal compared to 2022 echo and aortic valve gradients remain relatively stable with mild to moderate .
-----
Critical Care time 32 mins -- The patient is admitted for acute critical illness for the treatment of vital organ failure and/or prevention of further life-threatening conditions. Total care includes time spent in review of history, physical exam,
medications, hemodynamic/ventilator parameters, laboratory data, imaging and discussion with house staff, pharmacy, respiratory therapy, curriculum assistant, and nursing.
Subjective Dataa
Subjective Data
Date of Service:
Date of Service: October 23, 2023
Chief Complaint: Prototype Sewer Follow Up (Acute hypoxemic respiratory failure require mechanical ventilation.)
Subjective:
Remains intubated, sedated on mechanical ventilation.
Now febrile since last night.
Review of Systems
General: Unobtainable - Sedation
Objective Data
Data Reviewed
Vital Signs / I&O / Oxygen:
Vital Signs
Temp Pulse Resp BP Pulse Ox
100.5 F H 71 20 129/65 98
10/23/23 11:21 10/23/23 13:45 10/23/23 13:45 10/23/23 13:00 10/23/23 13:45
Intake and Output
10/22/23 10/23/23 10/24/23
06:59 06:59 06:59
Intake Total 2386.4 / 2458.7 2246.2 / 2330.4 659.8 / 659.8
Output Total 2275 / 2275 3220 / 3220 825 / 825
Balance 111.4 / 183.7 -973.8 / -889.6 -165.2 / -165.2
SaO2 [APV] 97
SaO2 [A/C] 95
SaO2 [NIV (Non Invasive 85
Ventilation)]
SaO2 98
Nasal Cannula flow liters per 12
minute
Physical Exam
General: Respiratory Distress (negative) and Other (Intubated/Sedated)
HEENT: Normocephalic, Anicteric, Other (ETT in place) and Other (thick neck, legally blind)
Cardiovascular: S1-S2, Irregular Rhythm and Peripheral Edema (negative)
Respiratory: Wheeze (negative), Crackles (bibasilar), Rhonchi (bilaterally), Accessory Resp Muscle Use (negative) and ET Tube
GI: Soft, Non Distended, Non Tender, Normal Bowel Sounds and Other (abdominal obesity)
Neurology: Other (Sedated; positive corneal reflex bilaterally, positive gag/cough; sluggish pupillary reflexes bilaterally (R >L))
Skin: Warm and Dry
Labs/Micro/Reports
Lab Data
10/23/23 03:46
10/23/23 03:46
Laboratory Results
10/22/23 10/23/23
15:29 05:48
pH 7.38 7.45
pCO2 51 H 47 H
pO2 133 H 63 L
HCO3 30.2 H 32.7 H
O2 Delivery Level 60%
--- NOTE | 2023-10-23 14:27 | CM ---
CM following re: discharge planning.
Reviewed pt's chart, met with pt.
CM received a phone call from [facility] student services advisor Mehdi and he stated that pt's reached out to him and requested caregiver services, Requested pt;'s clinical faxed to [facility] safe and vault service mechanic at
[phone].
D/C plan: uncertain at this time, family is leaning towards comfort care.
CM will follow with discharge plan updates as hospitalization progresses.
[2023-10-23 14:54] LABS: Glucose - Point of Care 81 mg/dl (70-99)
[2023-10-23 15:53] LABS: Urine Albumin 2+ (Neg - Trace); Urine Bilirubin Negative (Negative); Urine Character Clear (Clear); Urine Color Yellow; Urine Glucose Negative (Negative); Urine Ketone Negative (Negative); Urine Leukocyte Negative (Negative); Urine Nitrite Negative (Negative); Urine Occult Blood 4+ (Negative); Urine Urobilinogen Negative (Neg - 1+)
--- NOTE | 2023-10-23 16:00 | PTCARENOTE ---
Temp 101.6 via razo. PRN Tylenol given. Urine, sputum and 2 sets of blood cultures sent.
Tube feeds and FWF increased per order.
All other assessments unchanged.
[2023-10-23 16:01] LABS: Urine Squamous Cell 0-2 /LPF (Few)
[2023-10-23 16:02] LABS: Urine Red Blood Cell 26-30 /HPF (0-2)
[2023-10-23 16:03] LABS: Glucose - Point of Care 142 mg/dl (70-99)
[2023-10-23 18:11] LABS: Glucose - Point of Care 221 mg/dl (70-99)
[2023-10-23] MEDS: SENOKOT-S 2 TABLET TUBE (19:26)
[2023-10-23] MEDS: SOLU-MEDROL PF 20 MG IV (19:26)
[2023-10-23 19:29] LABS: Glucose - Point of Care 157 mg/dl (70-99)
--- NOTE | 2023-10-23 19:40 | PTCARENOTE ---
Received pt. at 1900. Pt. currently intubated and sedated on ventilator. Precedex gtt infusing. Fentanyl gtt is currently off. Heart rhythm is sinus. Blood pressure normotensive. Pt. febrile, rock cultured earlier today. Ventilator settings verified.
Lungs sound coarse. Tube feeds running through DobHoff tube in R nare. FMS in place. Huizar catheter in place, draining without issue. Skin as documented. Discussed plan of care. Vital signs stable at this time.
[2023-10-23 20:28] LABS: Glucose - Point of Care 158 mg/dl (70-99)
[2023-10-23 22:27] LABS: Glucose - Point of Care 123 mg/dl (70-99)
[2023-10-24] VITALS (24 sets, daily range): BP systolic 110–154; BP diastolic 31–55; BMI 41.9
--- NOTE | 2023-10-24 | PTCARENOTE ---
Pt. assessment unchanged. Remains on precedex infusion. Appears comfortable with no signs of pain or discomfort. Fi02 on ventilator decreased from 90% to 70%. Vital signs stable at this time.
[2023-10-24] MEDS: NOVOLIN R INSULIN INFUSION 100 IV ×3 (00:01→23:52)
[2023-10-24] MEDS: HEPARIN 5000 UNITS SC ×4 (00:04→23:43)
[2023-10-24 00:23] LABS: Glucose - Point of Care 133 mg/dl (70-99)
[2023-10-24] MEDS: PRECEDEX 100 IV ×8 (01:19→23:53)
[2023-10-24 01:27] LABS: Glucose - Point of Care 125 mg/dl (70-99)
[2023-10-24 02:30] LABS: Glucose - Point of Care 108 mg/dl (70-99)
[2023-10-24 03:39] LABS: Glucose - Point of Care 98 mg/dl (70-99)
[2023-10-24 03:49] LABS: % Basophils 0.1 % (0-2); % Eosinophils 0.3 % (0-6); % Lymphocytes 3.1 % (20.5-51.1); % Monocytes 6.1 % (1.7-9.3); % Neutrophils 88.4 % (42.2-75.2); Absolute Eosinophils 0.1 10^3/uL (0-0.7); Absolute Immature Granulocytes 0.4 10^3/uL (0-0.05); Absolute Lymphocytes 0.6 10^3/uL (1.2-3.4); Absolute Monocytes 1.2 10^3/uL (0.1-0.6); Absolute Neutrophils 17.9 10^3/uL (1.4-6.5); Hematocrit 25.6 % (37.0-47.0); Hemoglobin 7.6 g/dL (12.0-16.0); Mean Corp Hgb Conc. 29.7 g/dL (33.0-37.0); Mean Corpuscular Hgb 24.4 pg (27.0-31.0); Mean Corpuscular Volume 82.1 fL (81.0-99.0); Mean Platelet Volume 10.6 fL (7.4-10.4); Nucleated Red Blood Cells % 0.1 %; Platelet Count 296 10^3/uL (130-400); Red Blood Cell Count 3.12 10^6/uL (4.20-5.40); Red Cell Dist. Width 20.9 % (11.5-14.5); White Blood Cell Count 20.2 10^3/uL (4.8-10.8)
--- NOTE | 2023-10-24 04:00 | PTCARENOTE ---
Pt. assessment remains unchanged. AM labs drawn. Vital signs stable at this time.
[2023-10-24 04:17] LABS: B.E. 7.2 mmol/L; HCO3 31.2 mmol/L (21-28); O2 Saturation % 97.1 % (94-98); PCO2 41 mmHg (32-35); PO2 71 mmHg (83-108); pH 7.49 (7.35-7.45)
[2023-10-24 04:21] LABS: ALT (SGPT) 23 U/L (0-35); AST (SGOT) 52 U/L (14-36); Albumin 2.7 g/dl (3.5-5.0); Alkaline Phosphatase 154 U/L (38-126); Blood Urea Nitrogen 72 mg/dl (7-17); Calcium 8.1 mg/dl (8.4-10.2); Carbon Dioxide 31 mmol/L (22-30); Chloride 119 mmol/L (98-107); Estimated Creatinine Clearance 51 ml/min; Glucose 103 mg/dl (70-99); Potassium 4.5 mmol/L (3.5-5.1); Sodium 154 mmol/L (135-145); Total Bilirubin 0.7 mg/dl (0.2-1.3); Total Protein 5.3 g/dl (6.3-8.2); Triglycerides 130 mg/dl (10-149); eGFR 46.78
[2023-10-24 04:22] LABS: O2 Therapy 60%
[2023-10-24 04:35] LABS: Glucose - Point of Care 135 mg/dl (70-99)
[2023-10-24 06:33] LABS: Glucose - Point of Care 111 mg/dl (70-99)
[2023-10-24] MEDS: SUBLIMAZE 50 MCG IV ×4 (07:48→19:20)
[2023-10-24] MEDS: DUONEB 3 ML INH ×4 (07:49→19:54)
[2023-10-24] MEDS: SOLU-MEDROL PF 20 MG IV ×2 (08:00→20:18)
[2023-10-24] MEDS: NSS (PRESERVATIVE FREE) 10 ML IV ×3 (08:00→20:19)
[2023-10-24] MEDS: PROTONIX IV 40 MG IV ×2 (08:00→20:19)
[2023-10-24] MEDS: LEXAPRO 15 MG TUBE (08:00)
--- NOTE | 2023-10-24 08:00 | PTCARENOTE ---
Received patient from mini shifter, patient is intubated/sedated. not following any commands. RASS -2. not opening eyes, patient is blind at baseline. Precedex is infusing into right double lumen PICC. Patient is on AC/CMV settings,
18/70%/600/10, saturations 96%. Patient does have a #8 ETT slightly to left of center of mouth at 24cm at lip. Patient has had thick, phillips, blood tinged secretions through inline suction. Tube feeds, Jevity, are running at 50/hr with 50ml flush
through right nare dobhoff tube. Patient has razo draining yellow/soo urine and FMS in place for liquid stool. Insulin gtt is also infusing into right double lumen picc. Patient is on glycemic protocol. Will review orders.
[2023-10-24] MEDS: SENOKOT-S 2 TABLET TUBE (08:01)
[2023-10-24] MEDS: MIRALAX 17 GRAMS TUBE (08:02)
[2023-10-24] MEDS: ROBITUSSIN 200 MG TUBE ×4 (08:02→21:26)
[2023-10-24] MEDS: NEURONTIN 300 MG TUBE ×3 (08:02→21:26)
[2023-10-24] MEDS: LIPITOR 40 MG TUBE (08:02)
[2023-10-24] MEDS: REFRESH CELLUVISC GEL 1 DROPS OPHTH ×2 (08:03→20:19)
[2023-10-24] MEDS: DESENEX/MITRAZOL/ZEASORB 1 APPLIC TOPICAL ×2 (08:05→20:23)
--- NOTE | 2023-10-24 08:26 | W.PN.NEPH.PH ---
Today's Communication / Plan
-
increase FWF to 80cc/hr
d5w times one liter
Assessment/Plan
-
IMP:
Acute hypoxic hypercarbic respiratory failure multifactorial suspect multifactorial from pneumonia and possible CHF exacerbation
Sepsis likely 2/2 pneumonia
Suspect ARDS likely secondary to viral etiology-Intubated 10/17
COPD exacerbation
Acute on chronic CHF exacerbation
mild to mod
Diabetes Mellitus, Type II
Acute on chr Anemia of chronic disease
JOHN on Chronic kidney disease stage IIIa-cr baseline 1.2-1.5
Essential tremors
Benign Hypertension
Bipolar/Anxiety/Depression
Morbid Obesity due to excess calories
Hyperlipidemia
Chronic neuropathy pain/fibromyalgia
Acute/subacute nondisplaced fracture of fibular head/complete tear of medial meniscus/rupture of ACL
Diabetic retinopathy with bilateral blindness. Legally blindness
Echo October 15 2023: EF 60 to 65% with mild LVH, mild to moderate , peak/mean gradients 33/20 mmHg, aortic valve area 1.1 cm sq, PASP 40 to 45 mmHg
Plan:
A/w hypoxic resp failure now VDRF-found CHF, COPD -ARDS
JOHN-cr peak at 2.7 post contrast, cr improving to 1.3 and non oliguric
Fevers continue
Remains hypernatremic with serum sodium of 157, increasing free water deficit, will continue to hold Lasix, escalate water flushes to 80cc/hr and provide d5w
Creatinine down to baseline 1.4 and remains grossly nonoliguric in excess of 2.5 L,weights down
UA is bland and low U na suggest prerenal/cardiorenal
no hydro on renal US, avoid nephrotoxins
last lasix dose on 10/18 , noted azotemia persists
Azotemia improving- likely from steroids, also on TF, monitor for h/h
grossly volume overload but wt decreasing
poor prognosis, remains critically ill with VDRF and high Fio2 requirement
d/w at baseline
d/w ICU and nursing
CC time spent 31min
-
-
Date of Service: October 24, 2023
CC / HPI / ROS
-
Chief Complaint:
JOHN, azotemia
History of Present Illness:
cr better at 1.3 non oliguric with foely
wt decreasing, BUN better at 72
hgb stable but low 7.6
remains intubated, agitated with less sedation
BP stable with out pressors
Hypernatremia worsening at 154
Review of Systems:
agitated on vent, Fio2 605, PEEP 8
sedated, family at bedside
Nonoliguric via Huizar
Labs
-
Labs:
WBC 20.2 10^3/uL (4.8-10.8) H 10/24/23 03:39
RBC 3.12 10^6/uL (4.20-5.40) L 10/24/23 03:39
Hgb 7.6 g/dL (12.0-16.0) L 10/24/23 03:39
Hct 25.6 % (37.0-47.0) L 10/24/23 03:39
Plt Count 296 10^3/uL (130-400) 10/24/23 03:39
Sodium 154 mmol/L (135-145) H 10/24/23 03:39
Potassium 4.5 mmol/L (3.5-5.1) 10/24/23 03:39
Chloride 119 mmol/L (98-107) H 10/24/23 03:39
Carbon Dioxide 31 mmol/L (22-30) H 10/24/23 03:39
BUN 72 mg/dl (7-17) H 10/24/23 03:39
Creatinine 1.3 mg/dL (0.6-1.0) H 10/24/23 03:39
eGFR 46.78 10/24/23 03:39
Glucose 103 mg/dl (70-99) H 10/24/23 03:39
Calcium 8.1 mg/dl (8.4-10.2) L 10/24/23 03:39
Phosphorus 6.0 mg/dl (2.5-4.5) H 10/21/23 04:42
Hoq-J-Exyugpeyolm Pept 2430 pg/ml 10/21/23 04:42
Albumin 2.7 g/dl (3.5-5.0) L 10/24/23 03:39
Physical Exam
-
Vital Signs:
Vital Signs
Temp Pulse Resp BP Pulse Ox
100.3 F 128 35 112/31 94
10/24/23 07:33 10/24/23 08:04 10/24/23 08:04 10/24/23 06:00 10/24/23 08:04
Cardiovascular:: Regular rate and rhythm
Respiratory:: Bilateral: Coarse
Lung Excursion:: Normal
Abdomen:: Nontender and Soft
Bowel Sounds:: Decreased
Extremity Edema:: None: Bilateral:
Huizar Catheter: Yes
Other Findings::
gen: intubated and sedated
[2023-10-24 08:32] LABS: Glucose - Point of Care 92 mg/dl (70-99)
--- NOTE | 2023-10-24 09:18 | PN.DE.MGMTRT ---
Insulin Management
- -
10/24/2023 Diabetes Management Follow up
Patient admitted 10/13 with breathing problem admitting DX acute respiratory failure with hypoxia, severe community acquired pneumonia, septic shock, hyperkalemia, pleural effusions. PMH COPD, HTN, HLD, CAD, type 2 diabetes, asthma, chf, GERD,
depression.
Patient remains intubation, she is sedated. at bedside this AM.
Prior to admission patient was taking lantus 45 units BID with novolog SS. A1C is 6.5%, cr 1.3, eGFR 46.78.
Patient remains NPO, tube feeds remain at 50 per hour. Glucose labile, range yesterday 81 to 221. Patient has required .3 to 12 units insulin per hour at times. She is currently receiving methylprednisolone 20 Q12 hour. Will continue glycemic
protocol, glucose this am 98 to 135, insulin drip at 1.9 to 10 units per hour.
I spoke with patients nurse regarding glucose control.
Diabetes History
- -
Type of Diabetes: 2 requiring insulin
Pre-Admission Diabetes Regimen
10/24/23
03:39
Creatinine 1.3 H
Lab Results
Hemoglobin A1c 6.5 % (4.0-5.6) H 10/15/23 04:04
Insulin Pump Settings
IP Diabetes Regimen
10/23/23 10/23/23 10/23/23
09:58 11:59 14:43
Glucose
POC Glucose 128 H 107 H 81
10/23/23 10/23/23 10/23/23
15:52 17:59 19:18
Glucose
POC Glucose 142 H 221 H 157 H
10/23/23 10/23/23 10/24/23
20:17 22:15 00:12
Glucose
POC Glucose 158 H 123 H 133 H
10/24/23 10/24/23 10/24/23
01:16 02:18 03:28
Glucose
POC Glucose 125 H 108 H 98
10/24/23 10/24/23 10/24/23
03:39 04:24 06:22
Glucose 103 H
POC Glucose 135 H 111 H
10/24/23
08:21
Glucose
POC Glucose 92
Patient Education
--- NOTE | 2023-10-24 09:27 | W.PN.CARDCBS ---
Today's Communication / Plan
-
Agree with current cardiac meds, appreciate nephrology input regarding diuresis
Impression / Plan
-
.
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
Impression:
Multifactorial dyspnea, vent dependent respiratory failure
COPD/asthmatic bronchitis
Acute on chronic HFpEF
Acute on chronic renal failure
Mild to moderate aortic stenosis
Recent nondisplaced fracture fibular head, complete tear medial meniscus/rupture ACL
Type 2 diabetes
Hypertension
Anemia of chronic disease
Hypercholesterolemia
Diabetic retinopathy with bilateral blindness.
GERD
Morbid obesity
Bipolar/anxiety depression
Fibromyalgia
Echo October 15 2023: EF 60 to 65% with mild LVH, mild to moderate , peak/mean gradients 33/20 mmHg, aortic valve area 1.1 cm sq, PASP 40 to 45 mmHg
Plan:
She remains on the ventilator, is sedated with respiratory failure. Her respiratory failure is likely multifactorial with pneumonia, ARDS and mild heart failure with preserved ejection fraction
Lasix on hold for hypernatremia. Appreciate nephrology input regarding FWF and D5W.
Patient on antibiotics and steroids. Continue ventilatory care for ARDS. Pt on 800% oxygen.
She remains anemic, hemoglobin relatively stable at 7.6. Off ASA. No clear signs of bleeding.
EF is preserved, aortic stenosis is only mild to moderate, troponin is negative, she is in sinus rhythm without significant ectopy.
Spoke with at bedside, [facility] discussions on going.
Progress Note - Associate Product Manager
Subjective
Date of Service: October 24, 2023
No acute overnight events. She remains intubated and sedated on 80% FiO2 in the medical ICU.
Objective
Labs:
10/24/23 03:39
10/24/23 03:39
Labs
Hgb 7.6 g/dL (12.0-16.0) L 10/24/23 03:39
Hct 25.6 % (37.0-47.0) L 10/24/23 03:39
Plt Count 296 10^3/uL (130-400) 10/24/23 03:39
PT 17.8 Sec (11.4-14.6) H 10/18/23 16:42
INR 1.49 10/18/23 16:42
APTT 30.8 Sec (23.4-35.0) 10/18/23 16:42
Sodium 154 mmol/L (135-145) H 10/24/23 03:39
Potassium 4.5 mmol/L (3.5-5.1) 10/24/23 03:39
BUN 72 mg/dl (7-17) H 10/24/23 03:39
Creatinine 1.3 mg/dL (0.6-1.0) H 10/24/23 03:39
Glucose 103 mg/dl (70-99) H 10/24/23 03:39
Vital Signs and I&O:
Vital Signs
Temp Pulse Resp BP Pulse Ox
100.3 F 128 35 112/31 94
10/24/23 07:33 10/24/23 08:04 10/24/23 08:04 10/24/23 06:00 10/24/23 08:04
Vital Signs
Temp Pulse Resp BP Pulse Ox
100.3 F 128 35 112/31 94
10/24/23 07:33 10/24/23 08:04 10/24/23 08:04 10/24/23 06:00 10/24/23 08:04
Intake & Output
10/22/23 10/23/23 10/24/23 10/25/23
06:59 06:59 06:59 06:59
Intake Total 2386.4 / 2458.7 2246.2 / 2330.4 3119.1 / 3158.7 79.2 / 79.2
Output Total 2275 / 2275 3220 / 3220 2765 / 2865 200 / 200
Balance 111.4 / 183.7 -973.8 / -889.6 354.1 / 293.7 -120.8 / -120.8
Physical Exam
Physical Exam
Gen: NAD
HEENT: NC/AT, sclera anicteric
Neck: No JVD
CV: RRR, NL s1/s2
Lungs: Mechanically ventilated
Abd: S/ND
: Huizar with soo urine.
Ext: No LE edema
Skin: Warm, dry.
Neuro: Sedated
[2023-10-24] MEDS: D5W 1000 IV (09:29)
--- NOTE | 2023-10-24 09:37 | W.PN.HOSP.TC ---
Today's Communication/Plan
-
Started IV antibiotic
Follow-up on the cultures
Agree with free water
D5 water started
Trend BMP
CODE STATUS changed
Assessment / Plan
Assessment / Plan
General:�Well Developed, Well Nourished
HEENT:�NormoCephalic, Moist mucous membranes and Atraumatic
Respiratory:�Ventilated breath sounds
Cardiac:�S1/S2 and Regular Rhythm
GI:�Soft, Non Tender, Non Distended
Musculoskeletal:� Other (Bilateral lower extremities edema and B/L mild UE edema )
: + razo
Neuro:�Sedated
Psych:�Calm
Acute hypoxic hypercarbic respiratory failure multifactorial suspect multifactorial from pneumonia and possible CHF exacerbation
Sepsis likely 2/2 pneumonia
Suspect ARDS likely secondary to viral etiology
- 10/15 with worsening hypoxia;currently maxed on BIPAP, wean oxygen as tolerated. High flow was tried however patient did not tolerate. Low threshold for intubation. Surprisingly mental status intact. now on noninvasive ventilator
Family is aware of patient clinical status. If does not significantly improve then will likely need tracheostomy.
10/17 patient continues to be hypoxic, decision made to intubate. Intubated 10/17
Now paralyzed, might need to prone if continues to get worse
received flolan however not much improvement so was DC
-cw duonebs
-COVID and flu negative
-CT of chest without PE, shows marked widespread bilateral interstitial and groundglass opacities
repeat xray 10/15 with extensive bilateral airspace opacity with air bronchograms
-Strep and Legionella negative
-Spikes fever-respiratory culture and blood cultures in lab. UA not impressive. Chest x-ray with extensive bilateral parenchymal airspace opacity increased compared to most recent examination.
-Start broad-spectrum antibiotics with vancomycin and cefepime
- NPO, on tube feeds
- PPI IV
- Currently on propofol, fentanyl and precedex added
# COPD exacerbation
-cw IV steroids 20 mg every 12 hours Solu-Medrol
-Nebs
-Continue to monitor
-on breo at home
#Leukocytosis 2/2 steroids
# Acute on chronic CHF exacerbation
holding lasix per cardiology
-Cardiology following
Echo with mild to mod ; preserved EF
Does have history of aortic stenosis
Severe hypernatremia
monitor and diuretics held
Increase FWF.
Started on D5 water per nephrology
#Diabetes Mellitus, Type II
Sugars uncontrolled so started on insulin drip
A1c 6.5
diabetes FIRE EXTINGUISHER MECHANIC following
# Anemia of chronic disease
could be mildly from hemoptysis,mild 10/15. quantify hemoptysis. No more episode
monitor hgb, 6.7 10/18. Received 1 unit PRBC 10/19. Hemoglobin now 7.6
-Continue to trend
per RN no bleeding noted
# JOHN on Chronic kidney disease stage IIIa
-Monitor creatinine
Hold nephrotoxic agents
nephrology following
diuresis held
Cr downtrending
US renal neg for hydro
razo with good urine output
#Essential tremors
#Benign Hypertension
�- Stable
#Bipolar/Anxiety/Depression
�-Celexa, lorazepam continued
#Morbid Obesity due to excess calories
�- Affects all aspects of care
# Hyperlipidemia
-Statin continued
# Chronic neuropathy pain/fibromyalgia
- HOLD Diclofenac, tramadol, Lyrica
# Acute/subacute nondisplaced fracture of fibular head/complete tear of medial meniscus/rupture of ACL
-Lower extremity MRI with the impression of Acute or subacute nondisplaced fracture of the fibular head.
2. Small osseous contusions at the posterior aspects of the medial tibial plateau and lateral tibial plateau.
3. Complex tear of the posterior horn of the medial meniscus.
4. Rupture of the ACL.
5. Large knee joint effusion.
6. Small Patton's cyst.
-Partial weightbearing to right lower extremities per patient and family
Instructed to follow-up with [facility] orthopedics outpatient.
# Legal blindness
DVT Prophylaxis: Heparin subcu
GI prophylaxis on PPI
Code Status: Limited DNR-no CPR or defibrillation.
Prolong conversation with patient spouse at bedside in detail. Discussed patient clinical status so far and prognosis moving forward. Spouse understand patient severely sick spouse with prognosis guarded. Spouse stated he wants to change CODE
STATUS to no CPR or defibrillation.
Long-term prognosis guarded.
Anticipated Discharge: > 48 hours
Subjective/Interval History
-
Date of Service: October 24, 2023
Continued to spike fevers
Remains intubated
Increase sodium level
Objective Data
-
Labs:
Laboratory Results
10/24/23 10/24/23
03:39 04:04
WBC 20.2 H
Hgb 7.6 L
Hct 25.6 L
Plt Count 296
HCO3 31.2 H
Sodium 154 H
Potassium 4.5
Chloride 119 H
Carbon Dioxide 31 H
BUN 72 H
Creatinine 1.3 H
Glucose 103 H
Calcium 8.1 L
Total Bilirubin 0.7
AST 52 H
ALT 23
Alkaline Phosphatase 154 H
Vital Signs:
Vital Signs
Temp Pulse Resp BP Pulse Ox
100.3 F 128 35 112/31 94
10/24/23 07:33 10/24/23 08:04 10/24/23 08:04 10/24/23 06:00 10/24/23 08:04
I&O
10/23/23 10/24/23 10/25/23
06:59 06:59 06:59
Intake Total 2246.2 / 2330.4 3119.1 / 3158.7 79.2 / 79.2
Output Total 3220 / 3220 2765 / 2865 200 / 200
Balance -973.8 / -889.6 354.1 / 293.7 -120.8 / -120.8
Data Reviewed
-
Total Time Spent with Patient (in minutes): 55
--- NOTE | 2023-10-24 10:16 | PHA.VAN.IN ---
Assessment
- Assessment
Renal Function: Appears similar to baseline (BUN elevated)
Concomitant Antimicrobials: cefepime
Receiving IV furosemide
Plan
- Plan
Initial / Loading Dose: 2000mg - administration pending
Maintenance Regimen: dosing by level
Monitoring: random 10/24 0600
Pharmacokinetics Vancomycin I
- -
Patient Age: 62
Patient Sex: Female
Vancomycin Day #: 1
Indication: Pulmonary/Respiratory
Requesting Provider: Dr. Givens
Pertinent Antimicrobial Allergies:
cefaclor - rash
penicillins - rash
Height / Weight:
Height 5 ft 2 in
Actual Weight 103.9 kg
Pertinent Past Medical History: BMI ~45, DM2, CKD (SCR 1.6)
- Vital Signs / Lab Results
Temp Pulse Resp BP Pulse Ox
100.3 F 66 23 133/49 92
10/24/23 07:33 10/24/23 09:30 10/24/23 09:30 10/24/23 09:00 10/24/23 09:30
Lab Results - Hematology
10/22/23 10/23/23 10/24/23
03:35 03:46 03:39
WBC 14.2 H 17.0 H 20.2 H
Lab Results - Chemistry
10/22/23 10/23/23 10/24/23
03:35 03:46 03:39
BUN 103 H* 86 H 72 H
Creatinine 1.7 H 1.4 H 1.3 H
Estimated Creat Clear 41 49 51
Albumin 3.1 L 2.8 L 2.7 L
Lab Results - Urine
10/23/23
15:31
Urine Nitrite (Reflex) Negative
Leukocyte Esterase Rfl Negative
Urine WBC (Reflex) 6-10
Ur Squamous Epith Cells 0-2
Microbiology Results
10/23/23 15:31 Gram Stain - Preliminary
Endotracheal
[2023-10-24 10:39] LABS: Glucose - Point of Care 154 mg/dl (70-99)
[2023-10-24] MEDS: STERILE WATER FOR INJECTION 10 ML IV ×2 (10:50→21:27)
[2023-10-24] MEDS: MAXIPIME 2000 MG IV (10:50)
[2023-10-24] MEDS: VANCOCIN 540 MG IV (10:50)
--- NOTE | 2023-10-24 12:16 | W.PN.INTV ---
Today's Communication / Plan
Recommendations
Continue mechanical ventilation, tidal volume adjusted
Water flushes
Hypotonic IV fluids
Holding diuresis
Restart antibiotic
Follow cultures
Continue tube feedings
Continue Precedex with IV fentanyl as needed
Prognosis is guarded
Assessment
-
62-year female former tobacco smoker with a past medical history of COPD, hypertension and chronic HFpEF who initially presented with shortness of breath on 10/14/2023. SOB occurred over 1 week with cough and green phlegm. She was admitted to the
hospitalist service and was being treated with antibiotics for multifocal pneumonia and pulmonary was following. She was also being diuresed with Lasix 40 mg BID on 10/15/2023. Due to history of COPD she was started on Decadron and DuoNebs QID.
When she initially was hospitalized she required BiPAP but this was weaned down to mid flow at 12 L/min. Her requirements increased to 15 L/min on the evening of 10/14, and on the morning of 10/15 she required continuous BiPAP and had worsening
hypoxia with saturations in the mid 80s. She is now being transferred to the ICU for further care and stock drier tender services consulted for further management/recommendations.
Impression:
#Acute respiratory failure with hypoxemia and hypercapnia now on mechanical ventilation, intubated 10/18/23
#ARDS due to severe CAP
#Severe community-acquired pneumonia - suspect viral etiology given negative procal x2
#Sepsis without shock due to above
#Acute kidney injury superimposed on CKD (baseline Cr approx 1.3-1.5)
#Hyperglycemia - worsening, now on insulin gtt
#Leukocytosis
#Small bilateral pleural effusions (seen on CT chest from 10/14/2023)
#Acute on chronic anemia (baseline Hb approx 11-12.5) - due to bone marrow suppression in setting of critical illness (retic index: 0.55 on 10/19/2023)
#Mild�moderate aortic stenosis
#Morbid obesity
#Reported Hx of COPD/chronic bronchitis
#Former tobacco use disorder (2PPD x 20 years, quit ~25 years ago)
Chronic medical conditions FLOAT REMOVER:
Hypertension
morbid obesity
history of COPD
DM type II
chronic bronchitis
HFpEF
anxiety/depression
bipolar disorder
bilateral blindness
history of lung nodule
former tobacco use disorder
Plan:
Remains critically ill.
Has not been able to wean off from sedation during increased work of breathing/hypoxemia.
-
Patient is critically ill with severe hypoxemia with ARDS on mechanical ventilation.
AB10/23/2023: 7.45/47/63.
Oxygen saturation with sedation breaks due to increased work of breathing, agitation.
Not ready for spontaneous breathing trial
Chest x-ray 10/22/2023: showed stable bilateral infiltrates. No significant improvement.
Mechanical ventilation settings reviewed: Continue without change for now.
Pulmonary mechanics has worsened overnight, peak and plateau pressures increased.
Increased secretions
With fevers and leukocytosis likely suspect respiratory infection.
-
Mechanical ventilation settings adjusted: Tidal volume has been decreased. FiO2 remains at 80% PEEP at 10.
Continue to wean down FiO2 as able to maintain pulse ox above 89%.
ABG 10/24/2023: 7.40 /.Frequent suctioning due to increased secretions. Mechanical ventilation settings adjusted as above
Slow recovery on bilateral infiltrates.
Pulmonary mechanics also impaired by morbid obesity.
-
Continue Precedex and fentanyl as needed.
Try to limit other sedatives if possible.
Fentanyl drip and propofol drip discontinued.
Restarted some of her outpatient medications including pregabalin.
-
Discussed with , patient would not want feeding tube or tracheotomy.
Currently day 7 of mechanical ventilation. Likely towards the weekend if remains intubated we will need to discuss further goals of care.
would not want any prolonged mechanical ventilation.
-
Continue IV corticosteroids- 20 mg IV every 12 of Solu-Medrol. Without change.
Continue DuoNebs [id number].
-
Fever/leukocytosis since 10/22/2023.
Suspected respiratory infection. Suspect ventilator associated.
Urinalysis unremarkable
Blood culture pending
Tracheal aspirate results pending
Will restart antibiotics cefepime/vancomycin 10/24/2023.
-
Initially thought to have viral infection. Completed full course of antibiotics several days ago.
All cultures negative throughout the course of the hospital stay.
-
Fecal management system in place, now patient with liquid stools. Possibly due to bowel regimen. Doubt C. difficile but will check.
If fever persist may need to restart empirical broad-spectrum antibiotics until cultures result.
-
Continue sedation, wean down fentanyl per
Continue Precedex
-
continue tube feeds
Aspiration precautions.
-
Component of volume overload. Increased proBNP on admission.
Not on pressors
Prior ECHO reviewed with adequate EF/normal
Status post diuresis. Holding for now due to hypernatremia and acute kidney injury.
Increased water flushes. Hypotonic IV fluids
Continue to follow BMP
Nephrology/Cardiology following the patient as well.
-
Goal BG 140-180mg/dL now on insulin gtt after failing to be controlled with basal-bolus insulin
Transition as tolerated
DM WATER RESOURCES ENGINEER following
-
Replete electrolytes with K>4, Mg>2
-
Stress ulcer ppx: PPI
DVT ppx: HSQ
Guarded prognosis.
Dr. Givens discussed with on 10/24/2023. No significant improvement. Now with a new infection. Unlikely to be liberated from mechanical ventilation. Will continue with support for now. Explained him that without tracheotomy which he
would not want due to patient's poor quality of life prior to this, will need to discuss in the next 3 to 5 days goals of care per

Family Discussions
Moshe 10/21/23: Spoke to patient's daughter and updated her on prognosis. I do think if she does not make significant progress weaning off the ventilator, she would need to be evaluated for tracheostomy by the end of the week. She has been intubated
for 3 days and has not made significant progress. I do think she is also volume overloaded. Her daughter feels like she has been suffering for a long time prior to her admission. She feels she is at odds with her father and her sister who do not
see the poor quality of life that she would have if she were to have a tracheostomy completed. Her father believes that the patient can be bedbound for up to 4 weeks intubated. I encouraged them to discuss with each other her ultimate GOC.
Soria - Plan above was reviewed in detail in layman's terms with the patient's to his satisfaction. Patient remains full code with full medical treatment.
Diagnostic Data
CXR 10-16-2023: Extensive bilateral airspace opacities with air bronchograms, increasing since most recent radiograph of October 14, 2023.
CXR 10-17-2023: Extensive bilateral airspace opacities with air bronchograms likely minimally improved.
CXR 10-18-2023:
1. Endotracheal and endogastric tubes are in satisfactory position, as detailed above.
2. Severe confluent interstitial and alveolar opacities bilaterally, significantly worse compared to prior chest x-ray. Findings are likely related to severe interstitial and alveolar pulmonary edema, differential diagnosis includes ARDS and severe
bilateral pneumonia.
CXR 10-20-2023: Lines and tubes remain in place. Parenchymal disease process, as described, though appearing slightly improved.
CT Chest with IV contrast 10-14-2023: Marked widespread bilateral interstitial and groundglass opacities, numerous scattered prominent mediastinal lymph nodes and tiny bilateral pleural effusions. Findings could be on the basis of
pneumonia/pneumonitis with viral pneumonitis one of several differential diagnostic possibilities.
TTE 10-15-2023: Normal left ventricular size and systolic function. No regional wall motion abnormalities are seen. LV ejection fraction is 60-65% by visual assessment. Mild concentric left ventricular hypertrophy. Normal right ventricular systolic
function. Trace mitral regurgitation. Mild to moderate aortic stenosis. Peak/mean gradients are 33/20mmHg. The valve area by continuity equation is 1.1cm sq, using a LVOT of 1.8cm. Trace tricuspid regurgitation. Estimated pulmonary artery pressure
of 40-45 mmHg. The IVC is of normal size but does not demonstrate normal respiratory variation.
EF% remains normal compared to 2022 echo and aortic valve gradients remain relatively stable with mild to moderate .
-----
Critical Care time 33 mins -- The patient is admitted for acute critical illness for the treatment of vital organ failure and/or prevention of further life-threatening conditions. Total care includes time spent in review of history, physical exam,
medications, hemodynamic/ventilator parameters, laboratory data, imaging and discussion with house staff, pharmacy, respiratory therapy, platform material handling supervisor, and nursing.
Subjective Dataa
Subjective Data
Date of Service:
Date of Service: October 24, 2023
Chief Complaint: Shuttle Car Operator Follow Up (Acute hypoxemic respiratory failure require mechanical ventilation.)
Subjective:
Remains critically ill, on mechanical ventilation
Requiring sedation for comfort.
Unable to provide history
Review of Systems
General: Unobtainable - Sedation
Objective Data
Data Reviewed
Vital Signs / I&O / Oxygen:
Vital Signs
Temp Pulse Resp BP Pulse Ox
100.4 F H 68 24 154/52 95
10/24/23 11:42 10/24/23 11:08 10/24/23 11:08 10/24/23 11:00 10/24/23 12:00
Intake and Output
10/23/23 10/24/23 10/25/23
06:59 06:59 06:59
Intake Total 2246.2 / 2330.4 3119.1 / 3258.7 1635.4 / 1635.4
Output Total 3220 / 3220 2765 / 2865 600 / 600
Balance -973.8 / -889.6 354.1 / 393.7 1035.4 / 1035.4
SaO2 [APV] 95
SaO2 [A/C] 94
SaO2 [NIV (Non Invasive 85
Ventilation)]
SaO2 94
Nasal Cannula flow liters per 12
minute
Physical Exam
General: Respiratory Distress (negative) and Other (Intubated/Sedated)
HEENT: Normocephalic, Anicteric, Other (ETT in place) and Other (thick neck, legally blind)
Cardiovascular: S1-S2, Irregular Rhythm and Peripheral Edema (negative)
Respiratory: Wheeze (negative), Crackles (bibasilar), Rhonchi (bilaterally), Accessory Resp Muscle Use (negative) and ET Tube
GI: Soft, Non Distended, Non Tender, Normal Bowel Sounds and Other (abdominal obesity)
Neurology: Other (Sedated; positive corneal reflex bilaterally, positive gag/cough; sluggish pupillary reflexes bilaterally (R >L))
Skin: Warm and Dry
Labs/Micro/Reports
Lab Data
10/24/23 03:39
Laboratory Results
10/24/23
04:04
pH 7.49 H
pCO2 41 H
pO2 71 L
HCO3 31.2 H
O2 Delivery Level 60%
Microbiology
10/23/23 15:31 Endotracheal Gram Stain - Preliminary
[2023-10-24 12:38] LABS: Glucose - Point of Care 139 mg/dl (70-99)
--- NOTE | 2023-10-24 14:38 | CM ---
CM following re: discharge planning.
Discussed in Rounds, reviewed pt's chart, met with pt. Per Rounds meeting, continue supportive care, ongoing GOC discussions with the family.
CM received a phone call from [facility] caseworker Debora [phone], updated information on pt's clinical provided with discharge planning efforts.
D/C plan: uncertain at this time and will depend on pt's progress.
CM will follow with discharge plan updates as hospitalization progresses
[2023-10-24 14:41] LABS: Glucose - Point of Care 117 mg/dl (70-99)
--- NOTE | 2023-10-24 16:00 | PTCARENOTE ---
No change in patient's assessment. Patient's daughter Violette at bedside, support provided.
[2023-10-24 16:40] LABS: Glucose - Point of Care 143 mg/dl (70-99)
[2023-10-24 18:38] LABS: Glucose - Point of Care 121 mg/dl (70-99)
[2023-10-24 18:55] LABS: Blood Urea Nitrogen 65 mg/dl (7-17); Calcium 7.5 mg/dl (8.4-10.2); Carbon Dioxide 30 mmol/L (22-30); Chloride 117 mmol/L (98-107); Estimated Creatinine Clearance 56 ml/min; Glucose 106 mg/dl (70-99); Potassium 4.2 mmol/L (3.5-5.1); Sodium 151 mmol/L (135-145)
[2023-10-24 19:42] LABS: Glucose - Point of Care 102 mg/dl (70-99)
[2023-10-24] MEDS: ATIVAN 0.25 MG IV (19:46)
--- NOTE | 2023-10-24 20:00 | PTCARENOTE ---
Rec`d pt at 1900, intubated and sedated. does not follow any commands. pt is blind at baseline. Precedex gtt infusing into RT double lumen PICC. Insulin gtt is also infusing. Patient continued on glycemic protocol. vent settings 18/530/80%10 of
peep, POX 97%. #8 ETT at 24cm at lip. thick, phillips, secretions through ETT. Tube feeds, Jevity, running at 60/hr w/80ml flush through RT nare dobhoff tube. Huizar in place draining yellow urine. FMS in place for liquid stool. safe environment
maintained.
[2023-10-24] MEDS: SENOKOT-S TUBE (20:24)
[2023-10-24 20:37] LABS: Glucose - Point of Care 85 mg/dl (70-99)
[2023-10-24] MEDS: D5W 500 IV (21:26)
[2023-10-24] MEDS: MAXIPIME 1000 MG IV (21:27)
[2023-10-24] MEDS: SEROQUEL 25 MG TUBE (21:30)
[2023-10-24 21:49] LABS: Glucose - Point of Care 143 mg/dl (70-99)
[2023-10-24 22:54] LABS: Glucose - Point of Care 182 mg/dl (70-99)
[2023-10-24 23:50] LABS: Glucose - Point of Care 161 mg/dl (70-99)
[2023-10-25] VITALS (59 sets, daily range): BP systolic 87–164; BP diastolic 28–56; BMI 44.8
--- NOTE | 2023-10-25 00:10 | PTCARENOTE ---
pt reassessed. no changes in pt assessment. safe environment maintained.
[2023-10-25 01:47] LABS: Glucose - Point of Care 130 mg/dl (70-99)
--- NOTE | 2023-10-25 01:53 | W.PN.UPDATE ---
Update Note
Progress Note Update
Procedure Note: Arterial Line�
� Right Wrist Arrow 20 (09/22)�
Diagnosis:�PNA/ARDS�
IV Line Comments: Uneventful Procedure�
Wes's test completed pre-procedure: Yes�
A-Line Comments: Sterile technique as per standard protocol, Ultrasound guided insertion�
Functioning A-line in situ: Yes�
A-line Insertion Start Time:�0120�
A-line in at:�0125�
[2023-10-25 03:46] LABS: B.E. 3.6 mmol/L; HCO3 27.7 mmol/L (21-28); Hematocrit 22.5 % (37.0-47.0); Mean Corp Hgb Conc. 31.1 g/dL (33.0-37.0); Mean Corpuscular Volume 80.4 fL (81.0-99.0); O2 Saturation % 98.8 % (94-98); PCO2 39 mmHg (32-35); PO2 90 mmHg (83-108); Platelet Count 256 10^3/uL (130-400); Red Cell Dist. Width 20.7 % (11.5-14.5); White Blood Cell Count 20.2 10^3/uL (4.8-10.8); pH 7.46 (7.35-7.45)
[2023-10-25 03:51] LABS: O2 Therapy 60%
[2023-10-25] MEDS: PRECEDEX 100 IV ×6 (03:52→19:29)
[2023-10-25 03:57] LABS: Glucose - Point of Care 112 mg/dl (70-99)
--- NOTE | 2023-10-25 04:00 | PTCARENOTE ---
pt assessed. no changes in pt assessment. RT R a line placed.
[2023-10-25 04:08] LABS: Blood Urea Nitrogen 64 mg/dl (7-17); Glucose 105 mg/dl (70-99)
[2023-10-25 04:09] LABS: Calcium 7.6 mg/dl (8.4-10.2); Carbon Dioxide 30 mmol/L (22-30); Chloride 116 mmol/L (98-107); Estimated Creatinine Clearance 61 ml/min; Magnesium 3.2 mg/dl (1.6-2.3); Potassium 4.8 mmol/L (3.5-5.1); Sodium 148 mmol/L (135-145); eGFR 57.17
[2023-10-25 05:47] LABS: Glucose - Point of Care 127 mg/dl (70-99)
[2023-10-25] MEDS: DUONEB 3 ML INH ×4 (07:23→20:16)
[2023-10-25] MEDS: DILAUDID 0.5 MG IV (07:26)
[2023-10-25] MEDS: FLUSH (NSS) 1 FLUSH IV ×3 (07:27→18:01)
[2023-10-25 07:29] LABS: Glucose - Point of Care 112 mg/dl (70-99)
--- NOTE | 2023-10-25 08:08 | PN.DE.MGMTRT ---
Insulin Management
- -
10/24/2023: Diabetes Management F/U:
Patient admitted 10/13 with breathing problem admitting DX acute respiratory failure with hypoxia, severe community acquired pneumonia, septic shock, hyperkalemia, pleural effusions. PMH includes: COPD, HTN, HLD, CAD, Asthma, CHF, GERD, Depression
and T2DM.
Patient remains Critically ill, intubated and sedated. at bedside this AM.
Prior to admission patient was taking Lantus 45 units BID with NovoLog SS. A1C is 6.5%, cr 1.3-->1.1 today, eGFR 57.17.
Patient remains NPO with tube feeds at goal 60cc/hr. Remains on CCGP, glucose range 112 to 182, requiring 12 to 20 units of insulin/hr at times.
She is currently receiving methylprednisolone 20 Q12 hour.
Will continue glycemic protocol, with ongoing assessment for readiness to transitions to SQ insulin, ideally when she is requiring < 5 units of insulin/hr.
Diabetes History
- -
Type of Diabetes: 2
Pre-Admission Diabetes Regimen
10/24/23 10/25/23
18:21 03:34
Creatinine 1.2 H 1.1 H
Lab Results
Hemoglobin A1c 6.5 % (4.0-5.6) H 10/15/23 04:04
Insulin Pump Settings
IP Diabetes Regimen
10/24/23 10/24/23 10/24/23
08:21 10:28 12:26
Glucose
POC Glucose 92 154 H 139 H
10/24/23 10/24/23 10/24/23
14:30 16:28 18:21
Glucose 106 H
POC Glucose 117 H 143 H
10/24/23 10/24/23 10/24/23
18:27 19:31 20:25
Glucose
POC Glucose 121 H 102 H 85
10/24/23 10/24/23 10/24/23
21:38 22:42 23:39
Glucose
POC Glucose 143 H 182 H 161 H
10/25/23 10/25/23 10/25/23
01:35 03:34 03:46
Glucose 105 H
POC Glucose 130 H 112 H
10/25/23 10/25/23
05:36 07:18
Glucose
POC Glucose 127 H 112 H
Patient Education
[2023-10-25] MEDS: DESENEX/MITRAZOL/ZEASORB 1 APPLIC TOPICAL ×2 (08:34→20:13)
[2023-10-25] MEDS: REFRESH CELLUVISC GEL 1 DROPS OPHTH ×2 (08:36→19:57)
[2023-10-25] MEDS: HEPARIN 5000 UNITS SC ×3 (08:37→23:34)
[2023-10-25] MEDS: SENOKOT-S 1 TABLET TUBE (08:37)
[2023-10-25] MEDS: MIRALAX 17 GRAMS TUBE (08:37)
[2023-10-25] MEDS: LIPITOR 40 MG TUBE (08:37)
[2023-10-25] MEDS: SOLU-MEDROL PF 20 MG IV ×2 (08:40→19:58)
[2023-10-25] MEDS: NSS (PRESERVATIVE FREE) 10 ML IV ×2 (08:41→19:58)
[2023-10-25] MEDS: PROTONIX IV 40 MG IV ×2 (08:41→19:58)
[2023-10-25] MEDS: ROBITUSSIN 200 MG TUBE ×4 (08:42→21:00)
[2023-10-25] MEDS: LEXAPRO 15 MG TUBE (08:42)
[2023-10-25] MEDS: FLUSH (NSS) 2 FLUSH IV (08:43)
[2023-10-25] MEDS: NEURONTIN 300 MG TUBE ×3 (08:43→21:00)
[2023-10-25] MEDS: NOVOLIN R INSULIN INFUSION 100 IV ×2 (08:44→20:41)
--- NOTE | 2023-10-25 09:00 | PTCARENOTE ---
Rec'd pt at 0715 this am resting in bed but pt is tachypnic on the vent with RR in the 28 range and pt coughing frequently. Suctioned for thick tannish bloody tinged secretion and simiilar oral secretions. Medicated with Dilaudid 0.5 mg IV to try to
help relax pt. Rec'd pt on IV Precedex at 1 mcg. Pt overall is sedate but will open eyes to tactile stimuli although no focus or tracking and will restlessly move extremities. Pt is blind and pupils are nonreactive. L pupil is misshapen. Respirs as
noted are tachypnic on the vent while post Dilaudid and suctioning some of the coughing subsided rate still is 24-27 on the vent. Vent settings AC 18, tv 530 , peep 10, fio2 80%. Sats currently are 93%. #8 Ett retaped at the 24 cm reed L side of the
mouth. BS throughout are very coarse. + cough and gag. Monitor SR with isolated PVC's. + pulses. PT and DP pulses with the doppler. +2-3 generalized anasarca VS as documented. Pt with Radial missy that is very positional. Overall is congruent when
waveform is good but constantly needs readjusting. Abd is obese with hypoactive BS. R nare feeding tube with Jevity 1.5 at 60 ml/hr with 80 ml/hr water flush. Tolerating feeds. FMS intact for small amts of loose liquid brown stool . Irrigated
without difficulty. Thermistor razo intact for yellow urine. Skin is pale wm and dry. Pt with existing R fibular fracture. Legs elevated. Pt on lateral rotation mattress and precussion done. IV- Pt on the Glycemic protocol, and Precedex both
infusing via R arm DL picc-site wnl. Mouth and razo care given. Complete CHG bath given. Repositioned. Pts in and updated.
--- NOTE | 2023-10-25 09:30 | PTCARENOTE ---
Pt very tachypnic on the vent after turning doing am care. Pts eyes open but no focus or tracking. Intermittently restlessly moving arms and legs. Precedex increased to 1.2 mcg.
[2023-10-25] MEDS: DEXTROSE 50% SYRINGE 12.5 GRAMS IV (09:39)
--- NOTE | 2023-10-25 09:40 | W.PN.HOSP.TC ---
Today's Communication/Plan
-
transfuse prbc
trend bmp
IV abx
Assessment / Plan
Assessment / Plan
General:�Well Developed, Well Nourished
HEENT:�NormoCephalic, Moist mucous membranes and Atraumatic
Respiratory:�Ventilated breath sounds, ETT noted
Cardiac:�S1/S2 and Regular Rhythm
GI:�Soft, Non Tender, Non Distended, FMS
Musculoskeletal:� Other (Bilateral lower extremities edema and B/L mild UE edema )
: + razo
Neuro:�Sedated
Psych:�Calm
Acute hypoxic hypercarbic respiratory failure multifactorial suspect multifactorial from pneumonia and possible CHF exacerbation
Sepsis likely 2/2 pneumonia
Suspect ARDS likely secondary to viral etiology
- 10/15 with worsening hypoxia;currently maxed on BIPAP, wean oxygen as tolerated. High flow was tried however patient did not tolerate. Low threshold for intubation. Surprisingly mental status intact. now on noninvasive ventilator
-Family is aware of patient clinical status. If does not significantly improve then will likely need tracheostomy.
-10/17 patient continues to be hypoxic, decision made to intubate. Intubated 10/17
-Now paralyzed, might need to prone if continues to get worse
-received flolan however not much improvement so was DC
-cw duonebs
-COVID and flu negative
-CT of chest without PE, shows marked widespread bilateral interstitial and groundglass opacities
repeat xray 10/15 with extensive bilateral airspace opacity with air bronchograms
-Strep and Legionella negative
-Spikes fever-respiratory culture and blood cultures in lab. UA not impressive. Chest x-ray with extensive bilateral parenchymal airspace opacity increased compared to most recent examination.
-Start broad-spectrum antibiotics with vancomycin and cefepime
- NPO, on tube feeds
- PPI IV
- Currently on propofol, fentanyl and precedex added
# COPD exacerbation
-cw IV steroids 20 mg every 12 hours Solu-Medrol
-Nebs
-Continue to monitor
-on breo at home
#Leukocytosis 2/2 steroids
# Acute on chronic CHF exacerbation
-holding lasix per cardiology
-Cardiology following
-Echo with mild to mod ; preserved EF
-Does have history of aortic stenosis
Severe hypernatremia
-monitor and diuretics held
-Increased FWF.
-s/p D5W. Na downtrended.
#Diabetes Mellitus, Type II
-Sugars uncontrolled so started on insulin drip
-A1c 6.5
-diabetes ANNEALING FURNACE TENDER following
# Anemia of chronic disease
-could be mildly from hemoptysis,mild 10/15. quantify hemoptysis. No more episode
-Hgb at 7 and will transfuse additional unit of PRBC today.
-Continue to trend
-per RN no bleeding noted
# JOHN on Chronic kidney disease stage IIIa
-Monitor creatinine
Hold nephrotoxic agents
nephrology following
diuresis held
Cr downtrending
US renal neg for hydro
razo with good urine output
#Essential tremors
#Benign Hypertension
�- Stable
#Bipolar/Anxiety/Depression
�-Celexa, lorazepam continued
#Morbid Obesity due to excess calories
�- Affects all aspects of care
# Hyperlipidemia
-Statin continued
# Chronic neuropathy pain/fibromyalgia
- HOLD Diclofenac, tramadol, Lyrica
# Acute/subacute nondisplaced fracture of fibular head/complete tear of medial meniscus/rupture of ACL
-Lower extremity MRI with the impression of Acute or subacute nondisplaced fracture of the fibular head.
2. Small osseous contusions at the posterior aspects of the medial tibial plateau and lateral tibial plateau.
3. Complex tear of the posterior horn of the medial meniscus.
4. Rupture of the ACL.
5. Large knee joint effusion.
6. Small Patton's cyst.
-Partial weightbearing to right lower extremities per patient and family
Instructed to follow-up with [facility] orthopedics outpatient.
# Legal blindness
DVT Prophylaxis: Heparin subcu
GI prophylaxis on PPI
Code Status: Limited DNR-no CPR or defibrillation.
d/w with spouse at bedside in details
d/w with clothes presser
Long-term prognosis guarded.
Total Critical Care Time 35 minutes. I was immediately available to the patient and staff. I personally examined, reviewed labs, diagnostic images/reports, interpretations, treatment plans, discussed patient care with other providers and family
or caregivers (if patient is unable to make decisions), entered orders as appropriate and documented the medical record.
Anticipated Discharge: > 48 hours
Subjective/Interval History
-
Date of Service: October 25, 2023
tachypneic
remains intubated
increased secretions from ETT
spiking fever.
Objective Data
-
Labs:
Laboratory Results
10/25/23
03:34
WBC 20.2 H
Hgb 7.0 L
Hct 22.5 L
Plt Count 256
HCO3 27.7
Sodium 148 H
Potassium 4.8
Chloride 116 H
Carbon Dioxide 30
BUN 64 H
Creatinine 1.1 H
Glucose 105 H
Calcium 7.6 L
Vital Signs:
Vital Signs
Temp Pulse Resp BP Pulse Ox
100.5 F H 69 32 125/50 96
10/25/23 07:12 10/25/23 07:24 10/25/23 07:24 10/25/23 05:00 10/25/23 07:32
I&O
10/24/23 10/25/23 10/26/23
06:59 06:59 06:59
Intake Total 3119.1 / 3258.7 6009.4 / 6009.4
Output Total 2765 / 2865 2290 / 2290
Balance 354.1 / 393.7 3719.4 / 3719.4
[2023-10-25 09:43] LABS: Glucose - Point of Care 51 mg/dl (70-99)
[2023-10-25] MEDS: ATIVAN 0.25 MG IV (09:43)
[2023-10-25] MEDS: NSS (PRESERVATIVE FREE) 0.125 ML IV (09:43)
[2023-10-25] MEDS: MAXIPIME 1000 MG IV ×2 (09:45→18:00)
--- NOTE | 2023-10-25 09:45 | PTCARENOTE ---
Medicated with Ativan 0.25 mg to try to relax pt post turning and moving. Dr. Givens in and TV on Vent decreased to 500 mls.
[2023-10-25] MEDS: STERILE WATER FOR INJECTION 10 ML IV ×2 (09:46→18:01)
[2023-10-25 10:17] LABS: Glucose - Point of Care 99 mg/dl (70-99)
[2023-10-25] MEDS: SUBLIMAZE 100 IV ×2 (10:51→17:47)
[2023-10-25] MEDS: SUBLIMAZE 50 MCG IV ×2 (10:57→12:24)
--- NOTE | 2023-10-25 11:01 | W.PN.NEPH.PH ---
Today's Communication / Plan
-
follow labs later, cont FWF
Assessment/Plan
-
IMP:
Acute hypoxic hypercarbic respiratory failure multifactorial suspect multifactorial from pneumonia and possible CHF exacerbation
Sepsis likely 2/2 pneumonia
Suspect ARDS likely secondary to viral etiology-Intubated 10/17
COPD exacerbation
Acute on chronic CHF exacerbation
mild to mod
Diabetes Mellitus, Type II
Acute on chr Anemia of chronic disease
JOHN on Chronic kidney disease stage IIIa-cr baseline 1.2-1.5
Essential tremors
Benign Hypertension
Bipolar/Anxiety/Depression
Morbid Obesity due to excess calories
Hyperlipidemia
Chronic neuropathy pain/fibromyalgia
Acute/subacute nondisplaced fracture of fibular head/complete tear of medial meniscus/rupture of ACL
Diabetic retinopathy with bilateral blindness. Legally blindness
Echo October 15 2023: EF 60 to 65% with mild LVH, mild to moderate , peak/mean gradients 33/20 mmHg, aortic valve area 1.1 cm sq, PASP 40 to 45 mmHg
Plan:
A/w hypoxic resp failure now VDRF-found CHF, COPD -ARDS
JOHN-improving to 1.1 to baseline and non oliguric
Fevers continue
hypernatremic-improving to 148 with hypotonic fluids-off D5w
cont FWF at 80cc/hr, repeat sodium later today
wt is up today not sure if accurate, net +ve balance , recheck
prn lasix
poor prognosis, remains critically ill with VDRF and high Fio2 requirement
d/w ICU and nursing
CC time spent 31min
-
-
Date of Service: October 25, 2023
CC / HPI / ROS
-
Chief Complaint:
JOHN, azotemia
History of Present Illness:
cr better at 1.3 non oliguric with foely
wt is up significantly, BUN better at 63
hgb stable but low 7
remains intubated, agitated with less sedation
BP stable with out pressors
Hypernatremia better at 148
Review of Systems:
agitated on vent, Fio2 80%, PEEP 10
agitated , sedation increased, family at bedside
Nonoliguric via Huizar
Labs
-
Labs:
WBC 20.2 10^3/uL (4.8-10.8) H 10/25/23 03:34
RBC 2.80 10^6/uL (4.20-5.40) L 10/25/23 03:34
Hgb 7.0 g/dL (12.0-16.0) L 10/25/23 03:34
Hct 22.5 % (37.0-47.0) L 10/25/23 03:34
Plt Count 256 10^3/uL (130-400) 10/25/23 03:34
Sodium 148 mmol/L (135-145) H 10/25/23 03:34
Potassium 4.8 mmol/L (3.5-5.1) 10/25/23 03:34
Chloride 116 mmol/L (98-107) H 10/25/23 03:34
Carbon Dioxide 30 mmol/L (22-30) 10/25/23 03:34
BUN 64 mg/dl (7-17) H 10/25/23 03:34
Creatinine 1.1 mg/dL (0.6-1.0) H 10/25/23 03:34
eGFR 57.17 10/25/23 03:34
Glucose 105 mg/dl (70-99) H 10/25/23 03:34
Calcium 7.6 mg/dl (8.4-10.2) L 10/25/23 03:34
Phosphorus 6.0 mg/dl (2.5-4.5) H 10/21/23 04:42
Xpg-O-Tnggkjaeadz Pept 2430 pg/ml 10/21/23 04:42
Albumin 2.7 g/dl (3.5-5.0) L 10/24/23 03:39
Physical Exam
-
Vital Signs:
Vital Signs
Temp Pulse Resp BP Pulse Ox
100.5 F H 69 32 125/50 96
10/25/23 07:12 10/25/23 07:24 10/25/23 07:24 10/25/23 05:00 10/25/23 07:32
Cardiovascular:: Regular rate and rhythm
Respiratory:: Bilateral: Coarse
Lung Excursion:: Abnormal
Abdomen:: Nontender and Soft
Extremity Edema:: None: Bilateral: (trace)
Huizar Catheter: Yes
[2023-10-25 11:15] LABS: Glucose - Point of Care 106 mg/dl (70-99)
--- NOTE | 2023-10-25 11:22 | W.PN.CARDCBS ---
Today's Communication / Plan
-
Continue IV Lasix to try to keep on the dry side with ARDS
Hypoxemia likely multifactorial with antibiotics and steroids being given as well
Overall prognosis is poor
Impression / Plan
-
.
Primary agent based modeler Dr. Frias
Impression:
Multifactorial dyspnea, vent dependent respiratory failure
ARDS
COPD/asthmatic bronchitis
Acute on chronic HFpEF
Acute on chronic renal failure
Mild to moderate aortic stenosis
Recent nondisplaced fracture fibular head, complete tear medial meniscus/rupture ACL
Type 2 diabetes
Hypertension
Anemia of chronic disease
Hypercholesterolemia
Diabetic retinopathy with bilateral blindness.
GERD
Morbid obesity
Bipolar/anxiety depression
Fibromyalgia
Echo October 15 2023: EF 60 to 65% with mild LVH, mild to moderate , peak/mean gradients 33/20 mmHg, aortic valve area 1.1 cm sq, PASP 40 to 45 mmHg
Plan:
Volume status difficult to determine but will Keep dry with IV Lasix given ARDS
Renal function is stable
Nephrology is following patient as well
Continue antibiotics and steroids
Hemoglobin is dropped to 7 and would consider transfusion
Discussed with nursing at bedside
Progress Note - [employer]
Subjective
Date of Service: October 25, 2023
On the ventilator and sedated
Objective
Labs:
10/25/23 03:34
Labs
Hgb 7.0 g/dL (12.0-16.0) L 10/25/23 03:34
Hct 22.5 % (37.0-47.0) L 10/25/23 03:34
Plt Count 256 10^3/uL (130-400) 10/25/23 03:34
PT 17.8 Sec (11.4-14.6) H 10/18/23 16:42
INR 1.49 10/18/23 16:42
APTT 30.8 Sec (23.4-35.0) 10/18/23 16:42
Sodium 148 mmol/L (135-145) H 10/25/23 03:34
Potassium 4.8 mmol/L (3.5-5.1) 10/25/23 03:34
BUN 64 mg/dl (7-17) H 10/25/23 03:34
Creatinine 1.1 mg/dL (0.6-1.0) H 10/25/23 03:34
Glucose 105 mg/dl (70-99) H 10/25/23 03:34
Vital Signs and I&O:
Vital Signs
Temp Pulse Resp BP Pulse Ox
100.5 F H 69 32 125/50 96
10/25/23 07:12 10/25/23 07:24 10/25/23 07:24 10/25/23 05:00 10/25/23 07:32
Vital Signs
Temp Pulse Resp BP Pulse Ox
100.5 F H 69 32 125/50 96
10/25/23 07:12 10/25/23 07:24 10/25/23 07:24 10/25/23 05:00 10/25/23 07:32
Intake & Output
10/23/23 10/24/23 10/25/23 10/26/23
06:59 06:59 06:59 06:59
Intake Total 2246.2 / 2330.4 3119.1 / 3258.7 6009.4 / 6009.4
Output Total 3220 / 3220 2765 / 2865 2290 / 2290
Balance -973.8 / -889.6 354.1 / 393.7 3719.4 / 3719.4
Physical Exam
Physical Exam
General: Sedate
Neck: Supple, no JVD, HJR, carotids +2 B/L, no bruits bilaterally.
Heart: Non displaced PMI, RRR, no murmurs, No S3, S4, no rubs.
Lungs: Scattered rhonchi
Extremities: No clubbing, cyanosis or edema bilaterally.
Neuro: Sedate
--- NOTE | 2023-10-25 11:30 | PTCARENOTE ---
Pt having issues maintaining sats despite no other changes. Sats 87-88%- and pt starting with gasping agonal respirs under her ventilator breaths. Chon Johnston in and aware. Fentanyl 50 mcg bolus given and then Fentanyl gtt hung at 1100- Currently
titrating up primarily for vent dysnchrony as in addition to agonal breaths under the ventilator assisted breaths pts rate remains in the 20's and is breathing above the vent. Pts [place] redressed and repositioned numerous times as its waveform keeps
dampening.
--- NOTE | 2023-10-25 11:44 | CM ---
CM following re: discharge planning.
Discussed in Rounds, reviewed pt's chart, met with pt. Per Rounds meeting, remains intubated and sedated, does not follow any commands. Pt is blind at baseline, continue supportive care, ongoing GOC discussions with the family.
D/C plan: uncertain at this time and will depend on pt's progress.
CM will follow with discharge plan updates as hospitalization progresses
[2023-10-25 12:09] LABS: Glucose - Point of Care 99 mg/dl (70-99)
--- NOTE | 2023-10-25 12:27 | PHA.VAN.FU ---
Vancomycin Assessment / Plan
- Assessment
Renal Function: SCR Decreasing (1.3->1.2->1.1)
WBC's are: Stable (elevated at 20.2)
In the past 24 hrs, patient has been: Febrile (100.5 - 10/25/23 07:12)
Concomitant Antimicrobials: cefepime
- Assessment - Therapeutic Drug Monitoring
Random Level: 14 ( ~17 hours post 2 Gr loading dose)
- Dosing Plan
Continue: vanc dose by random levels
Dosing by Level: Re-dose today (1000 mg x 1 dose)
- Monitoring Plan
Random Level: 10/25 0600
- Follow Up
Pharmacy will continue to follow.
Vancomycin Follow UP
- -
Patient Age: 62
Patient Sex: Female
Vancomycin Day #: 3
Indication: Pulmonary/Respiratory
Requesting Provider: Dr. Givens
Pertinent Antimicrobial Allergies:
cefaclor - rash
penicillins - rash
Height / Weight:
Height 5 ft 2 in
Actual Weight 111 kg
Pertinent Past Medical History: BMI ~45, DM2, CKD (SCR 1.6)
- Vital Signs / Lab Results
Temp Pulse Resp BP Pulse Ox
100.0 F 69 32 125/50 96
10/25/23 11:39 10/25/23 07:24 10/25/23 07:24 10/25/23 05:00 10/25/23 07:32
Lab Results - Hematology
10/23/23 10/24/23 10/25/23
03:46 03:39 03:34
WBC 17.0 H 20.2 H 20.2 H
Lab Results - Chemistry
10/23/23 10/24/23 10/24/23
03:46 03:39 18:21
BUN 86 H 72 H 65 H
Creatinine 1.4 H 1.3 H 1.2 H
Estimated Creat Clear 49 51 56
Albumin 2.8 L 2.7 L
10/25/23
03:34
BUN 64 H
Creatinine 1.1 H
Estimated Creat Clear 61
Albumin
Microbiology Results
10/23/23 15:31 Respiratory Culture - Final
Endotracheal Usual Respiratory Aura
Gram Stain - Final
10/23/23 15:31 Blood Culture - Preliminary
Blood/Venous No Growth in 24 hours- Final report to follow
10/23/23 15:31 Blood Culture - Preliminary
Blood/Venous No Growth in 24 hours- Final report to follow
Therapeutic Drug Monitoring
Random Vancomycin 14.0 ug/ml 10/25/23 03:34
--- NOTE | 2023-10-25 12:30 | PTCARENOTE ---
Pt not wakeful. RASS is a -3 currently on Fentanyl at 100 mcg. Medicated with Fentanyl 50 mcg IV prior to increasing to 100 mcg but sedation is mostly being titrated for ventilator dysnchrony. Repositioned and with any movement sats drop. Sats were
briefly up in the 90's but now back down in the 83-85% range. BS are coarse throughout. Suctioned for mod amt of thick tannish sl bloody tinged secretions earlier. Pt continues with gasping respirs under ventilated breaths and RR in the 24-26 range
despite rate set at 18 and the addition of Fentanyl and on Precedex. VS as documented. Tolerating tube feeds. Will continue to monitor.
--- NOTE | 2023-10-25 13:00 | PTCARENOTE ---
Pt continues to gasp on vent despite being on 100% Fio2 along with RR of 24-26 when set rate is 18- sats mostly around 82% but have been as low as 78%. [place] despite redressing has been positional and very difficult to keep any kind of accurate
waveform. Dr. Givens updated and ABG obtained and then A line dc'd. Pressure held over the site. No hematoma. Currently Propophol added at 10 mcg to try to get pt more sychronous with the vent and not have the underlying gasping. Pt not following
any commands and overall other than the gasping agonal respirs under the ventilator breaths pt is calm. Fentanyl gtt currently is at 100 mcg
[2023-10-25] MEDS: DIPRIVAN 100 IV ×3 (13:02→20:53)
[2023-10-25 13:05] LABS: B.E. 1.9 mmol/L; HCO3 28.1 mmol/L (21-28); PCO2 52 mmHg (32-35); pH 7.34 (7.35-7.45)
[2023-10-25 13:07] LABS: PO2 54 mmHg (83-108)
--- NOTE | 2023-10-25 13:15 | W.PN.INTV ---
Today's Communication / Plan
Recommendations
Restart propofol and fentanyl drip
Continue Ativan as needed
Hopefully can discontinue Precedex
Continue antibiotics
Continue IV Solu-Medrol
Will consider diuresis later today
Insulin drip will continue
Prognosis is guarded
Assessment
-
62-year female former tobacco smoker with a past medical history of COPD, hypertension and chronic HFpEF who initially presented with shortness of breath on 10/14/2023. SOB occurred over 1 week with cough and green phlegm. She was admitted to the
hospitalist service and was being treated with antibiotics for multifocal pneumonia and pulmonary was following. She was also being diuresed with Lasix 40 mg BID on 10/15/2023. Due to history of COPD she was started on Decadron and DuoNebs QID.
When she initially was hospitalized she required BiPAP but this was weaned down to mid flow at 12 L/min. Her requirements increased to 15 L/min on the evening of 10/14, and on the morning of 10/15 she required continuous BiPAP and had worsening
hypoxia with saturations in the mid 80s. She is now being transferred to the ICU for further care and pulmonary physician services consulted for further management/recommendations.
Impression:
#Acute respiratory failure with hypoxemia and hypercapnia now on mechanical ventilation, intubated 10/18/23
#ARDS due to severe CAP
#Severe community-acquired pneumonia - suspect viral etiology given negative procal x2
#Sepsis without shock due to above
#Acute kidney injury superimposed on CKD (baseline Cr approx 1.3-1.5)
#Hyperglycemia - worsening, now on insulin gtt
#Leukocytosis
#Small bilateral pleural effusions (seen on CT chest from 10/14/2023)
#Acute on chronic anemia (baseline Hb approx 11-12.5) - due to bone marrow suppression in setting of critical illness (retic index: 0.55 on 10/19/2023)
#Mild�moderate aortic stenosis
#Morbid obesity
#Reported Hx of COPD/chronic bronchitis
#Former tobacco use disorder (2PPD x 20 years, quit ~25 years ago)
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
Hypertension
morbid obesity
history of COPD
DM type II
chronic bronchitis
HFpEF
anxiety/depression
bipolar disorder
bilateral blindness
history of lung nodule
former tobacco use disorder
Plan:
Patient remains critically ill, unfortunately no significant improvement, chest x-ray with ongoing bilateral infiltrates, now febrile.
Despite high doses of sedation patient remains uncomfortable on mechanical ventilation.
-
Patient is critically ill with severe hypoxemia with ARDS on mechanical ventilation.
AB10/23/2023: 7.45/47/63.
Oxygen saturation with sedation breaks due to increased work of breathing, agitation.
Not ready for spontaneous breathing trial
Chest x-ray 10/25/2023: showed stable bilateral infiltrates. No significant improvement. No evidence for pneumothorax.
Mechanical ventilation settings reviewed:
Continue current mechanical ventilation settings.
Peak pressure under 30.
PEEP 10/FiO2 100%/tidal volume 500
FiO2 has been increased to 100%, pulmonary mechanics has worsened overnight, peak and plateau pressures increased.
Increased secretions
With fevers and leukocytosis likely suspect respiratory infection.
Once more sedated will obtain ABG.
-
Pulmonary mechanics also impaired by morbid obesity.
-
Giving significant ventilator dyssynchrony/appear uncomfortable despite sedation.
Restart Fentanyl drip started
Restart propofol drip started
Continue Precedex for now with the plan to discontinue.
In about 10 to 15 minutes if there is no improvement on sedation and continues to be hypoxemic, will give intermittent paralysis.
Restarted some of her outpatient medications including pregabalin.
-
Discussed with , patient would not want feeding tube or tracheotomy.
Currently day 8 of mechanical ventilation. Likely towards the weekend if remains intubated we will need to discuss further goals of care.
would not want any prolonged mechanical ventilation.
-
Continue IV corticosteroids- 20 mg IV every 12 of Solu-Medrol. Without change.
Continue DuoNebs [id number].
-
Fever/leukocytosis since 10/22/2023.
Suspected respiratory infection. Suspect ventilator associated.
Urinalysis unremarkable
Blood culture negative
Tracheal aspirate normal respiratory azalea
Continue cefepime/vancomycin 10/24/2023.
-
Initially thought to have viral infection. Completed full course of antibiotics several days ago.
All cultures negative throughout the course of the hospital stay.
-
Fecal management system in place, now patient with liquid stools. Possibly due to bowel regimen. Doubt C. difficile but will check.
If fever persist may need to restart empirical broad-spectrum antibiotics until cultures result.
-
continue tube feeds
Aspiration precautions.
-
Component of volume overload. Increased proBNP on admission.
Not on pressors
Prior ECHO reviewed with adequate EF/normal
Status post diuresis. Holding for now due to hypernatremia and acute kidney injury.
Sodium improving
Creatinine improving
Her weight is elevated
Will restart diuresis tomorrow.
Nephrology/Cardiology following the patient as well. Case discussed.
-
Goal BG 140-180mg/dL now on insulin gtt
Transition as tolerated
-
Replete electrolytes with K>4, Mg>2
-
Stress ulcer ppx: PPI
DVT ppx: HSQ
Guarded prognosis.
-
Dr. Givens discussed with on 10/24/2023 10/25/2023. No significant improvement. Now with a new infection. Unlikely to be liberated from mechanical ventilation. Will continue with support for now. Explained him that without tracheotomy
which he would not want due to patient's poor quality of life prior to this, will need to discuss in the next 3 to 5 days goals of care per

Family Discussions
Moshe 10/21/23: Spoke to patient's daughter and updated her on prognosis. I do think if she does not make significant progress weaning off the ventilator, she would need to be evaluated for tracheostomy by the end of the week. She has been intubated
for 3 days and has not made significant progress. I do think she is also volume overloaded. Her daughter feels like she has been suffering for a long time prior to her admission. She feels she is at odds with her father and her sister who do not
see the poor quality of life that she would have if she were to have a tracheostomy completed. Her father believes that the patient can be bedbound for up to 4 weeks intubated. I encouraged them to discuss with each other her ultimate GOC.
Soria - Plan above was reviewed in detail in layman's terms with the patient's to his satisfaction. Patient remains full code with full medical treatment.
Diagnostic Data
CXR 10-16-2023: Extensive bilateral airspace opacities with air bronchograms, increasing since most recent radiograph of October 14, 2023.
CXR 10-17-2023: Extensive bilateral airspace opacities with air bronchograms likely minimally improved.
CXR 10-18-2023:
1. Endotracheal and endogastric tubes are in satisfactory position, as detailed above.
2. Severe confluent interstitial and alveolar opacities bilaterally, significantly worse compared to prior chest x-ray. Findings are likely related to severe interstitial and alveolar pulmonary edema, differential diagnosis includes ARDS and severe
bilateral pneumonia.
CXR 10-20-2023: Lines and tubes remain in place. Parenchymal disease process, as described, though appearing slightly improved.
CT Chest with IV contrast 10-14-2023: Marked widespread bilateral interstitial and groundglass opacities, numerous scattered prominent mediastinal lymph nodes and tiny bilateral pleural effusions. Findings could be on the basis of
pneumonia/pneumonitis with viral pneumonitis one of several differential diagnostic possibilities.
TTE 10-15-2023: Normal left ventricular size and systolic function. No regional wall motion abnormalities are seen. LV ejection fraction is 60-65% by visual assessment. Mild concentric left ventricular hypertrophy. Normal right ventricular systolic
function. Trace mitral regurgitation. Mild to moderate aortic stenosis. Peak/mean gradients are 33/20mmHg. The valve area by continuity equation is 1.1cm sq, using a LVOT of 1.8cm. Trace tricuspid regurgitation. Estimated pulmonary artery pressure
of 40-45 mmHg. The IVC is of normal size but does not demonstrate normal respiratory variation.
EF% remains normal compared to 2022 echo and aortic valve gradients remain relatively stable with mild to moderate .
-----
Critical Care time 35 mins -- The patient is admitted for acute critical illness for the treatment of vital organ failure and/or prevention of further life-threatening conditions. Total care includes time spent in review of history, physical exam,
medications, hemodynamic/ventilator parameters, laboratory data, imaging and discussion with house staff, pharmacy, respiratory therapy, checkroom attendant, and nursing.
Subjective Dataa
Subjective Data
Date of Service:
Date of Service: October 25, 2023
Chief Complaint: Hay Sorter Follow Up (Acute hypoxemic respiratory failure require mechanical ventilation.)
Subjective:
Remains critically ill, on mechanical ventilation.
Febrile overnight.
Uncomfortable on mechanical ventilation despite sedation.
Review of Systems
General: Unobtainable - Sedation
Objective Data
Data Reviewed
Vital Signs / I&O / Oxygen:
Vital Signs
Temp Pulse Resp BP Pulse Ox
100.0 F 69 32 125/50 96
10/25/23 11:39 10/25/23 07:24 10/25/23 07:24 10/25/23 05:00 10/25/23 07:32
Intake and Output
10/24/23 10/25/23 10/26/23
06:59 06:59 06:59
Intake Total 3119.1 / 3258.7 6009.4 / 6009.4
Output Total 2765 / 2865 2290 / 2290
Balance 354.1 / 393.7 3719.4 / 3719.4
SaO2 [APV] 95
SaO2 [A/C] 97
SaO2 [NIV (Non Invasive 85
Ventilation)]
SaO2 96
Nasal Cannula flow liters per 12
minute
Physical Exam
General: Respiratory Distress and Other (Intubated/Sedated)
HEENT: Normocephalic, Anicteric, Other (ETT in place) and Other (thick neck, legally blind)
Cardiovascular: S1-S2, Irregular Rhythm and Peripheral Edema (negative)
Respiratory: Wheeze (negative), Crackles (bibasilar), Rhonchi (bilaterally), Accessory Resp Muscle Use (negative) and ET Tube
GI: Soft, Non Distended, Non Tender, Normal Bowel Sounds and Other (abdominal obesity)
Neurology: Other (Sedated; positive corneal reflex bilaterally, positive gag/cough; sluggish pupillary reflexes bilaterally (R >L))
Skin: Warm and Dry
Labs/Micro/Reports
Lab Data
10/25/23 03:34
Laboratory Results
10/25/23 10/25/23
03:34 13:00
pH 7.46 H 7.34 L
pCO2 39 H 52 H
pO2 90 54 L*
HCO3 27.7 28.1 H
O2 Delivery Level 60%
Microbiology
10/23/23 15:31 Endotracheal Respiratory Culture - Final
Usual Respiratory Azalea
10/23/23 15:31 Endotracheal Gram Stain - Final
10/23/23 15:31 Blood/Venous Blood Culture - Preliminary
No Growth in 24 hours- Final report to follow
10/23/23 15:31 Blood/Venous Blood Culture - Preliminary
No Growth in 24 hours- Final report to follow
[2023-10-25] MEDS: VANCOCIN 200 IV (13:17)
[2023-10-25 13:19] LABS: Glucose - Point of Care 127 mg/dl (70-99)
--- NOTE | 2023-10-25 13:30 | PTCARENOTE ---
Dr. Givens aware of ABG results. Pt still with gasping air hungry appearance. Currently Propophol at 30 mcg.
[2023-10-25 14:16] LABS: Glucose - Point of Care 115 mg/dl (70-99)
--- NOTE | 2023-10-25 14:30 | PTCARENOTE ---
IV Vanco dose finished and currently #1 unit PRBC hung via R picc per md order. No other changes Sedation as noted. RASS is a -4 but pt still with agonal gasping under ventilated breaths.
[2023-10-25 15:09] LABS: Glucose - Point of Care 114 mg/dl (70-99)
[2023-10-25] MEDS: NIMBEX 17 MG IV ×7 (15:23→23:08)
--- NOTE | 2023-10-25 15:43 | PTCARENOTE ---
Dr. Givens reupdated on pts continuing agonal gasping under ventilated breaths and frequent high pressuring on the vent every time she gasps. Despite Propophol at 40 mcg, Fentanyl at 100 mcg and Precedex at 1.2 mcg. Pt otherwise not wakeful and
not moving anything. RR 21-24. Sats 90%.Suctioned earlier for small amt of thick tannish sl bloody tinged secretions. Decision made to give Nimbex 17 mg IV -given at 1535 and Port cxray taken. TOF prior to Nimbex 4/4 twitches L facial nerve set on
Level 4. Currently 2/[address] Givens back in to relook at work of breathing on vent. Sats post Nimbex up to 95% on 100% FIo2. and pt not gasping on vent currently
[2023-10-25] MEDS: LEVOPHED 250 IV ×2 (16:26→23:47)
--- NOTE | 2023-10-25 16:35 | PTCARENOTE ---
Pt 's BP could not tolerate all the sedation and Propophol decreased to 30 mcg. Levophed currently started at 2 mcg via PICC line. However now Nimbex wearing off and again pt is gasping under the ventilated breaths. Pt is not responisve otherwise.
Will give ordered Lasix when BP improved. PRBC' s infusing
[2023-10-25] MEDS: LASIX 40 MG IV (17:23)
[2023-10-25 17:27] LABS: Glucose - Point of Care 95 mg/dl (70-99)
--- NOTE | 2023-10-25 17:30 | PTCARENOTE ---
Post Nimbex pts gasping agonal respirs ceased for about an hour but over past 30 minutes the gasping respirs have restarted and pt is constantly high pressuring with each agonal gasp. Rate increased and sats which were in the 90's are now starting
to go back into the 80's. Nimbex 17 mg IV given and post not gasping and sats back into the 90s. TOF 4/4 prior to dosing. #1 unit PRBC finished infusing. Lasix 40 mg IV given. Not responsive otherwise.
--- NOTE | 2023-10-25 18:20 | PTCARENOTE ---
Labs sent per md order Hr in general more elevated this evening 90-100's SR with PAC's and isolated PVC's. Currently Levophed at 8 mcg.
[2023-10-25 18:47] LABS: Sodium 145 mmol/L (135-145); Triglycerides 199 mg/dl (10-149)
--- NOTE | 2023-10-25 18:50 | PTCARENOTE ---
Pt again alarming on the vent with the agonal gasping and sats 88-89%- Pt remedicated iwth Nimbex 17 mg IV. TOF 4/4 prior to the Nimbex. Post dosing agnonal breathing ceased and sats up to 94%.
[2023-10-25 19:30] LABS: Glucose - Point of Care 206 mg/dl (70-99)
[2023-10-25] MEDS: NSS (PRESERVATIVE FREE) 0.25 ML IV (19:53)
[2023-10-25] MEDS: ATIVAN 0.5 MG IV (19:53)
--- NOTE | 2023-10-25 20:00 | PTCARENOTE ---
rec`d pt at 1900 intubated and sedated on prop, fent, levo, precedex, insulin gtt. pt also has been getting prn nimbex. pt has 4/4 twitches. does not make any purposeful movements. hr anywhere between 90s-low 100s. +[address] on
monitor w/ 2nd degree AV block. #8 ETT @24 on rt. vent settings 18/500/100%/ 10 of peep. POX satting anywhere from 88-94%. rt nare doheatheroff running w/ jevity TF @ 60mL/hr w/ 40cc flush. therm razo draining yellow/ soo urine. restraints on pt.
sacral foam in place for protection. MASD in groin and under breast. safe environment maintained.
[2023-10-25] MEDS: SENOKOT-S TUBE (20:13)
[2023-10-25 20:37] LABS: Glucose - Point of Care 301 mg/dl (70-99)
[2023-10-25] MEDS: SEROQUEL 25 MG TUBE (21:00)
[2023-10-25 21:22] LABS: Glucose - Point of Care 310 mg/dl (70-99)
[2023-10-25 22:16] LABS: Glucose - Point of Care 349 mg/dl (70-99)
[2023-10-25] MEDS: TYLENOL ORAL SOLUTION 650 MG TUBE (22:19)
[2023-10-25 23:11] LABS: Blood Urea Nitrogen 68 mg/dl (7-17); Calcium 7.3 mg/dl (8.4-10.2); Carbon Dioxide 27 mmol/L (22-30); Chloride 114 mmol/L (98-107); Estimated Creatinine Clearance 43 ml/min; Glucose 270 mg/dl (70-99); Magnesium 3.2 mg/dl (1.6-2.3); Sodium 144 mmol/L (135-145); eGFR 36.47
[2023-10-25 23:28] LABS: Glucose - Point of Care 274 mg/dl (70-99)
[2023-10-26] VITALS (94 sets, daily range): BP systolic 70–182; BP diastolic 41–56; BMI 46.5
[2023-10-26] MEDS: NIMBEX 17 MG IV ×14 (00:08→19:22)
[2023-10-26] MEDS: SUBLIMAZE 100 IV ×5 (00:11→22:47)
[2023-10-26] MEDS: NOVOLIN R INSULIN INFUSION 100 IV ×3 (00:14→18:48)
[2023-10-26] MEDS: CALCIUM GLUCONATE 100 IV (00:28)
[2023-10-26 00:32] LABS: Glucose - Point of Care 216 mg/dl (70-99)
[2023-10-26] MEDS: PRECEDEX 100 IV ×2 (00:58→09:24)
--- NOTE | 2023-10-26 01:00 | PTCARENOTE ---
at 2230, pt hr jumped to 150s. BP stable. CORE CARRIER made known. stat EKG done. rhythm- ST with 2nd degree AV block. labs drawn. after 10 minutes, pt got themselves out of it. HR back in 90s. pt has done this 3 times but has gotten out of it. calcium given
per CORE CARRIER. gtts titrated per protocol.
[2023-10-26 01:26] LABS: Glucose - Point of Care 188 mg/dl (70-99)
[2023-10-26] MEDS: MAXIPIME 1000 MG IV ×2 (02:25→10:40)
[2023-10-26] MEDS: STERILE WATER FOR INJECTION 10 ML IV ×4 (02:25→21:51)
[2023-10-26 02:32] LABS: Glucose - Point of Care 129 mg/dl (70-99)
[2023-10-26 04:23] LABS: Vancomycin Random 19.6 ug/ml
[2023-10-26] MEDS: DIPRIVAN 100 IV ×7 (04:51→22:47)
[2023-10-26 04:58] LABS: Glucose - Point of Care 90 mg/dl (70-99)
--- NOTE | 2023-10-26 05:00 | PTCARENOTE ---
pt reassessed. dobhoff stopped working. TF on hold. gtts titrated per protocol. safe environment maintained.
[2023-10-26 05:09] LABS: Triglycerides 237 mg/dl (10-149)
[2023-10-26 05:25] LABS: Glucose - Point of Care 95 mg/dl (70-99)
[2023-10-26 06:29] LABS: Glucose - Point of Care 106 mg/dl (70-99)
[2023-10-26] MEDS: DUONEB 3 ML INH ×4 (07:31→19:54)
--- NOTE | 2023-10-26 07:42 | SUR.OPER ---
High VT. RR 60's BP 182/49;HR 82 Cisatracurium adm per prn order. Ten 4
[2023-10-26 07:46] LABS: Glucose - Point of Care 91 mg/dl (70-99)
--- NOTE | 2023-10-26 08:00 | PHA.VAN.FU ---
Vancomycin Assessment / Plan
- Assessment
Renal Function: SCR Increasing (1.1->1.6 (from 10/24 22:43))
In the past 24 hrs, patient has been: Febrile (100.6 - 10/24 21:52)
- Assessment - Therapeutic Drug Monitoring
Random Level: 19.6 ( after ~15 hours post 1000 mg dose)
- Dosing Plan
Continue: dose by random level
Dosing by Level: Hold off on dosing today
- Monitoring Plan
Random Level: 10/26 06
- Follow Up
Pharmacy will continue to follow.
Vancomycin Follow UP
- -
Patient Age: 62
Patient Sex: Female
Vancomycin Day #: 4
Indication: Pulmonary/Respiratory
Requesting Provider: Dr. Givens
Pertinent Antimicrobial Allergies:
cefaclor - rash
penicillins - rash
Height / Weight:
Height 5 ft 2 in
Actual Weight 115.1 kg
Pertinent Past Medical History: BMI ~45, DM2, CKD (SCR 1.6)
- Vital Signs / Lab Results
Temp Pulse Resp BP Pulse Ox
99.7 F 108 19 157/49 95
10/26/23 07:31 10/26/23 07:34 10/26/23 07:34 10/26/23 05:45 10/26/23 07:34
Lab Results - Hematology
10/24/23 10/25/23
03:39 03:34
WBC 20.2 H 20.2 H
Lab Results - Chemistry
10/24/23 10/24/23 10/25/23
03:39 18:21 03:34
BUN 72 H 65 H 64 H
Creatinine 1.3 H 1.2 H 1.1 H
Estimated Creat Clear 51 56 61
Albumin 2.7 L
10/25/23
22:43
BUN 68 H
Creatinine 1.6 H
Estimated Creat Clear 43
Albumin
Microbiology Results
10/23/23 15:31 Blood Culture - Preliminary
Blood/Venous No Growth in 48 hours- Final report to follow
10/23/23 15:31 Blood Culture - Preliminary
Blood/Venous No Growth in 48 hours- Final report to follow
10/23/23 15:31 Respiratory Culture - Final
Endotracheal Usual Respiratory Aura
Gram Stain - Final
Therapeutic Drug Monitoring
Random Vancomycin 19.6 ug/ml 10/26/23 04:02
[2023-10-26] MEDS: REFRESH CELLUVISC GEL 1 DROPS OPHTH ×2 (08:04→19:48)
[2023-10-26] MEDS: HEPARIN 5000 UNITS SC ×3 (08:05→23:19)
[2023-10-26] MEDS: NSS (PRESERVATIVE FREE) 10 ML IV ×2 (08:05→19:49)
[2023-10-26] MEDS: PROTONIX IV 40 MG IV ×2 (08:05→19:49)
[2023-10-26] MEDS: MIRALAX TUBE (08:06)
[2023-10-26] MEDS: DESENEX/MITRAZOL/ZEASORB 1 APPLIC TOPICAL ×2 (08:07→20:02)
[2023-10-26] MEDS: SOLU-MEDROL PF 20 MG IV (08:14)
[2023-10-26 08:45] LABS: Glucose - Point of Care 114 mg/dl (70-99)
--- NOTE | 2023-10-26 09:08 | PTCARENOTE ---
Previous Dophoff not able to flushed. Dophoff re-inserted at 65 tip of nose . Abdominal XRAy confirmed plasment
[2023-10-26] MEDS: SENOKOT-S TUBE (09:12)
[2023-10-26] MEDS: LEVOPHED 250 IV ×2 (09:23→19:58)
--- NOTE | 2023-10-26 09:23 | W.PN.CARDCBS ---
Today's Communication / Plan
-
Recommend holding off on Lasix today given bump in creatinine with IV Lasix yesterday.
Impression / Plan
-
.
Primary passenger flagman Dr. Frias
Impression:
Multifactorial dyspnea, vent dependent respiratory failure
ARDS, possible atypical pneumonia
COPD/asthmatic bronchitis
Acute on chronic HFpEF
Acute on chronic renal failure
Mild to moderate aortic stenosis
Recent nondisplaced fracture fibular head, complete tear medial meniscus/rupture ACL
Type 2 diabetes
Hypertension
Anemia of chronic disease
Hypercholesterolemia
Diabetic retinopathy with bilateral blindness.
GERD
Morbid obesity
Bipolar/anxiety depression
Fibromyalgia
Echo October 15 2023: EF 60 to 65% with mild LVH, mild to moderate , peak/mean gradients 33/20 mmHg, aortic valve area 1.1 cm sq, PASP 40 to 45 mmHg
Plan:
Volume status difficult to determine
Have been trying to keep volume status on the dry side given ARDS.
Was given IV Lasix yesterday but now creatinine has increased.
From a cardiac standpoint no need for IV Lasix today, will defer to pulmonary if they want to continue to try to dry her out more.
Nephrology is following patient as well
Progress Note - Hardware Manager
Subjective
Date of Service: October 26, 2023
Mechanically ventilated and sedated
Objective
Labs:
10/25/23 03:34
10/25/23 22:43
Labs
Hgb 7.0 g/dL (12.0-16.0) L 10/25/23 03:34
Hct 22.5 % (37.0-47.0) L 10/25/23 03:34
Plt Count 256 10^3/uL (130-400) 10/25/23 03:34
PT 17.8 Sec (11.4-14.6) H 10/18/23 16:42
INR 1.49 10/18/23 16:42
APTT 30.8 Sec (23.4-35.0) 10/18/23 16:42
Sodium 144 mmol/L (135-145) 10/25/23 22:43
Potassium 5.0 mmol/L (3.5-5.1) 10/25/23 22:43
BUN 68 mg/dl (7-17) H 10/25/23 22:43
Creatinine 1.6 mg/dL (0.6-1.0) H 10/25/23 22:43
Glucose 270 mg/dl (70-99) H 10/25/23 22:43
Vital Signs and I&O:
Vital Signs
Temp Pulse Resp BP Pulse Ox
99.7 F 108 19 157/49 95
10/26/23 07:31 10/26/23 07:34 10/26/23 07:34 10/26/23 05:45 10/26/23 07:34
Vital Signs
Temp Pulse Resp BP Pulse Ox
99.7 F 108 19 157/49 95
10/26/23 07:31 10/26/23 07:34 10/26/23 07:34 10/26/23 05:45 10/26/23 07:34
Intake & Output
10/24/23 10/25/23 10/26/23 10/27/23
06:59 06:59 06:59 06:59
Intake Total 3119.1 / 3258.7 6009.4 / 6046.6 5044.9 / 5137.1 92.2 / 92.2
Output Total 2765 / 2865 2290 / 2290 1570 / 1570 0 / 0
Balance 354.1 / 393.7 3719.4 / 3756.6 3474.9 / 3567.1 92.2 / 92.2
Physical Exam
Physical Exam
Mechanically ventilated, sedated appears comfortable.
Regular, tachycardic, normal S1 and S2, no S3 no S4, no rubs
Lungs with coarse breath sounds bilaterally anteriorly.
Extremities with +1 lower extremity edema bilaterally
--- NOTE | 2023-10-26 09:33 | W.PN.HOSP.TC ---
Today's Communication/Plan
-
Reculture patient.
Check a BMP and a dose of Lasix as appropriate
Consult ID.
Add Zithromax.
Assessment / Plan
Assessment / Plan
Acute hypoxic hypercarbic respiratory failure multifactorial suspect multifactorial from pneumonia and possible acute diastolic CHF exacerbation
Sepsis 2/2 pneumonia
ARDS from pneumonia
-Intubated on 100% FiO2 now. Chest imaging including chest CT shows bilateral multilobular pneumonic process.
-Now paralyzed, might need to prone if continues to get worse
-COVID and flu negative. Streptococcal and Legionella antigen negative. Blood cultures negative. Sputum culture shows usual respiratory azalea unclear pathogen for the pneumonia.
-CT of chest without PE, shows marked widespread bilateral interstitial and groundglass opacities
Ongoing spikes fever-new since admission. Rule out superimposed bacterial pneumonia. Chest x-ray 10/24 Marked widespread bilateral parenchymal opacification with progression in the left lower hemithorax. Repeat blood cultures. Check sputum
cultures again. Consult ID. On antibiotics for atypical bacterial coverage.
# COPD exacerbation
-cw IV steroids 20 mg every 12 hours Solu-Medrol
-Nebs
-Continue to monitor
-on breo at home
# Acute on chronic CHF exacerbation
- wt going up , will give a dose of lasix today after checking labs today
-Cardiology following
-Echo this admission with mild to mod ; preserved EF
Severe hypernatremia
-Normalized
#Diabetes Mellitus, Type II
-Sugars uncontrolled so started on insulin drip
-A1c 6.5
-diabetes REHABILITATION SPECIALIST following
# Anemia of chronic disease
-could be mildly from hemoptysis,mild 10/15. quantify hemoptysis. No more episode
-Hgb at 7 ;s/p 2 units of PRBC support
-Doubt hemolysis-Bili normal ;Reti count not high. Check Hapto; no obvious external bleeding
-Continue to trend
-per RN no bleeding noted
# JOHN on Chronic kidney disease stage IIIa
-Monitor creatinine
Hold nephrotoxic agents
nephrology following
diuresis held
Cr downtrending but jumped yesterday
US renal neg for hydro
razo with good urine output
#Essential tremors
#Benign Hypertension
�- Stable
#Bipolar/Anxiety/Depression
�-Celexa, lorazepam continued
#Morbid Obesity due to excess calories
�- Affects all aspects of care
# Hyperlipidemia
-Statin continued
# Chronic neuropathy pain/fibromyalgia
- HOLD Diclofenac, tramadol, Lyrica
# Acute/subacute nondisplaced fracture of fibular head/complete tear of medial meniscus/rupture of ACL
-Lower extremity MRI with the impression of Acute or subacute nondisplaced fracture of the fibular head.
2. Small osseous contusions at the posterior aspects of the medial tibial plateau and lateral tibial plateau.
3. Complex tear of the posterior horn of the medial meniscus.
4. Rupture of the ACL.
5. Large knee joint effusion.
6. Small Patton's cyst.
-Partial weightbearing to right lower extremities per patient and family
Instructed to follow-up with [facility] orthopedics outpatient.
# Legal blindness
DVT Prophylaxis: Heparin subcu
GI prophylaxis on PPI
Code Status: Limited DNR-no CPR or defibrillation.
d/w with spouse at bedside -they do not want to put her through a tracheostomy.
d/w with bench technician-would be a high risk for any bronchoscopy procedure with 100% FiO2.
Consult ID
Long-term prognosis guarded.
Total Critical Care Time 40 minutes. I was immediately available to the patient and staff. I personally examined, reviewed labs, diagnostic images/reports, interpretations, treatment plans, discussed patient care with other providers and family
or caregivers (if patient is unable to make decisions), entered orders as appropriate and documented the medical record.
Anticipated Discharge: > 48 hours
Subjective/Interval History
-
Date of Service: October 26, 2023
Sedated on the ventilator. She is having issues with syncing with ventilator. Planning on paralytics.
Sedated on the vent.
Objective Data
-
Labs:
Laboratory Results
10/25/23
22:43
Sodium 144
Potassium 5.0
Chloride 114 H
Carbon Dioxide 27
BUN 68 H
Creatinine 1.6 H
Glucose 270 H
Calcium 7.3 L
Vital Signs:
Vital Signs
Temp Pulse Resp BP Pulse Ox
99.7 F 108 19 157/49 95
10/26/23 07:31 10/26/23 07:34 10/26/23 07:34 10/26/23 05:45 10/26/23 07:34
I&O
10/25/23 10/26/23 10/27/23
06:59 06:59 06:59
Intake Total 6009.4 / 6046.6 5044.9 / 5137.1 92.2 / 92.2
Output Total 2290 / 2290 1570 / 1570 0 / 0
Balance 3719.4 / 3756.6 3474.9 / 3567.1 92.2 / 92.2
Review of Systems
-
Unable to obtain full review of systems at this time due to: Patient Intubation
Physical Exam
-
General: No Apparent Distress
HEENT: Moist Mucous Membranes
Respiratory: Wheezes (anterior auscultation)
Cardiac: Regular Rhythm and S1/S2
GI: Soft and Other (NG;rectal tube;obese)
Musculoskeletal: Edema, Right Lower Extrem and Edema, Left Lower Extrem (trace BL)
Neuro: Negative Awake or Alert
Psych: Calm
Data Reviewed
-
Labs: Labs Reviewed by me
[2023-10-26 09:47] LABS: Glucose - Point of Care 172 mg/dl (70-99)
--- NOTE | 2023-10-26 10:07 | PTCARENOTE ---
RR 61' s tRN 4. Cisatraccurium adm
--- NOTE | 2023-10-26 10:14 | CON.ID ---
Consultation
-
Date/Time Consultation Requested: October 26, 202328
Date/Time Consultation Performed: October 26, 2023 1015
Requesting Provider: Dr. Elian Galloway
Performing Provider: Dr. Aaliyah Younger
Reason for Consultation: Fevers, PNA
Chief Complaint / Past History
Chief Complaint
SOB
History of Present Illness
History obtained from review medical records since patient is currently intubated and sedated. She is a 62-year-old female with diabetes mellitus, neuropathy, retinopathy, COPD, heart failure with preserved EF, who presented to the ED on October 13
with 1 week history of cough productive of green sputum, worsening shortness of breath. Patient was hypoxic requiring BiPAP. Procalcitonin was negative. Chest x-ray showed patchy infiltrates. She was started on aztreonam and and steroids chest
CT showed widespread interstitial and groundglass opacities.She continued to desat on BiPAP and was transferred to the ICU on October 15. Antibiotics changed to cefepime plus azithromycin. Repeat procalcitonin October 16 was less than 0.15. On September
patient was intubated. Steroid dose increased for ARDS. He prefers antibiotics were discontinued. Patient was started on Precedex October 21 as she was unable to tolerate off sedation. She started having fevers evening of October 21. She was
pancultured which were negative. Vancomycin and cefepime started on October 22. Azithromycin added today. Levophed started October 24. White count has been trending up.
Past History
Additional Past Medical History:
COPD
Type 2 diabetes
HTN
Chronic bronchitis
Hyperlipidemia
Congestive heart failure
Aortic stenosis
ckd3a
Class III obesity BMI 46
Anxiety
Bipolar
Neuropathy
Lung nodule
Chronic tachycardia
Depression
Right knee fibular head fracture, meniscus tear, ACL rupture (09/21/23)
Bilateral blindness
Sinus surgery
Allergy History:
cefaclor Allergy (Verified 10/15/23 10:27)
rash prior to 2007
ipecac Allergy (Verified 10/14/23 20:52)
Unknown
latex Allergy (Verified 10/14/23 20:52)
Rash
Penicillins Allergy (Verified 10/15/23 10:27)
rash prior to 2007
prochlorperazine Allergy (Verified 10/14/23 20:52)
Tongue Swelling
Medications Reviewed: Yes
Current Antibiotics:
Vanco/cefepime day 3
s/p cefepime/azithro (10/15 to 10/20)
Aztreonam (10/13 to 10/14)
Social History
Tobacco: Former Smoker
Alcohol: None
Drug: None
Personal:
Family History
Family History: Not Pertinent
Review of Systems
Review of Systems
Unable to obtain as patient currently intubated and sedated.
Vital Signs
Temp Pulse Resp BP Pulse Ox
99.7 F 108 19 157/49 98
10/26/23 07:31 10/26/23 07:34 10/26/23 07:34 10/26/23 05:45 10/26/23 08:00
Selected Entries
10/25/23
21:52
Temp 100.6 F H
Physical Exam
Physical Exam
Constitutional: Acutely Ill and Obese
Eyes: No Conjunctival Hemorrhage and Sclera Anicteric
Cardiovascular: Regular Rate and S1/S2
Pulmonary: Coarse (anteriorly)
Gastrointestinal: Soft, Non Tender, Non Distended and Other (FMS with semi-watery dark brown stool)
Genito-Urinary: Huizar and Clear Urine
Extremities: Negative Edema
Musculoskeletal: Negative Joint Swelling (knees) or Joint Effusion (knees)
Skin: Negative Rash
Lab / Diagnostic Study Results
Abs Immat Gran (auto) 0.4 10^3/uL (0-0.05) H 10/24/23 03:39
Absolute Neuts (auto) 17.9 10^3/uL (1.4-6.5) H 10/24/23 03:39
Absolute Lymphs (auto) 0.6 10^3/uL (1.2-3.4) L 10/24/23 03:39
Absolute Monos (auto) 1.2 10^3/uL (0.1-0.6) H 10/24/23 03:39
Absolute Basos (auto) 0.0 10^3/uL (0-0.2) 10/24/23 03:39
Total Counted 100 10/20/23 03:04
Immature Gran % 2.0 % (0-0.5) H 10/24/23 03:39
Neutrophils % 88.4 % (42.2-75.2) H 10/24/23 03:39
Lymphocytes % 3.1 % (20.5-51.1) L 10/24/23 03:39
Monocytes % 6.1 % (1.7-9.3) 10/24/23 03:39
Eosinophils % 0.3 % (0-6) 10/24/23 03:39
Basophils % 0.1 % (0-2) 10/24/23 03:39
Abs Neuts (Manual) 9.7 10^3/uL (1.4-6.5) H 10/20/23 03:04
Segmented Neutrophils 79 % (42-75) H 10/20/23 03:04
Band Neutrophils 9 % (0-3) H 10/20/23 03:04
Lymphocytes (Manual) 4 % (20-51) L 10/20/23 03:04
PT 17.8 Sec (11.4-14.6) H 10/18/23 16:42
INR 1.49 10/18/23 16:42
Lactic Acid Cancelled 10/14/23 20:45
C-Reactive Protein 76.00 mg/L (0.0-10.00) H 10/21/23 04:42
Procalcitonin 0.15 ng/ml (0.0-0.25) 10/17/23 03:33
Ur Squamous Epith Cells 0-2 /LPF (Few) 10/23/23 15:31
Microbiology Results
Micro:
10/23/23 15:31 Blood Culture - Preliminary
Blood/Venous No Growth in 48 hours- Final report to follow
10/23/23 15:31 Blood Culture - Preliminary
Blood/Venous No Growth in 48 hours- Final report to follow
10/23/23 15:31 Respiratory Culture - Final
Endotracheal Usual Respiratory Azalea
Gram Stain - Final
10/14/23 17:01 Blood Culture - Final
Blood/Venous No Growth - Final Report
10/14/23 17:01 Blood Culture - Final
Blood/Venous No Growth - Final Report
10/16/23 15:23 Urine Culture - Final
Urine NO GROWTH
10/15/23 17:13 Respiratory Culture - Final
Sputum Usual Respiratory Azalea
Gram Stain - Final
10/15/23 04:04 MRSA Screen - Final
Nose No Methicillin Resistant Staphylococcus aureus isolated.
10/15/23 04:00 Legionella Urinary Antigen - Final
Urine Negative for Legionella pneumophila Serogroup 1 antigen.
A negative result does not rule out the possiblity of
Legionella infection due to other serogroups or species of
Legionella. Clinical correlation is recommended.
10/15/23 04:00 Streptococcus pneumoniae Antigen (M - Final
Urine Negative for Streptococcus pneumoniae antigen.
A negative result does not exclude infection with
Streptococcus pneumoniae. Clinical correlation is
recommended.
10/14/23 17:43 Influenza Types A & B (LISA) - Final
Nasal Swab Negative for Influenza A & B, NAAT
Negative results must be combined with clinical observations
and patient history.
Nucleic Acid Amplification test (NAAT)performed on the
[employer] platform.
10/14/[address]: Marked widespread bilateral interstitial and groundglass opacities, numerous scattered prominent mediastinal lymph nodes and tiny bilateral pleural effusions. Findings could be on the basis of pneumonia/pneumonitis with viral
pneumonitis one of several differential diagnostic possibilities.
10/25/23 CXR: Marked widespread bilateral parenchymal opacification with progression in the left lower hemithorax. Some of several differential diagnostic possibilities again include pneumonia, acute pulmonary edema or ARDS.
Assessment / Plan
# ARDS from probable recent viral pneumonia, intubated 10/16
-10/13 and 10/16 procalcitonin <0.25
- s/p 7d cefepime/azithromycin
- On steroids
# Fevers since 10/22/23
-Suspect hyperthermia from Precedex, onset date 10/21
- Resp cx: usual azalea
-Bcx's neg
-UA/Ucx neg
- Check COVID and RSV
- Check procalcitonin in am, ?HAP/VAP
- In the meantime, replace Vanco/cefepime/axithromycin with meropenem pending procal.
- Follow temps
# Leukocytosis
-Suspect from steroid
- If diarrhea persists off of bowel regimen, check C. diff.
-Follow wbc
# Additional medical problems
COPD
Type 2 diabetes
HTN
Chronic bronchitis
Hyperlipidemia
Congestive heart failure
Aortic stenosis
ckd3a
Class III obesity BMI 46
Anxiety
Bipolar
Neuropathy
Lung nodule
Chronic tachycardia
Depression
Right knee fibular head fracture, meniscus tear, ACL rupture (09/21/23)
Bilateral blindness
Sinus surgery
Care Review
Plan reviewed with: Physician (Dr. Galloway)
[2023-10-26] MEDS: ROBITUSSIN 200 MG TUBE ×4 (10:18→21:37)
[2023-10-26] MEDS: NEURONTIN 300 MG TUBE ×3 (10:18→21:37)
[2023-10-26] MEDS: LEXAPRO 15 MG TUBE (10:19)
[2023-10-26] MEDS: LIPITOR 40 MG TUBE (10:20)
[2023-10-26] MEDS: ZITHROMAX INFUSION 250 IV (10:29)
--- NOTE | 2023-10-26 11:17 | PTCARENOTE ---
0700 patient in bed, intubated, sedated. RT PICC line : Propofol 35/23.3+Fentanyl 175/17.5; Precedex 0.4/10.9; Levophed 7/26.3; INsulin 6/6 .
[2023-10-26 11:47] LABS: Glucose - Point of Care 206 mg/dl (70-99)
--- NOTE | 2023-10-26 11:49 | PTCARENOTE ---
Vent S/CMV 18/500/+10/100% Peak 48 RR 18. VT 465 POX 84%. No oral no ETT secretions . oral and Huizar care done. Insulin adjusted per protocol. TF jevity 60/40 free water flush . pt tolerating without difficult es
[2023-10-26 11:53] LABS: COVID-19 Antigen Negative (Negative)
--- NOTE | 2023-10-26 12:06 | W.PN.NEPH.PH ---
Today's Communication / Plan
-
lasix 40mg IV BID
Assessment/Plan
-
IMP:
Acute hypoxic hypercarbic respiratory failure multifactorial suspect multifactorial from pneumonia and possible CHF exacerbation
Sepsis likely 2/2 pneumonia
Suspect ARDS likely secondary to viral etiology-Intubated 10/17
COPD exacerbation
Acute on chronic CHF exacerbation
mild to mod
Diabetes Mellitus, Type II
Acute on chr Anemia of chronic disease
JOHN on Chronic kidney disease stage IIIa-cr baseline 1.2-1.5
Essential tremors
Benign Hypertension
Bipolar/Anxiety/Depression
Morbid Obesity due to excess calories
Hyperlipidemia
Chronic neuropathy pain/fibromyalgia
Acute/subacute nondisplaced fracture of fibular head/complete tear of medial meniscus/rupture of ACL
Diabetic retinopathy with bilateral blindness. Legally blindness
Echo October 15 2023: EF 60 to 65% with mild LVH, mild to moderate , peak/mean gradients 33/20 mmHg, aortic valve area 1.1 cm sq, PASP 40 to 45 mmHg
Plan:
A/w hypoxic resp failure now VDRF-found CHF, COPD -ARDS
JOHN-improving to 1.1 but up at 1.6 post lasix, labs pending this am
hypernatremic-improving to 144 with FWF-rate lowered yesterday
wt is up significantly and on increased O2 requirement 100%fio2 noted
will cont lasix still to keep her net neg
abx per ID, low grade fever
limited DNR
poor prognosis, remains critically ill with VDRF and high Fio2 requirement
d/w ICU and nursing
CC time spent 31min
-
-
Date of Service: October 26, 2023
CC / HPI / ROS
-
Chief Complaint:
JOHN, azotemia
History of Present Illness:
cr better at 1.1 but up to 1.6 today non oliguric with foely
wt is up significantly, BUN 68
hgb stable but low 7
remains intubated, paralyzed
BP stable on pressors
Hypernatremia better at 144 on 10/24, FWF lowered to 40cc/hr
wt is up
Review of Systems:
on vent, Fio2 100%, PEEP 10
Nonoliguric via Huizar
Labs
-
Labs:
eGFR 36.47 10/25/23 22:43
Phosphorus 6.0 mg/dl (2.5-4.5) H 10/21/23 04:42
Dmu-B-Oruswljhdpp Pept 2430 pg/ml 10/21/23 04:42
Physical Exam
-
Vital Signs:
Vital Signs
Temp Pulse Resp BP Pulse Ox
99.7 F 79 18 126/44 87
10/26/23 07:31 10/26/23 11:14 10/26/23 11:14 10/26/23 11:00 10/26/23 11:30
Cardiovascular:: Regular rate and rhythm
Lung Excursion:: Abnormal (decreased)
Abdomen:: Nontender and Soft
Extremity Edema:: +1: Bilateral:
Huizar Catheter: Yes
--- NOTE | 2023-10-26 12:26 | W.PN.INTV ---
Today's Communication / Plan
Recommendations
Lasix today
Discontinue Precedex
Continue antibiotics
Follow cultures
Continue as needed paralysis
Heavy sedation
Nutritional support
Insulin drip
Prognosis is guarded
Assessment
-
62-year female former tobacco smoker with a past medical history of COPD, hypertension and chronic HFpEF who initially presented with shortness of breath on 10/14/2023. SOB occurred over 1 week with cough and green phlegm. She was admitted to the
hospitalist service and was being treated with antibiotics for multifocal pneumonia and pulmonary was following. She was also being diuresed with Lasix 40 mg BID on 10/15/2023. Due to history of COPD she was started on Decadron and DuoNebs QID.
When she initially was hospitalized she required BiPAP but this was weaned down to mid flow at 12 L/min. Her requirements increased to 15 L/min on the evening of 10/14, and on the morning of 10/15 she required continuous BiPAP and had worsening
hypoxia with saturations in the mid 80s. She is now being transferred to the ICU for further care and net solutions architect services consulted for further management/recommendations.
Impression:
#Acute respiratory failure with hypoxemia and hypercapnia now on mechanical ventilation, intubated 10/18/23
#ARDS due to severe CAP
#Severe community-acquired pneumonia - suspect viral etiology given negative procal x2
#Sepsis without shock due to above
#Acute kidney injury superimposed on CKD (baseline Cr approx 1.3-1.5)
#Hyperglycemia - worsening, now on insulin gtt
#Leukocytosis
#Small bilateral pleural effusions (seen on CT chest from 10/14/2023)
#Acute on chronic anemia (baseline Hb approx 11-12.5) - due to bone marrow suppression in setting of critical illness (retic index: 0.55 on 10/19/2023)
#Mild�moderate aortic stenosis
#Morbid obesity
#Reported Hx of COPD/chronic bronchitis
#Former tobacco use disorder (2PPD x 20 years, quit ~25 years ago)
Chronic medical conditions TRADE SPECIALIST:
Hypertension
morbid obesity
history of COPD
DM type II
chronic bronchitis
HFpEF
anxiety/depression
bipolar disorder
bilateral blindness
history of lung nodule
former tobacco use disorder
Plan:
Patient remains critically ill, unfortunately no significant improvement, chest x-ray with ongoing bilateral infiltrates, now febrile.
Despite high doses of sedation patient remains uncomfortable on mechanical ventilation.
-
Patient is critically ill with severe hypoxemia with ARDS on mechanical ventilation.
Day 9 on mechanical ventilation
Initial insult suspected to be viral infection. No meaningful recovery from the pulmonary perspective.
Developed fever again off antibiotics: Suspect bacterial superinfection.
Infectious disease was consulted: Repeat COVID 10/26/2023 negative.
-
I agree that new fevers may have been from Precedex but also patient on a white count,
Will discontinue Precedex for 01/09/2024 and observe.
Will defer antibiotic therapy to infectious disease
Fever curve is improving
Leukocytosis remains at 20,000-patient is on steroids.
-
Despite heavy sedation continues to have respiratory effort. Necessitating intermittent neuromuscular blockade to provide oxygenation
Patient does not qualify for proning at this point. Morbidly obese.
Does not qualify for ECMO
bronchoscopy at this point will be of no help, patient also very high risk for complication given 100% FiO2. Unlikely to tolerate BAL.
-
Not ready for spontaneous breathing trial
Chest x-ray 10/25/2023: showed stable bilateral infiltrates. No significant improvement. No evidence for pneumothorax.
Mechanical ventilation settings reviewed:
Continue current mechanical ventilation settings.
PEEP 10/FiO2 100%/tidal volume 500
Pulmonary mechanics also impaired by morbid obesity.
-
Giving significant ventilator dyssynchrony/appear uncomfortable despite sedation.
Continue Fentanyl drip started
Continue propofol drip started
Discontinued Precedex
Continue Nimbex as needed
-
Discussed with , patient would not want feeding tube or tracheotomy.
Currently day 9 of mechanical ventilation. Likely towards the weekend if remains intubated we will need to discuss further goals of care.
would not want any prolonged mechanical ventilation.
-
As a trial I will increase Solu-Medrol to 40 mg IV every 12. To treat possible inflammatory pneumonitis.
Continue DuoNebs [id number].
-
Shock, possibly due to heavy sedation.
Levophed at 7 mics per minute
Target mean arterial blood pressure 65 mmHg
Will attempt to wean off
-
Fever/leukocytosis since 10/22/2023.
Fever curve improved
Infectious versus medication related.
Infectious disease consulted as above.
I agree that Precedex on occasion can give fevers.
Continue to follow
COVID-negative 10/26/2023
Urinalysis unremarkable
Blood culture negative
Tracheal aspirate normal respiratory azalea
Continue cefepime/vancomycin 10/24/2023.
All her cultures through the hospital stay has been negative
Completed initially course of antibiotics.
-
continue tube feeds
Aspiration precautions.
-
Component of volume overload. Increased proBNP on admission.
Not on pressors
Prior ECHO reviewed with adequate EF/normal
Discussed with renal given worsening pulmonary status will restart diuresis. Lasix 40 mg IV now.
Continue with free water
Follow renal function
Nephrology/Cardiology following the patient as well. Case discussed.
-
Goal BG 140-180mg/dL now on insulin gtt
Transition as tolerated
-
Replete electrolytes with K>4, Mg>2
-
Stress ulcer ppx: PPI
DVT ppx: HSQ
Guarded prognosis.
-
Dr. Givens discussed with on 10/24/2023 10/25/2023. No significant improvement. Now with a new infection. Unlikely to be liberated from mechanical ventilation. Will continue with support for now. Explained him that without tracheotomy
which he would not want due to patient's poor quality of life prior to this, will need to discuss in the next 3 to 5 days goals of care per

Family Discussions
Moshe 10/21/23: Spoke to patient's daughter and updated her on prognosis. I do think if she does not make significant progress weaning off the ventilator, she would need to be evaluated for tracheostomy by the end of the week. She has been intubated
for 3 days and has not made significant progress. I do think she is also volume overloaded. Her daughter feels like she has been suffering for a long time prior to her admission. She feels she is at odds with her father and her sister who do not
see the poor quality of life that she would have if she were to have a tracheostomy completed. Her father believes that the patient can be bedbound for up to 4 weeks intubated. I encouraged them to discuss with each other her ultimate GOC.
Soria - Plan above was reviewed in detail in layman's terms with the patient's to his satisfaction. Patient remains full code with full medical treatment.
Diagnostic Data
CXR 10-16-2023: Extensive bilateral airspace opacities with air bronchograms, increasing since most recent radiograph of October 14, 2023.
CXR 10-17-2023: Extensive bilateral airspace opacities with air bronchograms likely minimally improved.
CXR 10-18-2023:
1. Endotracheal and endogastric tubes are in satisfactory position, as detailed above.
2. Severe confluent interstitial and alveolar opacities bilaterally, significantly worse compared to prior chest x-ray. Findings are likely related to severe interstitial and alveolar pulmonary edema, differential diagnosis includes ARDS and severe
bilateral pneumonia.
CXR 10-20-2023: Lines and tubes remain in place. Parenchymal disease process, as described, though appearing slightly improved.
CT Chest with IV contrast 10-14-2023: Marked widespread bilateral interstitial and groundglass opacities, numerous scattered prominent mediastinal lymph nodes and tiny bilateral pleural effusions. Findings could be on the basis of
pneumonia/pneumonitis with viral pneumonitis one of several differential diagnostic possibilities.
TTE 10-15-2023: Normal left ventricular size and systolic function. No regional wall motion abnormalities are seen. LV ejection fraction is 60-65% by visual assessment. Mild concentric left ventricular hypertrophy. Normal right ventricular systolic
function. Trace mitral regurgitation. Mild to moderate aortic stenosis. Peak/mean gradients are 33/20mmHg. The valve area by continuity equation is 1.1cm sq, using a LVOT of 1.8cm. Trace tricuspid regurgitation. Estimated pulmonary artery pressure
of 40-45 mmHg. The IVC is of normal size but does not demonstrate normal respiratory variation.
EF% remains normal compared to 2022 echo and aortic valve gradients remain relatively stable with mild to moderate .
-----
Critical Care time 34mins -- The patient is admitted for acute critical illness for the treatment of vital organ failure and/or prevention of further life-threatening conditions. Total care includes time spent in review of history, physical exam,
medications, hemodynamic/ventilator parameters, laboratory data, imaging and discussion with house staff, pharmacy, respiratory therapy, agriculture internship, and nursing.
Subjective Dataa
Subjective Data
Date of Service:
Date of Service: October 26, 2023
Chief Complaint: Cleaning Manager Follow Up (Acute hypoxemic respiratory failure require mechanical ventilation.)
Subjective:
Unfortunately, no meaningful recovery.
Continue to have difficulty with sedation
Fever curve appears better
Review of Systems
General: Unobtainable - Sedation
Objective Data
Data Reviewed
Vital Signs / I&O / Oxygen:
Vital Signs
Temp Pulse Resp BP Pulse Ox
99.7 F 79 18 126/44 87
10/26/23 07:31 10/26/23 11:14 10/26/23 11:14 10/26/23 11:00 10/26/23 11:30
Intake and Output
10/25/23 10/26/23 10/27/23
06:59 06:59 06:59
Intake Total 6009.4 / 6046.6 5044.9 / 5137.1 777.2 / 777.2
Output Total 2290 / 2290 1570 / 1620 200 / 200
Balance 3719.4 / 3756.6 3474.9 / 3517.1 577.2 / 577.2
SaO2 [APV] 95
SaO2 [A/C] 98
SaO2 [NIV (Non Invasive 85
Ventilation)]
SaO2 87
Nasal Cannula flow liters per 12
minute
Physical Exam
General: Respiratory Distress and Other (Intubated/Sedated)
HEENT: Normocephalic, Anicteric, Other (ETT in place) and Other (thick neck, legally blind)
Cardiovascular: S1-S2, Irregular Rhythm and Peripheral Edema (negative)
Respiratory: Wheeze (negative), Crackles (bibasilar), Rhonchi (bilaterally), Accessory Resp Muscle Use (negative) and ET Tube
GI: Soft, Distended (Obese), Non Tender, Normal Bowel Sounds and Other (abdominal obesity)
Neurology: Other (Patient is sedated. Has respiratory effort. Not opening eyes.)
Skin: Warm and Dry
Labs/Micro/Reports
Laboratory Results
10/25/23
13:00
pH 7.34 L
pCO2 52 H
pO2 54 L*
HCO3 28.1 H
O2 Delivery Level
Microbiology
10/23/23 15:31 Blood/Venous Blood Culture - Preliminary
No Growth in 48 hours- Final report to follow
10/23/23 15:31 Blood/Venous Blood Culture - Preliminary
No Growth in 48 hours- Final report to follow
10/23/23 15:31 Endotracheal Respiratory Culture - Final
Usual Respiratory Azalea
10/23/23 15:31 Endotracheal Gram Stain - Final
[2023-10-26] MEDS: LASIX 40 MG IV ×2 (13:09)
[2023-10-26] MEDS: MERREM 500 MG IV ×2 (13:09→21:37)
[2023-10-26 13:20] LABS: Glucose - Point of Care 155 mg/dl (70-99)
[2023-10-26 14:43] LABS: Hematocrit 27.8 % (37.0-47.0); Hemoglobin 8.2 g/dL (12.0-16.0); Mean Corp Hgb Conc. 29.5 g/dL (33.0-37.0); Mean Corpuscular Hgb 25.4 pg (27.0-31.0); Mean Corpuscular Volume 86.1 fL (81.0-99.0); Mean Platelet Volume 10.8 fL (7.4-10.4); Platelet Count 336 10^3/uL (130-400); Red Blood Cell Count 3.23 10^6/uL (4.20-5.40); Red Cell Dist. Width 19.7 % (11.5-14.5); White Blood Cell Count 31.9 10^3/uL (4.8-10.8)
[2023-10-26 15:02] LABS: ALT (SGPT) 39 U/L (0-35); AST (SGOT) 56 U/L (14-36); Albumin 2.8 g/dl (3.5-5.0); Alkaline Phosphatase 152 U/L (38-126); Blood Urea Nitrogen 79 mg/dl (7-17); Calcium 7.4 mg/dl (8.4-10.2); Carbon Dioxide 29 mmol/L (22-30); Chloride 107 mmol/L (98-107); Estimated Creatinine Clearance 30 ml/min; Glucose 99 mg/dl (70-99); Potassium 6.2 mmol/L (3.5-5.1); Sodium 142 mmol/L (135-145); Total Bilirubin 0.6 mg/dl (0.2-1.3); Total Protein 5.7 g/dl (6.3-8.2); eGFR 22.42
[2023-10-26 15:07] LABS: Glucose - Point of Care 89 mg/dl (70-99)
[2023-10-26] MEDS: LOKELMA 10 GRAM PO ×2 (15:59→18:11)
--- NOTE | 2023-10-26 16:33 | PTCARENOTE ---
pt intubated and sedated . vent S/CMV 18/500/+10/100% peak 46; VT 453 RR 18. No oral or ETT secretions. Oral care done per protocol. VS 98.0 (rectal) SR 85 F/PVC-BP via left lower arm 125/45 MAP 67. Pupils RT eyes non reactive ( per family pt has
had problems with RT yes legally blonds) left eyes sluggish +3. Restrains taking off. Abdomen soft BS present . FMS flushed, no output for this shift. spacemen to R/o C/diff send earlier results pending. pt negative for COVID. swab for RSV send
result pending. Indwelling Huizar draining cloudy soo urine, After Lasix administered pt's output 40cc. output from 7am : 250cc. Jevity at 60/40water flush infusing via Dophoff. RT PICC line : Insulin per protocol infusing via Purple lumen=.
Precedex off, Propofol at 45/30cc+Fentanyl 175/17.5; Levophed at 7/26.3. pt on continue rotation bed HOB elevated Dr Joya and Chon aware of BMP result. for K of 6.2 Lokelmalogr adm per current order
[2023-10-26] MEDS: ATIVAN 0.5 MG IV (17:04)
[2023-10-26 17:30] LABS: Glucose - Point of Care 210 mg/dl (70-99)
[2023-10-26 18:18] LABS: Glucose - Point of Care 195 mg/dl (70-99)
[2023-10-26 19:12] LABS: Glucose - Point of Care 160 mg/dl (70-99)
--- NOTE | 2023-10-26 19:21 | PTCARENOTE ---
Julia (daughter ) was called update on the decline kidney function provided. Julia made aware regarding recent BMP and CBC results . Julia made aware of increase creative level, High potassium and decrease urinal output. Julia will relay massage
to her sister and her father .
[2023-10-26] MEDS: SOLU-MEDROL PF 40 MG IV (19:49)
--- NOTE | 2023-10-26 20:00 | PTCARENOTE ---
rec`d pt at 1900 intubated and sedated. no purposeful movements. pt legally blind. Rt double luman picc running with fent, prop, levo and insulin. glycemic protocol continued. SR on monitor with PVCs. HR 80s to 90s. coarse lung sounds. POX at 88%.
#8 ETT 24 on rt lip. vent settings 18/500/100%/10 of peep. FMS flushed. rectal temp prob in place. TF jevity @60 w/ 40 flush through RT nare dobhoff. therm razo draining soo, yellow urine about 0-10cc/ hr. sacral foam in place. rt lip noted to be
swollen. q2h turns. daughter updated on pt`s condition with decline of urine output. safe environment maintained.
[2023-10-26] MEDS: SENOKOT-S 1 TABLET TUBE (20:02)
[2023-10-26] MEDS: NORCURON 10 MG IV (21:13)
[2023-10-26 21:31] LABS: Glucose - Point of Care 109 mg/dl (70-99)
[2023-10-26] MEDS: SEROQUEL 25 MG TUBE (21:38)
--- NOTE | 2023-10-26 22:05 | PTCARENOTE ---
labs done. potassium elevated at 6.1, BAGGAGE SCREENER aware. no new orders.
[2023-10-26 22:10] LABS: Blood Urea Nitrogen 85 mg/dl (7-17); Calcium 7.4 mg/dl (8.4-10.2); Carbon Dioxide 25 mmol/L (22-30); Chloride 107 mmol/L (98-107); Estimated Creatinine Clearance 26 ml/min; Glucose 95 mg/dl (70-99); Potassium 6.1 mmol/L (3.5-5.1); Sodium 140 mmol/L (135-145); eGFR 19.46
--- NOTE | 2023-10-26 22:36 | W.PN.UPDATE ---
Update Note
Progress Note Update
reviewed labs from afternoon
cr increasing, oligoanuric
no response with lasix
potassium high- Lokelma ordered , follow repeat labs
not dialysis candidate
poor prognosis
[2023-10-26 23:28] LABS: Glucose - Point of Care 107 mg/dl (70-99)
[2023-10-27] VITALS (25 sets, daily range): BP systolic 127–151; BP diastolic 43–55; BMI 47.7
[2023-10-27] MEDS: NORCURON 10 MG IV ×3 (01:07→06:20)
[2023-10-27] MEDS: STERILE WATER FOR INJECTION 10 ML IV ×2 (01:10→05:08)
[2023-10-27 01:26] LABS: Glucose - Point of Care 94 mg/dl (70-99)
[2023-10-27 03:25] LABS: Glucose - Point of Care 161 mg/dl (70-99)
[2023-10-27 03:35] LABS: Hematocrit 27.3 % (37.0-47.0); Hemoglobin 8.1 g/dL (12.0-16.0); Mean Corp Hgb Conc. 29.7 g/dL (33.0-37.0); Mean Corpuscular Hgb 25.3 pg (27.0-31.0); Mean Corpuscular Volume 85.3 fL (81.0-99.0); Mean Platelet Volume 11.2 fL (7.4-10.4); Platelet Count 332 10^3/uL (130-400); Red Cell Dist. Width 19.4 % (11.5-14.5); Reticulocyte Count 2.4 % (0.4-2.8); White Blood Cell Count 29.7 10^3/uL (4.8-10.8)
[2023-10-27 04:02] LABS: ALT (SGPT) 39 U/L (0-35); AST (SGOT) 53 U/L (14-36); Albumin 2.9 g/dl (3.5-5.0); Alkaline Phosphatase 155 U/L (38-126); Blood Urea Nitrogen 87 mg/dl (7-17); Carbon Dioxide 22 mmol/L (22-30); Chloride 108 mmol/L (98-107); Estimated Creatinine Clearance 24 ml/min; Glucose 153 mg/dl (70-99); Potassium 6.7 mmol/L (3.5-5.1); Sodium 139 mmol/L (135-145); Total Bilirubin 0.6 mg/dl (0.2-1.3); Total Protein 5.7 g/dl (6.3-8.2); Triglycerides 216 mg/dl (10-149); eGFR 17.15
[2023-10-27 04:09] LABS: LDH 1126 U/L (120-246); Procalcitonin 1.23 ng/ml (0.0-0.25)
[2023-10-27] MEDS: SUBLIMAZE 100 IV ×2 (04:25→09:50)
--- NOTE | 2023-10-27 05:00 | PTCARENOTE ---
pt reassessed. potassium lab critical 6.7. PAWN SHOP KEEPER notified. no new orders given.
[2023-10-27] MEDS: MERREM 500 MG IV (05:08)
[2023-10-27] MEDS: LOKELMA 10 GRAM PO (05:08)
[2023-10-27 05:29] LABS: Glucose - Point of Care 126 mg/dl (70-99)
[2023-10-27] MEDS: DIPRIVAN 100 IV ×2 (06:05→09:28)
[2023-10-27] MEDS: MIRALAX TUBE (07:13)
[2023-10-27] MEDS: DUONEB 3 ML INH ×2 (07:17→10:59)
[2023-10-27 07:35] LABS: Glucose - Point of Care 158 mg/dl (70-99)
--- NOTE | 2023-10-27 07:53 | PTCARENOTE ---
0700 patient in bed intubated and sedated. RT PICC line dressing dry and intact. Insulin at 8unint /8ml via purple port. Levophed 3/11.3; Propofol 40/26.6; Fentanyl 17/17.5. BIS 40; ETT # 8/ center lip. vent S/CMV 18/500/+10/100% Peak 51/VT 488/RR
18; . VS : 98.6 rectal; SR 86 F-PVC; BP via left lover arm 133/77; RR 18; No cough. Weak gag reflex. Suction: no oral no ETT secretion. Indwelling Huizar draining cloudy soo dark urine; pt continues with decrease urinal output . FMS no output.
Blood sugar check per hyperglycemia protocol . HOB elevated
--- NOTE | 2023-10-27 08:09 | W.PN.HOSP.TC ---
Today's Communication/Plan
-
Obtain chest x-ray.
Will give 1 amp of IV bicarbonate and repeat BMP.
Continue with antibiotics
Diuretics per nephrology
Assessment / Plan
Assessment / Plan
Acute hypoxic hypercarbic respiratory failure multifactorial suspect multifactorial from pneumonia and possible acute diastolic CHF exacerbation
Sepsis 2/2 pneumonia
ARDS from pneumonia
-Intubated on 100% FiO2 now. Chest imaging including chest CT shows bilateral multilobular pneumonic process.
-Now paralyzed, might need to prone if continues to get worse
-COVID and flu negative. Streptococcal and Legionella antigen negative. Blood cultures negative. Sputum culture shows usual respiratory azalea unclear pathogen for the pneumonia.
-CT of chest without PE, shows marked widespread bilateral interstitial and groundglass opacities
-Repeat chest x-ray today with persistent severe hypoxemia
-Suspect not a candidate for bronc with 100% FiO2 need.
Recurrent fever -new since admission. Rule out superimposed bacterial pneumonia. Chest x-ray / Marked widespread bilateral parenchymal opacification with progression in the left lower hemithorax. Repeat blood cultures pending. RSV neg. C.
difficile negative. Appreciate ID input-antibiotic changed to meropenem. Afebrile today.
# COPD exacerbation
-cw IV steroids 40 mg every 12 hours Solu-Medrol
-Nebs
-Continue to monitor
-on breo at home
# Acute on chronic CHF exacerbation
- wt going up , patient becoming oliguric, and renal failure getting worse. Not responding to Lasix. Consider higher doses of Lasix.Will dw renal.
-Cardiology following
-Echo this admission with mild to mod ; preserved EF
# JOHN on Chronic kidney disease stage IIIa
- US renal neg for hydro
-patient now becoming oliguric and rising creatinine noted.
-Nephrology input noted-felt not a candidate for dialysis.
# Hyperkalemia secondary to worsening renal failure.
-On Lokelma
-Also on insulin for ICU protocol
-Will give a dose of sodium bicarbonate since potassium is dangerously high.. Repeat BMP this afternoon.
Severe hypernatremia
-Normalized
#Diabetes Mellitus, Type II
-Sugars uncontrolled so started on insulin drip
-A1c 6.5
-diabetes [employer] following
# Anemia of chronic disease
-could be mildly from hemoptysis,mild 10/15. quantify hemoptysis. No more episode
-Hgb at 7 ;s/p 2 units of PRBC support
-Doubt hemolysis-Bili normal ;Reti count not high. Check Hapto; no obvious external bleeding
-Continue to trend
-per RN no bleeding noted
#Essential tremors
#Benign Hypertension
�- Stable
#Bipolar/Anxiety/Depression
�-Celexa, lorazepam continued
#Morbid Obesity due to excess calories
�- Affects all aspects of care
# Hyperlipidemia
-Statin continued
# Chronic neuropathy pain/fibromyalgia
- HOLD Diclofenac, tramadol, Lyrica
# Acute/subacute nondisplaced fracture of fibular head/complete tear of medial meniscus/rupture of ACL
-Lower extremity MRI with the impression of Acute or subacute nondisplaced fracture of the fibular head.
2. Small osseous contusions at the posterior aspects of the medial tibial plateau and lateral tibial plateau.
3. Complex tear of the posterior horn of the medial meniscus.
4. Rupture of the ACL.
5. Large knee joint effusion.
6. Small Ptaton's cyst.
-Partial weightbearing to right lower extremities per patient and family
Instructed to follow-up with [facility] orthopedics outpatient.
# Legal blindness
Nutrition-on tube feeds which she is tolerating
DVT Prophylaxis: Heparin subcu
GI prophylaxis on PPI
Code Status: Limited DNR-no CPR or defibrillation.
d/w with spouse at bedside 10/25 -they do not want to put her through a tracheostomy.
Patient with persistent ARDS, and now worsening renal failure prognosis is poor.
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
Total Critical Care Time 35 minutes. I was immediately available to the patient and staff. I personally examined, reviewed labs, diagnostic images/reports, interpretations, treatment plans, discussed patient care with other providers and family
or caregivers (if patient is unable to make decisions), entered orders as appropriate and documented the medical record.
Anticipated Discharge: > 48 hours
Subjective/Interval History
-
Date of Service: October 27, 2023
Sedated on vent.
Discussed with RN-patient remains on 100% FiO2. Still requiring paralytics. She in fact needed Ambu bag ventilation last night.
Becoming oliguric. Requiring medication for hyperkalemia.
Objective Data
-
Labs:
Laboratory Results
10/26/23 10/26/23 10/27/23
21:34 22:35 03:26
WBC 29.7 H
Hgb 8.1 L
Hct 27.3 L
Plt Count 332
Sodium 140 Cancelled 139
Potassium 6.1 H* Cancelled 6.7 H*
Chloride 107 Cancelled 108 H
Carbon Dioxide 25 Cancelled 22
BUN 85 H Cancelled 87 H
Creatinine 2.7 H Cancelled 3.0 H
Glucose 95 Cancelled 153 H
Calcium 7.4 L Cancelled 7.0 L
Total Bilirubin 0.6
AST 53 H
ALT 39 H
Alkaline Phosphatase 155 H
Vital Signs:
Vital Signs
Temp Pulse Resp BP Pulse Ox
98.3 F 84 18 134/46 91
10/27/23 07:28 10/27/23 07:25 10/27/23 07:25 10/27/23 06:00 10/27/23 07:52
I&O
10/26/23 10/27/23 10/28/23
06:59 06:59 06:59
Intake Total 5044.9 / 5137.1 4240.8 / 4404.2 163.4 / 163.4
Output Total 1570 / 1620 315 / 345 30 / 30
Balance 3474.9 / 3517.1 3925.8 / 4059.2 133.4 / 133.4
Review of Systems
-
Unable to obtain full review of systems at this time due to: Patient Non-verbal
Physical Exam
-
General: No Apparent Distress
HEENT: Moist Mucous Membranes
Respiratory: Rhonchi (Anteriorly)
Cardiac: Regular Rhythm and S1/S2
GI: Soft and Other (NG tube feeds )
Neuro: Negative Awake or Alert
Data Reviewed
-
Labs: Labs Reviewed by me
--- NOTE | 2023-10-27 09:06 | W.PN.ID1 ---
Date of Service
Date of Service: October 27, 2023
Today's Communication
Prognosis poor.
See below.
Assessment / Plan
# ARDS from probable recent viral pneumonia, intubated 10/16
-10/13 and 10/16 procalcitonin <0.25
- s/p 7d cefepime/azithromycin
- On steroids
# Leukocytosis
# Hypotension - weaning levophed
# JOHN with hyperkalemia
# Acute transaminases
- Resp cx: usual azalea
-Bcx's neg,
-repeat bcx pending
-UA/Ucx neg
- 10/26/23 COVID and RSV negative
- C. diff negative
- 10/26 am procalcitonin elevated but unrealizable due to JOHN overnight
- Continue meropenem for possible HAP/VAP
- Consider RUQ US to eval for acalculous cholecystitis
-Follow temps
# Fevers onset 10/22/23
-Suspect hyperthermia from Precedex, onset date 10/21
-Precedex weaned off yesterday - > fever resolving
- Follow temps
Prognosis overall poor.
# Additional medical problems
COPD
Type 2 diabetes
HTN
Chronic bronchitis
Hyperlipidemia
Congestive heart failure
Aortic stenosis
ckd3a
Class III obesity BMI 46
Anxiety
Bipolar
Neuropathy
Lung nodule
Chronic tachycardia
Depression
Right knee fibular head fracture, meniscus tear, ACL rupture (09/21/23)
Bilateral blindness
Sinus surgery
I spent 35 min critical care time on this case, review of records, exam, discussion with caser in, formulation plan of care.
Chief Complaint
-: Fever and Leukocytosis
Subjective / Review of Systems
Remains on vent.
Vital Signs / Physical Exam
Vital Signs
Vital Signs
Temp Pulse Resp BP Pulse Ox
98.3 F 84 18 134/46 91
10/27/23 07:28 10/27/23 07:25 10/27/23 07:25 10/27/23 06:00 10/27/23 07:52
Physical Exam
Constitutional: Acutely Ill
Eyes: Sclera Anicteric
Cardiovascular: Regular Rate and S1/S2
Pulmonary: Coarse (anteriorly)
Gastrointestinal: Soft, Non Tender and Non Distended
Genito-Urinary: Huizar and Clear Urine
Extremities: Negative Edema
Objective Data
Lab Data
Lab Results
10/27/23 03:26
PT 17.8 Sec (11.4-14.6) H 10/18/23 16:42
INR 1.49 10/18/23 16:42
APTT 30.8 Sec (23.4-35.0) 10/18/23 16:42
Estimated Creat Clear 24 ml/min 10/27/23 03:26
Lactic Acid Cancelled 10/14/23 20:45
Total Bilirubin 0.6 mg/dl (0.2-1.3) 10/27/23 03:26
AST 53 U/L (14-36) H 10/27/23 03:26
ALT 39 U/L (0-35) H 10/27/23 03:26
Alkaline Phosphatase 155 U/L (38-126) H 10/27/23 03:26
C-Reactive Protein 76.00 mg/L (0.0-10.00) H 10/21/23 04:42
Most recent labs reviewed.
Micro Results:
10/26/23 15:54 Blood Culture - Pending
Blood/Venous
10/26/23 15:55 Blood Culture - Pending
Blood/Venous
10/26/23 15:33 Respiratory Syncytial Virus Culture - Final
Nasal Swab Negative for Respiratory Syncytial Virus.
A false negative result may be obtained with a specimen
collected early in the acute phase. If symptoms persist, a
new specimen should be tested.
10/23/23 15:31 Blood Culture - Preliminary
Blood/Venous No Growth in 72 hours- Final report to follow
10/23/23 15:31 Blood Culture - Preliminary
Blood/Venous No Growth in 72 hours- Final report to follow
10/26/23 11:56 C. difficile GDH Antigen & Toxins - Final
Feces/Stool Negative for toxigenic C.difficile
10/23/23 15:31 Respiratory Culture - Final
Endotracheal Usual Respiratory Azalea
Gram Stain - Final
10/14/23 17:01 Blood Culture - Final
Blood/Venous No Growth - Final Report
10/14/23 17:01 Blood Culture - Final
Blood/Venous No Growth - Final Report
10/16/23 15:23 Urine Culture - Final
Urine NO GROWTH
10/15/23 17:13 Respiratory Culture - Final
Sputum Usual Respiratory Azalea
Gram Stain - Final
10/15/23 04:04 MRSA Screen - Final
Nose No Methicillin Resistant Staphylococcus aureus isolated.
10/15/23 04:00 Legionella Urinary Antigen - Final
Urine Negative for Legionella pneumophila Serogroup 1 antigen.
A negative result does not rule out the possiblity of
Legionella infection due to other serogroups or species of
Legionella. Clinical correlation is recommended.
10/15/23 04:00 Streptococcus pneumoniae Antigen (M - Final
Urine Negative for Streptococcus pneumoniae antigen.
A negative result does not exclude infection with
Streptococcus pneumoniae. Clinical correlation is
recommended.
10/14/23 17:43 Influenza Types A & B (LISA) - Final
Nasal Swab Negative for Influenza A & B, NAAT
Negative results must be combined with clinical observations
and patient history.
Nucleic Acid Amplification test (NAAT)performed on the
[employer] platform.
10/14/[address]: Marked widespread bilateral interstitial and groundglass opacities, numerous scattered prominent mediastinal lymph nodes and tiny bilateral pleural effusions. Findings could be on the basis of pneumonia/pneumonitis with viral
pneumonitis one of several differential diagnostic possibilities.
10/25/23 CXR: Marked widespread bilateral parenchymal opacification with progression in the left lower hemithorax. Some of several differential diagnostic possibilities again include pneumonia, acute pulmonary edema or ARDS.
Care Review
Plan reviewed with: Physician (Dr. Givens)
[2023-10-27] MEDS: SODIUM BICARBONATE 50 MEQ IV (09:23)
[2023-10-27 09:29] LABS: Glucose - Point of Care 113 mg/dl (70-99)
[2023-10-27] MEDS: NSS (PRESERVATIVE FREE) 10 ML IV (09:29)
[2023-10-27] MEDS: PROTONIX IV 40 MG IV (09:29)
[2023-10-27] MEDS: SOLU-MEDROL PF 40 MG IV (09:31)
[2023-10-27] MEDS: NEURONTIN 300 MG TUBE (09:32)
[2023-10-27] MEDS: LIPITOR 40 MG TUBE (09:32)
[2023-10-27] MEDS: ROBITUSSIN 200 MG TUBE (09:32)
[2023-10-27] MEDS: LEXAPRO 15 MG TUBE (09:32)
[2023-10-27] MEDS: REFRESH CELLUVISC GEL 1 DROPS OPHTH (09:34)
[2023-10-27] MEDS: HEPARIN 5000 UNITS SC (09:35)
[2023-10-27] MEDS: SENOKOT-S TUBE (09:41)
[2023-10-27] MEDS: DESENEX/MITRAZOL/ZEASORB 1 APPLIC TOPICAL (09:42)
[2023-10-27] MEDS: NOVOLIN R INSULIN INFUSION 100 IV (09:50)
[2023-10-27] MEDS: SENNA SYRUP 8.80000000000000071 MG TUBE (09:53)
[2023-10-27] MEDS: COLACE LIQUID 100 MG TUBE (09:53)
--- NOTE | 2023-10-27 11:20 | W.PN.INTV ---
Today's Communication / Plan
Recommendations
Comfort measures
Discontinue nonessential medications
Continue sedation
Waiting for family to arrive
Assessment
-
62-year female former tobacco smoker with a past medical history of COPD, hypertension and chronic HFpEF who initially presented with shortness of breath on 10/14/2023. SOB occurred over 1 week with cough and green phlegm. She was admitted to the
hospitalist service and was being treated with antibiotics for multifocal pneumonia and pulmonary was following. She was also being diuresed with Lasix 40 mg BID on 10/15/2023. Due to history of COPD she was started on Decadron and DuoNebs QID.
When she initially was hospitalized she required BiPAP but this was weaned down to mid flow at 12 L/min. Her requirements increased to 15 L/min on the evening of 10/14, and on the morning of 10/15 she required continuous BiPAP and had worsening
hypoxia with saturations in the mid 80s. She is now being transferred to the ICU for further care and card mounter services consulted for further management/recommendations.
Impression:
#Acute respiratory failure with hypoxemia and hypercapnia now on mechanical ventilation, intubated 10/18/23
#ARDS due to severe CAP
#Severe community-acquired pneumonia - suspect viral etiology given negative procal x2
#Sepsis without shock due to above
#Acute kidney injury superimposed on CKD (baseline Cr approx 1.3-1.5)
#Hyperglycemia - worsening, now on insulin gtt
#Leukocytosis
#Small bilateral pleural effusions (seen on CT chest from 10/14/2023)
#Acute on chronic anemia (baseline Hb approx 11-12.5) - due to bone marrow suppression in setting of critical illness (retic index: 0.55 on 10/19/2023)
#Mild�moderate aortic stenosis
#Morbid obesity
#Reported Hx of COPD/chronic bronchitis
#Former tobacco use disorder (2PPD x 20 years, quit ~25 years ago)
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
Hypertension
morbid obesity
history of COPD
DM type II
chronic bronchitis
HFpEF
anxiety/depression
bipolar disorder
bilateral blindness
history of lung nodule
former tobacco use disorder
Plan:
Unfortunately, condition continues to worsen.
Multiorgan failure, worsening renal function.
Abnormal LFTs
Heavily sedated
-
Patient is critically ill with severe hypoxemia with ARDS on mechanical ventilation.
Day 10 on mechanical ventilation
Initial insult suspected to be viral infection. No meaningful recovery from the pulmonary perspective.
Developed fever again off antibiotics: Suspect bacterial superinfection.
Infectious disease was consulted: Repeat COVID 10/26/2023 negative.
-
Unfortunately, no meaningful improvement/recovery.
Remains on heavy sedation and intermittent paralysis.
-
Despite heavy sedation continues to have respiratory effort. Necessitating intermittent neuromuscular blockade to provide oxygenation
Patient does not qualify for proning at this point. Morbidly obese.
Does not qualify for ECMO
bronchoscopy at this point will be of no help, patient also very high risk for complication given 100% FiO2. Unlikely to tolerate BAL.
-
In discussions with in the past he would not want prolonged mechanical ventilation, would not want tracheotomy or feeding tube.
At this point he would like to focus on comfort.
Extensive discussion with him by Dr. Givens on 10/27/2023.
-
Will proceed with comfort care once rest of the family arrives.
I will discontinue nonessential medications
Continue with sedation
Continue with intermittent paralysis
Discontinue vasopressors
Discontinue antibiotics
Discontinue insulin drip
Extubation once family arrives.
Critical care statement: A total of 32 minutes of critical care time was provided for this patient today. This includes management of unstable vital signs, evaluation of the patient at bedside, reviewing the patient's pertinent medical records
including ventilator settings, arterial blood gases, radiographs, microbiology, laboratory evaluations and discussion with primary team, critical care nursing, and respiratory therapy.

Family Discussions
Moshe 10/21/23: Spoke to patient's daughter and updated her on prognosis. I do think if she does not make significant progress weaning off the ventilator, she would need to be evaluated for tracheostomy by the end of the week. She has been intubated
for 3 days and has not made significant progress. I do think she is also volume overloaded. Her daughter feels like she has been suffering for a long time prior to her admission. She feels she is at odds with her father and her sister who do not
see the poor quality of life that she would have if she were to have a tracheostomy completed. Her father believes that the patient can be bedbound for up to 4 weeks intubated. I encouraged them to discuss with each other her ultimate GOC.
Soria - Plan above was reviewed in detail in layman's terms with the patient's to his satisfaction. Patient remains full code with full medical treatment.
Diagnostic Data
CXR 10-16-2023: Extensive bilateral airspace opacities with air bronchograms, increasing since most recent radiograph of October 14, 2023.
CXR 10-17-2023: Extensive bilateral airspace opacities with air bronchograms likely minimally improved.
CXR 10-18-2023:
1. Endotracheal and endogastric tubes are in satisfactory position, as detailed above.
2. Severe confluent interstitial and alveolar opacities bilaterally, significantly worse compared to prior chest x-ray. Findings are likely related to severe interstitial and alveolar pulmonary edema, differential diagnosis includes ARDS and severe
bilateral pneumonia.
CXR 10-20-2023: Lines and tubes remain in place. Parenchymal disease process, as described, though appearing slightly improved.
CT Chest with IV contrast 10-14-2023: Marked widespread bilateral interstitial and groundglass opacities, numerous scattered prominent mediastinal lymph nodes and tiny bilateral pleural effusions. Findings could be on the basis of
pneumonia/pneumonitis with viral pneumonitis one of several differential diagnostic possibilities.
TTE 10-15-2023: Normal left ventricular size and systolic function. No regional wall motion abnormalities are seen. LV ejection fraction is 60-65% by visual assessment. Mild concentric left ventricular hypertrophy. Normal right ventricular systolic
function. Trace mitral regurgitation. Mild to moderate aortic stenosis. Peak/mean gradients are 33/20mmHg. The valve area by continuity equation is 1.1cm sq, using a LVOT of 1.8cm. Trace tricuspid regurgitation. Estimated pulmonary artery pressure
of 40-45 mmHg. The IVC is of normal size but does not demonstrate normal respiratory variation.
EF% remains normal compared to 2022 echo and aortic valve gradients remain relatively stable with mild to moderate .
-----
Critical Care time 34mins -- The patient is admitted for acute critical illness for the treatment of vital organ failure and/or prevention of further life-threatening conditions. Total care includes time spent in review of history, physical exam,
medications, hemodynamic/ventilator parameters, laboratory data, imaging and discussion with house staff, pharmacy, respiratory therapy, outbound sales advisor, and nursing.
Subjective Dataa
Subjective Data
Date of Service:
Date of Service: October 27, 2023
Chief Complaint: Emergency Department Clinician Follow Up (Acute hypoxemic respiratory failure require mechanical ventilation.)
Subjective:
Unresponsive, on mechanical ventilation.
Heavily sedated
On vasopressors
Critically ill
Review of Systems
General: Unobtainable - Sedation
Objective Data
Data Reviewed
Vital Signs / I&O / Oxygen:
Vital Signs
Temp Pulse Resp BP Pulse Ox
98.3 F 84 18 134/46 91
10/27/23 07:28 10/27/23 07:25 10/27/23 07:25 10/27/23 06:00 10/27/23 07:52
Intake and Output
10/26/23 10/27/23 10/28/23
06:59 06:59 06:59
Intake Total 5044.9 / 5137.1 4240.8 / 4404.2 163.4 / 163.4
Output Total 1570 / 1620 315 / 345 30 / 30
Balance 3474.9 / 3517.1 3925.8 / 4059.2 133.4 / 133.4
SaO2 [APV] 95
SaO2 [A/C] 91
SaO2 [NIV (Non Invasive 85
Ventilation)]
SaO2 91
Nasal Cannula flow liters per 12
minute
Physical Exam
General: Respiratory Distress and Other (Intubated/Sedated)
HEENT: Normocephalic, Anicteric, Other (ETT in place) and Other (thick neck, legally blind)
Cardiovascular: S1-S2, Irregular Rhythm and Peripheral Edema (negative)
Respiratory: Wheeze (negative), Crackles (bibasilar), Rhonchi (bilaterally), Accessory Resp Muscle Use (negative) and ET Tube
GI: Soft, Distended (Obese), Non Tender, Normal Bowel Sounds and Other (abdominal obesity)
Neurology: Other (Patient is sedated. Has respiratory effort. Not opening eyes.)
Skin: Warm and Dry
Labs/Micro/Reports
Lab Data
10/27/23 03:26
Microbiology
10/26/23 15:33 Nasal Swab Respiratory Syncytial Virus Culture - Final
Negative for Respiratory Syncytial Virus.
A false negative result may be obtained with a specimen
collected early in the acute phase. If symptoms persist, a
new specimen should be tested.
10/23/23 15:31 Blood/Venous Blood Culture - Preliminary
No Growth in 72 hours- Final report to follow
10/23/23 15:31 Blood/Venous Blood Culture - Preliminary
No Growth in 72 hours- Final report to follow
10/26/23 11:56 Feces/Stool C. difficile GDH Antigen & Toxins - Final
Negative for toxigenic C.difficile
10/23/23 15:31 Endotracheal Respiratory Culture - Final
Usual Respiratory Aura
10/23/23 15:31 Endotracheal Gram Stain - Final
--- NOTE | 2023-10-27 12:54 | W.PN.NEPH.PH ---
Today's Communication / Plan
-
see plan
Assessment/Plan
-
IMP:
Acute hypoxic hypercarbic respiratory failure multifactorial suspect multifactorial from pneumonia and possible CHF exacerbation
Sepsis likely 2/2 pneumonia
Suspect ARDS likely secondary to viral etiology-Intubated 10/17
COPD exacerbation
Acute on chronic CHF exacerbation
mild to mod
Diabetes Mellitus, Type II
Acute on chr Anemia of chronic disease
JOHN on Chronic kidney disease stage IIIa-cr baseline 1.2-1.5
Essential tremors
Benign Hypertension
Bipolar/Anxiety/Depression
Morbid Obesity due to excess calories
Hyperlipidemia
Chronic neuropathy pain/fibromyalgia
Acute/subacute nondisplaced fracture of fibular head/complete tear of medial meniscus/rupture of ACL
Diabetic retinopathy with bilateral blindness. Legally blindness
Echo October 15 2023: EF 60 to 65% with mild LVH, mild to moderate , peak/mean gradients 33/20 mmHg, aortic valve area 1.1 cm sq, PASP 40 to 45 mmHg
Plan:
A/w hypoxic resp failure VDRF-found CHF, COPD -ARDS
JOHN-worse now cr 3, anuric with razo
hyperkalemia-not responding to lasix or Lokelma
not candidate for SCHOOL PSYCHOMETRIST, family agress
hypernatremic-resolved on FWF
wt is up significantly and on increased O2 requirement 100%fio2 noted
ok to use lasix for comfort
abx per ID
limited DNR
poor prognosis, remains critically ill with VDRF and high Fio2 requirement
d/w ICU and nursing
d/w at bedside and waiting for rest of the family to come , likely comfort care
CC time spent 31min
-
-
Date of Service: October 27, 2023
CC / HPI / ROS
-
Chief Complaint:
JOHN, azotemia
History of Present Illness:
cr up at 3, anuric with foely
wt is up significantly, BUN 87, k increasing 6.7
hgb stable but low 8.1
remains intubated, sedated
BP stable on pressors
Hypernatremia better at 139, FWF 40cc/hr
wt is up
Review of Systems:
on vent, Fio2 100%, PEEP 10
febrile
Labs
-
Labs:
WBC 29.7 10^3/uL (4.8-10.8) H 10/27/23 03:26
RBC 3.20 10^6/uL (4.20-5.40) L 10/27/23 03:26
Hgb 8.1 g/dL (12.0-16.0) L 10/27/23 03:26
Hct 27.3 % (37.0-47.0) L 10/27/23 03:26
Plt Count 332 10^3/uL (130-400) 10/27/23 03:26
eGFR 17.15 10/27/23 03:26
Phosphorus 6.0 mg/dl (2.5-4.5) H 10/21/23 04:42
Qng-Z-Nwltzdbxsle Pept 2430 pg/ml 10/21/23 04:42
Albumin 2.9 g/dl (3.5-5.0) L 10/27/23 03:26
Physical Exam
-
Vital Signs:
Vital Signs
Temp Pulse Resp BP Pulse Ox
98.5 F 84 18 134/46 91
10/27/23 11:21 10/27/23 07:25 10/27/23 07:25 10/27/23 06:00 10/27/23 07:52
Cardiovascular:: Regular rate and rhythm
Respiratory:: Bilateral: Coarse and Bilateral: Rhonchi
Lung Excursion:: Abnormal
Abdomen:: Nontender and Soft
Extremity Edema:: None: Bilateral: (trace)
Razo Catheter: Yes
[2023-10-27] MEDS: SUBLIMAZE 50 MCG IV (13:57)
[2023-10-27] MEDS: NSS (PRESERVATIVE FREE) 1 ML IV (14:08)
[2023-10-27] MEDS: ATIVAN 2 MG IV (14:08)
--- NOTE | 2023-10-27 14:12 | RESPNOTE ---
1400- Patient extubated for comfort without incident
--- NOTE | 2023-10-27 14:46 | W.PN.DEATH ---
Pronouncement of
-
Called to see patient to pronounce.
No spontaneous heart tones or respirations noted.
Patient not responsive to verbal stimuli.
Patient is pronounced .
Time of : 14:09 (PM)
Date of : 10/27/23
Cause of : 1a-Adult respiratory distress syndrome
1b- Bilateral pneumonia
Other contributing to - Acute kidney injury. Acute congestive heart failure
--- NOTE | 2023-10-27 15:37 | CHAP ---
Paged for Heather and family, before withdrawal of life support. Emotional and spiritual support provided, along with a prayer blanket. We commended Heather to God, giving thanks for her life and love.
--- NOTE | 2023-10-27 17:00 | PTCARENOTE ---
13:30 after discussion with physial family decided to proceed to end of life and withdraw all medical care. Propofol stopped. Fentanyl qtt infusing at 175/17.5 ml +Fentanyl 50 IV push administered. 14:00 patient extubated by RT. Kussmaul breathing
noted [facility] adm. patient time of 14:09. pt pronounced by Dr Galloway. family at the bedside. emotional support was offered to family, [employer] services informed.
post mortem care done: Gaye RT PICC line FMS and dophoff taking out. pt had no personal belongings or jewelry .
[2023-10-28 14:18] LABS: Haptoglobin 153 mg/dL (30-200)
--- NOTE | 2023-10-28 14:19 | W.DCSUMMARY ---
Discharge Summary
Discharge Data
Date of Admission: 10/14/23
Date of Discharge: 10/27/23
-
Pending Results: No
Hospital Course
Brief discharge summary
Cause of :
1a-Adult respiratory distress syndrome
1b- Bilateral pneumonia
Other contributing to - Acute kidney injury. Acute congestive heart failure
62-year-old female with a history of COPD, CAD, DM2, hypertension hyperlipidemia, vision loss, fracture of the fibular head/meniscal tear/rupture of ACL and has had issues with ambulatory dysfunction presented with shortness of breath and cough.
She was severely hypoxic and was in ARDS. Chest x-ray showed bilateral pneumonia. there was concern for concurrent CHF with preserved heart failure.
She had to be intubated for acute respiratory failure.
She was treated with broad-spectrum antibiotics and IV steroids. Was seen by pulmonary, ID, and cardiology.
She remained in ARDS without improvement. Was requiring 100% FiO2. Culture data was negative.
She started on renal failure and started to become oliguric.
With multiorgan failure she was having poor prognosis. Family saw her quality of life is very poor with vision loss and recent fracture issues and ambulatory dysfunction and as well as chronic comorbidities. and the daughters wanted
comfort as a goal with worsening organ dysfunction and poor prognosis. Patient was extubated to comfort and on 10/27/2023
continue wound care
Pulmonary Dr. Mesa
Cardiology Dr. Callum Agnel
Infectious disease Dr. Younger
Nephrology-Dr. Helms
Discharge Plan
-
Patient Disposition:
Date/Time
Date/Time: 10/27/23 14:09
Discharge Date and Time
Discharge Date/Time: 10/27/23 14:09
Print Language: YORUBA
== END 2023-10-27 14:09 | disposition expired | DRG 870 ==
LOC: ICU 19:07
PROVIDERS: Hospitalist; Internal Medicine Critical Care Medicine; Nurse Practitioner Family; Nurse Practitioner Primary Care; Physician Assistant Medical; Registered Nurse; Specialist; ADMITTING PHYSICIAN Internal Medicine; ATTENDING PHYSICIAN Internal Medicine; CONSULT PHYSICIAN Internal Medicine Critical Care Medicine; CONSULT PHYSICIAN Nuclear Medicine Nuclear Cardiology; EMERGENCY PHYSICIAN Emergency Medicine; FAMILY PHYSICIAN Internal Medicine; OTHER PHYSICIAN Internal Medicine; OTHER PHYSICIAN Internal Medicine Infectious Disease
PROC: 5A09357 Assistance with Respiratory Ventilation, Less than 24 Consecutive Hours, Continuous Positive Airway Pressure (ICD-10-PCS; 2023-10-14)
PROC: 0BH17EZ Insertion of Endotracheal Airway into Trachea, Via Natural or Artificial Opening (ICD-10-PCS; 2023-10-17)
PROC: 5A1955Z Respiratory Ventilation, Greater than 96 Consecutive Hours (ICD-10-PCS; 2023-10-17)
PROC: 03HY32Z Insertion of Monitoring Device into Upper Artery, Percutaneous Approach (ICD-10-PCS; 2023-10-18)
PROC: 02HV33Z Insertion of Infusion Device into Superior Vena Cava, Percutaneous Approach (ICD-10-PCS; 2023-10-18)
PROC: 30233N1 Transfusion of Nonautologous Red Blood Cells into Peripheral Vein, Percutaneous Approach (ICD-10-PCS; 2023-10-19)
DX: A41.89 Other specified sepsis (principal); I50.33 Acute on chronic diastolic (congestive) heart failure; J80 Acute respiratory distress syndrome; J12.9 Viral pneumonia, unspecified; J44.1 Chronic obstructive pulmonary disease with (acute) exacerbation; J44.0 Chronic obstructive pulmonary disease with (acute) lower respiratory infection; Z68.42 Body mass index [BMI] 45.0-49.9, adult; I13.0 Hypertensive heart and chronic kidney disease with heart failure and stage 1 through stage 4 chronic kidney disease, or unspecified chronic kidney disease; N17.9 Acute kidney failure, unspecified; E87.29 Other acidosis; E87.0 Hyperosmolality and hypernatremia; E78.00 Pure hypercholesterolemia, unspecified; I25.10 Atherosclerotic heart disease of native coronary artery without angina pectoris; F31.9 Bipolar disorder, unspecified; F41.9 Anxiety disorder, unspecified; D63.8 Anemia in other chronic diseases classified elsewhere; N18.31 Chronic kidney disease, stage 3a; G25.0 Essential tremor; E11.22 Type 2 diabetes mellitus with diabetic chronic kidney disease; E66.01 Morbid (severe) obesity due to excess calories; E11.40 Type 2 diabetes mellitus with diabetic neuropathy, unspecified; M79.7 Fibromyalgia; H54.8 Legal blindness, as defined in USA; K21.9 Gastro-esophageal reflux disease without esophagitis; I35.0 Nonrheumatic aortic (valve) stenosis; E11.319 Type 2 diabetes mellitus with unspecified diabetic retinopathy without macular edema; E11.65 Type 2 diabetes mellitus with hyperglycemia; J30.2 Other seasonal allergic rhinitis; E87.5 Hyperkalemia; S83.249A Other tear of medial meniscus, current injury, unspecified knee, initial encounter; S82.831A Other fracture of upper and lower end of right fibula, initial encounter for closed fracture; S83.241A Other tear of medial meniscus, current injury, right knee, initial encounter; S83.511A Sprain of anterior cruciate ligament of right knee, initial encounter; W19.XXXA Unspecified fall, initial encounter; Z11.52 Encounter for screening for COVID-19; Z79.4 Long term (current) use of insulin; Z79.82 Long term (current) use of aspirin; Z79.899 Other long term (current) drug therapy; Z87.891 Personal history of nicotine dependence
CPT/HCPCS: 36600; 71045; 71260; 74018; 76775; 80048; 80053; 80202; 81003; 81015; 82248; 82436; 82570; 82805; 82947; 82962; 83010; 83036; 83605; 83615; 83735; 83880; 83935; 84100; 84145; 84295; 84300; 84478; 84484; 85014; 85018; 85025; 85027; 85045; 85610; 85730; 86140; 86850; 86900; 86901; 86920; 87040; 87070; 87086; 87205; 87324; 87449; 87502; 87807; 87811; 87899; 93005; 93306; 94003; 94640; 94660; 94669; 96365; 96366; 96375; 97163; 97167; 99291; J1325; P9016; Q9967